=== PATIENT | male | born 1945 | race Caucasian/White ===

== ENCOUNTER 2018-05-08 11:35 | Outpatient (CLI) | payer MEDICARE, BC ==
[2018-05-08 12:04] LABS: #Lymphocytes 0.7 thou/uL (1.20-3.40); #Monocytes 0.6 thou/uL (0.11-0.59); #Neutrophils 2.9 thou/uL (1.40-6.50); %Basophils 0.6 % (0.0-1.0); %Eosinophils 19.4 % (0.0-10.0); %Lymphocytes 13.1 % (21.0-51.0); Hemoglobin 9.2 g/dL (14.0-18.0); Mean Corpuscular HGB CONC 32.4 g/dL (32.0-36.0); Mean Corpuscular Hemoglobin 30.4 pg (27.0-31.0); Mean Corpuscular Volume 93.8 fL (78.0-98.0); Platelet Count 144 thou/uL (130-400); RBC Distribution Width 14.4 % (11.5-14.5); Red Blood Cell (RBC) Count 3.03 mill/uL (4.70-6.10); White Blood Cell (WBC) Count 5.3 thou/uL (4.8-10.8)
[2018-05-08 12:16] LABS: Anion Gap 14 mmol/L (10-20); BUN (Urea Nitrogen) 99 mg/dL (8.4-25.7); Calc. Creatinine Clearance 0 mL/min (70-130); Carbon Dioxide 21 mmol/L (23-31); Chloride 108 mmol/L (98-107); Estimated GFR-MDRD 20; Glucose 83 mg/dL (83-110); Potassium 4.7 mmol/L (3.5-5.1); Sodium 138 mmol/L (136-145)
== END 2018-05-08 11:36 | disposition home or self-care (01) ==
LOC: LABBT 11:35
PROVIDERS: ATTEND Orthopaedic Surgery Hand Surgery
DX: Z01.812 Encounter for preprocedural laboratory examination (principal); G56.22 Lesion of ulnar nerve, left upper limb; G56.02 Carpal tunnel syndrome, left upper limb
CPT/HCPCS: 80048; 85025; 93005; 93010

== ENCOUNTER → 2018-06-04 | Day surgery (SDC) | payer MEDICARE, BC ==
[2018-06-03 09:34] VITALS: BMI 46.5
[~2018-06-04] MED LIST: Lidocaine 1% PF 5 ML VIAL ONE; Sodium Bicarbonate 2.5 MEQ/5 ML VIAL ONE
[2018-06-04 12:32] VITALS: TEMP 97.7
--- NOTE | 2018-06-04 13:36 | ULT ---
SONOGRAPHIC GUIDED RIGHT AXILLARY LYMPH NODE BIOPSY: HISTORY: Adenopathy. FINDINGS: After explaining the procedure and answering all questions, evaluation of the axillae was performed. At the lower right axilla, the largest lymph node visualized sonographically was located, measuring up to 2.3 cm. Sterile technique, buffered local anesthesia, sonographic guidance, and a lateral approach were used to carefully advance an 18 gauge core biopsy needle to the level of the lymph node. A total of four passes were made and submitted to pathology for evaluation. Dr. Mark was present. Post procedure imaging showed no evidence of complication. The patient tolerated the procedure well and was dismis sed in good condition. IMPRESSION: Technically successful sonographic guided right axillary lymph node biopsy. Pathology is pending. POS: HAILEY
== END ==
LOC: ULT 09:58
PROVIDERS: ATTEND Internal Medicine Medical Oncology
PROC: 07B53ZX Excision of Right Axillary Lymphatic, Percutaneous Approach, Diagnostic (ICD-10-PCS; principal; 2018-06-04)
DX: I88.8 Other nonspecific lymphadenitis (principal); E11.22 Type 2 diabetes mellitus with diabetic chronic kidney disease; N18.9 Chronic kidney disease, unspecified; D64.9 Anemia, unspecified; I25.10 Atherosclerotic heart disease of native coronary artery without angina pectoris; I25.2 Old myocardial infarction; Z87.891 Personal history of nicotine dependence; Z95.1 Presence of aortocoronary bypass graft; Z95.5 Presence of coronary angioplasty implant and graft; Z79.899 Other long term (current) drug therapy; Z79.02 Long term (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 of antithrombotics/antiplatelets
CPT/HCPCS: 38505; 88184; 88305; 88312; J2001

== ENCOUNTER 2018-07-22 12:09 | Outpatient (CLI) | payer MEDICARE, BC | END 2018-07-22 12:10 | disposition home or self-care (01) | LOC: CP 12:09 | PROVIDERS: ATTEND Internal Medicine | DX: D86.9 Sarcoidosis, unspecified (principal) | CPT/HCPCS: 94060; 94727; 94729 ==

== ENCOUNTER 2019-08-10 12:22 | Outpatient (CLI) | payer MEDICARE, BC ==
--- NOTE | 2019-08-10 13:49 | RAD ---
EXAM: Chest 2 views: HISTORY: Sarcoidosis COMPARISON: 05/06/2018 FINDINGS: There is an enlarged cardiomediastinal silhouette. The patient is status post CABG. There is no derick dence of consolidation, mass, or pleural effusion. The bones are unremarkable. IMPRESSION: No evidence of acute cardiopulmonary disease
--- NOTE | 2019-08-11 08:49 | PFT ---
PATIENT HISTORY: HEIGHT: 70 WEIGHT: 285 SMOKER: NO HOW LON PACKS PER DAY: 1 PRODUCTIVE COUGH: NO LUNG DISEASE: PHYSICIAN INTERPRETATION FINAL REPORT: Patient had fair effort and good cooperation. FVC 2.47 (57%), FEV1 1.79 (56%), FEV1/FVC 0.73. DIFFUSION 10.22 (35%) There is a symmetric reduction to both the FEV1 and FVC consistent with restrictive air flow limitation. Lung volumes were previous reduced which confirms volume restriction. Diffusion capacity is severely impaired. Compared to July 2018, there has been a near significant decline in the FVC, a significant decline in the FEV1 (230 ml), and a significant reduction in the diffusion capacity. IMPRESSION: Overall, these pulmonary function studies are consistent with a moderately severe restrictive process with severely reduced gas exchange. Clinical correlation for progressive restrictive processes should be considered. Body habitus is likely contributing, in part, to the patient's restrictive process. Senior Control Systems Engineer: STEVE Pattern Changer: STEVE VERMA
== END 2019-08-10 12:23 | disposition home or self-care (01) ==
LOC: CP 12:22 → RAD 12:23
PROVIDERS: ATTEND Internal Medicine
DX: D86.9 Sarcoidosis, unspecified (principal)
CPT/HCPCS: 71046; 94010; 94729

== ENCOUNTER 2020-01-09 09:54 | Inpatient (IN) | payer MEDICARE, BC ==
[~2020-01-09 09:54] MED LIST changes: -Lidocaine 1% PF 5 ML VIAL ONE; +Rocuronium Bromide 10 MG/ML (10ML VIAL) ONE; -Sodium Bicarbonate 2.5 MEQ/5 ML VIAL ONE
[2020-01-09 10:41] LABS: ALT (SGPT) 9 U/L (8-55); AST (SGOT) 12 U/L (5-34); Albumin 3.7 g/dL (3.4-4.8); Alkaline Phosphatase 84 U/L (40-110); Anion Gap 19 mmol/L (10-20); Bilirubin, Total 0.3 mg/dL (0.2-1.2); Calc. Creatinine Clearance 0 mL/min (70-130); Calcium 8.5 mg/dL (7.8-10.44); Carbon Dioxide 18 mmol/L (23-31); Chloride 111 mmol/L (98-107); Estimated GFR-MDRD 13; Globulin 2.5 g/dL (2.4-3.5); Glucose 108 mg/dL (83-110); Potassium 5.4 mmol/L (3.5-5.1); Protein, Total 6.2 g/dL (5.8-8.1); Sodium 143 mmol/L (136-145)
--- NOTE | 2020-01-09 10:47 | RAD ---
PORTABLE CHEST: Date: 01/09/2020 COMPARISON: 08/10/19 study. HISTORY: Shortness of breath on exertion. FINDINGS: Heart size is enlarged. Pulmonary vessels are engorged. Slightly asymmetric parenchymal change in the right lower and upper lung reed. I cannot definitely exclude some developing pneumonia. IMPRESSION: Cardiomegaly with postop sternotomy change with pulmonary vascular engorgement suggesting some elemen t of edema. There are asymmetric right upper and right lower lobe parenchymal change. This may be jus t a manifestation of edema, although early infiltrates are not excluded. POS: TPC
[2020-01-09 10:49] LABS: CKMB 2.8 ng/mL (0-6.6)
[2020-01-09 10:55] LABS: BUN (Urea Nitrogen) 137 mg/dL (8.4-25.7)
[2020-01-09] MEDS ORDERED: Furosemide 40 MG/4 ML VIAL ONE (13:17)
[2020-01-09] MEDS ORDERED: Senokot S 8.6-50 MG TAB PO PRN (14:07)
[2020-01-09] MEDS ORDERED: Famotidine 20 MG TAB PO PRN (14:09)
[2020-01-09 14:15] LABS: Troponin I 0.048 ng/mL (< 0.028)
[2020-01-09] MEDS ORDERED: Dulaglutide [Trulicity] 0.5 ML SC SCH (14:30)
[2020-01-09 14:36] LABS: #Eosinphils 0.6 thou/uL (0.0-0.7); #Lymphocytes 0.7 thou/uL (1.20-3.40); #Monocytes 0.5 thou/uL (0.11-0.59); #Neutrophils 4.2 thou/uL (1.40-6.50); %Basophils 0.1 % (0.0-1.0); %Lymphocytes 11.5 % (21.0-51.0); %Neutrophils 70.4 % (42.0-75.0); Hemoglobin 10.5 g/dL (14.0-18.0); Mean Corpuscular HGB CONC 31.7 g/dL (32.0-36.0); Mean Corpuscular Volume 94.7 fL (78.0-98.0); Mean Platelet Volume 10.2 fL (7.4-10.4); Platelet Count 163 thou/uL (130-400); RBC Distribution Width 15.2 % (11.5-14.5); Red Blood Cell (RBC) Count 3.48 mill/uL (4.70-6.10); White Blood Cell (WBC) Count 5.9 thou/uL (4.8-10.8)
[2020-01-09] MEDS: Furosemide 40 MG/4 ML VIAL SLOW IVP SCH ×2 (16:42→20:29)
[2020-01-09] MEDS ORDERED: Dextrose 5% in Water 1,000 ML IV PRN (17:02)
[2020-01-09] MEDS ORDERED: Dextrose 50% Abboject 50 ML SYRINGE IVP PRN (17:02)
[2020-01-09] MEDS: HumaLOG 300 UNITS/3 ML VIAL SC PRN (17:21)
[2020-01-09 18:02] LABS: Troponin I 0.048 ng/mL (< 0.028)
--- NOTE | 2020-01-09 19:34 | HP ---
CHIEF COMPLAINT: Shortness of breath and chest pressure. HISTORY OF PRESENT ILLNESS: A 74-year-old obese male with a history of CHF, coronary artery disease, chronic kidney disease, and type 2 diabetes mellitus, presenting with volume overload. Last night, he was not able to sleep. He had significant orthopnea. The patient also experienced chest pressure as if someone sitting on the chest. He has not gained weight for the last 2 years, almost stable. He has no fever. No sick contacts at home. No flu-like symptoms. He takes Lasix twice a day and that was not helping him much with volume issues. The patient also follows with Dr. García, commander internal affairs. Recently, one of his home regimen of Kenny has been reduced to half the dose and his kidney function was improved from the previous value. The patient will be admitted for CHF exacerbation/ volume overload as well as to rule out acute coronary syndrome. REVIEW OF SYSTEMS: Pertinent addressed in the history of present illness. The patient did not have any fever, night sweats, or chills. No nausea, vomiting, abdominal pain, constipation, hematuria, dysuria, or hematochezia. He has significant lower extremity swelling. Denies any headache or blurriness. He has shortness of breath at rest secondary to volume overload. ALLERGIES: HE HAS NO KNOWN DRUG ALLERGIES. PAST MEDICAL HISTORY: 1. Coronary artery disease, status post CABG remotely. 2. Type 2 diabetes mellitus. 3. Chronic kidney disease. 4. Hyperlipidemia. 5. Hypertension. 6. Anemia of kidney disease. SOCIAL HISTORY: No smoking or alcohol use. He quit smoking when he had a CABG. He lives with his family. FAMILY HISTORY: Both parents had cardiovascular disease. PHYSICAL EXAMINATION: GENERAL: The patient is afebrile. Currently, he is normotensive. Monitor shows some PVCs. The patient, though he is able to talk with the help of nasal cannula oxygen, it seems that obvious he is short of breath prior to initiating this oxygen. He looks quite morbidly obese, but very pleasant person. HEENT: Pupils are equal, round, and reactive to light. Anicteric. Mucous membranes moist. CARDIOVASCULAR: Regular rate and rhythm without murmurs, rubs, or gallops. LUNGS: Anterior auscultation, did not appreciate any coarse. Adventitious lung sounds. ABDOMEN: Quite protuberant, but soft. Bowel sounds are present. EXTREMITIES: He has chronic venous stasis and some erythema probably due to the stasis rather than significant. It does not appear to be cellulitis. He does have some weeping on his left foot, again this is mainly a volume issue. IMAGING STUDIES: His EKG is sinus with PVCs. His chest x-ray showed cardiomegaly with post sternotomy changes. There is pulmonary vascular engorgement suggesting some element of edema. LABORATORY DATA: Potassium 5.4 and creatinine 4.63. Troponin 0.032. BNP 1199. Hemoglobin 10.5, platelets 168,000, and WBC 5.9. IMPRESSION AND PLAN: This is a 74-year-old male with a history of coronary artery disease and possible congestive heart failure, presenting with acute on chronic congestive heart failure exacerbation, needs to be ascertained whether it is systolic, diastolic, or combination. We will get the 2D echo. I started him on Lasix IV 3 times. Strict input and output. Monitor weight. 2 g sodium diet along with diabetic diet. He is also on Kenny. The patient states that he only takes half the tablet of the usual dose. Will continue the same until verified by the commander internal affairs. 1. Acute on chronic kidney disease, IV diuresis with caution. I talked to Dr. García, who would likely see the patient this evening. 2. Hyperkalemia. I suggested to the patient a small dose of Kayexalate. The patient does not want to take that right now. We will follow Nephrology recommendation. I will also get the 2D echo to assess his ejection fraction status. He does not have an echo in the last 6 months at least not shown in the system. 3. Rest of the management based on clinical course. 4. Full code. 5. Heparin for deep venous thrombosis prophylaxis, renally dosed. Job ID: [id number] [facility]
[2020-01-09] MEDS: Heparin 5,000 UNITS/ML VIAL SC SCH (20:29)
[2020-01-09] MEDS: Sacubitril 49 MG/Valsartan 51 MG TABLET PO SCH (20:30)
[2020-01-09] MEDS: diphenhydrAMINE 50 MG CAP PO SCH (20:30)
[2020-01-09] MEDS: Acetaminophen 325 MG TAB PO PRN (20:30)
[2020-01-09] MEDS: Carvedilol 25 MG TAB PO SCH (20:30)
[2020-01-09] MEDS: Atorvastatin Calcium 40 MG TAB PO SCH (20:30)
[2020-01-09] MEDS: Clopidogrel Bisulfate 75 MG TAB PO SCH (20:30)
[2020-01-09] MEDS ORDERED: Sacubitril 49 MG/Valsartan 51 MG TABLET PO SCH (21:00)
[2020-01-09] MEDS: NPH, Human Insulin Isophane 300 UNIT/3 ML VIAL SC SCH (21:28)
[2020-01-10 04:19] LABS: #Eosinphils 0.6 thou/uL (0.0-0.7); #Lymphocytes 0.7 thou/uL (1.20-3.40); #Monocytes 0.7 thou/uL (0.11-0.59); %Basophils 0.2 % (0.0-1.0); %Eosinophils 10.4 % (0.0-10.0); %Lymphocytes 11.9 % (21.0-51.0); %Monocytes 10.8 % (0.0-10.0); %Neutrophils 66.7 % (42.0-75.0); Mean Corpuscular HGB CONC 32.3 g/dL (32.0-36.0); Mean Corpuscular Hemoglobin 30.3 pg (27.0-31.0); Mean Corpuscular Volume 93.7 fL (78.0-98.0); Platelet Count 158 thou/uL (130-400)
[2020-01-10] MEDS: Acetaminophen 325 MG TAB PO PRN (05:56)
[2020-01-10] MEDS ORDERED: Furosemide 40 MG/4 ML VIAL SLOW IVP SCH (06:00)
[2020-01-10] MEDS: Furosemide 40 MG/4 ML VIAL SLOW IVP SCH ×3 (08:32→21:18)
[2020-01-10] MEDS: Sacubitril 49 MG/Valsartan 51 MG TABLET PO SCH ×2 (08:33→21:17)
[2020-01-10] MEDS: Carvedilol 25 MG TAB PO SCH ×2 (08:33→21:18)
[2020-01-10] MEDS: Heparin 5,000 UNITS/ML VIAL SC SCH ×2 (08:33→21:19)
[2020-01-10] MEDS: Ferrous Sulfate 325 MG TAB PO SCH ×2 (08:33→08:44)
[2020-01-10] MEDS: NPH, Human Insulin Isophane 300 UNIT/3 ML VIAL SC SCH ×2 (08:33→21:18)
[2020-01-10 09:25] LABS: Anion Gap 19 mmol/L (10-20); Calc. Creatinine Clearance 34 mL/min (70-130); Calcium 8.4 mg/dL (7.8-10.44); Carbon Dioxide 17 mmol/L (23-31); Chloride 110 mmol/L (98-107); Estimated GFR-MDRD 15; Glucose 140 mg/dL (83-110); Potassium 5.7 mmol/L (3.5-5.1); Sodium 140 mmol/L (136-145)
[2020-01-10 09:36] LABS: BUN (Urea Nitrogen) 130 mg/dL (8.4-25.7)
[2020-01-10] MEDS ORDERED: Heparin 10,000 UNITS/ 10 ML VIAL ONE (09:39)
[2020-01-10] MEDS ORDERED: tiZANidine HCl 4 MG TAB PO PRN (09:40)
[2020-01-10] MEDS ORDERED: Nitroglycerin 4.9 GM Bottle SL PRN ×2 (09:40→10:11)
[2020-01-10] MEDS ORDERED: Non-Formulary Item 1 EACH (Acetaminophen [Tylenol] 2 TAB) PO PRN (09:40)
--- NOTE | 2020-01-10 09:54 | PDOC.HOSPP ---
- Subjective Encounter Date: 01/10/20 Encounter Time: 09:50 Subjective: sob, on O2 - Objective Vital Signs & Weight: Vital Signs (12 hours) Temp Pulse Resp BP BP Pulse Ox 01/10/20 07:22 97.9 F 83 18 139/76 94 L 01/10/20 04:00 97.9 F 75 23 H 94/51 L 93 L 01/10/20 00:21 92 67 H 92 L Weight Weight 314 lb 11.2 oz I&O: 01/09/20 01/10/20 01/11/20 06:59 06:59 06:59 Intake Total 240 Output Total 400 Balance -160 Result Diagrams: 01/10/20 04:06 01/10/20 09:03 Additional Labs: Accuchecks 01/10/20 01/09/20 01/09/20 06:29 20:39 16:47 POC Glucose 155 H 203 H 196 H Hospitalist ROS - Medication Medications: Active Medications Generic Name Dose Route Start Last Admin Trade Name Freq PRN Reason Stop Dose Admin Acetaminophen 650 mg 01/09/20 14:07 01/10/20 05:56 Tylenol PO 650 mg Q4H PRN Administration Headache/Fever/Mild Pain (1-3) Atorvastatin Calcium 80 mg 01/09/20 21:00 01/09/20 20:30 Lipitor PO 80 mg HS RAYNA Administration Carvedilol 25 mg 01/09/20 21:00 01/10/20 08:33 Coreg PO 25 mg BID RAYNA Administration Clopidogrel Bisulfate 75 mg 01/09/20 21:00 01/09/20 20:30 Plavix PO 75 mg QPM RAYNA Administration Diphenhydramine HCl 50 mg 01/09/20 21:00 01/09/20 20:30 Benadryl PO 50 mg HS RAYNA Administration Ferrous Sulfate 325 mg 01/10/20 08:00 01/10/20 08:44 Feosol PO Not Given QAM-WM RAYNA Furosemide 40 mg 01/09/20 15:00 01/10/20 08:32 Lasix SLOW IVP 40 mg TID RAYNA Administration Heparin Sodium (Porcine) 5,000 units 01/09/20 21:00 01/10/20 08:33 Heparin SC 5,000 units BID RAYNA Administration Insulin Human Lispro 0 units 01/09/20 17:02 03/22/20 17:21 Humalog SC 2 unit .MILD SLIDING SCALE PRN Administration MILD SLIDING SCALE Protocol Insulin Human NPH 15 unit 01/09/20 21:00 01/10/20 08:33 Humulin N SC 15 unit BID RAYNA Administration Sacubitril/Valsartan 0.5 tab 01/09/20 21:00 01/10/20 08:33 Entresto 49 Mg-51 Mg Tablet PO 0.5 tab BID RAYNA Administration - Exam General Appearance: awake alert Neck: no JVD Heart: RRR, no murmur Respiratory - other findings: marked decreased BS Gastrointestinal: soft, non-distended, normal bowel sounds Extremities: 1+ LE edema Hosp A/P (1) Acute on chronic systolic and diastolic heart failure, NYHA class 3 Code(s): I50.43 - ACUTE ON CHRONIC COMBINED SYSTOLIC AND DIASTOLIC HRT FAIL Status: Acute (2) Acute on chronic renal failure Code(s): N17.9 - ACUTE KIDNEY FAILURE, UNSPECIFIED; N18.9 - CHRONIC KIDNEY DISEASE, UNSPECIFIED Status: Acute Qualifiers: Acute renal failure type: unspecified Chronic kidney disease stage: stage 5 , not on chronic dialysis Qualified Code(s): N17.9 - Acute kidney failure, unspecified; N18.5 - Chronic kidney disease, stage 5 (3) Acute respiratory failure with hypoxia Code(s): J96.01 - ACUTE RESPIRATORY FAILURE WITH HYPOXIA Status: Acute (4) DM type 2 causing CKD stage 4 Code(s): E11.22 - TYPE 2 DIABETES MELLITUS W DIABETIC CHRONIC KIDNEY DISEASE; N18.4 - CHRONIC KIDNEY DISEASE, STAGE 4 (SEVERE) Status: Acute - Plan HD catheter for HD HD per nephrology cont home meds
[2020-01-10] MEDS ORDERED: CEFAZOLIN 2 GM in Premix Bag 1 BAG IVPB SCH (10:00)
[2020-01-10] MEDS ORDERED: Acetaminophen 325 MG TAB PO PRN (10:12)
[2020-01-10 10:37] LABS: HIV (1/2) Antibody/Antigen Non-Reactive (NonReactive); HIV 1/2 INDEX 0.16 S/CO (<1.00); Hep C IgG Ab Non-Reactive (NonReactive); Hep C Index 0.05 S/CO (0-0.79)
[2020-01-10] MEDS ORDERED: Sodium Chloride 0.9% 10 ML ONE (11:06)
[2020-01-10] MEDS ORDERED: Bupivacaine PF 0.5% 30 ML VIAL ONE (11:06)
[2020-01-10] MEDS ORDERED: Lidocaine 1% w/Epinephrine 1:100K 20 ML VIAL ONE (11:06)
[2020-01-10] MEDS ORDERED: Heparin 10,000 UNITS/1 ML VIAL ONE (11:06)
--- NOTE | 2020-01-10 11:45 | ULT ---
BILATERAL UPPER EXTREMITY VEIN MAPPING: HISTORY: End stage renal disease. Mapping for dialysis access. FINDINGS: RIGHT: CEPHALIC: Proximal humerus 2.7 cm Mid humerus 2.9 cm Distal 2.6 cm Elbow 3.0 cm Proximal forearm 3.0 cm Mid 2.5 cm Distal 2.7 cm BASILIC: Proximal humerus 4.2 cm Mid humerus 4.6 cm Distal 3.4 cm Elbow 3.3 cm Proximal forearm 1.4 cm Mid 1.7 cm Distal 1.8 cm LEFT: CEPHALIC: Proximal humerus 3.7 cm Mid humerus 2.6 cm Distal 2.1 cm Elbow 2.7 cm Proximal forearm 4.0 cm Mid 2.6 cm Distal 2.2 cm BASILIC: Proximal humerus 3.0 cm Mid humerus 3.8 cm Distal 3.1 cm Elbow 2.8 cm Proximal forearm 2.0 cm Mid 2.5 cm Distal 2.6 cm RIGHT: Brachial artery 4.7 mm. Radial artery 2.1 mm. Ulnar artery 2.2 mm. LEFT: Brachial artery 4.4 mm. Radial artery 2.5 mm. Ulnar artery 2.3 mm. IMPRESSION: Vein mapping as above. POS: TPC
--- NOTE | 2020-01-10 13:28 | CON ---
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 Dr. García has asked me to see him regarding establishment of hemodialysis access, IV access, and a primary fistula. The patient currently is dyspneic and his hemoglobin is 10, white count 6, carbon dioxide 17, sodium 140, and potassium 5.7. Plan is for hemodialysis catheter today and central line and defer primary fistula to later in the week. We will obtain ultrasound vein mapping in the interim. He has a left antecubital IV, which has been removed immediately on my consultation and establishment of a hand IV initiated. We will place the central line due to IV access. ALLERGIES: NONE. HE REPORTS MORPHINE ONCE CAUSED NAUSEA AND VOMITING, BUT HE IS NOT ALLERGIC TO IT. SOCIAL HISTORY: Tobacco, none. Alcohol, none. MEDICATIONS: 1. Insulin. 2. Atorvastatin. 3. Allopurinol. 4. Furosemide. 5. Plavix. 6. Carvedilol. 7. Trulicity. 8. Ferrous sulfate. PAST SURGICAL HISTORY: Multiple stents prior to undergoing coronary artery bypass grafting [place] [address] Ponce. He has had stents placed since then. Last seen by Dr. Henriquez in 2011 for stent and cath. He saw Dr. Henriquez last year and was supposed to see him next week. The patient had a colonoscopy a year ago. He has not had any prior surgeries otherwise. PAST MEDICAL HISTORY: Type 2 diabetes mellitus; coronary artery disease status post CABG and stents, followed by Dr. Henriquez; chronic kidney disease, currently end-stage renal disease, need to initiate dialysis; hyperlipidemia; hypertension; chronic anemia. REVIEW OF SYSTEMS: Ten-point noncontributory. FAMILY HISTORY: Noncontributory. PHYSICAL EXAMINATION: GENERAL: 5 feet 11 inches, 314 pounds, and 43 BMI. The patient appears slightly dyspneic. VITAL SIGNS: Temperature 97.9 degrees, pulse 83, respirations 18, and blood pressure 139/76. HEAD, EARS, EYES, NOSE, AND THROAT: Unremarkable. Sclerae nonicteric. SKIN: Nonjaundiced. LUNGS: Clear to auscultation. No wheezing. CARDIAC: Regular rate and rhythm. ABDOMEN: Obese, large pannus, soft, and nontender. EXTREMITIES: Chronic venous stasis changes, lower extremities. Palpable pedal pulses. Palpable radial pulses. IV left antecubital removed. He does have veins in his hand. LABORATORY DATA: As noted above. ASSESSMENT/PLAN: 1. End-stage renal disease. Marking ultrasound has been done. Interpretation pending. We will plan primary fistula later in the week. He needs hemodialysis access. We will plan that today as well as a central line. He understands risks and benefits, consents. 2. Metabolic syndrome. 3. Morbid obesity. 4. Insulin-dependent diabetes mellitus. 5. Hypertension. 6. Coronary artery disease, followed by Dr. Henriquez. 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 Job ID: [id number]
[2020-01-10] MEDS ORDERED: Acetaminophen 500 MG TAB PO PRN (13:37)
--- NOTE | 2020-01-10 13:47 | RAD ---
Chest one view HISTORY: Central line placement. COMPARISON: 01/09/2020. FINDINGS: Cardiac silhouette is magnified and enlarged. Pulmonary vasculature remains engorged with w idespread reticulonodular interstitial prominence and patchy areas of ill-defined parenchymal opacity. Small amount of fluid within the right chest, extending into the minor fissure. Small amount of left pleural fluid also apparent. Patient is slightly rotated leftward. Postoperative changes mediastinum are evident. Tip of a left internal jugular central venous catheter projects over the superior vena cava. Tip of a large caliber right internal jugular dialysis type catheter overlies the cavoatrial junction . No evidence of pneumothorax. IMPRESSION : Bilateral internal jugular catheters are in good radiographic position. Pulmonary vascular congestion/edema with small bilateral pleural effusions.
[2020-01-10 15:25] LABS: Hep B Surf Ag Non-Reactive S/CO (NonReactive)
[2020-01-10] MEDS ORDERED: Tuberculin PPD 0.1 ML VIAL I-DERMAL SCH (16:45)
[2020-01-10] MEDS: HumuLIN 70/30 (300 UNITS/3 ML VIAL) SC SCH (17:17)
[2020-01-10] MEDS: Atorvastatin Calcium 40 MG TAB PO SCH (21:17)
[2020-01-10] MEDS: Clopidogrel Bisulfate 75 MG TAB PO SCH (21:18)
[2020-01-10] MEDS: diphenhydrAMINE 50 MG CAP PO SCH (21:18)
[2020-01-11 04:24] LABS: #Eosinphils 0.3 thou/uL (0.0-0.7); #Lymphocytes 0.6 thou/uL (1.20-3.40); #Monocytes 0.8 thou/uL (0.11-0.59); #Neutrophils 5.2 thou/uL (1.40-6.50); %Basophils 0.2 % (0.0-1.0); %Eosinophils 4.2 % (0.0-10.0); %Lymphocytes 9.2 % (21.0-51.0); %Monocytes 11.4 % (0.0-10.0); %Neutrophils 75.1 % (42.0-75.0); Hemoglobin 9.7 g/dL (14.0-18.0); Mean Corpuscular HGB CONC 32.4 g/dL (32.0-36.0); Mean Corpuscular Hemoglobin 30.7 pg (27.0-31.0); Mean Corpuscular Volume 94.6 fL (78.0-98.0); Mean Platelet Volume 10.1 fL (7.4-10.4); Platelet Count 158 thou/uL (130-400); RBC Distribution Width 15.1 % (11.5-14.5); Red Blood Cell (RBC) Count 3.15 mill/uL (4.70-6.10); White Blood Cell (WBC) Count 6.9 thou/uL (4.8-10.8)
[2020-01-11] MEDS: Acetaminophen 325 MG TAB PO PRN (05:21)
[2020-01-11] MEDS: Heparin 5,000 UNITS/ML VIAL SC SCH ×2 (08:36→20:38)
[2020-01-11] MEDS: Carvedilol 25 MG TAB PO SCH ×2 (08:42→20:37)
[2020-01-11] MEDS: Sacubitril 49 MG/Valsartan 51 MG TABLET PO SCH ×2 (08:42→20:36)
[2020-01-11] MEDS: Ferrous Sulfate 325 MG TAB PO SCH (08:42)
[2020-01-11] MEDS: Allopurinol 100 MG TAB PO SCH (08:42)
[2020-01-11] MEDS: HumuLIN 70/30 (300 UNITS/3 ML VIAL) SC SCH ×2 (08:43→19:08)
[2020-01-11] MEDS: NPH, Human Insulin Isophane 300 UNIT/3 ML VIAL SC SCH ×2 (08:44→22:11)
[2020-01-11] MEDS: Furosemide 40 MG/4 ML VIAL SLOW IVP SCH ×3 (08:44→20:38)
[2020-01-11 09:45] LABS: Anion Gap 14 mmol/L (10-20); Calc. Creatinine Clearance 35 mL/min (70-130); Calcium 8.4 mg/dL (7.8-10.44); Carbon Dioxide 24 mmol/L (23-31); Chloride 106 mmol/L (98-107); Estimated GFR-MDRD 15; Glucose 90 mg/dL (83-110); Potassium 5.3 mmol/L (3.5-5.1); Sodium 139 mmol/L (136-145)
[2020-01-11] MEDS ORDERED: traMADol HCl 50 MG TAB PO PRN (10:04)
[2020-01-11 10:06] LABS: BUN (Urea Nitrogen) 118 mg/dL (8.4-25.7)
[2020-01-11] MEDS ORDERED: Protamine Sulfate 50 MG/5 ML VIAL ONE (12:22)
[2020-01-11] MEDS ORDERED: Lidocaine 1% w/Epinephrine 1:100K 20 ML VIAL ONE (12:22)
[2020-01-11] MEDS ORDERED: Bupivacaine PF 0.5% 30 ML VIAL ONE (12:22)
[2020-01-11] MEDS ORDERED: Heparin 5,000 UNITS/ML VIAL ONE (12:22)
--- NOTE | 2020-01-11 15:03 | PDOC.HOSPP ---
- Subjective Encounter Date: 01/11/20 Subjective: Feeling some better. Breathing is better. Reports sciatica pain. New for him. Bilateral. Manager Transportation Planning is [place]. - Objective Vital Signs & Weight: Vital Signs (12 hours) Temp Pulse Resp BP BP Pulse Ox 01/11/20 11:55 97.8 F 68 20 149/64 H 96 01/11/20 08:00 97.3 F L 84 16 129/73 96 01/11/20 03:26 97.6 F 73 20 134/62 93 L Weight Weight 324 lb 8.327 oz I&O: 01/10/20 01/11/20 01/12/20 06:59 06:59 06:59 Intake Total 240 720 Output Total 400 900 Balance -160 -180 Result Diagrams: 01/11/20 04:05 01/11/20 08:40 Additional Labs: Accuchecks 01/11/20 01/11/20 01/10/20 11:02 06:14 20:35 POC Glucose 88 99 180 H 01/10/20 01/10/20 16:58 11:29 POC Glucose 95 130 H Hospitalist ROS - Medication Medications: Active Medications Generic Name Dose Route Start Last Admin Trade Name Freq PRN Reason Stop Dose Admin Allopurinol 100 mg 01/11/20 09:00 01/11/20 08:42 Zyloprim PO 100 mg DAILY RAYNA Administration Atorvastatin Calcium 80 mg 01/09/20 21:00 01/10/20 21:17 Lipitor PO 80 mg HS RAYNA Administration Carvedilol 25 mg 01/09/20 21:00 01/11/20 08:42 Coreg PO 25 mg BID RAYNA Administration Clopidogrel Bisulfate 75 mg 01/09/20 21:00 01/10/20 21:18 Plavix PO Not Given QPM RAYNA Diphenhydramine HCl 50 mg 01/09/20 21:00 01/10/20 21:18 Benadryl PO 50 mg HS RAYNA Administration Ferrous Sulfate 325 mg 01/10/20 08:00 01/11/20 08:42 Feosol PO Not Given QAM-WM RAYNA Furosemide 40 mg 01/09/20 15:00 01/11/20 14:30 Lasix SLOW IVP 40 mg TID RAYNA Administration Heparin Sodium (Porcine) 5,000 units 01/09/20 21:00 01/11/20 08:36 Heparin SC Not Given BID [facility] Insulin Human Isoph/Insulin Regular 30 units 01/10/20 16:30 01/11/20 08:43 Humulin 70/30 SC Not Given BID-AC [facility] Insulin Human Lispro 0 units 01/09/20 17:02 01/09/20 17:21 Humalog SC 2 unit .MILD SLIDING SCALE PRN Administration MILD SLIDING SCALE Protocol Insulin Human NPH 15 unit 01/09/20 21:00 01/11/20 08:44 Humulin N SC Not Given BID [facility] Sacubitril/Valsartan 0.5 tab 01/09/20 21:00 01/11/20 08:42 Entresto 49 Mg-51 Mg Tablet PO 0.5 tab BID RAYNA Administration Sodium Chloride 10 ml 01/10/20 21:00 01/11/20 10:21 Flush - Normal Saline IVF Not Given Q12HR RAYNA - Exam General Appearance: NAD, awake alert General - other findings: Mobidly obese. Heart: RRR, no murmur, no gallops, no rubs, normal peripheral pulses Respiratory: CTAB, no wheezes, no rales, no ronchi, normal chest expansion, no tachypnea, normal percussion Gastrointestinal: soft, non-tender, non-distended, normal bowel sounds, no palpable masses, no hepatomegaly, no splenomegaly, no bruit Extremities: 2+ LE edema Extremities - other findings: RLE edema >L. RLE erythema and warmth. Neurological: no new deficit Musculoskeletal: generalized weakness Psychiatric: normal affect, normal behavior, A&O x 3 Hosp A/P (1) Volume overload Code(s): E87.70 - FLUID OVERLOAD, UNSPECIFIED Status: Acute (2) ESRD (end stage renal disease) on dialysis Code(s): N18.6 - END STAGE RENAL DISEASE; Z99.2 - DEPENDENCE ON RENAL DIALYSIS Status: Acute (3) Cellulitis of right leg without foot Code(s): L03.115 - CELLULITIS OF RIGHT LOWER LIMB Status: Acute (4) Sciatica Code(s): M54.30 - SCIATICA, UNSPECIFIED SIDE Status: Acute (5) Diabetes mellitus Code(s): E11.9 - TYPE 2 DIABETES MELLITUS WITHOUT COMPLICATIONS Status: Acute (6) Acute on chronic systolic and diastolic heart failure, NYHA class 3 Code(s): I50.43 - ACUTE ON CHRONIC COMBINED SYSTOLIC AND DIASTOLIC HRT FAIL Status: Acute (7) Acute respiratory failure with hypoxia Code(s): J96.01 - ACUTE RESPIRATORY FAILURE WITH HYPOXIA Status: Acute (8) Chronic anemia Code(s): D64.9 - ANEMIA, UNSPECIFIED Status: Acute - Plan Volume overloaded with ESRD and initiation of HD. Had TLC and tunneled HD catheter placed yesterday. AV fistula being placed today. HD per Nephrology. Feeling better after initial HD. Unclear if this is related to CHF. Will discuss with his Manager Transportation Planning, Dr. Henriquez. We have no record of and Echo or documented EF to indicate failure here. XR of the lumbar spine. PT. RLE cellulitis was treated as OP with oral PCN. He did not finish his course. Will add Vancomycin for now, given the new lines and procedures. Glucose well controlled. Patient indicates he has long-standing anemia. Followed with Dr. Leonard and gets Procrit injections.
--- NOTE | 2020-01-11 16:27 | RAD ---
FOUR VIEWS OF THE LUMBAR SPINE 01/11/20 HISTORY: Sciatica. FINDINGS: There is multilevel lateral osteophyte formation noted within the lumbar spine on the frontal view, m ost prominent at the L5-S1 level on the left. The lateral exam demonstrates no significant anterolist hesis or retrolisthesis. There is multilevel disc space narrowing with degenerative end plate change and anterior osteophyte formation, most prominent within the upper lumbar spine and at the thoracolum bar junction. There is prominent lower lumbar spine facet hypertrophy. There is atherosclerotic calci fication of the abdominal aorta. No acute fracture or dislocation. IMPRESSION: Extensive multilevel degenerative change within the lumbar spine. No acute fracture or dislocation. I f there are radicular symptoms, MRI may be beneficial. POS: ROEL
[2020-01-11] MEDS: Atorvastatin Calcium 40 MG TAB PO SCH (20:37)
[2020-01-11] MEDS: traMADol HCl 50 MG TAB PO PRN (20:37)
[2020-01-11] MEDS: diphenhydrAMINE 50 MG CAP PO SCH (20:37)
[2020-01-11] MEDS: Clopidogrel Bisulfate 75 MG TAB PO SCH (20:38)
[2020-01-11] MEDS ORDERED: Vancomycin HCl 1 GM in Sodium Chloride 0.9% 250 ML 250 ML IVPB SCH (21:00)
[2020-01-12 04:23] LABS: #Eosinphils 0.3 thou/uL (0.0-0.7); #Lymphocytes 0.6 thou/uL (1.20-3.40); #Monocytes 0.5 thou/uL (0.11-0.59); %Basophils 0.5 % (0.0-1.0); %Eosinophils 5.8 % (0.0-10.0); %Lymphocytes 11.1 % (21.0-51.0); %Monocytes 9.4 % (0.0-10.0); %Neutrophils 73.3 % (42.0-75.0); Hemoglobin 9.1 g/dL (14.0-18.0); Mean Corpuscular HGB CONC 31.4 g/dL (32.0-36.0); Mean Corpuscular Volume 95.5 fL (78.0-98.0); Mean Platelet Volume 10.5 fL (7.4-10.4); Platelet Count 158 thou/uL (130-400); Red Blood Cell (RBC) Count 3.04 mill/uL (4.70-6.10); White Blood Cell (WBC) Count 5.5 thou/uL (4.8-10.8)
[2020-01-12] MEDS: Acetaminophen 500 MG TAB PO PRN (05:49)
--- NOTE | 2020-01-12 07:42 | OP ---
DATE OF PROCEDURE: 01/10/2020 PREOPERATIVE DIAGNOSES: Chronic kidney disease with end-stage renal disease status and hyperkalemia, need of acute dialysis access, morbid obesity. POSTOPERATIVE DIAGNOSES: Chronic kidney disease with end-stage renal disease status and hyperkalemia, need of acute dialysis access, morbid obesity. PROCEDURES PERFORMED: Right internal jugular cuffed tunneled hemodialysis catheter, left internal jugular central line triple lumen. ANESTHESIA: Local 0.5% Marcaine 30 mL mixed with 1% Xylocaine with epinephrine 20 mL. Now, the patient's morbid obesity, dyspnea, and need of acute dialysis prevented sedation. Now, the patient tolerated the procedure very well, although, was slightly claustrophobic, but was verbally consoled to allow the procedure. DESCRIPTION OF PROCEDURE: The patient was taken to the operating room with anesthesia standby and oxygen supplementation without sedation. Neck and chest prepared with ChloraPrep and draped in routine fashion. Local anesthetic was infiltrated in the skin and subcutaneous tissue about the operative site. Ultrasound used to cannulate both the right and left internal jugular vein, J-wire threaded, trocar catheter removed. Skin site was enlarged sharply on both sides. A stab incision was made over the right chest. A cuffed tunneled hemodialysis catheter tunneled between the 2 incisions, placed the fabric cuff beneath the exit site on the right chest, securing the catheter with 3-0 nylon suture. Small and medium size dilators placed over the J-wire into the internal jugular vein removed. Dilator and Peel-Away sheath placed over the J-wire into superior vena cava. Dilator and J-wire were removed. Catheter placed with Peel-Away sheath. Peel-Away sheath removed. Platysma was approximated with 4-0 Monocryl, skin with subdermal 4-0 Monocryl and Ottosen glue applied and each port aspirated blood flushed with saline solution and heparinized saline solution, 1000 units of heparin per milliliter indicating volume of the port. Seldinger technique used to place a triple-lumen catheter on the left IJ, securing the catheter with 3-0 nylon suture and sterile dressings applied. J-wire had been removed, and each port aspirated blood flushed with saline solution. Job ID: [id number]
[2020-01-12] MEDS ORDERED: Vancomycin HCl 1 GM in Sodium Chloride 0.9% 250 ML 250 ML IVPB SCH (09:00)
[2020-01-12 09:33] LABS: Anion Gap 18 mmol/L (10-20); Calc. Creatinine Clearance 27 mL/min (70-130); Calcium 8.1 mg/dL (7.8-10.44); Carbon Dioxide 21 mmol/L (23-31); Chloride 105 mmol/L (98-107); Estimated GFR-MDRD 11; Glucose 145 mg/dL (83-110); Potassium 5.9 mmol/L (3.5-5.1); Sodium 138 mmol/L (136-145)
[2020-01-12] MEDS ORDERED: Heparin 10,000 UNITS/ 10 ML VIAL ONE (09:35)
[2020-01-12 09:44] LABS: BUN (Urea Nitrogen) 128 mg/dL (8.4-25.7)
[2020-01-12 11:19] LABS: Vancomycin, Random 17.4 ug/mL (See Comment)
[2020-01-12] MEDS: Ferrous Sulfate 325 MG TAB PO SCH (11:34)
[2020-01-12] MEDS: Sacubitril 49 MG/Valsartan 51 MG TABLET PO SCH ×2 (11:38→21:30)
[2020-01-12] MEDS: Carvedilol 25 MG TAB PO SCH ×2 (11:38→21:30)
[2020-01-12] MEDS: Allopurinol 100 MG TAB PO SCH (11:38)
[2020-01-12] MEDS: Furosemide 40 MG/4 ML VIAL SLOW IVP SCH ×3 (11:39→21:31)
[2020-01-12] MEDS: Heparin 5,000 UNITS/ML VIAL SC SCH ×2 (11:39→21:31)
[2020-01-12] MEDS: NPH, Human Insulin Isophane 300 UNIT/3 ML VIAL SC SCH ×2 (11:42→21:32)
--- NOTE | 2020-01-12 11:53 | PRG ---
DATE OF SERVICE: 01/12/2020 Kt Saldana's surgery was canceled yesterday for his left arm primary fistula because he was too dyspneic and orthopneic. Echo has not been obtained in this hospitalization. The patient states that the reason he is short of breath is because they had his head down too low. I explained to him that he has had only 1 dialysis and that he may need more dialysis to remove more fluid before his fistula can be formed. Today, he is undergoing his second dialysis for [address] García will order next dialysis either tomorrow or Friday. If the patient is not less dyspneic and if he cannot lay flat by Friday, we will postpone his left arm fistula formation until next week, but we will keep him n.p.o. Friday in case he is diuresed/dialyzed enough and not orthopneic such that he can have his left arm fistula. Otherwise, we will postpone this until next week. Job ID: [id number]
[2020-01-12] MEDS ORDERED: Vancomycin Sliding Scale 1 EACH FS ONE (12:00)
[2020-01-12] MEDS ORDERED: Vancomycin HCl 1.5 GM in Sodium Chloride 0.9% 250 ML 300 ML IVPB SCH (12:00)
[2020-01-12] MEDS ORDERED: HOLD VANCOMYCIN FOR LEVEL >20 FS SCH (12:00)
[2020-01-12] MEDS ORDERED: Vancomycin HCl 1.25 GM in Sodium Chloride 0.9% 250 ML 250 ML IVPB SCH (12:00)
[2020-01-12 12:37] LABS: Hep B Surface AG-Rflx Sendout Negative (Negative); Hepatitis B Core Total Negative (Negative); Hepatitis B Surface AB-Sendout Non Reactive (.)
[2020-01-12] MEDS: HumuLIN 70/30 (300 UNITS/3 ML VIAL) SC SCH ×2 (13:11→16:46)
--- NOTE | 2020-01-12 14:33 | PDOC.HOSPP ---
- Subjective Encounter Date: 01/12/20 Subjective: Doing ok. Reports some discomfort of the skin in the left pannus. Tolerating the dialysis very well. - Objective Vital Signs & Weight: Vital Signs (12 hours) Temp Pulse Resp BP Pulse Ox 01/12/20 11:17 73 22 H 131/58 L 97 01/12/20 08:27 97.9 F 72 20 92/55 L 97 01/12/20 03:14 97.3 F L 65 18 140/65 96 Weight Weight 322 lb 15.635 oz I&O: 01/11/20 01/12/20 01/13/20 06:59 06:59 06:59 Intake Total 720 Output Total 900 Balance -180 Result Diagrams: 01/12/20 03:39 01/12/20 08:52 Additional Labs: Accuchecks 01/12/20 01/12/20 01/11/20 10:35 05:55 20:33 POC Glucose 125 H 131 H 177 H 01/11/20 17:04 POC Glucose 90 Hospitalist ROS - Medication Medications: Active Medications Generic Name Dose Route Start Last Admin Trade Name Freq PRN Reason Stop Dose Admin Acetaminophen 1,000 mg 01/11/20 10:04 01/12/20 05:49 Tylenol PO 1,000 mg Q6H PRN Administration Moderate to Severe Pain (6-10) Allopurinol 100 mg 01/11/20 09:00 01/12/20 11:38 Zyloprim PO 100 mg DAILY RAYNA Administration Atorvastatin Calcium 80 mg 01/09/20 21:00 01/11/20 20:37 Lipitor PO 80 mg HS RAYNA Administration Carvedilol 25 mg 01/09/20 21:00 01/12/20 11:38 Coreg PO 25 mg BID RAYNA Administration Clopidogrel Bisulfate 75 mg 01/09/20 21:00 01/11/20 20:38 Plavix PO 75 mg QPM RAYNA Administration Diphenhydramine HCl 50 mg 01/09/20 21:00 01/11/20 20:37 Benadryl PO 50 mg HS RAYNA Administration Ferrous Sulfate 325 mg 01/10/20 08:00 01/12/20 11:34 Feosol PO Not Given QAM-WM RAYNA Furosemide 40 mg 01/09/20 15:00 01/12/20 11:39 Lasix SLOW IVP 40 mg TID RAYNA Administration Heparin Sodium (Porcine) 5,000 units 01/09/20 21:00 01/12/20 11:39 Heparin SC 5,000 units BID RAYNA Administration Insulin Human Isoph/Insulin Regular 30 units 01/10/20 16:30 01/12/20 13:11 Humulin 70/30 SC Not Given BID-AC RAYNA Insulin Human Lispro 0 units 01/09/20 17:02 01/09/20 17:21 Humalog SC 2 unit .MILD SLIDING SCALE PRN Administration MILD SLIDING SCALE Protocol Insulin Human NPH 15 unit 01/09/20 21:00 01/12/20 11:42 Humulin N SC 15 unit BID RAYNA Administration Sacubitril/Valsartan 0.5 tab 01/09/20 21:00 01/12/20 11:38 Entresto 49 Mg-51 Mg Tablet PO 0.5 tab BID RAYNA Administration Sodium Chloride 10 ml 01/10/20 21:00 01/12/20 11:38 Flush - Normal Saline IVF 10 ml Q12HR RAYNA Administration Tramadol HCl 50 mg 01/11/20 11:36 01/11/20 20:37 Ultram PO 50 mg Q12H PRN Administration Pain - Exam General Appearance: NAD, awake alert General - other findings: Morbidly obese. Heart: RRR, no murmur, no gallops, no rubs, normal peripheral pulses Respiratory: CTAB, no wheezes, no rales, no ronchi, normal chest expansion, no tachypnea, normal percussion Gastrointestinal: soft, non-tender, non-distended, normal bowel sounds, no palpable masses, no hepatomegaly, no splenomegaly, no bruit Extremities: no cyanosis Skin: normal turgor Skin - other findings: intertrigo left lower abd pannus. Musculoskeletal: normal tone Psychiatric: normal affect, normal behavior, A&O x 3 Hosp A/P (1) Volume overload Code(s): E87.70 - FLUID OVERLOAD, UNSPECIFIED Status: Acute (2) ESRD (end stage renal disease) on dialysis Code(s): N18.6 - END STAGE RENAL DISEASE; Z99.2 - DEPENDENCE ON RENAL DIALYSIS Status: Acute (3) Cellulitis of right leg without foot Code(s): L03.115 - CELLULITIS OF RIGHT LOWER LIMB Status: Acute (4) Sciatica Code(s): M54.30 - SCIATICA, UNSPECIFIED SIDE Status: Acute (5) Diabetes mellitus Code(s): E11.9 - TYPE 2 DIABETES MELLITUS WITHOUT COMPLICATIONS Status: Acute (6) Acute on chronic systolic and diastolic heart failure, NYHA class 3 Code(s): I50.43 - ACUTE ON CHRONIC COMBINED SYSTOLIC AND DIASTOLIC HRT FAIL Status: Acute (7) Acute respiratory failure with hypoxia Code(s): J96.01 - ACUTE RESPIRATORY FAILURE WITH HYPOXIA Status: Acute (8) Chronic anemia Code(s): D64.9 - ANEMIA, UNSPECIFIED Status: Acute (9) Intertriginous candidiasis Code(s): B37.2 - CANDIDIASIS OF SKIN AND NAIL Status: Acute - Plan Volume overloaded with ESRD and initiation of HD. Had TLC and tunneled HD catheter placed. AV fistula being postponed until he can tolerate it better. HD per Nephrology. Feeling better after initial HD. Unclear if this is related to CHF. Will discuss with his Handle And Vent Machine Operator, Dr. Henriquez. We have no record of and Echo or documented EF to indicate failure here. XR of the lumbar spine. PT. RLE cellulitis was treated as OP with oral PCN. He did not finish his course. Will add Vancomycin. Glucose well controlled. Patient indicates he has long-standing anemia. Followed with Dr. Leonard and gets Procrit injections. Add Nystatin powder for intertrigo
[2020-01-12] MEDS ORDERED: Nystatin Powder 15 GM BOT TOP PRN (14:37)
[2020-01-12] MEDS: READ PPD TEST SITE PO SCH (17:57)
[2020-01-12] MEDS: Atorvastatin Calcium 40 MG TAB PO SCH (21:30)
[2020-01-12] MEDS: diphenhydrAMINE 50 MG CAP PO SCH (21:30)
[2020-01-12] MEDS: Clopidogrel Bisulfate 75 MG TAB PO SCH (21:30)
[2020-01-13] MEDS: traMADol HCl 50 MG TAB PO PRN ×2 (02:18→20:52)
[2020-01-13 04:56] LABS: Anion Gap 18 mmol/L (10-20); BUN (Urea Nitrogen) 106 mg/dL (8.4-25.7); Calc. Creatinine Clearance 30 mL/min (70-130); Calcium 7.8 mg/dL (7.8-10.44); Carbon Dioxide 22 mmol/L (23-31); Chloride 103 mmol/L (98-107); Estimated GFR-MDRD 13; Potassium 4.9 mmol/L (3.5-5.1); Sodium 138 mmol/L (136-145)
[2020-01-13 05:02] LABS: Glucose 34 mg/dL (83-110)
[2020-01-13] MEDS: HumuLIN 70/30 (300 UNITS/3 ML VIAL) SC SCH ×2 (07:14→17:39)
[2020-01-13] MEDS: Ferrous Sulfate 325 MG TAB PO SCH (09:47)
[2020-01-13] MEDS: Allopurinol 100 MG TAB PO SCH (09:47)
[2020-01-13] MEDS: Sacubitril 49 MG/Valsartan 51 MG TABLET PO SCH ×2 (09:48→20:51)
[2020-01-13] MEDS: Carvedilol 25 MG TAB PO SCH ×2 (09:48→20:52)
[2020-01-13] MEDS: Furosemide 40 MG/4 ML VIAL SLOW IVP SCH ×2 (09:48→14:50)
[2020-01-13] MEDS: Heparin 5,000 UNITS/ML VIAL SC SCH ×2 (09:48→20:51)
--- NOTE | 2020-01-13 14:09 | PDOC.HOSPP ---
- Subjective Encounter Date: 01/13/20 Subjective: Does not feel great today. Had some hypoglycemia this morning. No reports sciatica pain in the right thigh. - Objective Vital Signs & Weight: Vital Signs (12 hours) Temp Pulse Resp BP BP BP Pulse Ox 01/13/20 11:51 97.3 F L 78 20 98/54 L 99 01/13/20 07:55 100 01/13/20 07:45 97.6 F 76 22 H 135/73 100 01/13/20 03:25 97.4 F L 56 L 18 109/55 L 96 Weight Weight 323 lb I&O: 01/12/20 01/13/20 01/14/20 06:59 06:59 06:59 Intake Total 720 480 Balance 720 480 Result Diagrams: 01/12/20 03:39 01/13/20 04:04 Additional Labs: Accuchecks 01/13/20 01/13/20 01/13/20 12:18 11:00 05:30 POC Glucose 107 109 67 L 01/12/20 01/12/20 01/12/20 23:58 23:46 20:28 POC Glucose 159 H 36 L* 97 01/12/20 17:02 POC Glucose 114 H Hospitalist ROS - Medication Medications: Active Medications Generic Name Dose Route Start Last Admin Trade Name Freq PRN Reason Stop Dose Admin Acetaminophen 1,000 mg 01/11/20 10:04 01/12/20 05:49 Tylenol PO 1,000 mg Q6H PRN Administration Moderate to Severe Pain (6-10) Allopurinol 100 mg 01/11/20 09:00 01/13/20 09:47 Zyloprim PO 100 mg DAILY RAYNA Administration Atorvastatin Calcium 80 mg 01/09/20 21:00 01/12/20 21:30 Lipitor PO 80 mg HS RAYNA Administration Carvedilol 25 mg 01/09/20 21:00 01/13/20 09:48 Coreg PO 25 mg BID RAYNA Administration Clopidogrel Bisulfate 75 mg 01/09/20 21:00 01/12/20 21:30 Plavix PO 75 mg QPM RAYNA Administration Dextrose/Water 25 gm 01/09/20 17:02 01/12/20 23:46 Dextrose 50% IVP 25 gm PRN PRN Administration HYPOGLYCEMIA PROTOCOL Diphenhydramine HCl 50 mg 01/09/20 21:00 01/12/20 21:30 Benadryl PO 50 mg HS RAYNA Administration Ferrous Sulfate 325 mg 01/10/20 08:00 01/13/20 09:47 Feosol PO Not Given QAM-WM RAYNA Furosemide 40 mg 01/09/20 15:00 01/13/20 09:48 Lasix SLOW IVP 40 mg TID RAYNA Administration Heparin Sodium (Porcine) 5,000 units 01/09/20 21:00 01/13/20 09:48 Heparin SC 5,000 units BID RAYNA Administration Insulin Human Isoph/Insulin Regular 30 units 01/10/20 16:30 01/13/20 07:14 Humulin 70/30 SC Not Given BID-AC RAYNA Insulin Human Lispro 0 units 01/09/20 17:02 01/09/20 17:21 Humalog SC 2 unit .MILD SLIDING SCALE PRN Administration MILD SLIDING SCALE Protocol Read Ppd Test Site 0 each 01/12/20 17:00 01/12/20 17:57 PO 01/13/20 19:00 1 each 1700 RAYNA Administration Sacubitril/Valsartan 0.5 tab 01/09/20 21:00 01/13/20 09:48 Entresto 49 Mg-51 Mg Tablet PO 0.5 tab BID RAYNA Administration Sodium Chloride 10 ml 01/10/20 21:00 01/13/20 09:49 Flush - Normal Saline IVF 10 ml Q12HR RAYNA Administration Tramadol HCl 50 mg 01/11/20 11:36 01/13/20 02:18 Ultram PO 50 mg Q12H PRN Administration Pain - Exam General - other findings: Critically obese. A little sleepy, but awakens easily and conversant. Neck: supple, symmetric, no JVD, no thyromegaly, no lymphadenopathy, no carotid bruit Heart: RRR, no murmur, no gallops, no rubs, normal peripheral pulses Respiratory: CTAB, no wheezes, no rales, no ronchi, normal chest expansion, no tachypnea, normal percussion Gastrointestinal: soft, non-tender, non-distended, normal bowel sounds, no palpable masses, no hepatomegaly, no splenomegaly, no bruit Extremities: no cyanosis, no clubbing, 1+ LE edema Extremities - other findings: Right calf edema much improved. Skin: normal turgor Psychiatric: normal affect, normal behavior, A&O x 3, somnolent Hosp A/P (1) Volume overload Code(s): E87.70 - FLUID OVERLOAD, UNSPECIFIED Status: Acute (2) ESRD (end stage renal disease) on dialysis Code(s): N18.6 - END STAGE RENAL DISEASE; Z99.2 - DEPENDENCE ON RENAL DIALYSIS Status: Acute (3) Cellulitis of right leg without foot Code(s): L03.115 - CELLULITIS OF RIGHT LOWER LIMB Status: Acute (4) Sciatica Code(s): M54.30 - SCIATICA, UNSPECIFIED SIDE Status: Acute (5) Diabetes mellitus Code(s): E11.9 - TYPE 2 DIABETES MELLITUS WITHOUT COMPLICATIONS Status: Acute (6) Acute on chronic systolic and diastolic heart failure, NYHA class 3 Code(s): I50.43 - ACUTE ON CHRONIC COMBINED SYSTOLIC AND DIASTOLIC HRT FAIL Status: Acute (7) Acute respiratory failure with hypoxia Code(s): J96.01 - ACUTE RESPIRATORY FAILURE WITH HYPOXIA Status: Acute (8) Chronic anemia Code(s): D64.9 - ANEMIA, UNSPECIFIED Status: Acute (9) Intertriginous candidiasis Code(s): B37.2 - CANDIDIASIS OF SKIN AND NAIL Status: Acute (10) Hypoglycemia Code(s): E16.2 - HYPOGLYCEMIA, UNSPECIFIED Status: Acute (11) Degenerative joint disease (DJD) of lumbar spine Code(s): M47.816 - SPONDYLOSIS W/O MYELOPATHY OR RADICULOPATHY, LUMBAR REGION Status: Acute - Plan Volume Overload: Unclear if this volume overload is related to CHF. ESRD and initiation of HD: Had TLC and tunneled HD catheter placed. AV fistula being postponed until he can tolerate it better. HD per Nephrology. Feeling better after initial HD. Had relative hypotension today briefly. Acute CHF: Will discuss with his Broom Man, Dr. Henriquez. Sent him a message to call me. We have no record of and Echo or documented EF to indicate failure here. Sciatica, DJD Lumbar Spine: XR of the lumbar spine with severe DJD. PT. Cellulitis RLE: Cellulitis was treated as OP with oral PCN. He did not finish his course. On Vanc. Improving. Diabetes Mellitus / Hypoglycemia: Hypoglycemia this morning. Insulin DC'd except SSI. Anemia: Patient indicates he has long-standing anemia. Followed with Dr. Leonard and gets Procrit injections. Intertrigo: Add Nystatin powder for intertrigo
--- NOTE | 2020-01-13 14:52 | EKG ---
Test Reason : CP Blood Pressure : / mmHG Vent. Rate : 081 BPM Atrial Rate : 081 BPM P-R Int : 000 ms QRS Dur : 106 ms QT Int : 400 ms P-R-T Axes : 000 094 169 degrees QTc Int : 464 ms Accelerated Junctional rhythm with frequent Premature ventricular complexes and Fusion complexes Rightward axis Incomplete left bundle branch block Nonspecific ST and T wave abnormality Prolonged QT Abnormal ECG Confirmed by JULIO CÉSAR VALDEZ, JAMEL ([id number]), restaurant expeditor JULI DOLAN ([id number]) on 01/13/2020 2:51:53 PM Referred By: Confirmed By:JAMEL ANGELA MD
--- NOTE | 2020-01-13 14:54 | PRG ---
DATE OF SERVICE: 01/13/2020 Kt Saldana was to have a left arm fistula tomorrow, but this is deemed not emergent and in the limited resources situation that we are in now, this operation will have to be performed as an outpatient in the next few weeks. He should see me as an outpatient in 3 weeks to 4 weeks to schedule left arm fistula. He should save his left arm, avoid blood draws or IVs in his left arm, saving it for dialysis access. He should avoid IV access, right antecubital arm. Job ID: [id number]
[2020-01-13] MEDS: READ PPD TEST SITE PO SCH (17:40)
--- NOTE | 2020-01-13 20:49 | CON ---
DATE OF CONSULTATION: 01/13/2020 PRIMARY EDGER TECHNICIAN: Edison Henriquez MD REASON FOR CONSULTATION: Heart failure. HISTORY OF PRESENT ILLNESS: Mr. Saldana is a pleasant 74-year-old white gentleman, who comes to the hospital for shortness of breath and chest pressure. He has a history of coronary artery disease with ischemic cardiomyopathy. EF last evaluated by Dr. Henriquez at about 40% to 45%. He has had bypass in the past. His biggest issue is an occluded RCA with an occluded vein graft to the right that is where most likely his angina is coming from. He was admitted for fluid overload. Dr. García, who follows him for his kidneys, decided that he was at the point where he needed dialysis and he has started dialysis. Since starting it, his blood pressure has been a little more difficult to control as far as it goes to higher to low, so Cardiology is being consulted for help with taking his medications. PAST MEDICAL HISTORY: 1. Coronary artery disease, status post CABG. 2. Type 2 diabetes. 3. Chronic kidney disease. 4. Hyperlipidemia. 5. Hypertension. 6. Anemia of chronic disease. PAST SURGICAL HISTORY: 1. CABG in the distant past. 2. Multiple stents prior to undergoing the bypass surgery in 1996. 3. Colonoscopy a year ago. SOCIAL HISTORY: Quit smoking after his bypass. No alcohol, tobacco or drugs. FAMILY HISTORY: Both parents with heart disease. Currently, noncontributory. OUTPATIENT MEDICATIONS: 1. Insulin 70/30, 50 units b.i.d. 2. Entresto 49/51 half a tablet twice a day. 3. Atorvastatin 80 mg at bedtime. 4. Allopurinol 100 mg a day. 5. Tizanidine 4 mg p.r.n. 6. Sublingual nitroglycerin p.r.n. 7. Tylenol p.r.n. 8. Furosemide 40 mg t.i.d. 9. Plavix 75 mg a day. 10. Carvedilol 25 mg b.i.d. 11. Diphenhydramine 50 mg p.r.n. ALLERGIES: NO KNOWN DRUG ALLERGIES. REVIEW OF SYSTEMS: A 12-point review of systems was done and was all negative unless stated in the history of present illness. PHYSICAL EXAMINATION: VITAL SIGNS: Temperature 97.6, pulse 73, respiratory rate 20, saturating 99% on 3 L, blood pressure 164/120, but has been as low as 98/54. GENERAL: Awake, alert, and oriented x3. No distress. HEENT: Normocephalic, atraumatic. NECK: Supple. LUNGS: Clear. CARDIOVASCULAR: S1 and S2. No S3 or S4. ABDOMEN: Soft. EXTREMITIES: 1+ edema. SKIN: Warm and dry. LABORATORY DATA: Laboratory work was reviewed. CBC with a white count of 5, hemoglobin 9.1, hematocrit of 29, platelet count of 158. Chemistry unremarkable except for BUN of 106, creatinine 4.56, GFR of 13, glucose was 34, better now. Calcium is 7.8. Serologies were unremarkable. Echocardiogram was reviewed, very difficult study. LV function appeared to be low normal, difficult to assess regional wall motion abnormalities. 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 ASSESSMENT: 1. End-stage renal disease, new onset hemodialysis. 2. Ischemic cardiomyopathy, EF at 40% to 45% on most recent evaluation, difficult to assess EF on recent study. 3. Coronary artery disease, stable. No acute coronary syndrome. 4. Hypertension. PLAN: 1. Continue carvedilol at current dose. 2. We will stop Lasix for now to make some space for heart failure medications. 3. Continue the Entresto at half dose of 49/51 twice a day. 4. We will up-titrate Entresto during the next few days. 5. Continue other medications for now. Job ID: [id number]
[2020-01-13] MEDS: diphenhydrAMINE 50 MG CAP PO SCH (20:51)
[2020-01-13] MEDS: Clopidogrel Bisulfate 75 MG TAB PO SCH (20:51)
[2020-01-13] MEDS: Atorvastatin Calcium 40 MG TAB PO SCH (20:51)
[2020-01-14] MEDS: Acetaminophen 500 MG TAB PO PRN ×2 (04:26→17:15)
[2020-01-14] MEDS ORDERED: Acetaminophen 325 MG TAB PO PRN (04:50)
[2020-01-14 08:03] LABS: Anion Gap 18 mmol/L (10-20); BUN (Urea Nitrogen) 108 mg/dL (8.4-25.7); Calc. Creatinine Clearance 25 mL/min (70-130); Calcium 7.9 mg/dL (7.8-10.44); Carbon Dioxide 22 mmol/L (23-31); Chloride 102 mmol/L (98-107); Estimated GFR-MDRD 10; Glucose 127 mg/dL (83-110); Potassium 5.3 mmol/L (3.5-5.1); Sodium 137 mmol/L (136-145)
[2020-01-14 08:06] LABS: Vancomycin, Random 12.2 ug/mL (See Comment)
[2020-01-14] MEDS ORDERED: Heparin 10,000 UNITS/ 10 ML VIAL ONE (08:31)
[2020-01-14] MEDS: Vancomycin 1 GM in Premix Bag 1 BAG IVPB SCH (09:20)
[2020-01-14] MEDS: traMADol HCl 50 MG TAB PO PRN (09:20)
[2020-01-14] MEDS: HumuLIN 70/30 (300 UNITS/3 ML VIAL) SC SCH ×2 (11:21→17:42)
[2020-01-14] MEDS: Allopurinol 100 MG TAB PO SCH (11:22)
[2020-01-14] MEDS: Ferrous Sulfate 325 MG TAB PO SCH ×2 (11:22→11:41)
[2020-01-14] MEDS: Sacubitril 49 MG/Valsartan 51 MG TABLET PO SCH ×2 (11:23→11:40)
[2020-01-14] MEDS: Carvedilol 25 MG TAB PO SCH (11:23)
[2020-01-14] MEDS: Heparin 5,000 UNITS/ML VIAL SC SCH ×2 (11:23→11:40)
--- NOTE | 2020-01-14 14:07 | PDOC.HOSPP ---
- Subjective Subjective: Follow-up evaluation on Mr. Saldana is a 74-year-old gentleman admitted for shortness of breath and chest pain. Cardiology is on the case. Remote history of coronary artery bypass grafting. Acute kidney injury on chronic kidney disease now requiring hemodialysis per Dr. García. He has been tolerating dialysis. Review of systems is otherwise benign. - Objective Vital Signs & Weight: Vital Signs (12 hours) Temp Pulse Resp BP BP Pulse Ox 01/14/20 11:05 96.6 F L 77 17 122/68 94 L 01/14/20 04:00 97.4 F L 67 18 115/53 L 118/82 90 L Weight Weight 324 lb I&O: 01/13/20 01/14/20 01/15/20 06:59 06:59 06:59 Intake Total 720 954 Balance 720 954 Result Diagrams: 01/12/20 03:39 01/14/20 07:32 Additional Labs: Accuchecks 01/14/20 01/14/20 01/14/20 11:05 06:10 00:56 POC Glucose 122 H 136 H 163 H 01/13/20 01/13/20 20:54 17:10 POC Glucose 123 H 118 H Radiology Reviewed by me: Yes Hospitalist ROS - Review of Systems All other systems reviewed; all pertinent +/- noted in HPI/Subj - Medication Medications: Active Medications Generic Name Dose Route Start Last Admin Trade Name Freq PRN Reason Stop Dose Admin Acetaminophen 1,000 mg 01/11/20 10:04 01/14/20 04:26 Tylenol PO 1,000 mg Q6H PRN Administration Moderate to Severe Pain (6-10) Allopurinol 100 mg 01/11/20 09:00 01/14/20 11:22 Zyloprim PO 100 mg DAILY RAYNA Administration Atorvastatin Calcium 80 mg 01/09/20 21:00 01/13/20 20:51 Lipitor PO 80 mg HS RAYNA Administration Carvedilol 25 mg 01/09/20 21:00 01/14/20 11:23 Coreg PO 25 mg BID RAYNA Administration Clopidogrel Bisulfate 75 mg 01/09/20 21:00 01/13/20 20:51 Plavix PO 75 mg QPM RAYNA Administration Dextrose/Water 25 gm 01/09/20 17:02 01/12/20 23:46 Dextrose 50% IVP 25 gm PRN PRN Administration HYPOGLYCEMIA PROTOCOL Ferrous Sulfate 325 mg 01/10/20 08:00 01/14/20 11:41 Feosol PO Not Given QAM-WM [facility] Heparin Sodium (Porcine) 5,000 units 01/09/20 21:00 01/14/20 11:40 Heparin SC Not Given BID RAYNA Vancomycin HCl 1 gm/ Device 200 mls @ 200 mls/hr 01/12/20 12:00 01/14/20 09: 20 IVPB 200 mls WILLCALL RAYNA Administration Insulin Human Isoph/Insulin Regular 30 units 01/10/20 16:30 01/14/20 11:21 Humulin 70/30 SC Not Given BID-AC [facility] Insulin Human Lispro 0 units 01/09/20 17:02 01/09/20 17:21 Humalog SC 2 unit .MILD SLIDING SCALE PRN Administration MILD SLIDING SCALE Protocol Sacubitril/Valsartan 0.5 tab 01/09/20 21:00 01/14/20 11:40 Entresto 49 Mg-51 Mg Tablet PO Not Given BID [facility] Sodium Chloride 10 ml 01/10/20 21:00 01/14/20 11:23 Flush - Normal Saline IVF 10 ml Q12HR RAYNA Administration Tramadol HCl 50 mg 01/11/20 11:36 01/14/20 09:20 Ultram PO 50 mg Q12H PRN Administration Pain - Exam General Appearance: NAD, awake alert Eye: anicteric sclera ENT: normocephalic atraumatic, moist mucosa Neck: symmetric, no lymphadenopathy Heart: no murmur, no gallops, no rubs Respiratory: no wheezes, no ronchi, normal chest expansion, rales (few faint) Gastrointestinal: soft, non-tender, non-distended, no guarding, no rigidity Extremities: 1+ LE edema Skin: no rashes Neurological: cranial nerve grossly intact, no focal deficits Musculoskeletal: generalized weakness Psychiatric: A&O x 3 Hosp A/P (1) Acute on chronic renal failure Code(s): N17.9 - ACUTE KIDNEY FAILURE, UNSPECIFIED; N18.9 - CHRONIC KIDNEY DISEASE, UNSPECIFIED Status: Acute Qualifiers: Acute renal failure type: unspecified Chronic kidney disease stage: stage 5 , not on chronic dialysis Qualified Code(s): N17.9 - Acute kidney failure, unspecified; N18.5 - Chronic kidney disease, stage 5 (2) Acute respiratory failure with hypoxia Code(s): J96.01 - ACUTE RESPIRATORY FAILURE WITH HYPOXIA Status: Acute (3) Chronic anemia Code(s): D64.9 - ANEMIA, UNSPECIFIED Status: Acute (4) DM type 2 causing CKD stage 4 Code(s): E11.22 - TYPE 2 DIABETES MELLITUS W DIABETIC CHRONIC KIDNEY DISEASE; N18.4 - CHRONIC KIDNEY DISEASE, STAGE 4 (SEVERE) Status: Acute (5) Degenerative joint disease (DJD) of lumbar spine Code(s): M47.816 - SPONDYLOSIS W/O MYELOPATHY OR RADICULOPATHY, LUMBAR REGION Status: Acute (6) Diabetes mellitus Code(s): E11.9 - TYPE 2 DIABETES MELLITUS WITHOUT COMPLICATIONS Status: Acute (7) ESRD (end stage renal disease) on dialysis Code(s): N18.6 - END STAGE RENAL DISEASE; Z99.2 - DEPENDENCE ON RENAL DIALYSIS Status: Acute (8) Volume overload Code(s): E87.70 - FLUID OVERLOAD, UNSPECIFIED Status: Acute - Plan Plan: medical unit with telemetry cardiology consultation, recommendations appreciated nephrology consultation, recommendations appreciated general surgery consultation, recommendations appreciated echocardiogram with a reduced ejection fraction of 40% chest pain free today cardiolog starting Entresto for improved control of CHF hemodialysis per nephrology replace electrolytes as needed continue home medications as able blood pressure control blood sugar control G.I. prophylaxis DVT prophylaxis
--- NOTE | 2020-01-14 14:30 | PDOC.CPN ---
- Subjective Date: 01/14/20 Time: 14:28 Interval history: He is more confused today. - Review of Systems General: denies: fever/chills, weight/appetite/sleep changes, night sweats, fatigue Respiratory: denies: cough, congestion, shortness of breath, exercise intolerance Cardiovascular: denies: chest pain, palpitation, edema, paroxysmal nocturnal dyspnea, orthopnea Gastrointestinal: denies: nausea, vomiting, diarrhea, constipation, abd pain, GI bleeding Musculoskeletal: denies: pain, tenderness, stiffness, swelling, arthritis/ arthralgias Neurological: denies: numbness, syncope, seizure, weakness - Objective Allergies/Adverse Reactions: Allergies Allergy/AdvReac Type Severity Reaction Status Date / Time No Known Allergies Allergy Verified 01/07/20 09:39 Visit Medications: Current Medications Acetaminophen (Tylenol) 1,000 mg PO Q6H PRN PRN Reason: Moderate to Severe Pain (6-10) Last Admin: 01/14/20 04:26 Dose: 1,000 mg Acetaminophen (Tylenol) 650 mg PO Q4H PRN PRN Reason: Headache/Fever or Mild Pain Allopurinol (Zyloprim) 100 mg PO DAILY [facility] Last Admin: 01/14/20 11:22 Dose: 100 mg Atorvastatin Calcium (Lipitor) 80 mg PO HS [facility] Last Admin: 01/13/20 20:51 Dose: 80 mg Carvedilol (Coreg) 25 mg PO BID [facility] Last Admin: 01/14/20 11:23 Dose: 25 mg Clopidogrel Bisulfate (Plavix) 75 mg PO QPM [facility] Last Admin: 01/13/20 20:51 Dose: 75 mg Dextrose/Water (Dextrose 50%) 25 gm IVP PRN PRN PRN Reason: HYPOGLYCEMIA PROTOCOL Last Admin: 01/12/20 23:46 Dose: 25 gm Famotidine (Pepcid) 20 mg PO DAILYPRN PRN PRN Reason: Indigestion Ferrous Sulfate (Feosol) 325 mg PO QA-[facility] Last Admin: 01/14/20 11:41 Dose: Not Given Glucagon (Glucagon) 1 mg IM PRN PRN PRN Reason: HYPOGLYCEMIA PROTOCOL Heparin Sodium (Porcine) (Heparin) 5,000 units SC BID [facility] Last Admin: 01/14/20 11:40 Dose: Not Given Dextrose/Water (D5w) 1,000 mls @ 0 mls/hr IV INF PRN PRN Reason: HYPOGLYCEMIA PROTOCOL Vancomycin HCl 1.5 gm/ Sodium (Chloride) 300 mls @ 200 mls/hr IVPB WILLCALL [facility] Vancomycin HCl 1.25 gm/ Sodium (Chloride) 250 mls @ 166.667 mls/hr [facility] Vancomycin HCl 1 gm/ Device 200 mls @ 200 mls/hr IVPB WILLCALL [facility] Last Admin: 01/14/20 09:20 Dose: 200 mls Vancomycin HCl 750 mg/ Sodium (Chloride) 250 mls @ 250 mls/hr [facility] Insulin Human Isoph/Insulin Regular (Humulin 70/30) 30 units SC BID-AC [facility] Last Admin: 01/14/20 11:21 Dose: Not Given Insulin Human Lispro (Humalog) 0 units SC .MILD SLIDING SCALE PRN; Protocol PRN Reason: MILD SLIDING SCALE Last Admin: 01/09/20 17:21 Dose: 2 unit Miscellaneous Medication (Pharmacy To Dose) 1 each IVPB .VANCOMYCIN PRN PRN Reason: Pharmacy to dose Nitroglycerin (Nitrolingual 0.4 Mg [place]) 0 gm SL Q5MIN PRN PRN Reason: Chest Pain Hold Vancomycin For (Level >20) 0 each FS .AT DIALYSIS [facility] Nystatin (Mycostatin Powder) 1 gm TOP BID PRN PRN Reason: Topical Irritations Dulaglutide [ (Trulicity] 0.5 Ml) 1 each SC Q7D [facility] Sacubitril/Valsartan (Entresto 49 Mg-51 Mg Tablet) 0.5 tab PO BID [facility] Last Admin: 01/14/20 11:40 Dose: Not Given Senna/Docusate Sodium (Senokot S) 2 tab PO BIDPRN PRN PRN Reason: Constipation Sodium Chloride (Flush - Normal Saline) 10 ml IVF Q12HR [facility] Last Admin: 01/14/20 11:23 Dose: 10 ml Sodium Chloride (Flush - Normal Saline) 10 ml IVF PRN PRN PRN Reason: Saline Flush Tizanidine HCl (Zanaflex) 4 mg PO PRN PRN PRN Reason: Muscle Spasm Tramadol HCl (Ultram) 50 mg PO Q12H PRN PRN Reason: Pain Last Admin: 01/14/20 09:20 Dose: 50 mg Vital Signs & Weight: Vital Signs Temp Pulse Resp BP BP Pulse Ox 03/27/20 11:05 96.6 F L 77 17 122/68 94 L 01/14/20 04:00 97.4 F L 67 18 115/53 L 118/82 90 L Weight 324 lb - Physical Exam General: alert & oriented x3 HEENT: mucus membranes moist Neck: supple neck Cardiac: regular rate and rhythm Lungs: clear to auscultation Neuro: no lateralizing findings Abdomen: active bowel sounds Extremities: 1+ LE edema Skin: clear Musculoskeletal: no pain - Labs Result Diagrams: 01/12/20 03:39 01/14/20 07:32 Troponin/CKMB CK-MB (CK-2) 2.8 ng/mL (0-6.6) 01/09/20 10:11 Troponin I 0.048 ng/mL (< 0.028) H 01/09/20 17:18 - Telemetry Sinus rhythms and dysrhythmias: sinus rhythm - Assessment/Plan Assessment/Plan: 1. ESRD on new onset HD 2. Ischemic CM EF at 40-45% 3. CAD, stable no ACS. 4. HTN PLAN: - BP doing good on current medications. - Continue same for now.
[2020-01-14] MEDS: Haloperidol Lactate 5 MG/ML VIAL IM PRN (17:43)
--- NOTE | 2020-01-14 23:01 | RAD ---
XR Chest 1 View Portable History: Shortness of breath Comparison: Radiograph January 10, 2020 Findings: Mildly worsened aeration the lungs although the evaluation is limited due to patient rotati on. No pneumothorax. Dialysis catheter and left IJ central venous catheters are similar. Large effusions. Impression: Worsening volume overload.
[2020-01-14] MEDS ORDERED: Furosemide 40 MG/4 ML VIAL SLOW IVP SCH (23:30)
[2020-01-15] MEDS: Carvedilol 25 MG TAB PO SCH ×3 (01:56→20:41)
[2020-01-15] MEDS: Atorvastatin Calcium 40 MG TAB PO SCH ×2 (01:56→20:41)
[2020-01-15] MEDS: Heparin 5,000 UNITS/ML VIAL SC SCH ×3 (01:56→20:53)
[2020-01-15] MEDS: Clopidogrel Bisulfate 75 MG TAB PO SCH ×2 (01:56→20:41)
[2020-01-15] MEDS: Sacubitril 49 MG/Valsartan 51 MG TABLET PO SCH ×3 (01:57→20:41)
[2020-01-15 05:29] LABS: Actual Bicarbonate (HCO3a) 25.8 mEq/L (22-28); Base Excess (BEa) -3.2 mEq/L (-2.0 to +3.0); Carboxyhemoglobin (COHb) 1.1 gm% (0.0-3.0); Hemoglobin (Hb) 10.4 g/dL (14.0-18.0); O2 Tension (PaO2) 71.5 mmHg (> 70.0); Potassium - ABG Lab 4.15 mmol/L (3.70-5.30)
[2020-01-15 05:39] LABS: pH, Arterial 7.19 (7.35-7.45)
[2020-01-15 05:39] LABS: #Eosinphils 0.4 thou/uL (0.0-0.7); #Lymphocytes 0.5 thou/uL (1.20-3.40); #Monocytes 0.8 thou/uL (0.11-0.59); %Eosinophils 6.5 % (0.0-10.0); %Lymphocytes 9.2 % (21.0-51.0); %Monocytes 14.2 % (0.0-10.0); Hemoglobin 9.9 g/dL (14.0-18.0); Mean Corpuscular HGB CONC 31.5 g/dL (32.0-36.0); Mean Corpuscular Hemoglobin 29.5 pg (27.0-31.0); Mean Corpuscular Volume 93.4 fL (78.0-98.0); Mean Platelet Volume 9.6 fL (7.4-10.4); Platelet Count 176 thou/uL (130-400); Red Blood Cell (RBC) Count 3.37 mill/uL (4.70-6.10); White Blood Cell (WBC) Count 5.7 thou/uL (4.8-10.8)
[2020-01-15 05:40] LABS: ALV-art Gradient 41.765 (0-20); CO2 Tension 69.1 mmHg (35.0-45.0); Puncture Site LBRACHIAL
[2020-01-15 05:57] LABS: ALT (SGPT) Less than 7 U/L (8-55); AST (SGOT) 32 U/L (5-34); Albumin 3.8 g/dL (3.4-4.8); Alkaline Phosphatase 80 U/L (40-110); Anion Gap 21 mmol/L (10-20); BUN (Urea Nitrogen) 34 mg/dL (8.4-25.7); Bilirubin, Total 0.6 mg/dL (0.2-1.2); Calc. Creatinine Clearance 60 mL/min (70-130); Calcium 8.2 mg/dL (7.8-10.44); Carbon Dioxide 21 mmol/L (23-31); Chloride 98 mmol/L (98-107); Estimated GFR-MDRD 28; Globulin 3.1 g/dL (2.4-3.5); Glucose 103 mg/dL (83-110); Magnesium 1.9 mg/dL (1.6-2.6); Phosphorus 3.6 mg/dL (2.3-4.7); Potassium 4.2 mmol/L (3.5-5.1); Protein, Total 6.9 g/dL (5.8-8.1); Sodium 136 mmol/L (136-145)
[2020-01-15 06:28] LABS: Bilirubin Negative (Negative); Blood, Urine Negative (Negative); Clarity Clear (Clear); Glucose, Urine (Dipstick) Normal (Negative); Leukocyte Negative Leu/uL (Negative); Nitrite Negative (Negative); Protein, Urine (Dipstick) 50 mg/dL (Neg-Trace); RBC/HPF 0-3 HPF (0-3); Squamous Epithelial 0-3 HPF (0-3)
[2020-01-15 06:29] LABS: Bacteria/HPF 1+ HPF (None Seen)
--- NOTE | 2020-01-15 06:58 | PDOC.EVN ---
Event Note - Event Note Event Note: Notified in last evening that he had some SOB. CXR had worsening edema. Lasix ordered and Dr. García ordered additional dialysis. In dialysis this morning he became more obtunded. Very difficult to awaken. Transferred to ICU. ABG results noted. pH 7.1 with PCO2 69. Discussed with Dr. Sky. Try BiPAP and he will see soon to determine if intubation is needed.
[2020-01-15] MEDS: Ferrous Sulfate 325 MG TAB PO SCH (08:34)
[2020-01-15] MEDS ORDERED: Heparin 10,000 UNITS/ 10 ML VIAL ONE (08:36)
[2020-01-15] MEDS ORDERED: methylPREDNISolone Sod Succ 40 MG VIAL IVP SCH (09:15)
[2020-01-15] MEDS: Allopurinol 100 MG TAB PO SCH (09:40)
--- NOTE | 2020-01-15 09:43 | CON ---
DATE OF CONSULTATION: 01/15/2020 SERVICE: Pulmonary Medicine. REASON FOR CONSULTATION: ICU patient. HISTORY OF PRESENT ILLNESS: The patient is a 74-year-old white male with past medical history significant for chronic kidney disease/progressing end-stage renal disease. Ultimately, he got volume overloaded. On the floor, he was dialyzed a couple of times, but his hypoxic respiratory failure progressed. He started becoming increasingly obtunded. An ABG demonstrated acute hypercapnic and hypoxic respiratory failure. He was brought to the ICU and initiated on BiPAP. The dose was escalated at bedside. The patient has started to come around a little bit. This allows to give him a little bit more time on BiPAP, but obviously, by the end of the day, if he is not doing well enough, he will likely need to be intubated. He cannot provide any additional elements of the history and everything I have here is from chart review. PAST MEDICAL HISTORY: 1. Coronary artery disease. 2. Type 2 diabetes mellitus. 3. Hypertension. 4. Dyslipidemia. 5. End-stage renal disease. 6. Chronic heart failure. PAST SURGICAL HISTORY: Coronary artery bypass graft. SOCIAL HISTORY: Negative for alcohol, tobacco, or illicit drug use currently. He has a greater than 40 pack-year history of smoking, but quit around the time of his coronary artery bypass graft. He has no exposure to chemicals, dust, asbestos, or tuberculosis. FAMILY HISTORY: Noncontributory. ALLERGIES: NO KNOWN DRUG ALLERGIES. MEDICATIONS: List of his inpatient medications was reviewed. Multiple updates were made. REVIEW OF SYSTEMS: General, head, ears, eyes, nose, throat, cardiovascular, respiratory, GI, , musculoskeletal, neurologic, and skin is negative except as mentioned in the HPI. PHYSICAL EXAMINATION: VITAL SIGNS: Afebrile. Pulse 22, respirations 18, saturation 94%, currently on 40% FiO2 delivered via BiPAP. GENERAL: The patient is somnolent. HEENT: Normocephalic and atraumatic. Sclerae white. Conjunctivae pink. Oral mucosa is moist without lesions. LUNGS: Decent air entry anteriorly. Crackling is present. Posteriorly, there are minimal crackles present. HEART: Normal rate, regular. ABDOMEN: Soft, nontender, nondistended. Bowel sounds are positive. MUSCULOSKELETAL: No cyanosis or clubbing. There is no pitting in the bilateral lower extremities, though the right leg is hot and red relative to the left. He does have 1 to 2+ pitting at the sacrum. : Peter catheter in place. NEUROLOGIC: Grossly nonfocal. He has been witnessed to spontaneously move all 4 extremities. LABORATORY DATA: WBC 5.7, hemoglobin 9.9, and platelets 176,000. PH 7.19, pCO2 69, PO2 71. At that time, he was on 21% FiO2. Creatinine 2.29 over BUN of 34. Bicarb 21. Liver function studies are completely unremarkable. TSH falls within the normal limits. BNP 1100. Magnesium 2.0. Vancomycin trough 12.2. HIV-1 and HIV-2, hepatitis C, and hepatitis B are all unremarkable. IMAGING: Chest x-ray demonstrates bilateral pleural effusion. The right appears to be greater than the left and it is layering at that location. Thomas B lines, and pulmonary vascular congestion are noted in addition to an enlarged cardiac silhouette on this AP film. There is a left IJ central venous catheter that terminates in decent position. There is also a right-sided dialysis catheter that has been placed. Overlying lines and tubes are otherwise present. Echocardiogram demonstrates diastolic dysfunction with a moderately dilated left atrium, and enlarged right atrium. ASSESSMENT: 1. Acute hypoxic and hypercapnic respiratory failure. 2. Bilateral pleural effusions. 3. Acute on chronic diastolic heart failure. 4. COPD with exacerbation. 5. End-stage renal disease with anasarca. 6. Cellulitis of the right lower extremity. DISCUSSION AND PLAN: Antibiotics directed at skin caleb will be continued. I will add Rocephin to cover the Streptococcus species. We will continue to dialyze the patient until he returns to euvolemia. In the meantime, we will try to minimize fluids. Steroids and nebulized medications will be initiated. We will watch him very closely and if he fails BiPAP, we will proceed with an intubation. Of note , the patient does not have any known contacts with COVID and have other explanations for his underlying disease process. CRITICAL CARE TIME: 30 minutes. Job ID: [id number] MTDD
[2020-01-15] MEDS: cefTRIAXone\\ROCEPHIN 2 GM in Sodium Chloride 0.9% 100 ML IVPB SCH (10:10)
[2020-01-15] MEDS: Haloperidol Lactate 5 MG/ML VIAL IM PRN ×2 (10:39→16:26)
[2020-01-15] MEDS: HumuLIN 70/30 (300 UNITS/3 ML VIAL) SC SCH ×2 (11:27→16:29)
[2020-01-15 11:29] LABS: Base Excess (BEa) -2.2 mEq/L (-2.0 to +3.0); CO2 Tension 55.1 mmHg (35.0-45.0); Calcium, Ionized 1.12 mmol/L (1.12-1.30); Carboxyhemoglobin (COHb) 1.1 gm% (0.0-3.0); Hemoglobin (Hb) 9.9 g/dL (14.0-18.0); Potassium - ABG Lab 4.46 mmol/L (3.70-5.30); pH, Arterial 7.28 (7.35-7.45)
[2020-01-15 11:31] LABS: ALV-art Gradient 53.675 (0-20); Puncture Site RRA
--- NOTE | 2020-01-15 15:29 | PDOC.HOSPP ---
- Subjective Encounter Date: 01/15/20 Encounter Time: 09:00 Subjective: The patient had a CODE green overnight and stopped responding during dialysis. Per nursing staff he is following more commands. He has minmal urine output. He received some haldol for agitation this morning. He reports shortness of breath, no chest pain. Has difficulty answering questions due to intermittent drowsiness Was started on ceftriaxone for concern for cellulitis of right leg - Objective Vital Signs & Weight: Vital Signs (12 hours) Temp Pulse Pulse Pulse Pulse Resp Resp 01/15/20 15:00 94 01/15/20 12:24 83 01/15/20 12:23 84 23 H 01/15/20 12:00 99.5 F 01/15/20 10:37 85 01/15/20 08:00 99.6 F 01/15/20 07:44 90 01/15/20 05:47 94 01/15/20 05:15 87 91 82 20 Resp Resp BP BP BP Pulse Ox Pulse Ox 01/15/20 15:00 01/15/20 12:24 01/15/20 12:23 99 01/15/20 12:00 01/15/20 10:37 01/15/20 08:00 100 01/15/20 07:44 01/15/20 05:47 01/15/20 05:15 24 H 20 116/50 L 143/54 H 138/68 97 Pulse Ox Pulse Ox 01/15/20 15:00 01/15/20 12:24 01/15/20 12:23 01/15/20 12:00 01/15/20 10:37 01/15/20 08:00 01/15/20 07:44 01/15/20 05:47 01/15/20 05:15 96 100 Weight Weight 310 lb 13.628 oz Most Recent Monitor Data Heart Rate from ECG 90 NIBP 142/76 NIBP BP-Mean 98 Respiration from ECG 30 SpO2 84 I&O: 01/14/20 01/15/20 01/16/20 06:59 06:59 06:59 Intake Total 954 120 0 Output Total 325 Balance 954 120 -325 Result Diagrams: 01/15/20 05:22 01/15/20 05:22 Additional Labs: Accuchecks 01/15/20 01/15/20 01/14/20 11:24 05:17 20:50 POC Glucose 110 116 H 123 H 01/14/20 16:52 POC Glucose 123 H Hospitalist ROS - Review of Systems ROS unobtainable: due to mental status - Medication Medications: Active Medications Generic Name Dose Route Start Last Admin Trade Name Freq PRN Reason Stop Dose Admin Acetaminophen 1,000 mg 01/11/20 10:04 01/14/20 17:15 Tylenol PO 1,000 mg Q6H PRN Administration Moderate to Severe Pain (6-10) Albuterol/Ipratropium 3 ml 01/15/20 13:00 01/15/20 12:23 Duoneb NEB 3 ml [id number] RAYNA Administration Allopurinol 100 mg 01/11/20 09:00 01/15/20 09:40 Zyloprim PO Not Given DAILY [facility] Atorvastatin Calcium 80 mg 01/09/20 21:00 01/15/20 01:56 Lipitor PO Not Given HS [facility] Carvedilol 25 mg 01/09/20 21:00 01/15/20 09:40 Coreg PO Not Given BID [facility] Clopidogrel Bisulfate 75 mg 01/09/20 21:00 01/15/20 01:56 Plavix PO Not Given QPM [facility] Dextrose/Water 25 gm 01/09/20 17:02 01/12/20 23:46 Dextrose 50% IVP 25 gm PRN PRN Administration HYPOGLYCEMIA PROTOCOL Ferrous Sulfate 325 mg 01/10/20 08:00 01/15/20 08:34 Feosol PO Not Given QAM-WM [facility] Haloperidol Lactate 5 mg 01/14/20 17:13 01/15/20 10:39 Haldol IM 5 mg Q4H PRN Administration Agitation Heparin Sodium (Porcine) 5,000 units 01/09/20 21:00 01/15/20 09:29 Heparin SC 5,000 units BID [facility] Administration Vancomycin HCl 1 gm/ Device 200 mls @ 200 mls/hr 01/12/20 12:00 01/14/20 09: 20 IVPB 200 mls WILLCALL RAYNA Administration Ceftriaxone Sodium 2 gm/ 100 mls @ 200 mls/hr 01/15/20 10:00 01/15/20 10:10 Sodium Chloride IVPB 100 mls 1000 RAYNA Administration Insulin Human Isoph/Insulin Regular 30 units 01/10/20 16:30 01/15/20 11:27 Humulin 70/30 SC 30 unit BID-AC RAYNA Administration Insulin Human Lispro 0 units 01/09/20 17:02 01/09/20 17:21 Humalog SC 2 unit .MILD SLIDING SCALE PRN Administration MILD SLIDING SCALE Protocol Sacubitril/Valsartan 0.5 tab 01/09/20 21:00 01/15/20 10:19 Entresto 49 Mg-51 Mg Tablet PO Not Given BID RAYNA Sodium Chloride 10 ml 01/10/20 21:00 01/15/20 09:40 Flush - Normal Saline IVF 10 ml Q12HR RAYNA Administration Tramadol HCl 50 mg 01/11/20 11:36 01/14/20 09:20 Ultram PO 50 mg Q12H PRN Administration Pain - Exam General Appearance: NAD General - other findings: intermittently drowsy on BIPAP Eye: PERRL, anicteric sclera ENT: normocephalic atraumatic, no oropharyngeal lesions Neck: no JVD Heart: RRR, no murmur, no gallops, no rubs Respiratory: CTAB, no wheezes, no rales, no ronchi Gastrointestinal: soft, non-tender, non-distended Extremities - other findings: right lower extremity mildly erythematous and tender Skin: normal turgor, no lesions, no rashes Neurological: cranial nerve grossly intact, normal sensation to touch, no focal deficits, no new deficit Hosp A/P - Plan Chest Xray 01/13: worsening volume overload This is a 74 year old male patient with past medicla history of CHF, CAD, type II diabetes who presented with orthopnea, admitted for possible CHF Acute hypoxic/hypercapneic respiratory failure secondary to possible CHF exacerbation vs COPD exacerbation - pH 7.1, pCO2 69. Placed on BIPAP overnight. Repeat ABG shows pH 7.2, PCO2 of 55. WIll continue for now. Will order another one tonight, if clinically worsening, consider intubation - continue Iv vancomycin, ceftriaxone added - started methylprednisolone 40 mg IV daily - RLE cellulitis - continue IV ceftriaxone ESRD - continue dialysis Agitation - haldol prn - sreoquel prn CAD s/p CABG - on plavix, statin. Will add aspirin DVT prophylaxis: heparin SC Code status: full code
[2020-01-15] MEDS ORDERED: Aspirin 81 mg Enteric Coated Tablet PO SCH (15:45)
[2020-01-15] MEDS ORDERED: Lorazepam 2 MG/ML VIAL SLOW IVP SCH (18:30)
[2020-01-15] MEDS: Lorazepam 2 MG/ML VIAL SLOW IVP PRN (21:40)
[2020-01-15 23:33] LABS: Actual Bicarbonate (HCO3a) 26.8 mEq/L (22-28); Base Excess (BEa) -4.7 mEq/L (-2.0 to +3.0); Calcium, Ionized 1.19 mmol/L (1.12-1.30); Carboxyhemoglobin (COHb) 1.3 gm% (0.0-3.0); Hemoglobin (Hb) 10.3 g/dL (14.0-18.0)
[2020-01-15 23:40] LABS: CO2 Tension 95.7 mmHg (35.0-45.0); pH, Arterial 7.07 (7.35-7.45)
[2020-01-15 23:41] LABS: O2 Tension (PaO2) 45.1 mmHg (> 70.0); Puncture Site ART
[2020-01-15 23:42] LABS: ALV-art Gradient 191.775 (0-20)
[2020-01-16] MEDS ORDERED: Rocuronium Bromide 10 MG/ML (10ML VIAL) IVPB SCH (00:30)
--- NOTE | 2020-01-16 00:40 | PDOC.BPN ---
- Brief Progress Note Paged by nursing staff to intubate patient, per request by Dr. Sky. Brief history given by RT and RN. Pt had code green earlier in the day. On BiPap 04/03 with FiO2 at 50%. Pt had increased from FiO2 at 30% and desat to 70s prior to our arrival. Admitted for CHF exacerbation and ESRD; initation of dialysis on this hospital stay. ABG showed pH of 7.06 and pCO2 of 95. Physicians present: Ricky Rothman Lemley (residents), (attending) Patient was given rocuronium 60mg and etomidate 20 mg IV. Using glidescope and 7.5 size ET tube, patient was intubated and visualized going through vocal cords. Breath sounds audible bilaterally. NG tube placed confirmed by auscultation. CXR showed ET and NG tube properly in place.
[2020-01-16 01:02] LABS: Actual Bicarbonate (HCO3a) 22.4 mEq/L (22-28); Base Excess (BEa) -1.4 mEq/L (-2.0 to +3.0); CO2 Tension 34.2 mmHg (35.0-45.0); Calcium, Ionized 1.11 mmol/L (1.12-1.30); Carboxyhemoglobin (COHb) 1.1 gm% (0.0-3.0); Potassium - ABG Lab 4.48 mmol/L (3.70-5.30); pH, Arterial 7.43 (7.35-7.45)
[2020-01-16 01:03] LABS: Puncture Site LRA
[2020-01-16] MEDS: Propofol 1,000 MG/100 ML VIAL IV PRN ×5 (01:06→22:01)
[2020-01-16] MEDS: Lorazepam 2 MG/ML VIAL SLOW IVP PRN (01:10)
[2020-01-16] MEDS ORDERED: Propofol BOLUS 1,000 MG/100 ML VIAL IV PRN (01:12)
[2020-01-16] MEDS ORDERED: Morphine 2 MG/ML SYRINGE SLOW IVP PRN (01:12)
[2020-01-16] MEDS ORDERED: DISCONTINUE PREVIOUS NARCOTIC PAIN MEDICATIONS AND BENZODIAZEPINES FS SCH (01:12)
[2020-01-16] MEDS ORDERED: fentaNYL Citrate/PF 2,000 MCG in Sodium Chloride 0.9% 60 ML IV SCH (01:12)
[2020-01-16] MEDS ORDERED: Lorazepam 2 MG/ML VIAL SLOW IVP PRN (01:12)
[2020-01-16] MEDS ORDERED: Fentanyl BOLUS 250 ML IVPB PRN (01:12)
[2020-01-16 04:05] LABS: #Lymphocytes 0.3 thou/uL (1.20-3.40); #Monocytes 0.4 thou/uL (0.11-0.59); #Neutrophils 5.3 thou/uL (1.40-6.50); %Basophils 0.2 % (0.0-1.0); %Eosinophils 0.2 % (0.0-10.0); %Lymphocytes 5.6 % (21.0-51.0); %Monocytes 7.3 % (0.0-10.0); %Neutrophils 86.7 % (42.0-75.0); Hemoglobin 9.3 g/dL (14.0-18.0); Mean Corpuscular HGB CONC 32.4 g/dL (32.0-36.0); Mean Corpuscular Hemoglobin 29.9 pg (27.0-31.0); Mean Corpuscular Volume 92.1 fL (78.0-98.0); Mean Platelet Volume 9.6 fL (7.4-10.4); Platelet Count 160 thou/uL (130-400); RBC Distribution Width 14.9 % (11.5-14.5); Red Blood Cell (RBC) Count 3.11 mill/uL (4.70-6.10); White Blood Cell (WBC) Count 6.1 thou/uL (4.8-10.8)
[2020-01-16 05:10] LABS: Anion Gap 20 mmol/L (10-20); BUN (Urea Nitrogen) 59 mg/dL (8.4-25.7); Calc. Creatinine Clearance 37 mL/min (70-130); Calcium 8.6 mg/dL (7.8-10.44); Carbon Dioxide 23 mmol/L (23-31); Chloride 99 mmol/L (98-107); Estimated GFR-MDRD 17; Glucose 93 mg/dL (83-110); Phosphorus 5.9 mg/dL (2.3-4.7); Potassium 4.4 mmol/L (3.5-5.1); Sodium 138 mmol/L (136-145)
--- NOTE | 2020-01-16 08:19 | RAD ---
EXAM: CHEST ONE VIEW HISTORY: Post intubation COMPARISON: 01/14/2020 FINDINGS: Endotracheal tube is now noted in place with the tip overlying the T4-5 level just above the level of the wicho. Tunneled right internal jugular vein hemodialysis catheter and left internal jugular vein central venous catheter remain in place. Interval placement nasogastric tube is noted with tip o verlying the lateral aspect left upper quadrant likely overlying the body of the stomach. Postsurgical changes related to CABG are again noted. There has been interval increase in bilateral perihilar interstitial and alveolar opacities which may be related to worsening pulmonary edema. Small to moderate size left pleural effusion and atelectasis is present. Probable tiny right pleural effusion is noted. No other interval change. IMPRESSION: 1. Findings suggestive of worsening pulmonary edema with small left pleural effusion which also appea rs increased. 2. Lines and tubes in place as described above.
[2020-01-16] MEDS ORDERED: Heparin 10,000 UNITS/ 10 ML VIAL ONE (08:36)
--- NOTE | 2020-01-16 08:47 | PRG ---
DATE OF SERVICE: 01/16/2020 SERVICE: Pulmonary medicine. INTERVAL HISTORY: The patient had a difficult evening. He ultimately was doing quite well on BiPAP. Repeat ABG was performed demonstrating severe hypercapnic respiratory failure, even on maximal doses of BiPAP. As such, we elected to intubate him. Afterwards, his respiratory issues resolved. He cannot provide any additional elements of the history requiring a little bit of sedation to maintain comfort. Otherwise, there has been no interval change to his condition. PHYSICAL EXAMINATION: VITAL SIGNS: Afebrile, pulse 78, blood pressure 101/61, respirations 15, saturation 99%, currently on 21% FiO2 and a PEEP of 5. GENERAL: The patient is awake and alert, in no apparent distress. LUNGS: Decent air entry. No prolonged expiratory phase or wheezing is appreciated. Dependent crackles are noted. HEART: Normal rate and regular. ABDOMEN: Soft, nontender, nondistended. Bowel sounds are positive. MUSCULOSKELETAL: No cyanosis or clubbing. There is no pitting in the bilateral lower extremities. NEUROLOGIC: Grossly nonfocal. LABORATORY DATA: WBC 6.1, hemoglobin 9.3, platelets 160,000. PH 7.43, pCO2 34 , pO2 175, corresponding to a saturation of 99%, this is while wearing 60% FiO2. Creatinine 3.59, is significantly up trending, BUN 59. Basic metabolic profile is otherwise unremarkable. Magnesium 2.0, phosphorus 5.9. Urinalysis is unremarkable. Vancomycin 12.2. HIV is nonreactive. Hepatitis serologies including B, C, and E are negative. IMAGING DATA: Chest x-ray demonstrates increasing pulmonary edema, small left pleural effusion. There is a new endotracheal tube in good position, 2 cm above the level of the wicho. The carinal angle is extraordinarily wide suggestive of left atrial dilation. Cardiac silhouette is enlarged. Dialysis catheter is present. There is an enteric catheter coursing midline and below the level of the diaphragm into the region of the stomach. ASSESSMENT: 1. Acute hypoxic and hypercapnic respiratory failure, improved. 2. Bilateral pleural effusions. 3. Acute on chronic diastolic heart failure. 4. End-stage renal disease with anasarca, improving. 5. Cellulitis of the right lower extremity. 6. Severe deconditioning. 7. Morbid obesity. 8. Obesity hypoventilation syndrome? DISCUSSION AND PLAN: I do not have a great reason for his decompensation. He has a little bit of obstructive airflow limitation on ventilator waveforms, but I believe that we are dealing with primarily simple weakness. I will initiate a 5-day course of steroids, and continue nebulized medications. We will continue empiric antibiotics. We will minimize fluids moving forward. Once he is close to euvolemia, extubation can be considered. That being said, he is demonstrating pretty significant weakness and with his size, it may prove challenging to get him extubated. If it does, we will discuss this with family moving forward. I am grateful to the residents who were able to secure his airway yesterday evening. He is currently on FiO2 of 21%. I do believe that most of this is respiratory failure is from a combination of deconditioning, obesity, fluid overload, and sepsis. CRITICAL CARE TIME: 30 minutes. Job ID: [id number] MTDD
[2020-01-16] MEDS: HumuLIN 70/30 (300 UNITS/3 ML VIAL) SC SCH ×2 (09:26→17:22)
[2020-01-16] MEDS: methylPREDNISolone Sod Succ 40 MG VIAL IVP SCH (09:27)
[2020-01-16] MEDS: cefTRIAXone\\ROCEPHIN 2 GM in Sodium Chloride 0.9% 100 ML IVPB SCH (09:27)
[2020-01-16] MEDS: Allopurinol 100 MG TAB PO SCH (09:27)
[2020-01-16] MEDS: Carvedilol 25 MG TAB PO SCH ×2 (09:28→20:54)
[2020-01-16] MEDS: Heparin 5,000 UNITS/ML VIAL SC SCH ×2 (09:28→20:55)
[2020-01-16] MEDS: Ferrous Sulfate 325 MG TAB PO SCH (09:28)
[2020-01-16] MEDS: Aspirin 300 MG Suppository PR SCH (09:29)
--- NOTE | 2020-01-16 15:20 | PDOC.HOSPP ---
- Subjective Encounter Date: 01/16/20 Encounter Time: 13:30 Subjective: Patient was intubated overnight. Ph has improved Nephro plans to do 4 hours of dialysis today - Objective Vital Signs & Weight: Vital Signs (12 hours) Temp Pulse Resp BP Pulse Ox 01/16/20 14:23 72 105/54 L 01/16/20 14:20 72 15 96 01/16/20 14:00 17 01/16/20 12:00 17 01/16/20 10:30 77 96/49 L 01/16/20 08:00 98.5 F 16 01/16/20 07:43 95 01/16/20 07:00 80 102/64 01/16/20 06:57 77 16 99 01/16/20 06:00 16 01/16/20 04:25 76 119/60 01/16/20 04:00 98.1 F 16 Weight Weight 310 lb 13.628 oz Most Recent Monitor Data Heart Rate from ECG 70 NIBP 110/55 NIBP BP-Mean 73 Respiration from ECG 18 SpO2 93 I&O: 01/15/20 01/16/20 01/17/20 06:59 06:59 06:59 Intake Total 120 180.2 Output Total 1195 315 Balance 120 -1014.8 -315 Result Diagrams: 01/16/20 03:40 01/16/20 03:40 Additional Labs: Accuchecks 01/16/20 01/15/20 01/15/20 11:17 20:56 16:27 POC Glucose 78 98 110 Hospitalist ROS - Review of Systems Constitutional: denies: fever, chills - Medication Medications: Active Medications Generic Name Dose Route Start Last Admin Trade Name Freq PRN Reason Stop Dose Admin Acetaminophen 1,000 mg 01/11/20 10:04 01/14/20 17:15 Tylenol PO 1,000 mg Q6H PRN Administration Moderate to Severe Pain (6-10) Albuterol/Ipratropium 3 ml 01/15/20 13:00 01/16/20 14:20 Duoneb NEB 3 ml [id number] RAYNA Administration Allopurinol 100 mg 01/11/20 09:00 01/16/20 09:27 Zyloprim PO 100 mg DAILY RAYNA Administration Aspirin 81 mg 01/16/20 09:00 01/16/20 09:29 Aspirin [place] Not Given DAILY RAYNA Atorvastatin Calcium 80 mg 01/09/20 21:00 01/15/20 20:41 Lipitor PO Not Given HS [facility] Carvedilol 25 mg 01/09/20 21:00 01/16/20 09:28 Coreg PO 25 mg BID RAYNA Administration Clopidogrel Bisulfate 75 mg 01/09/20 21:00 01/15/20 20:41 Plavix PO Not Given QPM RAYNA Dextrose/Water 25 gm 01/09/20 17:02 01/12/20 23:46 Dextrose 50% IVP 25 gm PRN PRN Administration HYPOGLYCEMIA PROTOCOL Ferrous Sulfate 325 mg 01/10/20 08:00 01/16/20 09:28 Feosol PO 325 mg QAM-WM RAYNA Administration Haloperidol Lactate 5 mg 01/14/20 17:13 01/15/20 16:26 Haldol IM 5 mg Q4H PRN Administration Agitation Heparin Sodium (Porcine) 5,000 units 01/09/20 21:00 01/16/20 09:28 Heparin [place] Not Given BID [facility] Vancomycin HCl 1 gm/ Device 200 mls @ 200 mls/hr 01/12/20 12:00 01/14/20 09: 20 IVPB 200 mls WILLCALL RAYNA Administration Ceftriaxone Sodium 2 gm/ 100 mls @ 200 mls/hr 01/15/20 10:00 01/16/20 09:27 Sodium Chloride IVPB 100 mls 1000 RAYNA Administration Insulin Human Isoph/Insulin Regular 30 units 01/10/20 16:30 01/16/20 09:26 Humulin 70/30 SC 30 unit BID-AC RAYNA Administration Insulin Human Lispro 0 units 01/09/20 17:02 01/09/20 17:21 Humalog SC 2 unit .MILD SLIDING SCALE PRN Administration MILD SLIDING SCALE Protocol Methylprednisolone Sodium Succinate 40 mg 01/16/20 09:00 01/16/20 09:27 Solu-Medrol IVP 40 mg DAILY RAYNA Administration Propofol 1,000 mg 01/16/20 01:12 01/16/20 12:27 Diprivan IV 02/15/20 01:12 1,000 mg INF PRN Administration TO ACHIEVE GOAL RASS Protocol Sodium Chloride 10 ml 01/10/20 21:00 01/16/20 09:28 Flush - Normal Saline IVF 10 ml Q12HR RAYNA Administration - Exam General - other findings: intubated Eye: PERRL, anicteric sclera ENT: normocephalic atraumatic, no oropharyngeal lesions Neck: supple, symmetric, no JVD Heart: RRR, no murmur, no gallops, no rubs Respiratory: CTAB, no ronchi Respiratory - other findings: rales bilaterally Gastrointestinal: soft, non-tender, non-distended, normal bowel sounds Extremities: no cyanosis, no clubbing, no edema Hosp A/P - Plan Chest Xray 01/13: worsening volume overload This is a 74 year old male patient with past medicla history of CHF, CAD, type II diabetes who presented with orthopnea, admitted for possible CHF Acute hypoxic/hypercapneic respiratory failure secondary to possible CHF exacerbation vs COPD exacerbation -s/p intubation due to worsening acidosis. Repeat ABG shows pH 7.43, pCO2 34, pO2 175 - continue Iv vancomycin, ceftriaxone added 01/14 for cellulitis - continue IV methylprednisolone 40 mg IV daily - RLE cellulitis - continue IV ceftriaxone. Clinically improving ESRD - continue dialysis Agitation - haldol prn - sreoquel prn CAD s/p CABG - on plavix, statin and aspirin DVT prophylaxis: heparin SC Code status: full code
[2020-01-16] MEDS ORDERED: Norepinephrine 8 MG/0.9% NS 250 ML ONE (15:32)
[2020-01-16] MEDS: Sacubitril 49 MG/Valsartan 51 MG TABLET PO SCH (18:05)
[2020-01-16] MEDS: Clopidogrel Bisulfate 75 MG TAB PO SCH (20:54)
[2020-01-16] MEDS: Atorvastatin Calcium 40 MG TAB PO SCH (20:54)
[2020-01-17 04:35] LABS: Anion Gap 17 mmol/L (10-20); BUN (Urea Nitrogen) 32 mg/dL (8.4-25.7); Calc. Creatinine Clearance 59 mL/min (70-130); Calcium 8.3 mg/dL (7.8-10.44); Carbon Dioxide 27 mmol/L (23-31); Chloride 99 mmol/L (98-107); Estimated GFR-MDRD 29; Glucose 128 mg/dL (83-110); Potassium 3.9 mmol/L (3.5-5.1); Sodium 139 mmol/L (136-145)
[2020-01-17] MEDS: HumuLIN 70/30 (300 UNITS/3 ML VIAL) SC SCH ×2 (08:25→15:31)
[2020-01-17] MEDS: Ferrous Sulfate 325 MG TAB PO SCH (08:40)
[2020-01-17] MEDS: Aspirin 300 MG Suppository PR SCH (08:40)
[2020-01-17] MEDS: Carvedilol 25 MG TAB PO SCH ×2 (08:40→21:26)
[2020-01-17] MEDS: Allopurinol 100 MG TAB PO SCH (08:40)
[2020-01-17] MEDS: methylPREDNISolone Sod Succ 40 MG VIAL IVP SCH (08:41)
[2020-01-17] MEDS: Heparin 5,000 UNITS/ML VIAL SC SCH ×2 (08:41→21:27)
[2020-01-17] MEDS: cefTRIAXone\\ROCEPHIN 2 GM in Sodium Chloride 0.9% 100 ML IVPB SCH (08:41)
[2020-01-17 08:53] LABS: Vancomycin, Random 8.2 ug/mL (See Comment)
[2020-01-17] MEDS: Propofol 1,000 MG/100 ML VIAL IV PRN ×4 (11:30→23:26)
--- NOTE | 2020-01-17 12:51 | PDOC.CPN ---
- Subjective Date: 01/17/20 Time: 12:50 Interval history: Remains intubated sedated. - Review of Systems ROS unobtainable: due to endotracheal tube - Objective Allergies/Adverse Reactions: Allergies Allergy/AdvReac Type Severity Reaction Status Date / Time No Known Allergies Allergy Verified 01/07/20 09:39 Visit Medications: Current Medications Acetaminophen (Tylenol) 1,000 mg PO Q6H PRN PRN Reason: Moderate to Severe Pain (6-10) Last Admin: 01/14/20 17:15 Dose: 1,000 mg Acetaminophen (Tylenol) 650 mg PO Q4H PRN PRN Reason: Headache/Fever or Mild Pain Albuterol/Ipratropium (Duoneb) 3 ml NEB [id number] [facility] Last Admin: 01/17/20 07:11 Dose: 3 ml Allopurinol (Zyloprim) 100 mg PO DAILY [facility] Last Admin: 01/17/20 08:40 Dose: 100 mg Aspirin (Aspirin) 81 mg [place] DAILY [facility] Last Admin: 01/17/20 08:40 Dose: 81 mg Atorvastatin Calcium (Lipitor) 80 mg PO HS [facility] Last Admin: 01/16/20 20:54 Dose: 80 mg Carvedilol (Coreg) 25 mg PO BID [facility] Last Admin: 01/17/20 08:40 Dose: 25 mg Clopidogrel Bisulfate (Plavix) 75 mg PO QPM [facility] Last Admin: 01/16/20 20:54 Dose: 75 mg Dextrose/Water (Dextrose 50%) 25 gm IVP PRN PRN PRN Reason: HYPOGLYCEMIA PROTOCOL Last Admin: 01/12/20 23:46 Dose: 25 gm Famotidine (Pepcid) 20 mg PO DAILYPRN PRN PRN Reason: Indigestion Ferrous Sulfate (Feosol) 325 mg PO QAM-[facility] Last Admin: 01/17/20 08:40 Dose: 325 mg Glucagon (Glucagon) 1 mg IM PRN PRN PRN Reason: HYPOGLYCEMIA PROTOCOL Haloperidol Lactate (Haldol) 5 mg IM Q4H PRN PRN Reason: Agitation Last Admin: 01/15/20 16:26 Dose: 5 mg Heparin Sodium (Porcine) (Heparin) 5,000 units SC BID [facility] Last Admin: 01/17/20 08:41 Dose: Not Given Dextrose/Water (D5w) 1,000 mls @ 0 mls/hr IV INF PRN PRN Reason: HYPOGLYCEMIA PROTOCOL Vancomycin HCl 1.5 gm/ Sodium (Chloride) 300 mls @ 200 mls/hr IVPB WILLCALL [facility] Vancomycin HCl 1.25 gm/ Sodium (Chloride) 250 mls @ 166.667 mls/hr IVPB WILLCALL [facility] Vancomycin HCl 1 gm/ Device 200 mls @ 200 mls/hr IVPB WILLCALL [facility] Last Admin: 01/14/20 09:20 Dose: 200 mls Vancomycin HCl 750 mg/ Sodium (Chloride) 250 mls @ 250 mls/hr IVPB WILLCALL [facility] Ceftriaxone Sodium 2 gm/ (Sodium Chloride) 100 mls @ 200 mls/hr IVPB 1000 RAYNA Last Admin: 01/17/20 08:41 Dose: 100 mls Fentanyl Citrate 2,000 mcg/ (Sodium Chloride) 100 mls @ 0 mls/hr IV INF [facility]; Protocol Stop: 02/15/20 01:12 Fentanyl Citrate (Fentanyl Bolus) 250 mls @ 0 mls/hr IVPB PRN PRN PRN Reason: Breakthrough pain/agitation Stop: 02/15/20 01:12 Norepinephrine Bitartrate (Levophed) 250 mls @ 0 mls/hr IVPB INF [facility]; Protocol Insulin Human Isoph/Insulin Regular (Humulin 70/30) 30 units SC BID-[facility] Last Admin: 01/17/20 08:25 Dose: 30 unit Insulin Human Lispro (Humalog) 0 units SC .MILD SLIDING SCALE PRN; Protocol PRN Reason: MILD SLIDING SCALE Last Admin: 01/09/20 17:21 Dose: 2 unit Lorazepam (Ativan) 2 mg SLOW IVP Q1H PRN PRN Reason: Breakthrough agitation Stop: 02/15/20 01:12 Methylprednisolone Sodium Succinate (Solu-Medrol) 40 mg IVP DAILY [facility] Last Admin: 01/17/20 08:41 Dose: 40 mg Miscellaneous Medication (Pharmacy To Dose) 1 each IVPB .VANCOMYCIN PRN PRN Reason: Pharmacy to dose Morphine Sulfate (Morphine) 2 mg SLOW IVP Q1H PRN PRN Reason: BREAKTHROUGH PAIN/Agitation Stop: 02/15/20 01:12 Nitroglycerin (Nitrolingual 0.4 Mg Welling) 0 gm SL Q5MIN PRN PRN Reason: Chest Pain Hold Vancomycin For (Level >20) 0 each FS .AT DIALYSIS [facility] Discontinue Previous Narcotic Pain Medications And Benzodiazepines 1 each FS .ONE [facility] Stop: 02/15/20 01:12 Nystatin (Mycostatin Powder) 1 gm TOP BID PRN PRN Reason: Topical Irritations Propofol (Diprivan) 1,000 mg IV INF PRN; Protocol PRN Reason: TO ACHIEVE GOAL RASS Stop: 02/15/20 01:12 Last Admin: 01/16/20 22:01 Dose: 1,000 mg Propofol (Diprivan Bolus) 20 mg IV Q5MIN PRN PRN Reason: BREAKTHROUGH AGITATION Stop: 02/15/20 01:12 Sacubitril/Valsartan (Entresto 24 Mg-26 Mg Tablet) 1 tab PO BID [facility] Last Admin: 01/17/20 08:40 Dose: 1 tab Senna/Docusate Sodium (Senokot S) 2 tab PO BIDPRN PRN PRN Reason: Constipation Sodium Chloride (Flush - Normal Saline) 10 ml IVF Q12HR [facility] Last Admin: 01/17/20 08:42 Dose: 10 ml Sodium Chloride (Flush - Normal Saline) 10 ml IVF PRN PRN PRN Reason: Saline Flush Vital Signs & Weight: Vital Signs Temp Pulse Resp BP Pulse Ox 01/17/20 10:56 71 116/61 01/17/20 10:00 16 01/17/20 08:00 98.7 F 16 01/17/20 07:54 17 92 L 01/17/20 07:12 81 115/60 01/17/20 07:11 78 18 94 L 01/17/20 07:00 98.7 F 01/17/20 06:00 16 01/17/20 04:04 70 100/47 L 01/17/20 04:00 98.3 F 19 01/17/20 02:00 19 01/17/20 01:18 78 17 96 Weight 301 lb 3.2 oz - Physical Exam General: other (S/I) HEENT: normocephaly Neck: supple neck Cardiac: regular rate and rhythm Lungs: bibasilar rales Neuro: other (Sedated) Abdomen: active bowel sounds Extremities: 1+ LE edema Skin: clear Musculoskeletal: normal range of motion - Labs Result Diagrams: 01/16/20 03:40 01/17/20 04:00 Troponin/CKMB CK-MB (CK-2) 2.8 ng/mL (0-6.6) 01/09/20 10:11 Troponin I 0.048 ng/mL (< 0.028) H 01/09/20 17:18 - Telemetry Sinus rhythms and dysrhythmias: sinus rhythm - Assessment/Plan Assessment/Plan: 1. ESRD on new onset HD 2. Ischemic CM EF at 40-45% 3. CAD, stable no ACS. 4. HTN 5. Acute hypoxic hypercapnic respiratory insufficiency requiring mechanical ventilation. 6. Acute on chronic systolic and diastolic heart failure. PLAN: - Supportive care. - HD for Fluid management. - Critical Care Time Critical care time (mins): 30
[2020-01-17] MEDS: Norepinephrine 8 MG/0.9% NS 250 ML IVPB SCH (14:10)
--- NOTE | 2020-01-17 14:43 | PDOC.HOSPP ---
- Subjective Encounter Date: 01/17/20 Encounter Time: 11:30 Subjective: Patient remains intubated. He was started on levofed. Patient was receiving dialysis this morning. - Objective Vital Signs & Weight: Vital Signs (12 hours) Temp Pulse Resp BP Pulse Ox 01/17/20 12:00 98.8 F 16 01/17/20 10:56 71 116/61 01/17/20 10:00 16 01/17/20 08:00 98.7 F 16 01/17/20 07:54 17 92 L 01/17/20 07:12 81 115/60 01/17/20 07:11 78 18 94 L 01/17/20 07:00 98.7 F 01/17/20 06:00 16 01/17/20 04:04 70 100/47 L 01/17/20 04:00 98.3 F 19 Weight Weight 301 lb 3.2 oz Most Recent Monitor Data Heart Rate from ECG 74 NIBP 105/60 NIBP BP-Mean 75 Respiration from ECG 17 SpO2 96 I&O: 01/16/20 01/17/20 01/18/20 06:59 06:59 06:59 Intake Total 180.2 972 150 Output Total 1195 340 30 Balance -1014.8 632 120 Result Diagrams: 01/16/20 03:40 01/17/20 04:00 Additional Labs: Accuchecks 01/17/20 01/16/20 01/16/20 11:20 21:13 15:18 POC Glucose 124 H 99 94 Hospitalist ROS - Review of Systems ROS unobtainable: due to endotracheal tube - Medication Medications: Active Medications Generic Name Dose Route Start Last Admin Trade Name Freq PRN Reason Stop Dose Admin Acetaminophen 1,000 mg 01/11/20 10:04 01/14/20 17:15 Tylenol PO 1,000 mg Q6H PRN Administration Moderate to Severe Pain (6-10) Albuterol/Ipratropium 3 ml 01/15/20 13:00 01/17/20 07:11 Duoneb NEB 3 ml [id number] RAYNA Administration Allopurinol 100 mg 01/11/20 09:00 01/17/20 08:40 Zyloprim PO 100 mg DAILY RAYNA Administration Aspirin 81 mg 01/16/20 09:00 01/17/20 08:40 Aspirin [place] 81 mg DAILY RAYNA Administration Atorvastatin Calcium 80 mg 01/09/20 21:00 01/16/20 20:54 Lipitor PO 80 mg HS RAYNA Administration Carvedilol 25 mg 01/09/20 21:00 01/17/20 08:40 Coreg PO 25 mg BID RAYNA Administration Clopidogrel Bisulfate 75 mg 01/09/20 21:00 01/16/20 20:54 Plavix PO 75 mg QPM RAYNA Administration Dextrose/Water 25 gm 01/09/20 17:02 01/12/20 23:46 Dextrose 50% IVP 25 gm PRN PRN Administration HYPOGLYCEMIA PROTOCOL Ferrous Sulfate 325 mg 01/10/20 08:00 01/17/20 08:40 Feosol PO 325 mg QAM-WM RAYNA Administration Haloperidol Lactate 5 mg 01/14/20 17:13 01/15/20 16:26 Haldol IM 5 mg Q4H PRN Administration Agitation Heparin Sodium (Porcine) 5,000 units 01/09/20 21:00 01/17/20 08:41 Heparin SC Not Given BID RAYNA Vancomycin HCl 1.25 gm/ Sodium 250 mls @ 166.667 mls/hr 01/12/20 12:00 13:04 Chloride IVPB 250 mls WILLCALL RAYNA Administration Vancomycin HCl 1 gm/ Device 200 mls @ 200 mls/hr 01/12/20 12:00 01/14/20 09: 20 IVPB 200 mls WILLCALL RAYNA Administration Ceftriaxone Sodium 2 gm/ 100 mls @ 200 mls/hr 01/15/20 10:00 01/17/20 08:41 Sodium Chloride IVPB 100 mls 1000 RAYNA Administration Norepinephrine Bitartrate 250 mls @ 0 mls/hr 01/17/20 00:15 01/17/20 14:10 Levophed IVPB 250 mls INF RAYNA Administration Protocol Titrate Insulin Human Isoph/Insulin Regular 30 units 01/10/20 16:30 01/17/20 08:25 Humulin 70/30 SC 30 unit BID-AC RAYNA Administration Insulin Human Lispro 0 units 01/09/20 17:02 01/09/20 17:21 Humalog SC 2 unit .MILD SLIDING SCALE PRN Administration MILD SLIDING SCALE Protocol Methylprednisolone Sodium Succinate 40 mg 01/16/20 09:00 01/17/20 08:41 Solu-Medrol IVP 40 mg DAILY RAYNA Administration Propofol 1,000 mg 01/16/20 01:12 01/17/20 11:30 Diprivan IV 02/15/20 01:12 1,000 mg INF PRN Administration TO ACHIEVE GOAL RASS Protocol Sacubitril/Valsartan 1 tab 01/16/20 21:00 01/17/20 08:40 Entresto 24 Mg-26 Mg Tablet PO 1 tab BID RAYNA Administration Sodium Chloride 10 ml 01/10/20 21:00 01/17/20 08:42 Flush - Normal Saline IVF 10 ml Q12HR RAYNA Administration - Exam General Appearance: NAD, awake alert Eye: PERRL, anicteric sclera ENT: normocephalic atraumatic, no oropharyngeal lesions Neck: supple, no JVD Heart: RRR, no murmur, no gallops, no rubs Respiratory: CTAB, no rales Respiratory - other findings: mild rhonchi and wheezing Gastrointestinal: soft, non-tender, non-distended, normal bowel sounds Extremities: no cyanosis, no clubbing, no edema Hosp A/P - Plan Chest Xray 01/13: worsening volume overload Chest X ray 01/15: worsening pulmonary edema This is a 74 year old male patient with past medical history of CHF, CAD, type II diabetes who presented with orthopnea, admitted for possible CHF Acute hypoxic/hypercapneic respiratory failure secondary to possible CHF exacerbation vs COPD exacerbation -s/p intubation due to worsening acidosis. Chest Xray 01/15 showed worsening pulmonary edema. Patient received dialysis today. - will repeat blood gas today and chest X ray - continue Iv vancomycin, ceftriaxone added 01/14 for cellulitis - continue IV methylprednisolone 40 mg IV daily - levofed added for pressor support RLE cellulitis - continue IV ceftriaxone. Clinically improving ESRD - continue dialysis Agitation - haldol prn - sreoquel prn CAD s/p CABG - on plavix, statin and aspirin DVT prophylaxis: heparin SC Code status: full code
--- NOTE | 2020-01-17 15:22 | RAD ---
AP CHEST: Date: 01/17/2020 HISTORY: Shortness of breath. Question pulmonary edema or pneumonia. COMPARISON: 01/16/2020. FINDINGS/IMPRESSION: ET tube, NG tube, and central lines again noted. Cardiomegaly. Mild vascular congestion. Hazy infiltr ates in both lower lungs with evidence of small effusions. Perihilar opacities appear improved today which suggest improvement in pulmonary edema. POS: [facility]
--- NOTE | 2020-01-17 15:39 | PRG ---
DATE OF SERVICE: 01/17/2020 SERVICE: Pulmonary Medicine. INTERVAL HISTORY: The patient is doing outstanding from a respiratory standpoint. He is on very little support on the ventilator. He is requiring some sedation in order to maintain comfort. Otherwise, there has been no interval change to his condition. Nursing reports no overnight events except for little bit of blood coming from the ET tube. Yesterday it stopped, but once again overnight it started back up to touch. PHYSICAL EXAMINATION: VITAL SIGNS: Afebrile. Pulse 72, blood pressure 121/61, respirations 17, saturation 96%, currently on 21% FiO2 and a PEEP of 5. GENERAL: The patient is intubated and sedated. HEENT: Normocephalic and atraumatic. Sclerae white. Conjunctivae pink. Oral mucosa is moist without lesions. LUNGS: Decent air entry. No prolonged expiratory phase or wheezing is appreciated. HEART: Normal rate. Regular. ABDOMEN: Soft, nontender, and nondistended. Bowel sounds are positive. MUSCULOSKELETAL: No cyanosis or clubbing. No pitting in the bilateral lower extremities. NEUROLOGIC: Grossly nonfocal. LABORATORY DATA: Creatinine 2.23 and beautifully downtrending, BUN 32. Basic metabolic profile is otherwise unremarkable. Blood sugar ranges from 78 to 124. Urine culture is unremarkable. IMAGING: Chest x-ray demonstrates cardiomegaly with likely bilateral pleural effusions present. Endotracheal tube is in good position. Enteric catheter courses midline below the level of the diaphragm. Dialysis catheter is once again noted. ASSESSMENT: 1. Acute hypoxic and hypercapnic respiratory failure, resolved. 2. Bilateral pleural effusions. 3. Acute on chronic diastolic heart failure. 4. End-stage renal disease with anasarca, improving. 5. Cellulitis of the right lower extremity. 6. Severe deconditioning. DISCUSSION AND PLAN: The acute kidney injury seems to be improving significantly. He remains a little bit volume overloaded. We will allow him to continue diuresing through time. We will continue to hold IV fluids. Currently, he is on room air. We will give him a sedation holiday tomorrow morning, and if he meets criteria, extubation will be considered. Now that he is a touch volume down, and he has cleared sepsis profile, I am hoping he has enough strength to breathe on his own. Time will tell. Job ID: [id number]
[2020-01-17] MEDS: Atorvastatin Calcium 40 MG TAB PO SCH (21:26)
[2020-01-17] MEDS: Clopidogrel Bisulfate 75 MG TAB PO SCH (21:26)
[2020-01-18] MEDS: Propofol 1,000 MG/100 ML VIAL IV PRN ×5 (03:12→20:41)
[2020-01-18] MEDS: Norepinephrine 8 MG/0.9% NS 250 ML IVPB SCH ×2 (03:13→14:40)
[2020-01-18] MEDS: Ferrous Sulfate 325 MG TAB PO SCH (07:38)
[2020-01-18] MEDS: HumuLIN 70/30 (300 UNITS/3 ML VIAL) SC SCH ×2 (07:52→17:53)
--- NOTE | 2020-01-18 07:59 | PRG ---
DATE OF SERVICE: 01/18/2020 SERVICE: Pulmonary Medicine. INTERVAL HISTORY: The patient is doing really well from a Respiratory standpoint. Breathing comfortably. He is on mechanical ventilation. He cannot provide any additional elements of the history. He did not have any CBC or electrolytes today. He is tolerating dialysis fairly well, but required going back on pressors for brief time. Whenever they are stopped, his blood pressures fall to an intermediate range, and so currently he is on a little bit of Levophed. PHYSICAL EXAMINATION: VITAL SIGNS: Afebrile, pulse 69, blood pressure 105/50, respirations 14, saturation 96%, currently on 21% FiO2 and a PEEP of 5. GENERAL: The patient is intubated and sedated. HEENT: Normocephalic and atraumatic. Sclerae white. Conjunctivae pink. Oral mucosa is moist without lesions. LUNGS: Decent air entry. No prolonged expiratory phase or wheezing is appreciated. HEART: Normal rate. Regular. He is having a significant ectopy. ABDOMEN: Soft, nontender, nondistended. Bowel sounds are positive. MUSCULOSKELETAL: No cyanosis or clubbing. Pitting edema has improved. NEUROLOGIC: Grossly nonfocal. LABORATORY DATA: WBC 6.1, hemoglobin 9.3, platelets 160,000. Creatinine 2.23, improving with dialysis. ASSESSMENT: 1. Acute hypoxic and hypercapnic respiratory failure. 2. Bilateral pleural effusions. 3. Acute on chronic diastolic heart failure. 4. End-stage renal disease with anasarca, improving. 5. Cellulitis of the right lower extremity. 6. Severe deconditioning. DISCUSSION AND PLAN: The patient's volume status has improved dramatically. I will repeat a chest x-ray tomorrow morning. After dialysis today, we will put him on a spontaneous breathing trial, and if he meets criteria, extubation will be considered. Cardiology consultation will be placed because of his significant abnormal telemetry rhythms. It is not clear if this represents tachyarrhythmia with aberrancy versus ventricular ectopy. I favor the former. Hopefully, he will be extubated soon. CRITICAL CARE TIME: 30 minutes. Job ID: [id number]
[2020-01-18] MEDS: Carvedilol 25 MG TAB PO SCH ×2 (08:19→20:41)
[2020-01-18] MEDS: methylPREDNISolone Sod Succ 40 MG VIAL IVP SCH (08:19)
[2020-01-18] MEDS: Allopurinol 100 MG TAB PO SCH (08:19)
[2020-01-18] MEDS: Aspirin 300 MG Suppository PR SCH (08:35)
--- NOTE | 2020-01-18 08:38 | RAD ---
EXAM: Portable chest PROVIDED CLINICAL HISTORY: Respiratory insufficiency COMPARISON: 01/17/2020 FINDINGS: Significant interval change with respect to the prior examination is not apparent. IMPRESSION: As above.
[2020-01-18] MEDS ORDERED: Heparin 10,000 UNITS/ 10 ML VIAL ONE (09:44)
[2020-01-18 10:09] LABS: Hemoglobin 9.9 g/dL (14.0-18.0); Mean Corpuscular HGB CONC 31.9 g/dL (32.0-36.0); Mean Corpuscular Hemoglobin 29.4 pg (27.0-31.0); Mean Corpuscular Volume 92.2 fL (78.0-98.0); Mean Platelet Volume 9.7 fL (7.4-10.4); Platelet Count 203 thou/uL (130-400); RBC Distribution Width 14.9 % (11.5-14.5); Red Blood Cell (RBC) Count 3.36 mill/uL (4.70-6.10); White Blood Cell (WBC) Count 10.8 thou/uL (4.8-10.8)
[2020-01-18 10:14] LABS: Anion Gap 14 mmol/L (10-20); BUN (Urea Nitrogen) 29 mg/dL (8.4-25.7); Calc. Creatinine Clearance 61 mL/min (70-130); Calcium 8.1 mg/dL (7.8-10.44); Carbon Dioxide 27 mmol/L (23-31); Chloride 100 mmol/L (98-107); Estimated GFR-MDRD 32; Glucose 150 mg/dL (83-110); Potassium 3.1 mmol/L (3.5-5.1); Sodium 138 mmol/L (136-145)
[2020-01-18] MEDS ORDERED: Potassium Chloride 20 MEQ TAB PO SCH (10:30)
[2020-01-18] MEDS: cefTRIAXone\\ROCEPHIN 2 GM in Sodium Chloride 0.9% 100 ML IVPB SCH (10:36)
[2020-01-18 12:16] LABS: Vancomycin, Trough 10.9 ug/mL
[2020-01-18] MEDS: Vancomycin 1 GM in Premix Bag 1 BAG IVPB SCH (12:40)
[2020-01-18] MEDS ORDERED: Vancomycin 1 GM in Premix Bag 1 BAG IVPB SCH (12:45)
--- NOTE | 2020-01-18 12:48 | PDOC.HOSPP ---
- Subjective Encounter Date: 01/18/20 Encounter Time: 09:00 Subjective: Per nurse when patient was weaned he was extremely agitated so put back on sedation. He is getting dialysis currently. No increase in secretions per nursing staff. Per nurse he was hypotensive when weaned off of levofed - Objective Vital Signs & Weight: Vital Signs (12 hours) Temp Pulse Resp BP Pulse Ox 01/18/20 11:18 65 116/57 L 01/18/20 09:00 97.6 F 01/18/20 08:00 97 01/18/20 07:11 69 105/50 L 01/18/20 07:00 97.7 F 01/18/20 06:00 15 01/18/20 04:00 98.7 F 13 01/18/20 02:00 14 01/18/20 01:45 70 01/18/20 01:44 70 17 98 Weight Admit Weight 4.829 oz Weight 298 lb 11.2 oz Most Recent Monitor Data Heart Rate from ECG 61 NIBP 101/55 NIBP BP-Mean 70 Respiration from ECG 16 SpO2 98 I&O: 01/17/20 01/18/20 01/19/20 06:59 06:59 06:59 Intake Total 972 1573 280 Output Total 340 70 85 Balance 632 1503 195 Result Diagrams: 01/18/20 09:50 01/18/20 09:50 Additional Labs: Accuchecks 01/18/20 01/18/20 01/18/20 10:27 08:16 04:53 POC Glucose 128 H 130 H 138 H 01/17/20 01/17/20 22:31 17:17 POC Glucose 104 110 Hospitalist ROS - Review of Systems ROS unobtainable: due to endotracheal tube Constitutional: reports: fever - Medication Medications: Active Medications Generic Name Dose Route Start Last Admin Trade Name Freq PRN Reason Stop Dose Admin Acetaminophen 1,000 mg 01/11/20 10:04 01/14/20 17:15 Tylenol PO 1,000 mg Q6H PRN Administration Moderate to Severe Pain (6-10) Albuterol/Ipratropium 3 ml 01/15/20 13:00 01/18/20 07:10 Duoneb NEB 3 ml [id number] RAYNA Administration Allopurinol 100 mg 01/11/20 09:00 01/18/20 08:19 Zyloprim PO 100 mg DAILY RAYNA Administration Aspirin 81 mg 01/16/20 09:00 01/18/20 08:35 Aspirin ND 81 mg DAILY RAYNA Administration Atorvastatin Calcium 80 mg 01/09/20 21:00 01/17/20 21:26 Lipitor PO 80 mg HS RAYNA Administration Carvedilol 25 mg 01/09/20 21:00 01/18/20 08:19 Coreg PO 25 mg BID RAYNA Administration Clopidogrel Bisulfate 75 mg 01/09/20 21:00 01/17/20 21:26 Plavix PO 75 mg QPM RAYNA Administration Dextrose/Water 25 gm 01/09/20 17:02 01/12/20 23:46 Dextrose 50% IVP 25 gm PRN PRN Administration HYPOGLYCEMIA PROTOCOL Ferrous Sulfate 325 mg 01/10/20 08:00 01/18/20 07:38 Feosol PO 325 mg QAM-WM RAYNA Administration Haloperidol Lactate 5 mg 01/14/20 17:13 01/15/20 16:26 Haldol IM 5 mg Q4H PRN Administration Agitation Vancomycin HCl 1.25 gm/ Sodium 250 mls @ 166.667 mls/hr 01/12/20 12:00 13:04 Chloride IVPB 250 mls WILLCALL RAYNA Administration Vancomycin HCl 1 gm/ Device 200 mls @ 200 mls/hr 01/12/20 12:00 01/18/20 12: 40 IVPB 200 mls WILLCALL RAYNA Administration Ceftriaxone Sodium 2 gm/ 100 mls @ 200 mls/hr 01/15/20 10:00 01/18/20 10:36 Sodium Chloride IVPB 100 mls 1000 RAYNA Administration Norepinephrine Bitartrate 250 mls @ 0 mls/hr 01/17/20 00:15 01/18/20 03:13 Levophed IVPB 250 mls INF RAYNA Administration Protocol Titrate Insulin Human Isoph/Insulin Regular 30 units 01/10/20 16:30 01/18/20 07:52 Humulin 70/30 SC 30 unit BID-AC RAYNA Administration Insulin Human Lispro 0 units 01/09/20 17:02 01/09/20 17:21 Humalog SC 2 unit .MILD SLIDING SCALE PRN Administration MILD SLIDING SCALE Protocol Methylprednisolone Sodium Succinate 40 mg 01/16/20 09:00 01/18/20 08:19 Solu-Medrol IVP 40 mg DAILY RAYNA Administration Potassium Chloride 20 meq 01/18/20 10:30 01/18/20 11:57 K-Dur PO 01/18/20 13:00 20 meq NOW RAYNA Administration Propofol 1,000 mg 01/16/20 01:12 01/18/20 07:37 Diprivan IV 02/15/20 01:12 1,000 mg INF PRN Administration TO ACHIEVE GOAL RASS Protocol Sacubitril/Valsartan 1 tab 01/16/20 21:00 01/18/20 08:19 Entresto 24 Mg-26 Mg Tablet PO 1 tab BID RAYNA Administration Sodium Chloride 10 ml 01/10/20 21:00 01/18/20 10:37 Flush - Normal Saline IVF 10 ml Q12HR RAYNA Administration - Exam General - other findings: sedated Eye: anicteric sclera ENT: normocephalic atraumatic Neck: supple, no JVD Heart: RRR, no murmur, no gallops, no rubs Heart - other findings: mild rales bilaterally Gastrointestinal: soft, non-tender, non-distended, normal bowel sounds Extremities: no cyanosis, no clubbing, 1+ LE edema Hosp A/P - Plan Chest Xray 01/13: worsening volume overload Chest X ray 01/15: worsening pulmonary edema Chest Xray 01/17: pulmonary edema This is a 74 year old male patient with past medical history of CHF, CAD, type II diabetes who presented with orthopnea, admitted for possible CHF Acute hypoxic/hypercapneic respiratory failure secondary to possible CHF exacerbation vs COPD exacerbation -s/p intubation due to worsening acidosis. Chest Xray 01/15 showed worsening pulmonary edema. Patient received dialysis today. - patient was on IV ceftriaxone 01/14 for cellulitis, IV methylprednisolone started 01/15 - will add IV vancomycin and switch from ceftriaxone to zosyn since patient has been intubated for two days and hypotensive to cover for possible pneumonia given persistent bilateral infiltrates on X ray - continue levofed RLE cellulitis - was on IV ceftriaxone, switch to zosyn ESRD - continue dialysis Agitation - haldol prn - sreoquel prn CAD s/p CABG - on plavix, statin and aspirin DVT prophylaxis: heparin SC Code status: full code
[2020-01-18] MEDS: Piperacillin/Tazobactam 3.375 GM in Sodium Chloride 0.9% 100 ML IVPB SCH ×2 (13:37→17:57)
[2020-01-18] MEDS: Heparin 5,000 UNITS/ML VIAL SC SCH (14:40)
[2020-01-18] MEDS: HumaLOG 300 UNITS/3 ML VIAL SC PRN (16:09)
--- NOTE | 2020-01-18 16:30 | PDOC.CPN ---
- Subjective Date: 01/18/20 Time: 16:28 Interval history: Remains sedated and intubated. - Review of Systems ROS unobtainable: due to endotracheal tube - Objective Allergies/Adverse Reactions: Allergies Allergy/AdvReac Type Severity Reaction Status Date / Time No Known Allergies Allergy Verified 01/07/20 09:39 Visit Medications: Current Medications Acetaminophen (Tylenol) 1,000 mg PO Q6H PRN PRN Reason: Moderate to Severe Pain (6-10) Last Admin: 01/14/20 17:15 Dose: 1,000 mg Acetaminophen (Tylenol) 650 mg PO Q4H PRN PRN Reason: Headache/Fever or Mild Pain Albuterol/Ipratropium (Duoneb) 3 ml NEB [id number] [facility] Last Admin: 01/18/20 13:24 Dose: 3 ml Allopurinol (Zyloprim) 100 mg PO DAILY [facility] Last Admin: 01/18/20 08:19 Dose: 100 mg Aspirin (Aspirin) 81 mg IN DAILY [facility] Last Admin: 01/18/20 08:35 Dose: 81 mg Atorvastatin Calcium (Lipitor) 80 mg PO HS [facility] Last Admin: 01/17/20 21:26 Dose: 80 mg Carvedilol (Coreg) 25 mg PO BID [facility] Last Admin: 01/18/20 08:19 Dose: 25 mg Clopidogrel Bisulfate (Plavix) 75 mg PO QPM [facility] Last Admin: 01/17/20 21:26 Dose: 75 mg Dextrose/Water (Dextrose 50%) 25 gm IVP PRN PRN PRN Reason: HYPOGLYCEMIA PROTOCOL Last Admin: 01/12/20 23:46 Dose: 25 gm Famotidine (Pepcid) 20 mg PO DAILYPRN PRN PRN Reason: Indigestion Ferrous Sulfate (Feosol) 325 mg PO QA-[facility] Last Admin: 01/18/20 07:38 Dose: 325 mg Glucagon (Glucagon) 1 mg IM PRN PRN PRN Reason: HYPOGLYCEMIA PROTOCOL Haloperidol Lactate (Haldol) 5 mg IM Q4H PRN PRN Reason: Agitation Last Admin: 01/15/20 16:26 Dose: 5 mg Dextrose/Water (D5w) 1,000 mls @ 0 mls/hr IV INF PRN PRN Reason: HYPOGLYCEMIA PROTOCOL Vancomycin HCl 1.5 gm/ Sodium (Chloride) 300 mls @ 200 mls/hr IVPB WILLCALL [facility] Vancomycin HCl 1.25 gm/ Sodium (Chloride) 250 mls @ 166.667 mls/hr IVPB WILLCALL [facility] Last Admin: 01/17/20 13:04 Dose: 250 mls Vancomycin HCl 1 gm/ Device 200 mls @ 200 mls/hr IVPB WILLCALL [facility] Last Admin: 01/18/20 12:40 Dose: 200 mls Vancomycin HCl 750 mg/ Sodium (Chloride) 250 mls @ 250 mls/hr IVPB WILLCALL [facility] Fentanyl Citrate 2,000 mcg/ (Sodium Chloride) 100 mls @ 0 mls/hr IV INF [facility]; Protocol Stop: 02/15/20 01:12 Fentanyl Citrate (Fentanyl Bolus) 250 mls @ 0 mls/hr IVPB PRN PRN PRN Reason: Breakthrough pain/agitation Stop: 02/15/20 01:12 Norepinephrine Bitartrate (Levophed) 250 mls @ 0 mls/hr IVPB INF [facility]; Protocol Last Admin: 01/18/20 14:40 Dose: 250 mls Piperacillin Sod/Tazobactam (Sod 3.375 gm/ Sodium Chloride) 100 mls @ 200 mls/ hr IVPB Q6HR [facility] Last Admin: 01/18/20 13:37 Dose: 100 mls Insulin Human Isoph/Insulin Regular (Humulin 70/30) 30 units SC BID-[facility] Last Admin: 01/18/20 07:52 Dose: 30 unit Insulin Human Lispro (Humalog) 0 units SC .MILD SLIDING SCALE PRN; Protocol PRN Reason: MILD SLIDING SCALE Last Admin: 01/18/20 16:09 Dose: 2 unit Lorazepam (Ativan) 2 mg SLOW IVP Q1H PRN PRN Reason: Breakthrough agitation Stop: 02/15/20 01:12 Methylprednisolone Sodium Succinate (Solu-Medrol) 40 mg IVP DAILY [facility] Last Admin: 01/18/20 08:19 Dose: 40 mg Miscellaneous Medication (Pharmacy To Dose) 1 each IVPB .VANCOMYCIN PRN PRN Reason: Pharmacy to dose Morphine Sulfate (Morphine) 2 mg SLOW IVP Q1H PRN PRN Reason: BREAKTHROUGH PAIN/Agitation Stop: 02/15/20 01:12 Nitroglycerin (Nitrolingual 0.4 Mg [place]) 0 gm SL Q5MIN PRN PRN Reason: Chest Pain Hold Vancomycin For (Level >20) 0 each FS .AT DIALYSIS [facility] Discontinue Previous Narcotic Pain Medications And Benzodiazepines 1 each FS .ONE [facility] Stop: 02/15/20 01:12 Nystatin (Mycostatin Powder) 1 gm TOP BID PRN PRN Reason: Topical Irritations Propofol (Diprivan) 1,000 mg IV INF PRN; Protocol PRN Reason: TO ACHIEVE GOAL RASS Stop: 02/15/20 01:12 Last Admin: 01/18/20 15:46 Dose: 1,000 mg Propofol (Diprivan Bolus) 20 mg IV Q5MIN PRN PRN Reason: BREAKTHROUGH AGITATION Stop: 02/15/20 01:12 Sacubitril/Valsartan (Entresto 24 Mg-26 Mg Tablet) 1 tab PO BID [facility] Last Admin: 01/18/20 08:19 Dose: 1 tab Senna/Docusate Sodium (Senokot S) 2 tab PO BIDPRN PRN PRN Reason: Constipation Sodium Chloride (Flush - Normal Saline) 10 ml IVF Q12HR [facility] Last Admin: 01/18/20 10:37 Dose: 10 ml Sodium Chloride (Flush - Normal Saline) 10 ml IVF PRN PRN PRN Reason: Saline Flush Vital Signs & Weight: Vital Signs Temp Pulse Pulse Pulse Resp BP BP 01/18/20 15:00 97.7 F 01/18/20 14:53 65 95/49 L 01/18/20 14:12 65 63 108/53 L 01/18/20 13:25 60 111/55 L 01/18/20 11:18 65 116/57 L 01/18/20 09:00 97.6 F 01/18/20 08:00 01/18/20 07:11 69 105/50 L 01/18/20 07:00 97.7 F 01/18/20 06:00 15 BP Pulse Ox 01/18/20 15:00 01/18/20 14:53 01/18/20 14:12 110/53 L 01/18/20 13:25 01/18/20 11:18 01/18/20 09:00 01/18/20 08:00 97 01/18/20 07:11 01/18/20 07:00 01/18/20 06:00 Admit Weight 4.829 oz Weight 298 lb 11.2 oz - Physical Exam General: other (S/I) HEENT: normocephaly Neck: supple neck Cardiac: no murmur Lungs: clear to auscultation Neuro: other (Sedated.) Abdomen: active bowel sounds Extremities: 1+ LE edema Skin: clear Musculoskeletal: no pain - Labs Result Diagrams: 01/18/20 09:50 01/18/20 09:50 Troponin/CKMB CK-MB (CK-2) 2.8 ng/mL (0-6.6) 01/09/20 10:11 Troponin I 0.048 ng/mL (< 0.028) H 01/09/20 17:18 - Telemetry Sinus rhythms and dysrhythmias: sinus rhythm - Assessment/Plan Assessment/Plan: 1. ESRD on new onset HD 2. Ischemic CM EF at 40-45% 3. CAD, stable no ACS. 4. HTN 5. Acute hypoxic hypercapnic respiratory insufficiency requiring mechanical ventilation. 6. Acute on chronic systolic and diastolic heart failure. PLAN: - Supportive care. - HD for Fluid management. - Will follow.
[2020-01-18] MEDS: Clopidogrel Bisulfate 75 MG TAB PO SCH (20:41)
[2020-01-18] MEDS: Atorvastatin Calcium 40 MG TAB PO SCH (20:41)
[2020-01-19] MEDS: Piperacillin/Tazobactam 3.375 GM in Sodium Chloride 0.9% 100 ML IVPB SCH ×2 (00:13→05:46)
[2020-01-19] MEDS: Propofol 1,000 MG/100 ML VIAL IV PRN ×3 (01:24→11:44)
[2020-01-19 05:02] LABS: #Eosinphils 0.5 thou/uL (0.0-0.7); #Lymphocytes 0.7 thou/uL (1.20-3.40); #Monocytes 0.9 thou/uL (0.11-0.59); #Neutrophils 8.4 thou/uL (1.40-6.50); %Basophils 0.1 % (0.0-1.0); %Eosinophils 4.3 % (0.0-10.0); %Lymphocytes 6.2 % (21.0-51.0); %Monocytes 8.9 % (0.0-10.0); %Neutrophils 80.4 % (42.0-75.0); Hemoglobin 10.4 g/dL (14.0-18.0); Mean Corpuscular HGB CONC 32.2 g/dL (32.0-36.0); Mean Corpuscular Hemoglobin 29.7 pg (27.0-31.0); Mean Corpuscular Volume 92.3 fL (78.0-98.0); Mean Platelet Volume 9.9 fL (7.4-10.4); Platelet Count 223 thou/uL (130-400); Red Blood Cell (RBC) Count 3.49 mill/uL (4.70-6.10); White Blood Cell (WBC) Count 10.5 thou/uL (4.8-10.8)
[2020-01-19 05:28] LABS: Anion Gap 12 mmol/L (10-20); BUN (Urea Nitrogen) 25 mg/dL (8.4-25.7); Calc. Creatinine Clearance 70 mL/min (70-130); Calcium 8.1 mg/dL (7.8-10.44); Carbon Dioxide 29 mmol/L (23-31); Chloride 100 mmol/L (98-107); Estimated GFR-MDRD 37; Glucose 132 mg/dL (83-110); Magnesium 1.8 mg/dL (1.6-2.6); Potassium 3.6 mmol/L (3.5-5.1); Sodium 137 mmol/L (136-145)
[2020-01-19 05:30] LABS: Phosphorus 3.1 mg/dL (2.3-4.7)
[2020-01-19] MEDS: HumuLIN 70/30 (300 UNITS/3 ML VIAL) SC SCH ×2 (07:23→16:25)
[2020-01-19] MEDS: Ferrous Sulfate 325 MG TAB PO SCH (07:23)
[2020-01-19 09:19] LABS: Vancomycin, Random 15.4 ug/mL (See Comment)
[2020-01-19] MEDS: Allopurinol 100 MG TAB PO SCH (09:28)
[2020-01-19] MEDS: Carvedilol 25 MG TAB PO SCH ×2 (09:28→21:09)
[2020-01-19] MEDS: Aspirin 300 MG Suppository PR SCH (09:28)
[2020-01-19] MEDS: methylPREDNISolone Sod Succ 40 MG VIAL IVP SCH (09:29)
--- NOTE | 2020-01-19 09:37 | PRG ---
DATE OF SERVICE: 01/19/2020 SUBJECTIVE: Kt Saldana remains in the ICU, intubated in the vent, sedated. He is being dialyzed. OBJECTIVE: VITAL SIGNS: Blood pressure 91/42, he is on Levophed, pulse 64, respiratory rate 18, saturations are 98%. CHEST: Decreased breath sounds without any wheezing. CARDIAC: Normal S1 and S2. No gallop. ABDOMEN: Massive. LABORATORY DATA: X-ray shows bilateral pleural effusion. White count 10,000. Platelet count is normal. Creatinine is 1.79. IMPRESSION: 1. Respiratory failure, morbid obesity, and renal failure. 2. Severe deconditioning. 3. Cardiomyopathy. PLAN: Decrease sedation. Continue nutrition. PT. Decide about extubation once dialysis is over and sedation is decreased. His overall long-term prognosis is poor. TIME SPENT: One-half hour of Critical Care time. Job ID: [id number]
[2020-01-19] MEDS ORDERED: Heparin 10,000 UNITS/ 10 ML VIAL ONE (10:37)
[2020-01-19] MEDS: Vancomycin HCl 750 MG in Sodium Chloride 0.9% 250 ML 250 ML IVPB SCH (11:43)
[2020-01-19] MEDS: Norepinephrine 8 MG in Dextrose 5% in Water 242 ML IVPB SCH (11:44)
--- NOTE | 2020-01-19 12:57 | PDOC.HOSPP ---
- Subjective Encounter Date: 01/19/20 Encounter Time: 10:30 Subjective: Patient still intubated. He is getting dialysis with plans to do sedation holiday after. He did not tolerate sedation holiday yesterday per nursing staff - Objective Vital Signs & Weight: Vital Signs (12 hours) Temp Pulse Resp BP Pulse Ox 01/19/20 12:00 97.9 F 16 01/19/20 10:36 63 91/44 L 01/19/20 10:00 97.5 F L 01/19/20 08:00 16 95 01/19/20 07:35 62 86/43 L 01/19/20 07:34 63 16 97 01/19/20 07:00 98.0 F 01/19/20 06:00 15 01/19/20 04:00 17 01/19/20 02:05 65 01/19/20 02:00 16 01/19/20 01:55 65 16 95 Weight Admit Weight 4.829 oz Weight 297 lb 1.6 oz Most Recent Monitor Data Heart Rate from ECG 62 NIBP 105/57 NIBP BP-Mean 73 Respiration from ECG 18 SpO2 100 I&O: 01/18/20 01/19/20 01/20/20 06:59 06:59 06:59 Intake Total 1573 2114 175 Output Total 70 135 40 Balance 1503 1979 135 Result Diagrams: 01/19/20 04:10 01/19/20 04:10 Additional Labs: Accuchecks 01/19/20 01/18/20 01/18/20 10:20 20:49 16:06 POC Glucose 118 H 142 H 161 H Hospitalist ROS - Review of Systems ROS unobtainable: due to endotracheal tube - Medication Medications: Active Medications Generic Name Dose Route Start Last Admin Trade Name Freq PRN Reason Stop Dose Admin Acetaminophen 1,000 mg 01/11/20 10:04 01/14/20 17:15 Tylenol PO 1,000 mg Q6H PRN Administration Moderate to Severe Pain (6-10) Albuterol/Ipratropium 3 ml 01/15/20 13:00 01/19/20 07:34 Duoneb NEB 3 ml [id number] RAYNA Administration Allopurinol 100 mg 01/11/20 09:00 01/19/20 09:28 Zyloprim PO 100 mg DAILY RAYNA Administration Aspirin 81 mg 01/16/20 09:00 01/19/20 09:28 Aspirin [place] 81 mg DAILY RAYNA Administration Atorvastatin Calcium 80 mg 01/09/20 21:00 01/18/20 20:41 Lipitor PO 80 mg HS RAYNA Administration Carvedilol 25 mg 01/09/20 21:00 01/19/20 09:28 Coreg PO 25 mg BID RAYNA Administration Clopidogrel Bisulfate 75 mg 01/09/20 21:00 01/18/20 20:41 Plavix PO 75 mg QPM RAYNA Administration Dextrose/Water 25 gm 01/09/20 17:02 01/12/20 23:46 Dextrose 50% IVP 25 gm PRN PRN Administration HYPOGLYCEMIA PROTOCOL Ferrous Sulfate 325 mg 01/10/20 08:00 01/19/20 07:23 Feosol PO 325 mg QAM-WM RAYNA Administration Haloperidol Lactate 5 mg 01/14/20 17:13 01/15/20 16:26 Haldol IM 5 mg Q4H PRN Administration Agitation Vancomycin HCl 1.25 gm/ Sodium 250 mls @ 166.667 mls/hr 01/12/20 12:00 13:04 Chloride IVPB 250 mls WILLCALL RAYNA Administration Vancomycin HCl 1 gm/ Device 200 mls @ 200 mls/hr 01/12/20 12:00 01/18/20 12: 40 IVPB 200 mls WILLCALL RAYNA Administration Vancomycin HCl 750 mg/ Sodium 250 mls @ 250 mls/hr 01/12/20 12:00 01/19/20 11 :43 Chloride IVPB 250 mls WILLCALL RAYNA Administration Norepinephrine Bitartrate 8 mg 250 mls @ 0 mls/hr 01/19/20 11:15 01/19/20 11: 44 / Dextrose/Water IVPB 250 mls INF RAYNA Administration Protocol Titrate Insulin Human Isoph/Insulin Regular 30 units 01/10/20 16:30 01/19/20 07:23 Humulin 70/30 SC 30 unit BID-AC RAYNA Administration Insulin Human Lispro 0 units 01/09/20 17:02 01/18/20 16:09 Humalog SC 2 unit .MILD SLIDING SCALE PRN Administration MILD SLIDING SCALE Protocol Methylprednisolone Sodium Succinate 40 mg 01/16/20 09:00 01/19/20 09:29 Solu-Medrol IVP 40 mg DAILY RAYNA Administration Propofol 1,000 mg 01/16/20 01:12 01/19/20 11:44 Diprivan IV 02/15/20 01:12 1,000 mg INF PRN Administration TO ACHIEVE GOAL RASS Protocol Sacubitril/Valsartan 1 tab 01/16/20 21:00 01/19/20 09:29 Entresto 24 Mg-26 Mg Tablet PO 1 tab BID RAYNA Administration Sodium Chloride 10 ml 01/10/20 21:00 01/19/20 09:29 Flush - Normal Saline IVF 10 ml Q12HR RAYNA Administration - Exam General Appearance: NAD General - other findings: intubated Eye: PERRL, anicteric sclera ENT: normocephalic atraumatic, no oropharyngeal lesions Neck: no JVD Heart: RRR, no murmur, no gallops, no rubs, normal peripheral pulses Respiratory: CTAB, no wheezes, no ronchi, rales Gastrointestinal: soft, non-tender, non-distended, normal bowel sounds Extremities: no cyanosis, no clubbing, 2+ LE edema Skin: normal turgor, no lesions Neurological - other findings: intubated, sedated Musculoskeletal: normal tone, normal strength, no muscle wasting Psychiatric: normal affect, normal behavior, A&O x 3, oriented to person Hosp A/P - Plan Chest Xray 01/13: worsening volume overload Chest X ray 01/15: worsening pulmonary edema Chest Xray 01/17: pulmonary edema This is a 74 year old male patient with past medical history of CHF, CAD, type II diabetes who presented with orthopnea, admitted for possible CHF Acute hypoxic/hypercapneic respiratory failure secondary to possible CHF exacerbation vs COPD exacerbation -s/p intubation due to worsening acidosis. Chest Xray 01/15 showed worsening pulmonary edema. Patient on dialysis daily - patient was on IV ceftriaxone 01/14 for cellulitis, IV methylprednisolone started 01/15 - continue IV vancomycin and zosyn - continue levofed RLE cellulitis - continue zosyn ESRD - continue dialysis Agitation - haldol prn - sreoquel prn CAD s/p CABG - on plavix, statin and aspirin Dispo: pending extubation DVT prophylaxis: heparin SC Code status: full code
[2020-01-19] MEDS: Piperacillin/Tazobactam 2.25 GM in Sodium Chloride 0.9% 100 ML IVPB SCH ×2 (14:02→21:10)
--- NOTE | 2020-01-19 17:13 | PDOC.CPN ---
- Subjective Date: 01/19/20 Time: 17:12 Interval history: No new issues. Remains sedated and intubated. - Review of Systems ROS unobtainable: due to endotracheal tube - Objective Allergies/Adverse Reactions: Allergies Allergy/AdvReac Type Severity Reaction Status Date / Time No Known Allergies Allergy Verified 01/07/20 09:39 Visit Medications: Current Medications Acetaminophen (Tylenol) 1,000 mg PO Q6H PRN PRN Reason: Moderate to Severe Pain (6-10) Last Admin: 01/14/20 17:15 Dose: 1,000 mg Acetaminophen (Tylenol) 650 mg PO Q4H PRN PRN Reason: Headache/Fever or Mild Pain Albuterol/Ipratropium (Duoneb) 3 ml NEB [id number] [facility] Last Admin: 01/19/20 13:01 Dose: 3 ml Allopurinol (Zyloprim) 100 mg PO DAILY [facility] Last Admin: 01/19/20 09:28 Dose: 100 mg Aspirin (Aspirin) 81 mg [place] DAILY [facility] Last Admin: 01/19/20 09:28 Dose: 81 mg Atorvastatin Calcium (Lipitor) 80 mg PO HS [facility] Last Admin: 01/18/20 20:41 Dose: 80 mg Carvedilol (Coreg) 25 mg PO BID [facility] Last Admin: 01/19/20 09:28 Dose: 25 mg Clopidogrel Bisulfate (Plavix) 75 mg PO QPM [facility] Last Admin: 01/18/20 20:41 Dose: 75 mg Dextrose/Water (Dextrose 50%) 25 gm IVP PRN PRN PRN Reason: HYPOGLYCEMIA PROTOCOL Last Admin: 01/12/20 23:46 Dose: 25 gm Famotidine (Pepcid) 20 mg PO DAILYPRN PRN PRN Reason: Indigestion Ferrous Sulfate (Feosol) 325 mg PO QAM-WM [facility] Last Admin: 01/19/20 07:23 Dose: 325 mg Glucagon (Glucagon) 1 mg IM PRN PRN PRN Reason: HYPOGLYCEMIA PROTOCOL Haloperidol Lactate (Haldol) 5 mg IM Q4H PRN PRN Reason: Agitation Last Admin: 01/15/20 16:26 Dose: 5 mg Dextrose/Water (D5w) 1,000 mls @ 0 mls/hr IV INF PRN PRN Reason: HYPOGLYCEMIA PROTOCOL Vancomycin HCl 1.5 gm/ Sodium (Chloride) 300 mls @ 200 mls/hr IVPB WILLCALL [facility] Vancomycin HCl 1.25 gm/ Sodium (Chloride) 250 mls @ 166.667 mls/hr IVPB WILLCALL [facility] Last Admin: 01/17/20 13:04 Dose: 250 mls Vancomycin HCl 1 gm/ Device 200 mls @ 200 mls/hr IVPB WILLCALL [facility] Last Admin: 01/18/20 12:40 Dose: 200 mls Vancomycin HCl 750 mg/ Sodium (Chloride) 250 mls @ 250 mls/hr IVPB WILLCALL [facility] Last Admin: 01/19/20 11:43 Dose: 250 mls Fentanyl Citrate 2,000 mcg/ (Sodium Chloride) 100 mls @ 0 mls/hr IV INF [facility]; Protocol Stop: 02/15/20 01:12 Fentanyl Citrate (Fentanyl Bolus) 250 mls @ 0 mls/hr IVPB PRN PRN PRN Reason: Breakthrough pain/agitation Stop: 02/15/20 01:12 Piperacillin Sod/Tazobactam (Sod 2.25 gm/ Sodium Chloride) 100 mls @ 200 mls/ hr IVPB Q8HR [facility] Last Admin: 01/19/20 14:02 Dose: 100 mls Norepinephrine Bitartrate 8 mg (/ Dextrose/Water) 250 mls @ 0 mls/hr IVPB INF [facility]; Protocol Last Admin: 01/19/20 11:44 Dose: 250 mls Insulin Human Isoph/Insulin Regular (Humulin 70/30) 30 units SC BID-[facility] Last Admin: 01/19/20 16:25 Dose: 30 unit Insulin Human Lispro (Humalog) 0 units SC .MILD SLIDING SCALE PRN; Protocol PRN Reason: MILD SLIDING SCALE Last Admin: 01/18/20 16:09 Dose: 2 unit Lorazepam (Ativan) 2 mg SLOW IVP Q1H PRN PRN Reason: Breakthrough agitation Stop: 02/15/20 01:12 Methylprednisolone Sodium Succinate (Solu-Medrol) 40 mg IVP DAILY [facility] Last Admin: 01/19/20 09:29 Dose: 40 mg Miscellaneous Medication (Pharmacy To Dose) 1 each IVPB .VANCOMYCIN PRN PRN Reason: Pharmacy to dose Morphine Sulfate (Morphine) 2 mg SLOW IVP Q1H PRN PRN Reason: BREAKTHROUGH PAIN/Agitation Stop: 02/15/20 01:12 Nitroglycerin (Nitrolingual 0.4 Mg [place]) 0 gm SL Q5MIN PRN PRN Reason: Chest Pain Hold Vancomycin For (Level >20) 0 each FS .AT DIALYSIS [facility] Discontinue Previous Narcotic Pain Medications And Benzodiazepines 1 each FS .ONE [facility] Stop: 02/15/20 01:12 Nystatin (Mycostatin Powder) 1 gm TOP BID PRN PRN Reason: Topical Irritations Propofol (Diprivan) 1,000 mg IV INF PRN; Protocol PRN Reason: TO ACHIEVE GOAL RASS Stop: 02/15/20 01:12 Last Admin: 01/19/20 11:44 Dose: 1,000 mg Propofol (Diprivan Bolus) 20 mg IV Q5MIN PRN PRN Reason: BREAKTHROUGH AGITATION Stop: 02/15/20 01:12 Sacubitril/Valsartan (Entresto 24 Mg-26 Mg Tablet) 1 tab PO BID [facility] Last Admin: 01/19/20 09:29 Dose: 1 tab Senna/Docusate Sodium (Senokot S) 2 tab PO BIDPRN PRN PRN Reason: Constipation Sodium Chloride (Flush - Normal Saline) 10 ml IVF Q12HR [facility] Last Admin: 01/19/20 09:29 Dose: 10 ml Sodium Chloride (Flush - Normal Saline) 10 ml IVF PRN PRN PRN Reason: Saline Flush Vital Signs & Weight: Vital Signs Temp Pulse Resp BP Pulse Ox 01/19/20 16:00 22 H 01/19/20 15:00 98.2 F 01/19/20 14:27 70 117/59 L 01/19/20 14:00 19 01/19/20 13:03 63 118/55 L 01/19/20 13:01 65 15 98 01/19/20 12:00 97.9 F 16 01/19/20 10:36 63 91/44 L 01/19/20 10:00 97.5 F L 01/19/20 08:00 16 95 01/19/20 07:35 62 86/43 L 01/19/20 07:34 63 16 97 01/19/20 07:00 98.0 F 01/19/20 06:00 15 Admit Weight 4.829 oz Weight 297 lb 1.6 oz - Physical Exam General: other (S/I) HEENT: normocephaly Neck: supple neck Cardiac: regular rate and rhythm Lungs: normal breath sounds Neuro: other (Sedated) Abdomen: active bowel sounds Extremities: 1+ LE edema Skin: clear Musculoskeletal: no pain - Labs Result Diagrams: 01/19/20 04:10 01/19/20 04:10 Troponin/CKMB CK-MB (CK-2) 2.8 ng/mL (0-6.6) 01/09/20 10:11 Troponin I 0.048 ng/mL (< 0.028) H 01/09/20 17:18 - Telemetry Sinus rhythms and dysrhythmias: sinus rhythm - Assessment/Plan Assessment/Plan: 1. ESRD on new onset HD 2. Ischemic CM EF at 40-45% 3. CAD, stable no ACS. 4. HTN 5. Acute hypoxic hypercapnic respiratory insufficiency requiring mechanical ventilation. 6. Acute on chronic systolic and diastolic heart failure. PLAN: - Supportive care. - HD for Fluid management. - Will follow. - Edema has improved.
[2020-01-19] MEDS: Scopolamine 1.5 mg/72 hour Patch TOP SCH (21:08)
[2020-01-19] MEDS: Atorvastatin Calcium 40 MG TAB PO SCH (21:09)
[2020-01-19] MEDS: Clopidogrel Bisulfate 75 MG TAB PO SCH (21:09)
[2020-01-20 04:45] LABS: #Eosinphils 0.4 thou/uL (0.0-0.7); #Lymphocytes 0.7 thou/uL (1.20-3.40); #Monocytes 1.2 thou/uL (0.11-0.59); #Neutrophils 9.5 thou/uL (1.40-6.50); %Eosinophils 3.3 % (0.0-10.0); %Lymphocytes 5.8 % (21.0-51.0); %Monocytes 10.1 % (0.0-10.0); %Neutrophils 80.9 % (42.0-75.0); Hemoglobin 10.7 g/dL (14.0-18.0); Mean Corpuscular HGB CONC 31.9 g/dL (32.0-36.0); Mean Corpuscular Hemoglobin 29.6 pg (27.0-31.0); Mean Corpuscular Volume 92.9 fL (78.0-98.0); Mean Platelet Volume 10.1 fL (7.4-10.4); Platelet Count 204 thou/uL (130-400); RBC Distribution Width 15.2 % (11.5-14.5); Red Blood Cell (RBC) Count 3.62 mill/uL (4.70-6.10); White Blood Cell (WBC) Count 11.7 thou/uL (4.8-10.8)
[2020-01-20 05:10] LABS: Anion Gap 12 mmol/L (10-20); BUN (Urea Nitrogen) 27 mg/dL (8.4-25.7); Calc. Creatinine Clearance 63 mL/min (70-130); Calcium 8.1 mg/dL (7.8-10.44); Carbon Dioxide 30 mmol/L (23-31); Chloride 100 mmol/L (98-107); Estimated GFR-MDRD 33; Glucose 140 mg/dL (83-110); Magnesium 1.8 mg/dL (1.6-2.6); Phosphorus 2.9 mg/dL (2.3-4.7); Sodium 138 mmol/L (136-145)
[2020-01-20] MEDS: Piperacillin/Tazobactam 2.25 GM in Sodium Chloride 0.9% 100 ML IVPB SCH ×3 (05:20→21:26)
[2020-01-20 07:18] LABS: Actual Bicarbonate (HCO3a) 27.2 mEq/L (22-28); Base Excess (BEa) 3.1 mEq/L (-2.0 to +3.0); CO2 Tension 39.6 mmHg (35.0-45.0); Calcium, Ionized 1.12 mmol/L (1.12-1.30); Carboxyhemoglobin (COHb) 1.2 gm% (0.0-3.0); Hemoglobin (Hb) 10.9 g/dL (14.0-18.0); Potassium - ABG Lab 3.87 mmol/L (3.70-5.30); pH, Arterial 7.45 (7.35-7.45)
[2020-01-20 07:21] LABS: O2 Tension (PaO2) 56.3 mmHg (> 70.0); Puncture Site RBA
[2020-01-20] MEDS: Ferrous Sulfate 325 MG TAB PO SCH (08:00)
[2020-01-20] MEDS: HumuLIN 70/30 (300 UNITS/3 ML VIAL) SC SCH ×2 (08:30→16:41)
[2020-01-20] MEDS: Carvedilol 25 MG TAB PO SCH ×2 (09:24→21:25)
[2020-01-20] MEDS: Allopurinol 100 MG TAB PO SCH (09:24)
[2020-01-20] MEDS: methylPREDNISolone Sod Succ 40 MG VIAL IVP SCH (09:25)
[2020-01-20] MEDS: Aspirin Chewable 81 MG TAB PER TUBE SCH (09:27)
--- NOTE | 2020-01-20 10:13 | PRG ---
DATE OF SERVICE: 01/20/2020 SUBJECTIVE: This is a morbidly obese gentleman, has contacted his family yesterday. He has been made a DNR recently. He himself wants to be extubated, then wants to be reintubated again. OBJECTIVE: VITAL SIGNS: This morning, he has been off sedation for almost 24 hours, pulse 63, blood pressure 117/70, saturations . CHEST: Decreased breath sounds. No wheezing. CARDIAC: Normal S1 and S2. LABORATORY DATA: PO2 of 56, pCO2 of 39, FiO2. Creatinine is 1.98, BUN is 27. ASSESSMENT: Congestive heart failure, pleural effusion, morbid obesity, renal failure, severe deconditioning, hypoventilation syndrome. PLAN: 1. He will be extubated. I am going to try a high-flow. 2. He is not to be reintubated again. We are now going to try BiPAP on him. 3. His antibiotics were adjusted for his renal failure. Continue supportive care. TIME SPENT: One-half hour of critical time. Job ID: [id number]
[2020-01-20 10:28] LABS: Vancomycin, Random 14.9 ug/mL (See Comment)
[2020-01-20] MEDS ORDERED: Heparin 10,000 UNITS/ 10 ML VIAL ONE (13:29)
--- NOTE | 2020-01-20 15:00 | PDOC.CPN ---
- Subjective Date: 01/20/20 Time: 14:59 Interval history: he has been extubated. Sore throat. No chest pain. - Review of Systems General: denies: fever/chills, weight/appetite/sleep changes, night sweats, fatigue Respiratory: reports: cough, shortness of breath, exercise intolerance. denies : congestion Cardiovascular: denies: chest pain, palpitation, edema, paroxysmal nocturnal dyspnea, orthopnea Gastrointestinal: denies: nausea, vomiting, diarrhea, constipation, abd pain, GI bleeding Musculoskeletal: denies: pain, tenderness, stiffness, swelling, arthritis/ arthralgias Neurological: denies: numbness, syncope, seizure, weakness - Objective Allergies/Adverse Reactions: Allergies Allergy/AdvReac Type Severity Reaction Status Date / Time No Known Allergies Allergy Verified 01/07/20 09:39 Visit Medications: Current Medications Acetaminophen (Tylenol) 1,000 mg PO Q6H PRN PRN Reason: Moderate to Severe Pain (6-10) Last Admin: 01/14/20 17:15 Dose: 1,000 mg Acetaminophen (Tylenol) 650 mg PO Q4H PRN PRN Reason: Headache/Fever or Mild Pain Albuterol/Ipratropium (Duoneb) 3 ml NEB [id number] [facility] Last Admin: 01/20/20 13:25 Dose: 3 ml Allopurinol (Zyloprim) 100 mg PO DAILY [facility] Last Admin: 01/20/20 09:24 Dose: 100 mg Aspirin (Aspirin Chewable) 81 mg PER TUBE DAILY [facility] Last Admin: 01/20/20 09:27 Dose: 81 mg Atorvastatin Calcium (Lipitor) 80 mg PO HS [facility] Last Admin: 01/19/20 21:09 Dose: 80 mg Carvedilol (Coreg) 25 mg PO BID [facility] Last Admin: 01/20/20 09:24 Dose: 25 mg Clopidogrel Bisulfate (Plavix) 75 mg PO QPM [facility] Last Admin: 01/19/20 21:09 Dose: 75 mg Dextrose/Water (Dextrose 50%) 25 gm IVP PRN PRN PRN Reason: HYPOGLYCEMIA PROTOCOL Last Admin: 01/12/20 23:46 Dose: 25 gm Famotidine (Pepcid) 20 mg PO DAILYPRN PRN PRN Reason: Indigestion Ferrous Sulfate (Feosol) 325 mg PO QA-[facility] Last Admin: 01/20/20 08:00 Dose: 325 mg Glucagon (Glucagon) 1 mg IM PRN PRN PRN Reason: HYPOGLYCEMIA PROTOCOL Haloperidol Lactate (Haldol) 5 mg IM Q4H PRN PRN Reason: Agitation Last Admin: 01/15/20 16:26 Dose: 5 mg Dextrose/Water (D5w) 1,000 mls @ 0 mls/hr IV INF PRN PRN Reason: HYPOGLYCEMIA PROTOCOL Vancomycin HCl 1.5 gm/ Sodium (Chloride) 300 mls @ 200 mls/hr IVPB WILLCALL RAYNA Vancomycin HCl 1.25 gm/ Sodium (Chloride) 250 mls @ 166.667 mls/hr IVPB WILLCALL [facility] Last Admin: 01/17/20 13:04 Dose: 250 mls Vancomycin HCl 1 gm/ Device 200 mls @ 200 mls/hr IVPB WILLCALL [facility] Last Admin: 01/18/20 12:40 Dose: 200 mls Vancomycin HCl 750 mg/ Sodium (Chloride) 250 mls @ 250 mls/hr IVPB WILLCALL [facility] Last Admin: 01/19/20 11:43 Dose: 250 mls Fentanyl Citrate 2,000 mcg/ (Sodium Chloride) 100 mls @ 0 mls/hr IV INF [facility]; Protocol Stop: 02/15/20 01:12 Fentanyl Citrate (Fentanyl Bolus) 250 mls @ 0 mls/hr IVPB PRN PRN PRN Reason: Breakthrough pain/agitation Stop: 02/15/20 01:12 Piperacillin Sod/Tazobactam (Sod 2.25 gm/ Sodium Chloride) 100 mls @ 200 mls/ hr IVPB Q8HR [facility] Last Admin: 01/20/20 13:37 Dose: 100 mls Norepinephrine Bitartrate 8 mg (/ Dextrose/Water) 250 mls @ 0 mls/hr IVPB INF [facility]; Protocol Last Admin: 01/19/20 11:44 Dose: 250 mls Insulin Human Isoph/Insulin Regular (Humulin 70/30) 30 units SC BID-[facility] Last Admin: 01/20/20 08:30 Dose: 30 unit Insulin Human Lispro (Humalog) 0 units SC .MILD SLIDING SCALE PRN; Protocol PRN Reason: MILD SLIDING SCALE Last Admin: 01/18/20 16:09 Dose: 2 unit Methylprednisolone Sodium Succinate (Solu-Medrol) 40 mg IVP DAILY [facility] Last Admin: 01/20/20 09:25 Dose: 40 mg Miscellaneous Medication (Pharmacy To Dose) 1 each IVPB .VANCOMYCIN PRN PRN Reason: Pharmacy to dose Morphine Sulfate (Morphine) 2 mg SLOW IVP Q1H PRN PRN Reason: BREAKTHROUGH PAIN/Agitation Stop: 02/15/20 01:12 Last Admin: 01/20/20 00:33 Dose: 2 mg Nitroglycerin (Nitrolingual 0.4 Mg [place]) 0 gm SL Q5MIN PRN PRN Reason: Chest Pain Hold Vancomycin For (Level >20) 0 each FS .AT DIALYSIS [facility] Discontinue Previous Narcotic Pain Medications And Benzodiazepines 1 each FS .ONE [facility] Stop: 02/15/20 01:12 Nystatin (Mycostatin Powder) 1 gm TOP BID PRN PRN Reason: Topical Irritations Propofol (Diprivan) 1,000 mg IV INF PRN; Protocol PRN Reason: TO ACHIEVE GOAL RASS Stop: 02/15/20 01:12 Last Admin: 01/19/20 11:44 Dose: 1,000 mg Propofol (Diprivan Bolus) 20 mg IV Q5MIN PRN PRN Reason: BREAKTHROUGH AGITATION Stop: 02/15/20 01:12 Sacubitril/Valsartan (Entresto 24 Mg-26 Mg Tablet) 1 tab PO BID [facility] Last Admin: 01/20/20 09:25 Dose: 1 tab Scopolamine (Transderm Scop) 1.5 mg TOP Q3D [facility] Last Admin: 01/19/20 21:08 Dose: 1.5 mg Senna/Docusate Sodium (Senokot S) 2 tab PO BIDPRN PRN PRN Reason: Constipation Sodium Chloride (Flush - Normal Saline) 10 ml IVF Q12HR [facility] Last Admin: 01/20/20 09:25 Dose: 10 ml Sodium Chloride (Flush - Normal Saline) 10 ml IVF PRN PRN PRN Reason: Saline Flush Vital Signs & Weight: Vital Signs Temp Pulse Pulse Pulse Pulse Resp BP 01/20/20 13:25 71 18 01/20/20 12:00 99.0 F 01/20/20 11:43 75 76 72 102/64 01/20/20 11:38 01/20/20 08:55 85 17 01/20/20 08:00 98.9 F 16 01/20/20 07:15 82 01/20/20 06:00 11 L 01/20/20 04:00 98.7 F 18 BP BP Pulse Ox Pulse Ox Pulse Ox Pulse Ox 01/20/20 13:25 100 01/20/20 12:00 01/20/20 11:43 106/45 L 92/44 L 100 100 100 01/20/20 11:38 100 01/20/20 08:55 100 01/20/20 08:00 99 01/20/20 07:15 01/20/20 06:00 01/20/20 04:00 Admit Weight 316 lb Weight 288 lb 2.307 oz - Physical Exam General: alert & oriented x3 HEENT: mucus membranes moist Neck: supple neck Cardiac: regular rate and rhythm Lungs: clear to auscultation Neuro: grossly intact Abdomen: active bowel sounds Extremities: 1+ LE edema Skin: clear Musculoskeletal: no pain - Labs Result Diagrams: 01/20/20 04:15 01/20/20 04:15 Troponin/CKMB CK-MB (CK-2) 2.8 ng/mL (0-6.6) 01/09/20 10:11 Troponin I 0.048 ng/mL (< 0.028) H 01/09/20 17:18 - Telemetry Sinus rhythms and dysrhythmias: sinus rhythm - Assessment/Plan Assessment/Plan: 1. ESRD on new onset HD 2. Ischemic CM EF at 40-45% 3. CAD, stable no ACS. 4. HTN 5. Acute hypoxic hypercapnic respiratory insufficiency requiring mechanical ventilation. 6. Acute on chronic systolic and diastolic heart failure. PLAN: - Currently still on levophed for BP. Continue to hold all anti hypertensives for now. - HD for Fluid management.
[2020-01-20] MEDS: Ondansetron PF 4 MG/2 ML Vial SLOW IVP PRN ×2 (15:09→21:26)
--- NOTE | 2020-01-20 15:35 | PDOC.HOSPP ---
- Subjective Encounter Date: 01/20/20 Encounter Time: 13:00 Subjective: The patient is now extubated on high flow nasal cannula. Reports some shortness of breath. States that he is supposed to wear CPAP at home and needs a new reconstructive surgeon. - Objective Vital Signs & Weight: Vital Signs (12 hours) Temp Pulse Pulse Pulse Pulse Resp BP 01/20/20 14:00 98.9 F 01/20/20 13:25 71 18 01/20/20 12:00 99.0 F 01/20/20 11:43 75 76 72 102/64 01/20/20 11:38 01/20/20 08:55 85 17 01/20/20 08:00 98.9 F 16 01/20/20 07:15 82 01/20/20 06:00 11 L 01/20/20 04:00 98.7 F 18 BP BP Pulse Ox Pulse Ox Pulse Ox Pulse Ox 01/20/20 14:00 01/20/20 13:25 100 01/20/20 12:00 01/20/20 11:43 106/45 L 92/44 L 100 100 100 01/20/20 11:38 100 01/20/20 08:55 100 01/20/20 08:00 99 01/20/20 07:15 01/20/20 06:00 01/20/20 04:00 Weight Admit Weight 316 lb Weight 288 lb 2.307 oz Most Recent Monitor Data Heart Rate from ECG 78 NIBP 125/48 NIBP BP-Mean 73 Respiration from ECG 24 SpO2 100 I&O: 01/19/20 01/20/20 01/21/20 06:59 06:59 06:59 Intake Total 2114 1841 488 Output Total 135 120 20 Balance 1979 1721 468 Result Diagrams: 01/20/20 04:15 01/20/20 04:15 Additional Labs: Accuchecks 01/20/20 01/19/20 01/19/20 15:13 21:25 16:32 POC Glucose 96 109 151 H Hospitalist ROS - Review of Systems Constitutional: denies: fever, chills Respiratory: reports: cough - Medication Medications: Active Medications Generic Name Dose Route Start Last Admin Trade Name Freq PRN Reason Stop Dose Admin Acetaminophen 1,000 mg 01/11/20 10:04 01/14/20 17:15 Tylenol PO 1,000 mg Q6H PRN Administration Moderate to Severe Pain (6-10) Albuterol/Ipratropium 3 ml 01/15/20 13:00 01/20/20 13:25 Duoneb NEB 3 ml [id number] RAYNA Administration Allopurinol 100 mg 01/11/20 09:00 01/20/20 09:24 Zyloprim PO 100 mg DAILY RAYNA Administration Aspirin 81 mg 01/20/20 09:00 01/20/20 09:27 Aspirin Chewable PER TUBE 81 mg DAILY RAYNA Administration Atorvastatin Calcium 80 mg 01/09/20 21:00 01/19/20 21:09 Lipitor PO 80 mg HS RAYNA Administration Carvedilol 25 mg 01/09/20 21:00 01/20/20 09:24 Coreg PO 25 mg BID RAYNA Administration Clopidogrel Bisulfate 75 mg 01/09/20 21:00 01/19/20 21:09 Plavix PO 75 mg QPM RAYNA Administration Dextrose/Water 25 gm 01/09/20 17:02 01/12/20 23:46 Dextrose 50% IVP 25 gm PRN PRN Administration HYPOGLYCEMIA PROTOCOL Ferrous Sulfate 325 mg 01/10/20 08:00 01/20/20 08:00 Feosol PO 325 mg QAM-WM RAYNA Administration Haloperidol Lactate 5 mg 01/14/20 17:13 01/15/20 16:26 Haldol IM 5 mg Q4H PRN Administration Agitation Vancomycin HCl 1.25 gm/ Sodium 250 mls @ 166.667 mls/hr 01/12/20 12:00 13:04 Chloride IVPB 250 mls WILLCALL RAYNA Administration Vancomycin HCl 1 gm/ Device 200 mls @ 200 mls/hr 01/12/20 12:00 01/18/20 12: 40 IVPB 200 mls WILLCALL RAYNA Administration Vancomycin HCl 750 mg/ Sodium 250 mls @ 250 mls/hr 01/12/20 12:00 01/19/20 11 :43 Chloride IVPB 250 mls WILLCALL RAYNA Administration Piperacillin Sod/Tazobactam 100 mls @ 200 mls/hr 01/19/20 14:00 01/20/20 13: 37 Sod 2.25 gm/ Sodium Chloride IVPB 100 mls Q8HR RAYNA Administration Norepinephrine Bitartrate 8 mg 250 mls @ 0 mls/hr 01/19/20 11:15 01/19/20 11: 44 / Dextrose/Water IVPB 250 mls INF RAYNA Administration Protocol Titrate Insulin Human Isoph/Insulin Regular 30 units 01/10/20 16:30 01/20/20 08:30 Humulin 70/30 SC 30 unit BID-AC RAYNA Administration Insulin Human Lispro 0 units 01/09/20 17:02 01/18/20 16:09 Humalog SC 2 unit .MILD SLIDING SCALE PRN Administration MILD SLIDING SCALE Protocol Methylprednisolone Sodium Succinate 40 mg 01/16/20 09:00 01/20/20 09:25 Solu-Medrol IVP 40 mg DAILY RAYNA Administration Morphine Sulfate 2 mg 01/16/20 01:12 01/20/20 00:33 Morphine SLOW IVP 02/15/20 01:12 2 mg Q1H PRN Administration BREAKTHROUGH PAIN/Agitation Ondansetron HCl 4 mg 01/20/20 15:03 01/20/20 15:09 Zofran SLOW IVP 4 mg Q4H PRN Administration Nausea/Vomiting Propofol 1,000 mg 01/16/20 01:12 01/19/20 11:44 Diprivan IV 02/15/20 01:12 1,000 mg INF PRN Administration TO ACHIEVE GOAL RASS Protocol Sacubitril/Valsartan 1 tab 01/16/20 21:00 01/20/20 09:25 Entresto 24 Mg-26 Mg Tablet PO 1 tab BID RAYNA Administration Scopolamine 1.5 mg 01/19/20 19:00 01/19/20 21:08 Transderm Scop TOP 1.5 mg Q3D RAYNA Administration Sodium Chloride 10 ml 01/10/20 21:00 01/20/20 09:25 Flush - Normal Saline IVF 10 ml Q12HR RAYNA Administration - Exam General Appearance: NAD, awake alert General - other findings: on high flow nasal cannula Eye: PERRL, anicteric sclera ENT: normocephalic atraumatic, no oropharyngeal lesions Neck: no JVD Heart: RRR, no murmur, no gallops, no rubs Respiratory - other findings: bilateral rales Gastrointestinal: soft, non-tender, non-distended, no palpable masses Extremities: no cyanosis, no clubbing, 2+ LE edema Skin: normal turgor, no lesions, no rashes Neurological: cranial nerve grossly intact, normal sensation to touch, no focal deficits, no new deficit Hosp A/P - Plan Chest Xray 01/13: worsening volume overload Chest X ray 01/15: worsening pulmonary edema Chest Xray 01/17: pulmonary edema Chest X ray 01/19: appears to show pulmonary edema This is a 74 year old male patient with past medical history of CHF, CAD, type II diabetes who presented with orthopnea, admitted for possible CHF Acute hypoxic/hypercapneic respiratory failure secondary to possible CHF exacerbation vs COPD exacerbation -s/p extubation 01/19. Chest Xray 01/15 showed worsening pulmonary edema. Continue dialysis and levofed for BP Support - patient was on IV ceftriaxone 01/14 for cellulitis, IV methylprednisolone started 01/15, on 40 mg daily - continue IV vancomycin and zosyn - patient will be placed on BIPAP per pulmonary RLE cellulitis - continue zosyn ESRD - continue dialysis Agitation - haldol prn - sreoquel prn CAD s/p CABG - on plavix, statin and aspirin Dispo: pending extubation DVT prophylaxis: heparin SC Code status: full code
[2020-01-20] MEDS: Famotidine/PF 20 mg/2ml Vial SLOW IVP PRN (16:00)
[2020-01-20] MEDS: Vancomycin 1 GM in Premix Bag 1 BAG IVPB SCH (17:04)
[2020-01-20] MEDS: Norepinephrine 8 MG in Dextrose 5% in Water 242 ML IVPB SCH (17:43)
[2020-01-20] MEDS: Atorvastatin Calcium 40 MG TAB PO SCH (21:25)
[2020-01-20] MEDS: Clopidogrel Bisulfate 75 MG TAB PO SCH (21:26)
[2020-01-21] MEDS: Ondansetron PF 4 MG/2 ML Vial SLOW IVP PRN ×3 (01:34→10:43)
[2020-01-21] MEDS: Piperacillin/Tazobactam 2.25 GM in Sodium Chloride 0.9% 100 ML IVPB SCH ×3 (05:44→21:39)
[2020-01-21 06:37] LABS: #Eosinphils 0.2 thou/uL (0.0-0.7); #Lymphocytes 0.8 thou/uL (1.20-3.40); #Monocytes 1.1 thou/uL (0.11-0.59); #Neutrophils 11.5 thou/uL (1.40-6.50); %Eosinophils 1.2 % (0.0-10.0); %Lymphocytes 5.6 % (21.0-51.0); %Monocytes 8.2 % (0.0-10.0); Hemoglobin 10.3 g/dL (14.0-18.0); Mean Corpuscular HGB CONC 31.4 g/dL (32.0-36.0); Mean Corpuscular Hemoglobin 29.6 pg (27.0-31.0); Mean Corpuscular Volume 94.3 fL (78.0-98.0); Mean Platelet Volume 9.9 fL (7.4-10.4); Platelet Count 208 thou/uL (130-400); RBC Distribution Width 15.4 % (11.5-14.5); Red Blood Cell (RBC) Count 3.49 mill/uL (4.70-6.10); White Blood Cell (WBC) Count 13.5 thou/uL (4.8-10.8)
[2020-01-21 06:59] LABS: Anion Gap 12 mmol/L (10-20); BUN (Urea Nitrogen) 21 mg/dL (8.4-25.7); Calc. Creatinine Clearance 54 mL/min (70-130); Calcium 8.3 mg/dL (7.8-10.44); Carbon Dioxide 33 mmol/L (23-31); Chloride 100 mmol/L (98-107); Estimated GFR-MDRD 29; Glucose 92 mg/dL (83-110); Magnesium 1.9 mg/dL (1.6-2.6); Potassium 4.1 mmol/L (3.5-5.1); Sodium 141 mmol/L (136-145)
[2020-01-21 07:17] LABS: Phosphorus 4.2 mg/dL (2.3-4.7)
[2020-01-21] MEDS: Ferrous Sulfate 325 MG TAB PO SCH (08:00)
--- NOTE | 2020-01-21 08:56 | RAD ---
CHEST 1 VIEW: INDICATION: History of hypoxia. COMPARISON: Prior exam dated 01/18/2020. FINDINGS: Cardiomegaly persists. The patient has been extubated with gastric catheter removal. Right IJ dialy sis catheter is unchanged. There is improvement in the pulmonary vascular congestion and bilateral p leural effusions. Small pleural effusions remain. Left basilar airspace opacity is improved. Right basilar airspace opacity is improved. These findings may reflect improving edema. Left IJ central venous catheter is unchanged. No pneumothorax is evident. IMPRESSION: 1. Improving cardiomegaly with pulmonary vascular congestion and bilateral pleural effusions. 2. Improving bibasilar opacities. 3. Interval extubation and gastric catheter removal. 4. Stable central venous catheters as described above. POS: JOAQUINDI
[2020-01-21] MEDS: HumuLIN 70/30 (300 UNITS/3 ML VIAL) SC SCH ×2 (09:00→16:50)
--- NOTE | 2020-01-21 09:09 | PRG ---
DATE OF SERVICE: 01/21/2020 SUBJECTIVE: He was extubated yesterday, morbidly obese gentleman, who is doing well. OBJECTIVE: VITAL SIGNS: Sats are 100% on high-flow, pulse 76, respiratory rate 24, still on Levophed though, blood pressure 100/60. CHEST: Decreased breath sounds. No wheezing. CARDIAC: Normal S1, S2. No gallops. ABDOMEN: Massive. LABORATORY DATA: His creatinine is 2.2. IMPRESSION: Respiratory failure, morbid obesity, renal failure, hypertension, severe deconditioning. Pulmonary stahl, continue PT and supportive care. Once he is off the Levophed, hopefully he can be transferred out of the ICU. Job ID: [id number]
[2020-01-21] MEDS: methylPREDNISolone Sod Succ 40 MG VIAL IVP SCH (09:29)
[2020-01-21] MEDS ORDERED: Heparin 10,000 UNITS/ 10 ML VIAL ONE (09:37)
[2020-01-21] MEDS: Acetaminophen 500 MG TAB PO PRN (10:30)
[2020-01-21] MEDS: Carvedilol 25 MG TAB PO SCH (10:36)
[2020-01-21] MEDS: Famotidine/PF 20 mg/2ml Vial SLOW IVP PRN (10:43)
[2020-01-21] MEDS: Vancomycin HCl 750 MG in Sodium Chloride 0.9% 250 ML 250 ML IVPB SCH (10:54)
--- NOTE | 2020-01-21 11:14 | PDOC.HOSPP ---
- Subjective Encounter Date: 01/21/20 Encounter Time: 10:15 Subjective: The patient is still on high flow nasal cannula. Currently getting dialysis. He states he started eating jello yesterday and vomited up everything because he felt nauseous. No abdominal pain currently Edema is improving - Objective Vital Signs & Weight: Vital Signs (12 hours) Temp Pulse Resp Pulse Ox 01/21/20 08:00 98.0 F 01/21/20 07:29 100 01/21/20 07:28 76 24 H 100 01/21/20 04:06 100 01/21/20 04:00 98.1 F 01/21/20 00:00 99.3 F 01/20/20 23:43 80 18 100 Weight Admit Weight 316 lb Weight 288 lb 2.307 oz Most Recent Monitor Data Heart Rate from ECG 72 NIBP 108/50 NIBP BP-Mean 69 Respiration from ECG 19 SpO2 100 I&O: 01/20/20 01/21/20 01/22/20 06:59 06:59 06:59 Intake Total 1841 1039 Output Total 120 1355 8 Balance 1721 -316 -8 Result Diagrams: 01/21/20 04:00 01/21/20 04:00 Additional Labs: Accuchecks 01/21/20 01/20/20 01/20/20 04:02 21:41 16:43 POC Glucose 99 98 97 01/20/20 01/20/20 01/20/20 15:13 10:56 09:28 POC Glucose 96 137 H 148 H 01/20/20 04:18 POC Glucose 133 H Hospitalist ROS - Review of Systems Constitutional: denies: fever, chills - Medication Medications: Active Medications Generic Name Dose Route Start Last Admin Trade Name Freq PRN Reason Stop Dose Admin Albuterol/Ipratropium 3 ml 01/15/20 13:00 01/21/20 07:28 Duoneb NEB 3 ml [id number] RAYNA Administration Allopurinol 100 mg 01/11/20 09:00 01/20/20 09:24 Zyloprim PO 100 mg DAILY RAYNA Administration Aspirin 81 mg 01/20/20 09:00 01/20/20 09:27 Aspirin Chewable PER TUBE 81 mg DAILY RAYNA Administration Atorvastatin Calcium 80 mg 01/09/20 21:00 01/20/20 21:25 Lipitor PO Not Given HS [facility] Clopidogrel Bisulfate 75 mg 01/09/20 21:00 01/20/20 21:26 Plavix PO Not Given QPM RAYNA Dextrose/Water 25 gm 01/09/20 17:02 01/12/20 23:46 Dextrose 50% IVP 25 gm PRN PRN Administration HYPOGLYCEMIA PROTOCOL Famotidine 20 mg 01/20/20 15:54 01/21/20 10:43 Pepcid SLOW IVP 20 mg DAILYPRN PRN Administration HEART BURN Ferrous Sulfate 325 mg 01/10/20 08:00 01/21/20 08:00 Feosol PO Not Given QAM-WM [facility] Haloperidol Lactate 5 mg 01/14/20 17:13 01/15/20 16:26 Haldol IM 5 mg Q4H PRN Administration Agitation Vancomycin HCl 1.25 gm/ Sodium 250 mls @ 166.667 mls/hr 01/12/20 12:00 13:04 Chloride IVPB 250 mls WILLCALL RAYNA Administration Vancomycin HCl 1 gm/ Device 200 mls @ 200 mls/hr 01/12/20 12:00 01/20/20 17: 04 IVPB 200 mls WILLCALL RAYNA Administration Vancomycin HCl 750 mg/ Sodium 250 mls @ 250 mls/hr 01/12/20 12:00 01/21/20 10 :54 Chloride IVPB 250 mls WILLCALL RAYNA Administration Piperacillin Sod/Tazobactam 100 mls @ 200 mls/hr 01/19/20 14:00 01/21/20 05: 44 Sod 2.25 gm/ Sodium Chloride IVPB 100 mls Q8HR RAYNA Administration Norepinephrine Bitartrate 8 mg 250 mls @ 0 mls/hr 01/19/20 11:15 01/20/20 17: 43 / Dextrose/Water IVPB 250 mls INF RAYNA Administration Protocol Titrate Insulin Human Isoph/Insulin Regular 30 units 01/10/20 16:30 01/20/20 16:41 Humulin 70/30 SC Not Given BID-AC [facility] Insulin Human Lispro 0 units 01/09/20 17:02 01/18/20 16:09 Humalog SC 2 unit .MILD SLIDING SCALE PRN Administration MILD SLIDING SCALE Protocol Ondansetron HCl 4 mg 01/20/20 15:03 01/21/20 10:43 Zofran SLOW IVP 4 mg Q4H PRN Administration Nausea/Vomiting Scopolamine 1.5 mg 01/19/20 19:00 01/19/20 21:08 Transderm Scop TOP 1.5 mg Q3D RAYNA Administration Sodium Chloride 10 ml 01/10/20 21:00 01/21/20 09:19 Flush - Normal Saline IVF 10 ml Q12HR RAYNA Administration - Exam General Appearance: NAD, awake alert General - other findings: on high flow nasal cannula Eye: PERRL, anicteric sclera ENT: normocephalic atraumatic, no oropharyngeal lesions Neck: supple, no JVD Heart: RRR, no murmur, no gallops, no rubs Respiratory - other findings: bilateral rales at the bases Gastrointestinal: soft, non-tender, non-distended Extremities: 1+ LE edema Skin: normal turgor, no lesions, no rashes Neurological: cranial nerve grossly intact, normal sensation to touch, no focal deficits, no new deficit Hosp A/P - Plan Chest Xray 01/13: worsening volume overload Chest X ray 01/15: worsening pulmonary edema Chest Xray 01/17: pulmonary edema Chest X ray 01/19: appears to show pulmonary edema Chest Xray 01/20: improving pulmonary vascular congestion This is a 74 year old male patient with past medical history of CHF, CAD, type II diabetes who presented with orthopnea, admitted for possible CHF Acute hypoxic/hypercapneic respiratory failure secondary to possible CHF exacerbation vs COPD exacerbation Sepsis from cellulitis vs pneumonia -was intubated and extubated 01/19. WBC up to 13, Chest Xray today shows improving pulmonary edema - continue daily dialysis for pulmonary edema - continue IV vancomycin and zosyn for empiric treatment of possible HCAP. Currently he is still on levofed. Could may d/c vanc if WBC improving - will switch steroids for COPD exacerbation to 40 mg daily starting tomorrow RLE cellulitis- resolved - on zosyn ESRD - continue dialysis Agitation - haldol prn - sreoquel prn CAD s/p CABG - on plavix, statin and aspirin Dispo: pending weaning of pressors and resolution of pulmonary edema DVT prophylaxis: heparin SC Code status: full code
--- NOTE | 2020-01-21 11:19 | PDOC.CPN ---
- Subjective Date: 01/21/20 Time: 11:14 Interval history: Currently on HD. Borderline hypotensive. - Review of Systems General: denies: fever/chills, weight/appetite/sleep changes, night sweats, fatigue Respiratory: reports: cough, exercise intolerance. denies: congestion, shortness of breath Cardiovascular: reports: edema. denies: chest pain, palpitation, paroxysmal nocturnal dyspnea, orthopnea Gastrointestinal: denies: nausea, vomiting, diarrhea, constipation, abd pain, GI bleeding Musculoskeletal: denies: pain, tenderness, stiffness, swelling, arthritis/ arthralgias Neurological: denies: numbness, syncope, seizure, weakness - Objective Allergies/Adverse Reactions: Allergies Allergy/AdvReac Type Severity Reaction Status Date / Time No Known Allergies Allergy Verified 01/07/20 09:39 Visit Medications: Current Medications Acetaminophen (Tylenol) 650 mg PO Q4H PRN PRN Reason: Headache/Fever or Mild Pain Albuterol/Ipratropium (Duoneb) 3 ml NEB [id number] [facility] Last Admin: 01/21/20 07:28 Dose: 3 ml Allopurinol (Zyloprim) 100 mg PO DAILY [facility] Last Admin: 01/20/20 09:24 Dose: 100 mg Aspirin (Aspirin Chewable) 81 mg PER TUBE DAILY [facility] Last Admin: 01/20/20 09:27 Dose: 81 mg Atorvastatin Calcium (Lipitor) 80 mg PO HS [facility] Last Admin: 01/20/20 21:25 Dose: Not Given Carvedilol (Coreg) 12.5 mg PO BID [facility] Clopidogrel Bisulfate (Plavix) 75 mg PO QPM [facility] Last Admin: 01/20/20 21:26 Dose: Not Given Dextrose/Water (Dextrose 50%) 25 gm IVP PRN PRN PRN Reason: HYPOGLYCEMIA PROTOCOL Last Admin: 01/12/20 23:46 Dose: 25 gm Famotidine (Pepcid) 20 mg SLOW IVP DAILYPRN PRN PRN Reason: HEART BURN Last Admin: 01/21/20 10:43 Dose: 20 mg Famotidine (Pepcid) 20 mg PO 2100 [facility] Ferrous Sulfate (Feosol) 325 mg PO QAM-WM [facility] Last Admin: 01/21/20 08:00 Dose: Not Given Glucagon (Glucagon) 1 mg IM PRN PRN PRN Reason: HYPOGLYCEMIA PROTOCOL Haloperidol Lactate (Haldol) 5 mg IM Q4H PRN PRN Reason: Agitation Last Admin: 01/15/20 16:26 Dose: 5 mg Dextrose/Water (D5w) 1,000 mls @ 0 mls/hr IV INF PRN PRN Reason: HYPOGLYCEMIA PROTOCOL Vancomycin HCl 1.5 gm/ Sodium (Chloride) 300 mls @ 200 mls/hr IVPB WILLCALL [facility] Vancomycin HCl 1.25 gm/ Sodium (Chloride) 250 mls @ 166.667 mls/hr IVPB WILLCALL [facility] Last Admin: 01/17/20 13:04 Dose: 250 mls Vancomycin HCl 1 gm/ Device 200 mls @ 200 mls/hr IVPB WILLCALL [facility] Last Admin: 01/20/20 17:04 Dose: 200 mls Vancomycin HCl 750 mg/ Sodium (Chloride) 250 mls @ 250 mls/hr IVPB WILLCALL [facility] Last Admin: 01/21/20 10:54 Dose: 250 mls Piperacillin Sod/Tazobactam (Sod 2.25 gm/ Sodium Chloride) 100 mls @ 200 mls/ hr IVPB Q8HR [facility] Last Admin: 01/21/20 05:44 Dose: 100 mls Norepinephrine Bitartrate 8 mg (/ Dextrose/Water) 250 mls @ 0 mls/hr IVPB INF [facility]; Protocol Last Admin: 01/20/20 17:43 Dose: 250 mls Insulin Human Isoph/Insulin Regular (Humulin 70/30) 30 units SC BID-[facility] Last Admin: 01/20/20 16:41 Dose: Not Given Insulin Human Lispro (Humalog) 0 units SC .MILD SLIDING SCALE PRN; Protocol PRN Reason: MILD SLIDING SCALE Last Admin: 01/18/20 16:09 Dose: 2 unit Miscellaneous Medication (Pharmacy To Dose) 1 each IVPB .VANCOMYCIN PRN PRN Reason: Pharmacy to dose Nitroglycerin (Nitrolingual 0.4 Mg [place]) 0 gm SL Q5MIN PRN PRN Reason: Chest Pain Hold Vancomycin For (Level >20) 0 each FS .AT DIALYSIS [facility] Nystatin (Mycostatin Powder) 1 gm TOP BID PRN PRN Reason: Topical Irritations Ondansetron HCl (Zofran) 4 mg SLOW IVP Q4H PRN PRN Reason: Nausea/Vomiting Last Admin: 01/21/20 10:43 Dose: 4 mg Prednisone (Prednisone) 40 mg PO QAM-WM [facility] Scopolamine (Transderm Scop) 1.5 mg TOP Q3D [facility] Last Admin: 01/19/20 21:08 Dose: 1.5 mg Senna/Docusate Sodium (Senokot S) 2 tab PO BIDPRN PRN PRN Reason: Constipation Sodium Chloride (Flush - Normal Saline) 10 ml IVF Q12HR [facility] Last Admin: 01/21/20 09:19 Dose: 10 ml Sodium Chloride (Flush - Normal Saline) 10 ml IVF PRN PRN PRN Reason: Saline Flush Vital Signs & Weight: Vital Signs Temp Pulse Resp Pulse Ox 01/21/20 08:00 98.0 F 01/21/20 07:29 100 01/21/20 07:28 76 24 H 100 01/21/20 04:06 100 01/21/20 04:00 98.1 F 01/21/20 00:00 99.3 F 01/20/20 23:43 80 18 100 Admit Weight 316 lb Weight 288 lb 2.307 oz - Physical Exam General: no apparent distress HEENT: normocephaly Neck: supple neck Cardiac: regular rate and rhythm Lungs: normal breath sounds Neuro: grossly intact Abdomen: active bowel sounds Extremities: no edema Skin: clear Musculoskeletal: no pain - Labs Result Diagrams: 01/21/20 04:00 01/21/20 04:00 Troponin/CKMB CK-MB (CK-2) 2.8 ng/mL (0-6.6) 01/09/20 10:11 Troponin I 0.048 ng/mL (< 0.028) H 01/09/20 17:18 - Telemetry Sinus rhythms and dysrhythmias: sinus rhythm - Assessment/Plan Assessment/Plan: 1. ESRD on new onset HD 2. Ischemic CM EF at 40-45% 3. CAD, stable no ACS. 4. HTN 5. Acute hypoxic hypercapnic respiratory insufficiency requiring mechanical ventilation, improved. 6. Acute on chronic systolic and diastolic heart failure. PLAN: - Currently still on levophed for BP. Continue to hold all anti hypertensives for now. - HD for Fluid management. 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
[2020-01-21] MEDS: Norepinephrine 8 MG in Dextrose 5% in Water 242 ML IVPB SCH ×2 (13:30→21:40)
[2020-01-21] MEDS: Aspirin Chewable 81 MG TAB PER TUBE SCH (13:36)
[2020-01-21] MEDS: Allopurinol 100 MG TAB PO SCH (13:36)
[2020-01-21] MEDS: HumaLOG 300 UNITS/3 ML VIAL SC PRN (16:53)
[2020-01-21] MEDS ORDERED: Carvedilol 6.25 MG TAB PO SCH (21:00)
[2020-01-21] MEDS: Atorvastatin Calcium 40 MG TAB PO SCH (21:41)
[2020-01-21] MEDS: Clopidogrel Bisulfate 75 MG TAB PO SCH (21:41)
[2020-01-21] MEDS: Famotidine 20 MG TAB PO SCH (21:41)
[2020-01-22] MEDS: Piperacillin/Tazobactam 2.25 GM in Sodium Chloride 0.9% 100 ML IVPB SCH ×3 (05:12→21:20)
[2020-01-22] MEDS: Ondansetron PF 4 MG/2 ML Vial SLOW IVP PRN (05:18)
[2020-01-22 05:32] LABS: Hemoglobin 9.3 g/dL (14.0-18.0); Mean Corpuscular HGB CONC 30.2 g/dL (32.0-36.0); Mean Corpuscular Hemoglobin 28.7 pg (27.0-31.0); Mean Corpuscular Volume 95.2 fL (78.0-98.0); Mean Platelet Volume 9.1 fL (7.4-10.4); Platelet Count 222 thou/uL (130-400); RBC Distribution Width 15.2 % (11.5-14.5); Red Blood Cell (RBC) Count 3.24 mill/uL (4.70-6.10); White Blood Cell (WBC) Count 15.1 thou/uL (4.8-10.8)
[2020-01-22 05:54] LABS: Anion Gap 12 mmol/L (10-20); BUN (Urea Nitrogen) 30 mg/dL (8.4-25.7); Calc. Creatinine Clearance 42 mL/min (70-130); Calcium 8.3 mg/dL (7.8-10.44); Carbon Dioxide 27 mmol/L (23-31); Chloride 100 mmol/L (98-107); Estimated GFR-MDRD 22; Glucose 159 mg/dL (83-110); Potassium 4.6 mmol/L (3.5-5.1); Sodium 134 mmol/L (136-145)
--- NOTE | 2020-01-22 08:15 | PRG ---
DATE OF SERVICE: 01/22/2020 SUBJECTIVE: Mr. Saldana is doing well, but he is still on high-dose Levophed 20 mcg. OBJECTIVE: VITAL SIGNS: The patient's blood pressure is 100 systolic, pulse is 90 and it is irregular. LUNGS: Clear. CARDIAC: Irregularly irregular. ABDOMEN: Obese, nontender. EXTREMITIES: Mild edema. The patient is about to undergo hemodialysis. ASSESSMENT: 1. Congestive heart failure systolic-diastolic combined. 2. Hypotension. 3. Renal failure. PLAN: 1. Proceed with dialysis. 2. Hold Coreg this morning, then reduced dose this evening. Job ID: [id number]
[2020-01-22] MEDS: HumuLIN 70/30 (300 UNITS/3 ML VIAL) SC SCH ×2 (08:23→17:04)
[2020-01-22] MEDS: predniSONE 20 MG TAB PO SCH (08:24)
[2020-01-22] MEDS: Aspirin Chewable 81 MG TAB PER TUBE SCH (08:24)
[2020-01-22] MEDS: Ferrous Sulfate 325 MG TAB PO SCH ×2 (08:24→08:27)
[2020-01-22] MEDS: Allopurinol 100 MG TAB PO SCH (08:24)
[2020-01-22 09:13] LABS: Vancomycin, Random 14.4 ug/mL (See Comment)
[2020-01-22] MEDS ORDERED: Heparin 10,000 UNITS/ 10 ML VIAL ONE (09:40)
[2020-01-22] MEDS: Vancomycin 1 GM in Premix Bag 1 BAG IVPB SCH (11:33)
[2020-01-22] MEDS: Norepinephrine 8 MG in Dextrose 5% in Water 242 ML IVPB SCH (12:58)
--- NOTE | 2020-01-22 15:08 | PRG ---
DATE OF SERVICE: 01/22/2020 SUBJECTIVE: Mr. Saldana has just completed dialysis, which he tolerated well, although he continues to require pressors for blood pressure maintenance. He has had weight loss since dialysis was began of greater than 10 kilos. He subjectively feels better and his family has also reported that he seems to be doing better in many regard since staring dialysis. He has not had any chest pain. He is taking a regular diet. In the past 24 hours, he has not had good recording of his dialysate removal and as such, he appears to be in positive fluid balance. OBJECTIVE: VITAL SIGNS: Blood pressure is 114/59, heart rate is 64, saturation 100% on 2 L of oxygen. GENERAL: He is a 74-year-old gentleman, who is awake and alert. NECK: He has quite enlarged neck and has extensive bruising related to line placement especially on the left. LUNGS: Show bronchial breath sounds with no wheezing or rales. He is unlabored. He speaks in fairly fully sentences. HEART: Regular rate and rhythm. He does remain on low-dose pressors. ABDOMEN: Soft. There is no organomegaly. He is obese. EXTREMITIES: He has trace edema. NEUROLOGICAL: He is intact. LABORATORY DATA: White count today 15,100, hemoglobin 9.3, platelet count 222,000. Electrolytes include sodium 134, potassium 4.6, chloride 100, bicarb 27, BUN 30, creatinine 2.9, improved from a maximum of 5.5. IMPRESSION: 1. Ayapz-uj-[id number] renal failure, now status post initiation of maintenance hemodialysis with subjective improvement and better control of his volume. 2. Hypotension, requiring ongoing pressors. This may be somewhat related to his fluid removal. 3. Morbid obesity. 4. Status post extubation following a bout of respiratory failure. PLAN: He has received dialysis today. We will continue attempts to reduce his pressors, and if successful, he can be transferred to the floor. He is going to need extensive rehab following discharge. Job ID: [id number]
--- NOTE | 2020-01-22 15:24 | PDOC.HOSPP ---
- Subjective Encounter Date: 01/22/20 Encounter Time: 11:40 Subjective: still on levophed, denies any CP or abd pain, had HD. d/w RN, r. leg examined , almost no erythema, warm. - Objective Vital Signs & Weight: Vital Signs (12 hours) Temp Pulse Resp Pulse Ox 01/22/20 13:59 75 21 H 100 01/22/20 12:00 98.1 F 01/22/20 08:00 98.2 F 100 01/22/20 07:02 98 01/22/20 07:00 79 20 98 01/22/20 04:00 98.3 F Weight Admit Weight 316 lb Weight 282 lb 13.649 oz Most Recent Monitor Data Heart Rate from ECG 79 NIBP 92/46 NIBP BP-Mean 61 Respiration from ECG 18 SpO2 86 I&O: 01/21/20 01/22/20 01/23/20 06:59 06:59 06:59 Intake Total 1039 1286 400 Output Total 1355 19 5 Balance -316 1267 395 Result Diagrams: 01/22/20 05:15 01/22/20 05:15 Additional Labs: Accuchecks 01/22/20 01/22/20 01/21/20 11:33 05:24 23:01 POC Glucose 134 H 164 H 159 H 01/21/20 16:52 POC Glucose 200 H Hospitalist ROS - Medication Medications: Active Medications Generic Name Dose Route Start Last Admin Trade Name Freq PRN Reason Stop Dose Admin Albuterol/Ipratropium 3 ml 01/15/20 13:00 01/22/20 13:59 Duoneb NEB 3 ml Q4EE-SG RAYNA Administration Allopurinol 100 mg 01/11/20 09:00 01/22/20 08:24 Zyloprim PO 100 mg DAILY RAYNA Administration Aspirin 81 mg 01/20/20 09:00 01/22/20 08:24 Aspirin Chewable PER TUBE 81 mg DAILY RAYNA Administration Atorvastatin Calcium 80 mg 01/09/20 21:00 01/21/20 21:41 Lipitor PO 80 mg HS RAYNA Administration Clopidogrel Bisulfate 75 mg 01/09/20 21:00 01/21/20 21:41 Plavix PO 75 mg QPM RAYNA Administration Dextrose/Water 25 gm 01/09/20 17:02 01/12/20 23:46 Dextrose 50% IVP 25 gm PRN PRN Administration HYPOGLYCEMIA PROTOCOL Famotidine 20 mg 01/20/20 15:54 01/21/20 10:43 Pepcid SLOW IVP 20 mg DAILYPRN PRN Administration HEART BURN Famotidine 20 mg 01/21/20 21:00 01/21/20 21:41 Pepcid PO 20 mg 2100 RAYNA Administration Ferrous Sulfate 325 mg 01/10/20 08:00 01/22/20 08:27 Feosol PO Not Given [facility] Haloperidol Lactate 5 mg 01/14/20 17:13 01/15/20 16:26 Haldol IM 5 mg Q4H PRN Administration Agitation Vancomycin HCl 1.25 gm/ Sodium 250 mls @ 166.667 mls/hr 01/12/20 12:00 13:04 Chloride IVPB 250 mls WILLCALL RAYNA Administration Vancomycin HCl 1 gm/ Device 200 mls @ 200 mls/hr 01/12/20 12:00 01/22/20 11: 33 IVPB 200 mls WILLCALL RAYNA Administration Vancomycin HCl 750 mg/ Sodium 250 mls @ 250 mls/hr 01/12/20 12:00 01/21/20 10 :54 Chloride IVPB 250 mls WILLCALL RAYNA Administration Piperacillin Sod/Tazobactam 100 mls @ 200 mls/hr 01/19/20 14:00 01/22/20 14: 19 Sod 2.25 gm/ Sodium Chloride IVPB 100 mls Q8HR RAYNA Administration Norepinephrine Bitartrate 8 mg 250 mls @ 0 mls/hr 01/19/20 11:15 01/22/20 12: 58 / Dextrose/Water IVPB 250 mls INF RAYNA Administration Protocol Titrate Insulin Human Isoph/Insulin Regular 30 units 01/10/20 16:30 01/22/20 08:23 Humulin 70/30 SC 30 unit BID-AC RAYNA Administration Insulin Human Lispro 0 units 01/09/20 17:02 01/21/20 16:53 Humalog SC 2 unit .MILD SLIDING SCALE PRN Administration MILD SLIDING SCALE Protocol Ondansetron HCl 4 mg 01/20/20 15:03 01/22/20 05:18 Zofran SLOW IVP 4 mg Q4H PRN Administration Nausea/Vomiting Prednisone 40 mg 01/22/20 08:00 01/22/20 08:24 Prednisone PO 40 mg QAM-WM RAYNA Administration Scopolamine 1.5 mg 01/19/20 19:00 01/19/20 21:08 Transderm Scop TOP 1.5 mg Q3D RAYNA Administration Sodium Chloride 10 ml 01/10/20 21:00 01/22/20 08:24 Flush - Normal Saline IVF 10 ml Q12HR RAYNA Administration - Exam General Appearance: NAD, awake alert Eye: PERRL ENT: normocephalic atraumatic Neck: supple Heart: RRR Respiratory: CTAB, normal chest expansion Gastrointestinal: soft, non-tender, normal bowel sounds Extremities - other findings: RLE extremitty cellulitis resolved. skin color back to nl. Hosp A/P - Plan Acute hypoxic/hypercapneic respiratory failure secondary to possible CHF exacerbation vs COPD exacerbation Sepsis from cellulitis vs pneumonia -was intubated and extubated 01/19. WBC up to 13, Chest Xray today shows improving pulmonary edema - continue daily dialysis for pulmonary edema - continue IV vancomycin and zosyn for empiric treatment of possible HCAP. Currently he is still on levofed. Could may d/c vanc if WBC improving - will switch steroids for COPD exacerbation to 40 mg daily starting tomorrow RLE cellulitis- resolved - on zosyn - will dc as pt on the IV zosyn for > 10 days - much improved and leg is almost at baseline nl skin color as left leg. ESRD - continue dialysis Agitation - haldol prn - sreoquel prn CAD s/p CABG - on plavix, statin and aspirin Dispo: pending weaning of pressors and resolution of pulmonary edema DVT prophylaxis: heparin SC Code status: full code
[2020-01-22] MEDS: Carvedilol 6.25 MG TAB PO SCH (17:04)
[2020-01-22] MEDS: Scopolamine 1.5 mg/72 hour Patch TOP SCH (21:19)
[2020-01-22] MEDS: Atorvastatin Calcium 40 MG TAB PO SCH (21:20)
[2020-01-22] MEDS: Clopidogrel Bisulfate 75 MG TAB PO SCH (21:20)
[2020-01-22] MEDS: Famotidine 20 MG TAB PO SCH (21:20)
[2020-01-23] MEDS: Norepinephrine 8 MG in Dextrose 5% in Water 242 ML IVPB SCH ×2 (03:58→21:53)
[2020-01-23 05:18] LABS: #Eosinphils 0.2 thou/uL (0.0-0.7); #Lymphocytes 0.8 thou/uL (1.20-3.40); #Monocytes 1.5 thou/uL (0.11-0.59); %Eosinophils 1.6 % (0.0-10.0); %Lymphocytes 7.3 % (21.0-51.0); %Monocytes 12.7 % (0.0-10.0); %Neutrophils 78.5 % (42.0-75.0); Hemoglobin 8.9 g/dL (14.0-18.0); Mean Corpuscular HGB CONC 30.6 g/dL (32.0-36.0); Mean Corpuscular Hemoglobin 29.4 pg (27.0-31.0); Mean Corpuscular Volume 96.1 fL (78.0-98.0); Mean Platelet Volume 9.1 fL (7.4-10.4); Platelet Count 207 thou/uL (130-400); RBC Distribution Width 15.1 % (11.5-14.5); Red Blood Cell (RBC) Count 3.03 mill/uL (4.70-6.10); White Blood Cell (WBC) Count 11.5 thou/uL (4.8-10.8)
[2020-01-23 05:38] LABS: Anion Gap 11 mmol/L (10-20); BUN (Urea Nitrogen) 26 mg/dL (8.4-25.7); Calc. Creatinine Clearance 39 mL/min (70-130); Carbon Dioxide 31 mmol/L (23-31); Chloride 99 mmol/L (98-107); Estimated GFR-MDRD 20; Glucose 133 mg/dL (83-110); Potassium 4.6 mmol/L (3.5-5.1); Sodium 136 mmol/L (136-145)
[2020-01-23] MEDS: Piperacillin/Tazobactam 2.25 GM in Sodium Chloride 0.9% 100 ML IVPB SCH ×3 (07:46→21:50)
[2020-01-23] MEDS: Carvedilol 6.25 MG TAB PO SCH (08:11)
[2020-01-23] MEDS: HumuLIN 70/30 (300 UNITS/3 ML VIAL) SC SCH ×2 (09:53→18:44)
[2020-01-23] MEDS ORDERED: hydrALAZINE 20 MG/ML VIAL SLOW IVP PRN (09:57)
[2020-01-23] MEDS: Allopurinol 100 MG TAB PO SCH (09:58)
[2020-01-23] MEDS: predniSONE 20 MG TAB PO SCH (09:59)
[2020-01-23] MEDS: Aspirin Chewable 81 MG TAB PER TUBE SCH (09:59)
[2020-01-23] MEDS: Ferrous Sulfate 325 MG TAB PO SCH (10:01)
[2020-01-23] MEDS: HumaLOG 300 UNITS/3 ML VIAL SC PRN ×2 (13:51→21:52)
--- NOTE | 2020-01-23 14:26 | PRG ---
DATE OF SERVICE: 01/23/2020 SUBJECTIVE: He is able to get in the chair today, but he is quite weak. He thinks that he can go directly home, but I have encouraged him to consider skilled care as a bridge to home. He is not scheduled for dialysis today. He denies chest pain. OBJECTIVE: VITAL SIGNS: Blood pressure today ranges from 95 to 110/50, respiratory rate in the mid teens, saturation 97% to 100%. He had 2800 mL urine yesterday with intake of 1450. There has not recorded a change in weight over the past several days. GENERAL: He is an obese gentleman. He is awake and mildly tachypneic. He has no complaint of pain. HEENT: Shows bruising of the neck and the inferior portion of the mandible from his IV site. He has additional extensive bruising of his extremities, especially his arms. LUNGS: Show rhonchi, but no wheezing. Effort seems shallow. HEART: Tachycardic without an audible murmur. ABDOMEN: Distended, obese. There is no organomegaly. EXTREMITIES: He has 1 to 2+ lower extremity edema. LABORATORY DATA: White count today 11,500, hemoglobin is 8.9, platelet count 207,000. Electrolytes include sodium 136, potassium 4.6, chloride 99, CO2 of 31, BUN 26, creatinine 3.1. IMPRESSION: 1. Hypotension requiring ongoing pressors. 2. Heart failure with very difficult to control volume status despite attempted diuresis, limited by his renal insufficiency. 3. [id number] renal insufficiency. PLAN: He is not tentatively on the schedule for dialysis today. Hopefully, we can get little more urine out, but at the same time try to keep his blood pressure from requiring more pressors. This appears to be a very challenging conundrum. I have expressed to the patient that he is likely to need skilled care at discharge, although he thinks that he would be able to get outpatient therapy. No other changes made at this time. Job ID: [id number]
[2020-01-23] MEDS ORDERED: Sodium Chloride 0.9% 500 ML IV SCH (17:00)
[2020-01-23] MEDS ORDERED: Carvedilol 3.125 MG TAB PO SCH (17:00)
--- NOTE | 2020-01-23 17:18 | PRG ---
DATE OF SERVICE: 01/23/2020 SUBJECTIVE: Mr. Saldana is doing okay, but he is having intermittent low blood pressures. His nurse tells me when he is awake and alert, pressure is 80 to 90 , but when he goes to sleep, it goes in the 70s. His pulse is in the 60s. The carvedilol has been reduced, but it now is actually being held. Due to the COVID situation, we are trying to minimize the patient's exams. Hw looks comfortable. I did not listen to his heart and lungs, which I am trying to minimize examinations. ASSESSMENT: 1. End-stage renal disease. 2. Hypotension. 3. Globally grossly normal left ventricular function on echo. 4. Still on pretty significant doses of norepinephrine. PLAN: 1. Give him a very slow fluid challenge 500 mL of saline over 4 hours. 2. Stop carvedilol. 3. Schedule tentatively for dialysis tomorrow. Creatinine is 3.09. Job ID: [id number] MTDD
[2020-01-23] MEDS: Famotidine 20 MG TAB PO SCH (21:51)
[2020-01-23] MEDS: Atorvastatin Calcium 40 MG TAB PO SCH (21:51)
[2020-01-24] MEDS: Ondansetron PF 4 MG/2 ML Vial SLOW IVP PRN (06:08)
[2020-01-24] MEDS: Piperacillin/Tazobactam 2.25 GM in Sodium Chloride 0.9% 100 ML IVPB SCH ×2 (06:09→13:33)
[2020-01-24 06:22] LABS: #Eosinphils 0.2 thou/uL (0.0-0.7); #Lymphocytes 0.7 thou/uL (1.20-3.40); #Neutrophils 7.3 thou/uL (1.40-6.50); %Basophils 0.3 % (0.0-1.0); %Eosinophils 1.8 % (0.0-10.0); %Lymphocytes 7.7 % (21.0-51.0); %Monocytes 11.2 % (0.0-10.0); Hemoglobin 8.6 g/dL (14.0-18.0); Mean Corpuscular HGB CONC 31.2 g/dL (32.0-36.0); Mean Corpuscular Hemoglobin 29.7 pg (27.0-31.0); Mean Corpuscular Volume 95.2 fL (78.0-98.0); Platelet Count 188 thou/uL (130-400); RBC Distribution Width 14.7 % (11.5-14.5); Red Blood Cell (RBC) Count 2.89 mill/uL (4.70-6.10); White Blood Cell (WBC) Count 9.2 thou/uL (4.8-10.8)
[2020-01-24 06:52] LABS: Anion Gap 12 mmol/L (10-20); BUN (Urea Nitrogen) 44 mg/dL (8.4-25.7); Calc. Creatinine Clearance 26 mL/min (70-130); Calcium 7.9 mg/dL (7.8-10.44); Carbon Dioxide 26 mmol/L (23-31); Chloride 100 mmol/L (98-107); Estimated GFR-MDRD 12; Glucose 103 mg/dL (83-110); Potassium 4.3 mmol/L (3.5-5.1); Sodium 134 mmol/L (136-145)
[2020-01-24] MEDS: predniSONE 20 MG TAB PO SCH (08:41)
[2020-01-24] MEDS: Allopurinol 100 MG TAB PO SCH (08:41)
[2020-01-24] MEDS: Aspirin Chewable 81 MG TAB PER TUBE SCH (08:41)
[2020-01-24] MEDS: Ferrous Sulfate 325 MG TAB PO SCH (08:42)
[2020-01-24] MEDS: HumuLIN 70/30 (300 UNITS/3 ML VIAL) SC SCH ×2 (08:43→17:20)
[2020-01-24] MEDS ORDERED: EPOETIN ALFA-EPBX (ESRD) 10,000 UNIT/ML VIAL SC SCH (09:00)
--- NOTE | 2020-01-24 09:39 | PRG ---
DATE OF SERVICE: 01/24/2020 SUBJECTIVE: This morning, he is doing well, awake, alert, and responsive. He is still unfortunately on Levophed. OBJECTIVE: VITAL SIGNS: Pulse 67, blood pressure 94/46, sats 100% 2 L, and respiratory rate 16. CHEST: No wheezing or crackles. CARDIAC: Normal S1 and S2. ASSESSMENT: End-stage renal disease, congestive heart failure, pleural effusion, morbid obesity, and severe deconditioning. PLAN: I am going to add low-dose hydrocortisone after getting a cortisol level to see we can get him off his Levophed. We will follow while in the ICU. Job ID: [id number]
--- NOTE | 2020-01-24 10:58 | PDOC.CPN ---
- Subjective Date: 01/24/20 Time: 10:58 Interval history: He is feeling much better. He feels oxygen supplementation has helped. On HD. Had to restart levophed during HD due to hypotension. - Review of Systems General: denies: fever/chills, weight/appetite/sleep changes, night sweats, fatigue Respiratory: denies: cough, congestion, shortness of breath, exercise intolerance Cardiovascular: denies: chest pain, palpitation, edema, paroxysmal nocturnal dyspnea, orthopnea Gastrointestinal: denies: nausea, vomiting, diarrhea, constipation, abd pain, GI bleeding Musculoskeletal: denies: pain, tenderness, stiffness, swelling, arthritis/ arthralgias Neurological: denies: numbness, syncope, seizure, weakness - Objective Allergies/Adverse Reactions: Allergies Allergy/AdvReac Type Severity Reaction Status Date / Time No Known Allergies Allergy Verified 01/07/20 09:39 Visit Medications: Current Medications Acetaminophen (Tylenol) 650 mg PO Q4H PRN PRN Reason: Headache/Fever or Mild Pain Albuterol/Ipratropium (Duoneb) 3 ml NEB [id number] [facility] Last Admin: 01/24/20 07:09 Dose: 3 ml Allopurinol (Zyloprim) 100 mg PO DAILY [facility] Last Admin: 01/24/20 08:41 Dose: 100 mg Aspirin (Aspirin Chewable) 81 mg PER TUBE DAILY [facility] Last Admin: 01/24/20 08:41 Dose: 81 mg Atorvastatin Calcium (Lipitor) 80 mg PO HS [facility] Last Admin: 01/23/20 21:51 Dose: 80 mg Dextrose/Water (Dextrose 50%) 25 gm IVP PRN PRN PRN Reason: HYPOGLYCEMIA PROTOCOL Last Admin: 01/12/20 23:46 Dose: 25 gm Epoetin Johnson-epbx (Retacrit) 10,000 unit SC Q7DAYS [facility] Last Admin: 01/24/20 08:44 Dose: 10,000 unit Famotidine (Pepcid) 20 mg SLOW IVP DAILYPRN PRN PRN Reason: HEART BURN Last Admin: 01/21/20 10:43 Dose: 20 mg Famotidine (Pepcid) 20 mg PO 2100 [facility] Last Admin: 01/23/20 21:51 Dose: 20 mg Ferrous Sulfate (Feosol) 325 mg PO QAM-[facility] Last Admin: 01/24/20 08:42 Dose: Not Given Glucagon (Glucagon) 1 mg IM PRN PRN PRN Reason: HYPOGLYCEMIA PROTOCOL Haloperidol Lactate (Haldol) 5 mg IM Q4H PRN PRN Reason: Agitation Last Admin: 01/15/20 16:26 Dose: 5 mg Hydralazine HCl (Apresoline) 10 mg SLOW IVP Q4H PRN PRN Reason: Blood Pressure Hydrocortisone Sodium Succinate (Solu-Cortef) 50 mg IVP Q6HR [facility] Stop: 01/31/20 12:01 Dextrose/Water (D5w) 1,000 mls @ 0 mls/hr IV INF PRN PRN Reason: HYPOGLYCEMIA PROTOCOL Piperacillin Sod/Tazobactam (Sod 2.25 gm/ Sodium Chloride) 100 mls @ 200 mls/ hr IVPB Q8HR [facility] Last Admin: 01/24/20 06:09 Dose: 100 mls Norepinephrine Bitartrate 8 mg (/ Dextrose/Water) 250 mls @ 0 mls/hr IVPB INF [facility]; Protocol Last Admin: 01/23/20 21:53 Dose: 250 mls Insulin Human Isoph/Insulin Regular (Humulin 70/30) 30 units SC BID-[facility] Last Admin: 01/24/20 08:43 Dose: 30 unit Insulin Human Lispro (Humalog) 0 units SC .MILD SLIDING SCALE PRN; Protocol PRN Reason: MILD SLIDING SCALE Last Admin: 01/23/20 21:52 Dose: 2 unit Nitroglycerin (Nitrolingual 0.4 Mg [place]) 0 gm SL Q5MIN PRN PRN Reason: Chest Pain Hold Vancomycin For (Level >20) 0 each FS .AT DIALYSIS [facility] Nystatin (Mycostatin Powder) 1 gm TOP BID PRN PRN Reason: Topical Irritations Ondansetron HCl (Zofran) 4 mg SLOW IVP Q4H PRN PRN Reason: Nausea/Vomiting Last Admin: 01/24/20 06:08 Dose: 4 mg Prednisone (Prednisone) 40 mg PO QAM-[facility] Last Admin: 01/24/20 08:41 Dose: 40 mg Scopolamine (Transderm Scop) 1.5 mg TOP Q3D [facility] Last Admin: 01/22/20 21:19 Dose: 1.5 mg Senna/Docusate Sodium (Senokot S) 2 tab PO BIDPRN PRN PRN Reason: Constipation Sodium Chloride (Flush - Normal Saline) 10 ml IVF Q12HR [facility]AYNA Last Admin: 01/23/20 21:51 Dose: 10 ml Sodium Chloride (Flush - Normal Saline) 10 ml IVF PRN PRN PRN Reason: Saline Flush Vital Signs & Weight: Vital Signs Temp Pulse Resp Pulse Ox 01/24/20 08:00 100 01/24/20 07:12 100 01/24/20 07:09 68 20 99 01/24/20 07:00 97.7 F 01/24/20 04:00 97.8 F 01/24/20 00:05 79 23 H 100 01/24/20 00:00 97.6 F Admit Weight 316 lb Weight 287 lb 0.67 oz - Physical Exam General: alert & oriented x3, no apparent distress HEENT: normocephaly Neck: supple neck Cardiac: regular rate and rhythm Lungs: absent breath sounds Neuro: grossly intact Abdomen: active bowel sounds Extremities: no edema Skin: clear Musculoskeletal: no pain - Labs Result Diagrams: 01/24/20 06:00 01/24/20 06:00 Troponin/CKMB CK-MB (CK-2) 2.8 ng/mL (0-6.6) 01/09/20 10:11 Troponin I 0.048 ng/mL (< 0.028) H 01/09/20 17:18 - Telemetry Sinus rhythms and dysrhythmias: sinus rhythm - Assessment/Plan Assessment/Plan: 1. ESRD on new onset HD 2. Ischemic CM EF at 40-45% 3. CAD, stable no ACS. 4. HTN 5. Acute hypoxic hypercapnic respiratory insufficiency requiring mechanical ventilation, improved. 6. Acute on chronic systolic and diastolic heart failure. PLAN: - Currently still on levophed for BP during HD but was able to be off for some time before HD was started. - HD for Fluid management. - May need Midodrine on HD days if BP keeps dropping during HD.
[2020-01-24] MEDS: Hydrocortisone Sod Succ/PF 100 mg/2 ml Vial IVP SCH ×2 (12:29→17:24)
--- NOTE | 2020-01-24 14:33 | PDOC.HOSPP ---
- Subjective Encounter Date: 01/24/20 Encounter Time: 10:15 Subjective: pt getting dialysis today, quite eager to go home, says that he wants Home O2. congestion and has dry cough. [he is still long way to go before home disposition; on pressor] - Objective Vital Signs & Weight: Vital Signs (12 hours) Temp Pulse Resp Pulse Ox 01/24/20 13:00 74 20 95 01/24/20 12:00 97.7 F 01/24/20 08:00 100 01/24/20 07:12 100 01/24/20 07:09 68 20 99 01/24/20 07:00 97.7 F 01/24/20 04:00 97.8 F Weight Admit Weight 316 lb Weight 287 lb 0.67 oz Most Recent Monitor Data Heart Rate from ECG 78 NIBP 109/45 NIBP BP-Mean 66 Respiration from ECG 14 SpO2 93 I&O: 01/23/20 01/24/20 01/25/20 06:59 06:59 06:59 Intake Total 1461 2033 240 Output Total 5 45 0 Balance 1456 1987 240 Result Diagrams: 01/24/20 06:00 01/24/20 06:00 Additional Labs: Accuchecks 01/24/20 01/24/20 01/23/20 12:17 06:17 21:46 POC Glucose 99 117 H 261 H 01/23/20 18:21 POC Glucose 215 H Hospitalist ROS - Medication Medications: Active Medications Generic Name Dose Route Start Last Admin Trade Name Freq PRN Reason Stop Dose Admin Albuterol/Ipratropium 3 ml 01/15/20 13:00 01/24/20 13:00 Duoneb NEB 3 ml [id number] RAYNA Administration Allopurinol 100 mg 01/11/20 09:00 01/24/20 08:41 Zyloprim PO 100 mg DAILY RAYNA Administration Aspirin 81 mg 01/20/20 09:00 01/24/20 08:41 Aspirin Chewable PER TUBE 81 mg DAILY RAYNA Administration Atorvastatin Calcium 80 mg 01/09/20 21:00 01/23/20 21:51 Lipitor PO 80 mg HS RAYNA Administration Dextrose/Water 25 gm 01/09/20 17:02 01/12/20 23:46 Dextrose 50% IVP 25 gm PRN PRN Administration HYPOGLYCEMIA PROTOCOL Epoetin Johnson-epbx 10,000 unit 01/24/20 09:00 01/24/20 08:44 Retacrit SC 10,000 unit Q7DAYS RAYNA Administration Famotidine 20 mg 01/20/20 15:54 01/21/20 10:43 Pepcid SLOW IVP 20 mg DAILYPRN PRN Administration HEART BURN Famotidine 20 mg 01/21/20 21:00 01/23/20 21:51 Pepcid PO 20 mg 2100 RAYNA Administration Ferrous Sulfate 325 mg 01/10/20 08:00 01/24/20 08:42 Feosol PO Not Given QAM-WM RAYNA Haloperidol Lactate 5 mg 01/14/20 17:13 01/15/20 16:26 Haldol IM 5 mg Q4H PRN Administration Agitation Hydrocortisone Sodium Succinate 50 mg 01/24/20 12:00 01/24/20 12:29 Solu-Cortef IVP 01/31/20 12:01 50 mg Q6HR RAYNA Administration Piperacillin Sod/Tazobactam 100 mls @ 200 mls/hr 01/19/20 14:00 01/24/20 13: 33 Sod 2.25 gm/ Sodium Chloride IVPB 100 mls Q8HR RAYNA Administration Norepinephrine Bitartrate 8 mg 250 mls @ 0 mls/hr 01/19/20 11:15 01/23/20 21: 53 / Dextrose/Water IVPB 250 mls INF RAYNA Administration Protocol Titrate Insulin Human Isoph/Insulin Regular 30 units 01/10/20 16:30 01/24/20 08:43 Humulin 70/30 SC 30 unit BID-AC RAYNA Administration Insulin Human Lispro 0 units 01/09/20 17:02 01/23/20 21:52 Humalog SC 2 unit .MILD SLIDING SCALE PRN Administration MILD SLIDING SCALE Protocol Ondansetron HCl 4 mg 01/20/20 15:03 01/24/20 06:08 Zofran SLOW IVP 4 mg Q4H PRN Administration Nausea/Vomiting Prednisone 40 mg 01/22/20 08:00 01/24/20 08:41 Prednisone PO 40 mg QAM-WM RAYNA Administration Scopolamine 1.5 mg 01/19/20 19:00 01/22/20 21:19 Transderm Scop TOP 1.5 mg Q3D RAYNA Administration Sodium Chloride 10 ml 01/10/20 21:00 01/24/20 12:29 Flush - Normal Saline IVF 10 ml Q12HR RAYNA Administration - Exam General Appearance: NAD, awake alert Eye: PERRL ENT: normocephalic atraumatic Neck: supple Heart: RRR Respiratory: normal chest expansion, rales, rhonchi Gastrointestinal: soft, normal bowel sounds Hosp A/P - Plan Acute hypoxic/hypercapneic respiratory failure secondary to possible CHF exacerbation vs COPD exacerbation Sepsis from cellulitis vs pneumonia -was intubated and extubated 01/19. WBC up to 13, Chest Xray today shows improving pulmonary edema - continue daily dialysis for pulmonary edema - continue IV vancomycin and zosyn for empiric treatment of possible HCAP. Currently he is still on levophed. will dc abx as >10 days coverage, nl wbcs. - prednisone for COPD exacerbation - 40 mg daily - tsh, cortisol level - in the nl range. - hydrocortisone added. RLE cellulitis- resolved - on zosyn - will dc as pt on the IV zosyn for > 10 days - much improved and leg is almost at baseline nl skin color as left leg. ESRD - continue dialysis--mwf Agitation - haldol prn - sreoquel prn CAD s/p CABG - on plavix, statin and aspirin Dispo: pending weaning of pressors and resolution of pulmonary edema DVT prophylaxis: heparin SC Code status: full code
[2020-01-24] MEDS: Atorvastatin Calcium 40 MG TAB PO SCH (21:33)
[2020-01-24] MEDS: Famotidine 20 MG TAB PO SCH (21:33)
[2020-01-25] MEDS: Hydrocortisone Sod Succ/PF 100 mg/2 ml Vial IVP SCH ×2 (00:11→06:01)
[2020-01-25 05:55] LABS: #Lymphocytes 0.4 thou/uL (1.20-3.40); #Monocytes 0.6 thou/uL (0.11-0.59); #Neutrophils 6.1 thou/uL (1.40-6.50); %Eosinophils 0.2 % (0.0-10.0); %Lymphocytes 6.1 % (21.0-51.0); %Neutrophils 85.7 % (42.0-75.0); Hemoglobin 8.8 g/dL (14.0-18.0); Mean Corpuscular HGB CONC 31.5 g/dL (32.0-36.0); Mean Corpuscular Hemoglobin 29.8 pg (27.0-31.0); Mean Corpuscular Volume 94.7 fL (78.0-98.0); Mean Platelet Volume 9.3 fL (7.4-10.4); Platelet Count 173 thou/uL (130-400); RBC Distribution Width 14.9 % (11.5-14.5); Red Blood Cell (RBC) Count 2.94 mill/uL (4.70-6.10); White Blood Cell (WBC) Count 7.2 thou/uL (4.8-10.8)
[2020-01-25 06:15] LABS: Anion Gap 13 mmol/L (10-20); BUN (Urea Nitrogen) 28 mg/dL (8.4-25.7); Calc. Creatinine Clearance 32 mL/min (70-130); Carbon Dioxide 29 mmol/L (23-31); Chloride 101 mmol/L (98-107); Estimated GFR-MDRD 16; Glucose 109 mg/dL (83-110); Potassium 4.9 mmol/L (3.5-5.1); Sodium 138 mmol/L (136-145)
[2020-01-25] MEDS: Ferrous Sulfate 325 MG TAB PO SCH (08:35)
[2020-01-25] MEDS: Allopurinol 100 MG TAB PO SCH (08:47)
[2020-01-25] MEDS: HumuLIN 70/30 (300 UNITS/3 ML VIAL) SC SCH ×2 (08:47→17:54)
[2020-01-25] MEDS: Aspirin Chewable 81 MG TAB PER TUBE SCH (08:47)
[2020-01-25] MEDS: predniSONE 20 MG TAB PO SCH (08:54)
--- NOTE | 2020-01-25 09:22 | PRG ---
DATE OF SERVICE: 01/25/2020 SUBJECTIVE: Kt Saldana is a morbidly obese gentleman. This morning, he is awake, alert, and responsive. He is off all pressors. He was dialyzed yesterday. OBJECTIVE: VITAL SIGNS: Blood pressure is 90/60, pulse 80, respiratory rate 16, and saturations are 100%. CHEST: No wheezing or crackles. CARDIAC: Normal S1 and S2. No gallops. ABDOMEN: Massive. LABORATORY DATA: Creatinine 3.7. ASSESSMENT: 1. Respiratory failure. 2. Morbid obesity. 3. Pleural effusion. 4. Renal failure. PLAN: Blood pressure is improved. He is already on p.o. prednisone. Therefore, I would discontinue his hydrocortisone, decrease prednisone to 20. PT, supportive care. We will follow. Job ID: [id number]
--- NOTE | 2020-01-25 12:55 | PDOC.HOSPP ---
- Subjective Encounter Date: 01/25/20 Encounter Time: 08:50 Subjective: sitting in the chair, sats good, [would not qualify for home O2], can dc angelo, if ok w.. renal. ok for tele bed. off levophed since y'day - Objective Vital Signs & Weight: Vital Signs (12 hours) Temp Pulse Pulse Pulse Resp BP BP 01/25/20 12:00 98.2 F 01/25/20 10:33 83 76 108/59 L 99/42 L 01/25/20 07:27 01/25/20 07:26 01/25/20 07:06 01/25/20 07:04 68 20 01/25/20 07:00 97.0 F L 01/25/20 04:00 97.8 F 01/25/20 01:18 01/25/20 01:16 71 20 Pulse Ox 01/25/20 12:00 01/25/20 10:33 01/25/20 07:27 94 L 01/25/20 07:26 94 L 01/25/20 07:06 100 01/25/20 07:04 100 01/25/20 07:00 01/25/20 04:00 01/25/20 01:18 100 01/25/20 01:16 99 Weight Admit Weight 316 lb Weight 287 lb 0.67 oz Most Recent Monitor Data Heart Rate from ECG 87 NIBP 88/56 NIBP BP-Mean 66 Respiration from ECG 16 SpO2 92 I&O: 01/24/20 01/25/20 01/26/20 06:59 06:59 06:59 Intake Total 2032 1178 276.2 Output Total 45 40 15 Balance 1987 1138 261.2 Result Diagrams: 01/25/20 05:45 01/25/20 03:30 Additional Labs: Accuchecks 01/25/20 01/25/20 01/24/20 11:12 05:53 21:40 POC Glucose 121 H 121 H 152 H 01/24/20 17:13 POC Glucose 237 H Hospitalist ROS - Medication Medications: Active Medications Generic Name Dose Route Start Last Admin Trade Name Freq PRN Reason Stop Dose Admin Albuterol/Ipratropium 3 ml 01/15/20 13:00 01/25/20 07:04 Duoneb NEB 3 ml [id number] RAYNA Administration Allopurinol 100 mg 01/11/20 09:00 01/25/20 08:47 Zyloprim PO 100 mg DAILY RAYNA Administration Aspirin 81 mg 01/20/20 09:00 01/25/20 08:47 Aspirin Chewable PER TUBE 81 mg DAILY RAYNA Administration Atorvastatin Calcium 80 mg 01/09/20 21:00 01/24/20 21:33 Lipitor PO 80 mg HS RAYNA Administration Dextrose/Water 25 gm 01/09/20 17:02 01/12/20 23:46 Dextrose 50% IVP 25 gm PRN PRN Administration HYPOGLYCEMIA PROTOCOL Epoetin Johnson-epbx 10,000 unit 01/24/20 09:00 01/24/20 08:44 Retacrit SC 10,000 unit Q7DAYS RAYNA Administration Famotidine 20 mg 01/20/20 15:54 01/21/20 10:43 Pepcid SLOW IVP 20 mg DAILYPRN PRN Administration HEART BURN Famotidine 20 mg 01/21/20 21:00 01/24/20 21:33 Pepcid PO 20 mg 2100 RAYNA Administration Ferrous Sulfate 325 mg 01/10/20 08:00 01/25/20 08:35 Feosol PO Not Given QAM-WM [facility] Haloperidol Lactate 5 mg 01/14/20 17:13 01/15/20 16:26 Haldol IM 5 mg Q4H PRN Administration Agitation Norepinephrine Bitartrate 8 mg 250 mls @ 0 mls/hr 01/19/20 11:15 01/23/20 21: 53 / Dextrose/Water IVPB 250 mls INF RAYNA Administration Protocol Titrate Insulin Human Isoph/Insulin Regular 30 units 01/10/20 16:30 01/25/20 08:47 Humulin 70/30 SC 30 unit BID-AC RAYNA Administration Insulin Human Lispro 0 units 01/09/20 17:02 01/23/20 21:52 Humalog SC 2 unit .MILD SLIDING SCALE PRN Administration MILD SLIDING SCALE Protocol Ondansetron HCl 4 mg 01/20/20 15:03 01/24/20 06:08 Zofran SLOW IVP 4 mg Q4H PRN Administration Nausea/Vomiting Scopolamine 1.5 mg 01/19/20 19:00 01/22/20 21:19 Transderm Scop TOP 1.5 mg Q3D RAYNA Administration Sodium Chloride 10 ml 01/10/20 21:00 01/25/20 10:20 Flush - Normal Saline IVF 10 ml Q12HR RAYNA Administration - Exam General Appearance: NAD, awake alert Eye: PERRL ENT: normocephalic atraumatic Neck: supple Heart: RRR Respiratory: CTAB, normal chest expansion Gastrointestinal: soft, normal bowel sounds Neurological: no focal deficits Hosp A/P - Plan Acute hypoxic/hypercapneic respiratory failure secondary to possible CHF exacerbation vs COPD exacerbation Sepsis from cellulitis vs pneumonia Acute on chron sys/funes CHF exacerbation Ischemic CMY w.. EF of 40% -was intubated and extubated 01/19. WBC up to 13, Chest Xray today shows improving pulmonary edema - continue daily dialysis for pulmonary edema - continue IV vancomycin and zosyn for empiric treatment of possible HCAP. Currently he is still on levophed. will dc abx as >10 days coverage, nl wbcs. - prednisone for COPD exacerbation - 40 mg daily - tsh, cortisol level - in the nl range. - hydrocortisone added. RLE cellulitis- resolved - on zosyn - will dc as pt on the IV zosyn for > 10 days - much improved and leg is almost at baseline nl skin color as left leg. ESRD on new HD - continue dialysis--mwf Agitation - haldol prn - seroquel prn CAD s/p CABG - on plavix, statin and aspirin dc angelo transf.. to tele bed continue w.. PT Dispo: prob dc to home in 1 to 2 days. DVT prophylaxis: heparin SC Code status: full code
--- NOTE | 2020-01-25 17:27 | PDOC.CPN ---
- Subjective Date: 01/25/20 Time: 17:25 Interval history: He is doing better every day. he has been off levophed since yesterday afternoon and has been transferred to telemetry. - Review of Systems General: denies: fever/chills, weight/appetite/sleep changes, night sweats, fatigue Respiratory: denies: cough, congestion, shortness of breath, exercise intolerance Cardiovascular: denies: chest pain, palpitation, edema, paroxysmal nocturnal dyspnea, orthopnea Gastrointestinal: denies: nausea, vomiting, diarrhea, constipation, abd pain, GI bleeding Musculoskeletal: denies: pain, tenderness, stiffness, swelling, arthritis/ arthralgias Neurological: denies: numbness, syncope, seizure, weakness - Objective Allergies/Adverse Reactions: Allergies Allergy/AdvReac Type Severity Reaction Status Date / Time No Known Allergies Allergy Verified 01/07/20 09:39 Visit Medications: Current Medications Acetaminophen (Tylenol) 650 mg PO Q4H PRN PRN Reason: Headache/Fever or Mild Pain Albuterol/Ipratropium (Duoneb) 3 ml NEB [id number] [facility] Last Admin: 01/25/20 13:26 Dose: 3 ml Allopurinol (Zyloprim) 100 mg PO DAILY [facility] Last Admin: 01/25/20 08:47 Dose: 100 mg Aspirin (Aspirin Chewable) 81 mg PER TUBE DAILY [facility] Last Admin: 01/25/20 08:47 Dose: 81 mg Atorvastatin Calcium (Lipitor) 80 mg PO HS [facility] Last Admin: 01/24/20 21:33 Dose: 80 mg Dextrose/Water (Dextrose 50%) 25 gm IVP PRN PRN PRN Reason: HYPOGLYCEMIA PROTOCOL Last Admin: 01/12/20 23:46 Dose: 25 gm Epoetin Johnson-epbx (Retacrit) 10,000 unit SC Q7DAYS [facility] Last Admin: 01/24/20 08:44 Dose: 10,000 unit Famotidine (Pepcid) 20 mg SLOW IVP DAILYPRN PRN PRN Reason: HEART BURN Last Admin: 01/21/20 10:43 Dose: 20 mg Famotidine (Pepcid) 20 mg PO 2100 [facility] Last Admin: 01/24/20 21:33 Dose: 20 mg Ferrous Sulfate (Feosol) 325 mg PO QAM-WM [facility] Last Admin: 04/07/20 08:35 Dose: Not Given Glucagon (Glucagon) 1 mg IM PRN PRN PRN Reason: HYPOGLYCEMIA PROTOCOL Haloperidol Lactate (Haldol) 5 mg IM Q4H PRN PRN Reason: Agitation Last Admin: 01/15/20 16:26 Dose: 5 mg Hydralazine HCl (Apresoline) 10 mg SLOW IVP Q4H PRN PRN Reason: Blood Pressure Dextrose/Water (D5w) 1,000 mls @ 0 mls/hr IV INF PRN PRN Reason: HYPOGLYCEMIA PROTOCOL Norepinephrine Bitartrate 8 mg (/ Dextrose/Water) 250 mls @ 0 mls/hr IVPB INF RAYNA; Protocol Last Admin: 01/23/20 21:53 Dose: 250 mls Insulin Human Isoph/Insulin Regular (Humulin 70/30) 30 units SC BID-AC [facility] Last Admin: 01/25/20 08:47 Dose: 30 unit Insulin Human Lispro (Humalog) 0 units SC .MILD SLIDING SCALE PRN; Protocol PRN Reason: MILD SLIDING SCALE Last Admin: 01/23/20 21:52 Dose: 2 unit Nitroglycerin (Nitrolingual 0.4 Mg [place]) 0 gm SL Q5MIN PRN PRN Reason: Chest Pain Hold Vancomycin For (Level >20) 0 each FS .AT DIALYSIS [facility] Nystatin (Mycostatin Powder) 1 gm TOP BID PRN PRN Reason: Topical Irritations Ondansetron HCl (Zofran) 4 mg SLOW IVP Q4H PRN PRN Reason: Nausea/Vomiting Last Admin: 01/24/20 06:08 Dose: 4 mg Prednisone (Prednisone) 20 mg PO QAM-[facility] Scopolamine (Transderm Scop) 1.5 mg TOP Q3D [facility] Last Admin: 01/22/20 21:19 Dose: 1.5 mg Senna/Docusate Sodium (Senokot S) 2 tab PO BIDPRN PRN PRN Reason: Constipation Sodium Chloride (Flush - Normal Saline) 10 ml IVF Q12HR [facility] Last Admin: 01/25/20 10:20 Dose: 10 ml Sodium Chloride (Flush - Normal Saline) 10 ml IVF PRN PRN PRN Reason: Saline Flush Vital Signs & Weight: Vital Signs Temp Pulse Pulse Pulse Resp BP BP 01/25/20 16:06 97.8 F 83 18 01/25/20 13:26 88 22 H 01/25/20 12:00 98.2 F 01/25/20 10:33 83 76 108/59 L 99/42 L 01/25/20 07:27 01/25/20 07:26 01/25/20 07:06 01/25/20 07:04 68 20 01/25/20 07:00 97.0 F L BP Pulse Ox 01/25/20 16:06 108/60 93 L 01/25/20 13:26 99 01/25/20 12:00 01/25/20 10:33 01/25/20 07:27 94 L 01/25/20 07:26 94 L 01/25/20 07:06 100 01/25/20 07:04 100 01/25/20 07:00 Admit Weight 316 lb Weight 287 lb 0.67 oz - Physical Exam General: alert & oriented x3 HEENT: mucus membranes moist Neck: supple neck Cardiac: regular rate and rhythm Lungs: clear to auscultation Neuro: grossly intact Abdomen: active bowel sounds Extremities: no edema Skin: clear Musculoskeletal: no pain - Labs Result Diagrams: 01/25/20 05:45 01/25/20 03:30 Troponin/CKMB CK-MB (CK-2) 2.8 ng/mL (0-6.6) 01/09/20 10:11 Troponin I 0.048 ng/mL (< 0.028) H 01/09/20 17:18 - Telemetry Sinus rhythms and dysrhythmias: sinus rhythm - Assessment/Plan Assessment/Plan: 1. ESRD on new onset HD 2. Ischemic CM EF at 40-45% 3. CAD, stable no ACS. 4. HTN 5. Acute hypoxic hypercapnic respiratory insufficiency requiring mechanical ventilation, improved. 6. Acute on chronic systolic and diastolic heart failure. PLAN: - BP holding now off levophed. Will see what happens when he gets his next HD treatment. - HD for Fluid management. - May need Midodrine on HD days if BP keeps dropping during HD. - No CHF meds for now given borderline low BP.
[2020-01-25] MEDS: Scopolamine 1.5 mg/72 hour Patch TOP SCH (18:17)
[2020-01-25] MEDS ORDERED: Nitroglycerin 0.4 MG TAB (25 Tab Bottle) SL PRN (19:07)
[2020-01-25 20:01] LABS: Troponin I 0.427 ng/mL (< 0.028)
[2020-01-25] MEDS: Famotidine 20 MG TAB PO SCH (21:13)
[2020-01-25] MEDS: Atorvastatin Calcium 40 MG TAB PO SCH (21:13)
[2020-01-25] MEDS ORDERED: Heparin 10,000 UNITS/ 10 ML VIAL SLOW IVP SCH (22:00)
[2020-01-25] MEDS ORDERED: Heparin 25,000 units/D5W 500 ML IV SCH (22:00)
[2020-01-26 01:37] LABS: Troponin I 0.439 ng/mL (< 0.028)
[2020-01-26 04:11] LABS: Troponin I 0.499 ng/mL (< 0.028)
[2020-01-26 06:24] LABS: PTT 196.5 SEC (22.9-36.1)
[2020-01-26] MEDS ORDERED: predniSONE 20 MG TAB PO SCH (08:00)
[2020-01-26] MEDS: HumuLIN 70/30 (300 UNITS/3 ML VIAL) SC SCH ×2 (08:34→17:14)
[2020-01-26] MEDS: Ondansetron PF 4 MG/2 ML Vial SLOW IVP PRN (08:52)
[2020-01-26] MEDS ORDERED: predniSONE 5 MG TAB PO SCH (10:00)
--- NOTE | 2020-01-26 10:05 | PRG ---
DATE OF SERVICE: 01/26/2020 SUBJECTIVE: He is being dialyzed today. OBJECTIVE: VITAL SIGNS: Temperature 97, pulse 70, respirations 20, saturations 100% on low-flow O2. GENERAL: He said he is feeling better. No shortness of breath. CHEST: Decreased breath sounds. No wheezing. CARDIAC: Normal S1 and S2. ABDOMEN: No mass. IMPRESSION: Morbid obesity, congestive heart failure, renal failure, and diabetes. PLAN: At this stage, continue dialysis. Continue PT. Hopefully, eventually placement. Job ID: [id number]
[2020-01-26] MEDS ORDERED: Heparin 10,000 UNITS/ 10 ML VIAL ONE (10:38)
[2020-01-26] MEDS: Allopurinol 100 MG TAB PO SCH (13:57)
[2020-01-26] MEDS: Aspirin Chewable 81 MG TAB PER TUBE SCH (13:58)
[2020-01-26] MEDS: Ferrous Sulfate 325 MG TAB PO SCH (13:58)
--- NOTE | 2020-01-26 14:43 | PDOC.HOSPP ---
- Subjective Encounter Date: 01/26/20 Encounter Time: 11:40 Subjective: pt seen in HD area. denies any cp last night and this am. had CP last evening, workup with EKG showed 2nd degree AVB? and this am strip shows PVC and afib. talk to DR. Pineda who is following with us. - Objective Vital Signs & Weight: Vital Signs (12 hours) Temp Pulse Resp BP BP Pulse Ox 01/26/20 13:23 72 18 01/26/20 07:21 97.4 F L 70 20 104/55 L 100 01/26/20 07:16 84 20 01/26/20 04:11 97.6 F 84 20 116/58 L 94 L Weight Admit Weight 316 lb Weight 285 lb 6.4 oz Most Recent Monitor Data Heart Rate from ECG 79 NIBP 124/87 NIBP BP-Mean 99 Respiration from ECG 15 SpO2 97 I&O: 01/25/20 01/26/20 01/27/20 06:59 06:59 06:59 Intake Total 1178 516.2 Output Total 40 15 Balance 1138 501.2 Result Diagrams: 01/25/20 05:45 01/25/20 03:30 Additional Labs: Accuchecks 01/26/20 01/26/20 01/25/20 10:45 05:51 19:57 POC Glucose 106 103 153 H 01/25/20 17:01 POC Glucose 74 Hospitalist ROS - Medication Medications: Active Medications Generic Name Dose Route Start Last Admin Trade Name Freq PRN Reason Stop Dose Admin Albuterol/Ipratropium 3 ml 01/15/20 13:00 01/26/20 13:23 Duoneb NEB 3 ml [id number] RAYNA Administration Allopurinol 100 mg 01/11/20 09:00 01/26/20 13:57 Zyloprim PO 100 mg DAILY RAYNA Administration Aspirin 81 mg 01/20/20 09:00 01/26/20 13:58 Aspirin Chewable PER TUBE 81 mg DAILY RAYNA Administration Atorvastatin Calcium 80 mg 01/09/20 21:00 01/25/20 21:13 Lipitor PO 80 mg HS RAYNA Administration Dextrose/Water 25 gm 01/09/20 17:02 01/12/20 23:46 Dextrose 50% IVP 25 gm PRN PRN Administration HYPOGLYCEMIA PROTOCOL Epoetin Johnson-epbx 10,000 unit 01/24/20 09:00 01/24/20 08:44 Retacrit SC 10,000 unit Q7DAYS RAYNA Administration Famotidine 20 mg 01/21/20 21:00 01/25/20 21:13 Pepcid PO 20 mg 2100 RAYNA Administration Ferrous Sulfate 325 mg 01/10/20 08:00 01/26/20 13:58 Feosol PO Not Given QAM-WM RAYNA Heparin Sodium (Porcine) 0 units 01/25/20 22:00 01/25/20 23:48 Heparin 1,000 Units/Ml (10 Ml) SLOW IVP 10 ml WILLCALL RAYNA Administration Heparin Sodium/Dextrose 500 mls @ 0 mls/hr 01/25/20 22:00 01/25/20 23:50 Heparin 25,000 Units/D5w IV 500 mls INF RAYNA Administration Protocol As Directed Insulin Human Isoph/Insulin Regular 30 units 01/10/20 16:30 01/26/20 08:34 Humulin 70/30 SC Not Given BID-AC [facility] Insulin Human Lispro 0 units 01/09/20 17:02 01/23/20 21:52 Humalog SC 2 unit .MILD SLIDING SCALE PRN Administration MILD SLIDING SCALE Protocol Nitroglycerin 0.4 mg 01/25/20 19:07 01/25/20 19:21 Nitrostat SL 0.4 mg Q5MIN PRN Administration Chest Pain Ondansetron HCl 4 mg 01/20/20 15:03 01/26/20 08:52 Zofran SLOW IVP 4 mg Q4H PRN Administration Nausea/Vomiting Sodium Chloride 10 ml 01/10/20 21:00 01/26/20 13:58 Flush - Normal Saline IVF 10 ml Q12HR RAYNA Administration - Exam General Appearance: NAD, awake alert Eye: PERRL ENT: normocephalic atraumatic Heart: irregular Respiratory: CTAB, normal chest expansion Gastrointestinal: soft, normal bowel sounds Hosp A/P - Plan Acute hypoxic/hypercapneic respiratory failure secondary to possible CHF exacerbation vs COPD exacerbation Sepsis from cellulitis vs pneumonia Acute on chron sys/funes CHF exacerbation Ischemic CMY w.. EF of 40% -was intubated and extubated 01/19. WBC up to 13, Chest Xray today shows improving pulmonary edema - continue daily dialysis for pulmonary edema - continue IV vancomycin and zosyn for empiric treatment of possible HCAP. Currently he is still on levophed. will dc abx as >10 days coverage, nl wbcs. - prednisone for COPD exacerbation - 40 mg daily - tsh, cortisol level - in the nl range. - hydrocortisone added. RLE cellulitis- resolved - on zosyn - will dc as pt on the IV zosyn for > 10 days - much improved and leg is almost at baseline nl skin color as left leg. ESRD on new HD - continue dialysis--mwf Agitation - haldol prn - seroquel prn CAD s/p CABG NSTEMI ?able 2nd degree AVB - Dr. Pineda has been notified. - on plavix, statin and aspirin - will keep K > 4 and mag >2. continue w.. PT Dispo: when medically stable and cleared by the specialist. DVT prophylaxis: heparin SC Code status: full code
[2020-01-26 15:25] LABS: #Basophils 0.1 thou/uL (0.0-0.2); #Eosinphils 0.3 thou/uL (0.0-0.7); #Lymphocytes 0.7 thou/uL (1.20-3.40); #Monocytes 1.3 thou/uL (0.11-0.59); %Basophils 0.5 % (0.0-1.0); %Eosinophils 2.9 % (0.0-10.0); %Lymphocytes 7.9 % (21.0-51.0); %Monocytes 14.1 % (0.0-10.0); %Neutrophils 74.6 % (42.0-75.0); Hemoglobin 8.7 g/dL (14.0-18.0); Mean Corpuscular HGB CONC 32.2 g/dL (32.0-36.0); Mean Corpuscular Volume 93.1 fL (78.0-98.0); Mean Platelet Volume 9.2 fL (7.4-10.4); Platelet Count 187 thou/uL (130-400); RBC Distribution Width 15.1 % (11.5-14.5); White Blood Cell (WBC) Count 9.3 thou/uL (4.8-10.8)
[2020-01-26 15:43] LABS: Anion Gap 12 mmol/L (10-20); BUN (Urea Nitrogen) 16 mg/dL (8.4-25.7); Calc. Creatinine Clearance 58 mL/min (70-130); Calcium 7.9 mg/dL (7.8-10.44); Carbon Dioxide 28 mmol/L (23-31); Chloride 98 mmol/L (98-107); Estimated GFR-MDRD 31; Glucose 107 mg/dL (83-110); Sodium 134 mmol/L (136-145)
--- NOTE | 2020-01-26 17:27 | PDOC.CPN ---
- Subjective Date: 01/26/20 Time: 17:24 Interval history: He had his typical angina last night. Better with SL nitro. No more chest pain. - Review of Systems General: denies: fever/chills, weight/appetite/sleep changes, night sweats, fatigue Respiratory: denies: cough, congestion, shortness of breath, exercise intolerance Cardiovascular: reports: chest pain. denies: palpitation, edema, paroxysmal nocturnal dyspnea, orthopnea Gastrointestinal: denies: nausea, vomiting, diarrhea, constipation, abd pain, GI bleeding Musculoskeletal: denies: pain, tenderness, stiffness, swelling, arthritis/ arthralgias Neurological: denies: numbness, syncope, seizure, weakness - Objective Allergies/Adverse Reactions: Allergies Allergy/AdvReac Type Severity Reaction Status Date / Time No Known Allergies Allergy Verified 01/07/20 09:39 Visit Medications: Current Medications Acetaminophen (Tylenol) 650 mg PO Q4H PRN PRN Reason: Headache/Fever or Mild Pain Albuterol/Ipratropium (Duoneb) 3 ml NEB [id number] Last Admin: 01/26/20 13:23 Dose: 3 ml Allopurinol (Zyloprim) 100 mg PO DAILY [facility] Last Admin: 01/26/20 13:57 Dose: 100 mg Aspirin (Aspirin Chewable) 81 mg PER TUBE DAILY [facility] Last Admin: 01/26/20 13:58 Dose: 81 mg Atorvastatin Calcium (Lipitor) 80 mg PO HS [facility] Last Admin: 01/25/20 21:13 Dose: 80 mg Dextrose/Water (Dextrose 50%) 25 gm IVP PRN PRN PRN Reason: HYPOGLYCEMIA PROTOCOL Last Admin: 01/12/20 23:46 Dose: 25 gm Epoetin Johnson-epbx (Retacrit) 10,000 unit SC Q7DAYS [facility] Last Admin: 01/24/20 08:44 Dose: 10,000 unit Famotidine (Pepcid) 20 mg PO 2100 [facility] Last Admin: 01/25/20 21:13 Dose: 20 mg Ferrous Sulfate (Feosol) 325 mg PO QAM-WM [facility] Last Admin: 01/26/20 13:58 Dose: Not Given Glucagon (Glucagon) 1 mg IM PRN PRN PRN Reason: HYPOGLYCEMIA PROTOCOL Hydralazine HCl (Apresoline) 10 mg SLOW IVP Q4H PRN PRN Reason: Blood Pressure Dextrose/Water (D5w) 1,000 mls @ 0 mls/hr IV INF PRN PRN Reason: HYPOGLYCEMIA PROTOCOL Insulin Human Isoph/Insulin Regular (Humulin 70/30) 30 units SC BID-[facility] Last Admin: 01/26/20 17:14 Dose: 30 unit Insulin Human Lispro (Humalog) 0 units SC .MILD SLIDING SCALE PRN; Protocol PRN Reason: MILD SLIDING SCALE Last Admin: 01/23/20 21:52 Dose: 2 unit Nitroglycerin (Nitrostat) 0.4 mg SL Q5MIN PRN PRN Reason: Chest Pain Last Admin: 01/25/20 19:21 Dose: 0.4 mg Nystatin (Mycostatin Powder) 1 gm TOP BID PRN PRN Reason: Topical Irritations Ondansetron HCl (Zofran) 4 mg SLOW IVP Q4H PRN PRN Reason: Nausea/Vomiting Last Admin: 01/26/20 08:52 Dose: 4 mg Prednisone (Prednisone) 10 mg PO QAM-[facility] Stop: 01/29/20 08:01 Senna/Docusate Sodium (Senokot S) 2 tab PO BIDPRN PRN PRN Reason: Constipation Sodium Chloride (Flush - Normal Saline) 10 ml IVF Q12HR [facility] Last Admin: 01/26/20 13:58 Dose: 10 ml Sodium Chloride (Flush - Normal Saline) 10 ml IVF PRN PRN PRN Reason: Saline Flush Vital Signs & Weight: Vital Signs Temp Pulse Resp BP Pulse Ox 01/26/20 15:56 97.9 F 66 16 122/59 L 95 01/26/20 15:31 97.8 F 77 20 103/46 L 94 L 01/26/20 13:23 72 18 01/26/20 08:00 100 01/26/20 07:21 97.4 F L 70 20 104/55 L 100 01/26/20 07:16 84 20 Admit Weight 316 lb Weight 285 lb 6.4 oz - Physical Exam General: alert & oriented x3 HEENT: mucus membranes moist Neck: supple neck Cardiac: regular rate and rhythm Lungs: clear to auscultation Neuro: grossly intact Abdomen: active bowel sounds Extremities: no edema Skin: clear Musculoskeletal: no pain - Labs Result Diagrams: 01/26/20 15:15 04/08/20 15:15 Troponin/CKMB CK-MB (CK-2) 2.8 ng/mL (0-6.6) 01/09/20 10:11 Troponin I 0.499 ng/mL (< 0.028) H* 01/26/20 03:20 - Telemetry Sinus rhythms and dysrhythmias: sinus rhythm - Assessment/Plan Assessment/Plan: 1. ESRD on new onset HD 2. Ischemic CM EF at 40-45% 3. CAD, stable no ACS. 4. HTN 5. Acute hypoxic hypercapnic respiratory insufficiency requiring mechanical ventilation, improved. 6. Acute on chronic systolic and diastolic heart failure. 7. Angina. 8. 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 PLAN: - BP tolerating HD today. - HD for Fluid management. - May need Midodrine on HD days if BP keeps dropping during HD. - No CHF meds for now given borderline low BP. - Will start Ranexa for Angina. - Troponin drawn yesterday consistent with his chronic angina and HD. No plan on [facility]. - Will follow.
[2020-01-26] MEDS: Famotidine 20 MG TAB PO SCH (21:53)
[2020-01-26] MEDS: Atorvastatin Calcium 40 MG TAB PO SCH (21:53)
[2020-01-27] MEDS: HumuLIN 70/30 (300 UNITS/3 ML VIAL) SC SCH ×2 (08:40→17:21)
[2020-01-27] MEDS: Ferrous Sulfate 325 MG TAB PO SCH (09:14)
[2020-01-27] MEDS: Aspirin Chewable 81 MG TAB PER TUBE SCH (09:15)
[2020-01-27] MEDS: predniSONE 5 MG TAB PO SCH (09:15)
[2020-01-27] MEDS: Allopurinol 100 MG TAB PO SCH (09:15)
--- NOTE | 2020-01-27 09:50 | PRG ---
DATE OF SERVICE: 01/27/2020 SUBJECTIVE: Kt Saldana is awake, alert, and responsive. No shortness of breath. OBJECTIVE: VITAL SIGNS: Temperature 97, pulse 70, respiratory rate 12, sats are 90% on room air, blood pressure 132\76. CHEST: Decreased breath sounds. No wheezing. CARDIAC: Normal S1 and S2. no murmers IMPRESSION: Congestive heart failure, renal failure, respiratory failure, pleural effusion; azotemia, much improved. DISPOSITION: Home any time. Pulmonary will follow at a distance. Please call as needed. Job ID: [id number] MTDD
[2020-01-27 15:12] VITALS: BMI 38.2
--- NOTE | 2020-01-27 16:09 | PDOC.CPN ---
- Subjective Date: 01/27/20 Time: 16:08 Interval history: No new issues. No more chest pain. - Review of Systems General: denies: fever/chills, weight/appetite/sleep changes, night sweats, fatigue Respiratory: denies: cough, congestion, shortness of breath, exercise intolerance Cardiovascular: denies: chest pain, palpitation, edema, paroxysmal nocturnal dyspnea, orthopnea Gastrointestinal: denies: nausea, vomiting, diarrhea, constipation, abd pain, GI bleeding Musculoskeletal: denies: pain, tenderness, stiffness, swelling, arthritis/ arthralgias Neurological: denies: numbness, syncope, seizure, weakness - Objective Allergies/Adverse Reactions: Allergies Allergy/AdvReac Type Severity Reaction Status Date / Time No Known Allergies Allergy Verified 01/07/20 09:39 Visit Medications: Current Medications Acetaminophen (Tylenol) 650 mg PO Q4H PRN PRN Reason: Headache/Fever or Mild Pain Albuterol/Ipratropium (Duoneb) 3 ml NEB [id number] [facility] Last Admin: 01/27/20 14:09 Dose: 3 ml Allopurinol (Zyloprim) 100 mg PO DAILY [facility] Last Admin: 01/27/20 09:15 Dose: 100 mg Aspirin (Aspirin Chewable) 81 mg PER TUBE DAILY [facility] Last Admin: 01/27/20 09:15 Dose: 81 mg Atorvastatin Calcium (Lipitor) 80 mg PO HS [facility] Last Admin: 01/26/20 21:53 Dose: 80 mg Dextrose/Water (Dextrose 50%) 25 gm IVP PRN PRN PRN Reason: HYPOGLYCEMIA PROTOCOL Last Admin: 01/12/20 23:46 Dose: 25 gm Epoetin Johnson-epbx (Retacrit) 10,000 unit SC Q7DAYS [facility] Last Admin: 01/24/20 08:44 Dose: 10,000 unit Famotidine (Pepcid) 20 mg PO 2100 [facility] Last Admin: 01/26/20 21:53 Dose: 20 mg Ferrous Sulfate (Feosol) 325 mg PO QAM-WM [facility] Last Admin: 01/27/20 09:14 Dose: Not Given Glucagon (Glucagon) 1 mg IM PRN PRN PRN Reason: HYPOGLYCEMIA PROTOCOL Hydralazine HCl (Apresoline) 10 mg SLOW IVP Q4H PRN PRN Reason: Blood Pressure Dextrose/Water (D5w) 1,000 mls @ 0 mls/hr IV INF PRN PRN Reason: HYPOGLYCEMIA PROTOCOL Insulin Human Isoph/Insulin Regular (Humulin 70/30) 30 units SC BID-[facility] Last Admin: 01/27/20 08:40 Dose: Not Given Insulin Human Lispro (Humalog) 0 units SC .MILD SLIDING SCALE PRN; Protocol PRN Reason: MILD SLIDING SCALE Last Admin: 01/23/20 21:52 Dose: 2 unit Nitroglycerin (Nitrostat) 0.4 mg SL Q5MIN PRN PRN Reason: Chest Pain Last Admin: 01/25/20 19:21 Dose: 0.4 mg Nystatin (Mycostatin Powder) 1 gm TOP BID PRN PRN Reason: Topical Irritations Ondansetron HCl (Zofran) 4 mg SLOW IVP Q4H PRN PRN Reason: Nausea/Vomiting Last Admin: 01/26/20 08:52 Dose: 4 mg Prednisone (Prednisone) 10 mg PO QAM-[facility] Stop: 01/29/20 08:01 Last Admin: 01/27/20 09:15 Dose: 10 mg Ranolazine (Ranexa) 500 mg PO BID [facility] Last Admin: 01/27/20 09:15 Dose: 500 mg Senna/Docusate Sodium (Senokot S) 2 tab PO BIDPRN PRN PRN Reason: Constipation Sodium Chloride (Flush - Normal Saline) 10 ml IVF Q12HR [facility] Last Admin: 01/27/20 09:16 Dose: 10 ml Sodium Chloride (Flush - Normal Saline) 10 ml IVF PRN PRN PRN Reason: Saline Flush Vital Signs & Weight: Vital Signs Temp Pulse Pulse Resp BP BP Pulse Ox 01/27/20 15:05 98.1 F 95 16 122/55 L 95 01/27/20 14:09 70 16 01/27/20 11:37 96 137/59 L 01/27/20 11:00 98.2 F 85 16 94/45 L 94 L 01/27/20 08:00 95 01/27/20 07:07 97.9 F 70 12 120/52 L 95 01/27/20 06:49 80 14 Admit Weight 316 lb Weight 274 lb 4.081 oz - Physical Exam General: alert & oriented x3 HEENT: mucus membranes moist Neck: supple neck Cardiac: regular rate and rhythm Lungs: clear to auscultation Neuro: grossly intact Abdomen: active bowel sounds Extremities: no edema Skin: clear Musculoskeletal: no pain - Labs Result Diagrams: 01/26/20 15:15 01/26/20 15:15 Troponin/CKMB CK-MB (CK-2) 2.8 ng/mL (0-6.6) 01/09/20 10:11 Troponin I 0.499 ng/mL (< 0.028) H* 01/26/20 03:20 - Telemetry Sinus rhythms and dysrhythmias: sinus rhythm - Assessment/Plan Assessment/Plan: 1. ESRD on new onset HD 2. Ischemic CM EF at 40-45% 3. CAD, stable no ACS. 4. HTN 5. Acute hypoxic hypercapnic respiratory insufficiency requiring mechanical ventilation, improved. 6. Acute on chronic systolic and diastolic heart failure. 7. Angina. 8. 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 PLAN: - HD for Fluid management. - BP tolerated HD yesterday. - No CHF meds for now given borderline low BP. - Continue Ranexa for Angina. - Stable from discharge from cardiac perspective.
--- NOTE | 2020-01-27 16:28 | PDOC.FMACP ---
Advance Care Planning - Note Participants: patient, palliative care Summary: Advanced Care Planning was discussed. The diagnosis, prognosis and goals of care were discussed. Appropriate forms and documentation to accomplish the goals of care were discussed. All questions were answered. The Palliative Care Team will be engaged to assist with completion of any outstanding forms that are needed. Conversation with patient in relation to his resuscitation status, he wishes to transition back to full resuscitative measures. Abhishek Hayward RN also visited with patient. Both relayed for Mr Saldana to visit with his family and further discuss his spicific wishes with his family if he is unable to speak for himself , or if he ever has a situation where he has poor chance for meaningful recovery. States he will, but for today wishes to continue with full resuscitative measures. Time Spent (mins): 30 (Please also refer to Abhishek Hayward RNstorage battery inspector Notes Notes. )
--- NOTE | 2020-01-27 21:26 | PDOC.HOSPP ---
- Subjective Encounter Date: 01/27/20 Encounter Time: 20:00 Subjective: f/u for resp failure, CHF, ESRD on HD and HCAP. Remains stable per nursing and overall feels better. HD tolerated with low but stable BP's. - Objective Vital Signs & Weight: Vital Signs (12 hours) Temp Pulse Pulse Resp BP BP BP 01/27/20 20:00 98.1 F 83 16 116/58 L 01/27/20 19:44 01/27/20 19:41 76 16 01/27/20 15:05 98.1 F 95 16 122/55 L 01/27/20 14:09 70 16 01/27/20 11:37 96 137/59 L 01/27/20 11:00 98.2 F 85 16 94/45 L Pulse Ox 01/27/20 20:00 96 01/27/20 19:44 96 01/27/20 19:41 95 01/27/20 15:05 95 01/27/20 14:09 01/27/20 11:37 01/27/20 11:00 94 L Weight Admit Weight 316 lb Weight 274 lb 4.081 oz Most Recent Monitor Data Heart Rate from ECG 79 NIBP 124/87 NIBP BP-Mean 99 Respiration from ECG 15 SpO2 97 I&O: 01/26/20 01/27/20 01/28/20 06:59 06:59 06:59 Intake Total 516.2 250 730 Output Total 15 Balance 501.2 250 730 Result Diagrams: 01/26/20 15:15 01/26/20 15:15 Additional Labs: Accuchecks 01/27/20 01/27/20 01/27/20 19:39 16:53 10:26 POC Glucose 156 H 162 H 123 H 01/27/20 05:50 POC Glucose 78 Laboratory Tests 01/21/20 01/22/20 01/22/20 04:00 05:15 05:15 Hgb 9.3 L Creatinine 2.25 H 2.87 H 01/23/20 01/23/20 01/24/20 05:05 05:05 06:00 Hgb 8.9 L Creatinine 3.09 H 4.71 H 01/24/20 01/25/20 01/25/20 06:00 03:30 05:45 Hgb 8.6 L 8.8 L Creatinine 3.74 H EKG Reviewed by me: Yes (Tele - SR) Hospitalist ROS - Medication Medications: Active Medications Generic Name Dose Route Start Last Admin Trade Name Freq PRN Reason Stop Dose Admin Albuterol/Ipratropium 3 ml 01/15/20 13:00 01/27/20 19:41 Duoneb NEB 3 ml [id number] RAYNA Administration Allopurinol 100 mg 01/11/20 09:00 01/27/20 09:15 Zyloprim PO 100 mg DAILY RAYNA Administration Aspirin 81 mg 01/20/20 09:00 01/27/20 09:15 Aspirin Chewable PER TUBE 81 mg DAILY RAYNA Administration Atorvastatin Calcium 80 mg 01/09/20 21:00 01/26/20 21:53 Lipitor PO 80 mg HS RAYNA Administration Dextrose/Water 25 gm 01/09/20 17:02 01/12/20 23:46 Dextrose 50% IVP 25 gm PRN PRN Administration HYPOGLYCEMIA PROTOCOL Epoetin Johnson-epbx 10,000 unit 01/24/20 09:00 01/24/20 08:44 Retacrit SC 10,000 unit Q7DAYS RAYNA Administration Famotidine 20 mg 01/21/20 21:00 01/26/20 21:53 Pepcid PO 20 mg 2100 RAYNA Administration Ferrous Sulfate 325 mg 01/10/20 08:00 01/27/20 09:14 Feosol PO Not Given QAM-WM [facility] Insulin Human Isoph/Insulin Regular 30 units 01/10/20 16:30 01/27/20 17:21 Humulin 70/30 SC 30 unit BID-AC RAYNA Administration Insulin Human Lispro 0 units 01/09/20 17:02 01/23/20 21:52 Humalog SC 2 unit .MILD SLIDING SCALE PRN Administration MILD SLIDING SCALE Protocol Nitroglycerin 0.4 mg 01/25/20 19:07 01/25/20 19:21 Nitrostat SL 0.4 mg Q5MIN PRN Administration Chest Pain Ondansetron HCl 4 mg 01/20/20 15:03 01/26/20 08:52 Zofran SLOW IVP 4 mg Q4H PRN Administration Nausea/Vomiting Prednisone 10 mg 01/27/20 08:00 01/27/20 09:15 Prednisone PO 01/29/20 08:01 10 mg QAM-WM RAYNA Administration Ranolazine 500 mg 01/26/20 21:00 01/27/20 09:15 Ranexa PO 500 mg BID RAYNA Administration Sodium Chloride 10 ml 01/10/20 21:00 01/27/20 09:16 Flush - Normal Saline IVF 10 ml Q12HR RAYNA Administration - Exam General Appearance: NAD, awake alert Eye: PERRL, anicteric sclera ENT: normocephalic atraumatic, no oropharyngeal lesions Neck: supple, symmetric, no JVD, no thyromegaly Heart: RRR, no murmur, no gallops, no rubs Respiratory: no wheezes, normal chest expansion, no tachypnea Respiratory - other findings: few basilar coarse sounds Gastrointestinal: soft, non-tender, non-distended, normal bowel sounds, no palpable masses Extremities: no cyanosis, no clubbing, no edema Skin: normal turgor, no lesions Neurological: cranial nerve grossly intact, no new deficit Musculoskeletal: normal tone, generalized weakness Psychiatric: normal affect, A&O x 3 Hosp A/P (1) Acute respiratory failure with hypoxia Code(s): J96.01 - ACUTE RESPIRATORY FAILURE WITH HYPOXIA Status: Acute Plan: Multifactorial, improved and resolving, maintaining O2 sats in 90% range on RA (2) Acute on chronic systolic and diastolic heart failure, NYHA class 3 Code(s): I50.43 - ACUTE ON CHRONIC COMBINED SYSTOLIC AND DIASTOLIC HRT FAIL Status: Acute Plan: Volume removal successful with HD, continue med mgmt, ASA/Lipitor/Ranexa (3) Cellulitis of right leg without foot Code(s): L03.115 - CELLULITIS OF RIGHT LOWER LIMB Status: Acute Plan: Resolved (4) Chronic anemia Code(s): D64.9 - ANEMIA, UNSPECIFIED Status: Chronic Plan: Chronic anemia due to CKD, stable, FeSO4, Epo (5) ESRD (end stage renal disease) on dialysis Code(s): N18.6 - END STAGE RENAL DISEASE; Z99.2 - DEPENDENCE ON RENAL DIALYSIS Status: Chronic Plan: HD per Renal service - Plan PT/OT, manager social services, out of bed/ambulate, DVT proph w/SCDs Consults: Palliative Care Stable overall Continue HD per Renal service Continue ASA/Lipitor/Ranexa OOB with PT CM for HH/PT D/C central line Likely home in am 01/28/20
[2020-01-27] MEDS ORDERED: Melatonin 3 MG TAB PO SCH (22:45)
[2020-01-27] MEDS: Atorvastatin Calcium 40 MG TAB PO SCH (22:54)
[2020-01-27] MEDS: Famotidine 20 MG TAB PO SCH (22:55)
[2020-01-28] MEDS ORDERED: Ondansetron ODT 4 MG TAB PO PRN (07:44)
[2020-01-28] MEDS: predniSONE 5 MG TAB PO SCH (08:31)
[2020-01-28] MEDS: Aspirin Chewable 81 MG TAB PER TUBE SCH (08:32)
[2020-01-28] MEDS: Allopurinol 100 MG TAB PO SCH (08:32)
[2020-01-28] MEDS: Ferrous Sulfate 325 MG TAB PO SCH (08:32)
[2020-01-28] MEDS: HumuLIN 70/30 (300 UNITS/3 ML VIAL) SC SCH (08:39)
--- NOTE | 2020-01-28 13:07 | PDOC.CPN ---
- Subjective Date: 01/28/20 Time: 13:06 Interval history: He is doing well. Tolerating HD today. No more angina. - Review of Systems General: denies: fever/chills, weight/appetite/sleep changes, night sweats, fatigue Respiratory: denies: cough, congestion, shortness of breath, exercise intolerance Cardiovascular: denies: chest pain, palpitation, edema, paroxysmal nocturnal dyspnea, orthopnea Gastrointestinal: reports: nausea. denies: vomiting, diarrhea, constipation, abd pain, GI bleeding Musculoskeletal: denies: pain, tenderness, stiffness, swelling, arthritis/ arthralgias Neurological: denies: numbness, syncope, seizure, weakness - Objective Allergies/Adverse Reactions: Allergies Allergy/AdvReac Type Severity Reaction Status Date / Time No Known Allergies Allergy Verified 01/07/20 09:39 Visit Medications: Current Medications Acetaminophen (Tylenol) 650 mg PO Q4H PRN PRN Reason: Headache/Fever or Mild Pain Albuterol/Ipratropium (Duoneb) 3 ml NEB [id number] COUNTS INCLUDE 234 BEDS AT [facility] Last Admin: 01/28/20 07:27 Dose: 3 ml Allopurinol (Zyloprim) 100 mg PO DAILY [facility]S [facility]CLUDE 234 BEDS AT [facility] Last Admin: 01/28/20 08:32 Dose: 100 mg Aspirin (Aspirin Chewable) 81 mg PER TUBE DAILY [facility]S INCLUDE 234 BEDS AT THE [facility] Last Admin: 01/28/20 08:32 Dose: 81 mg Atorvastatin Calcium (Lipitor) 80 mg PO HS [facility]S INCLUDE 234 BEDS AT THE [facility] Last Admin: 01/27/20 22:54 Dose: 80 mg Dextrose/Water (Dextrose 50%) 25 gm IVP PRN PRN PRN Reason: HYPOGLYCEMIA PROTOCOL Last Admin: 01/12/20 23:46 Dose: 25 gm Epoetin Johnson-epbx (Retacrit) 10,000 unit SC Q7DAYS [facility]S INCLUDE 234 BEDS AT THE [facility] Last Admin: 01/24/20 08:44 Dose: 10,000 unit Famotidine (Pepcid) 20 mg PO 2100 [facility]S INCLUDE 234 BEDS AT [facility] Last Admin: 01/27/20 22:55 Dose: 20 mg Ferrous Sulfate (Feosol) 325 mg PO QAM-WM COUNTS INCLUDE 234 BEDS AT THE [facility] Last Admin: 01/28/20 08:32 Dose: 325 mg Glucagon (Glucagon) 1 mg IM PRN PRN PRN Reason: HYPOGLYCEMIA PROTOCOL Hydralazine HCl (Apresoline) 10 mg SLOW IVP Q4H PRN PRN Reason: Blood Pressure Dextrose/Water (D5w) 1,000 mls @ 0 mls/hr IV INF PRN PRN Reason: HYPOGLYCEMIA PROTOCOL Insulin Human Isoph/Insulin Regular (Humulin 70/30) 30 units SC BID-[facility] Last Admin: 01/28/20 08:39 Dose: Not Given Insulin Human Lispro (Humalog) 0 units SC .MILD SLIDING SCALE PRN; Protocol PRN Reason: MILD SLIDING SCALE Last Admin: 01/23/20 21:52 Dose: 2 unit Nitroglycerin (Nitrostat) 0.4 mg SL Q5MIN PRN PRN Reason: Chest Pain Last Admin: 01/25/20 19:21 Dose: 0.4 mg Nystatin (Mycostatin Powder) 1 gm TOP BID PRN PRN Reason: Topical Irritations Ondansetron HCl (Zofran) 4 mg SLOW IVP Q4H PRN PRN Reason: Nausea/Vomiting Last Admin: 01/26/20 08:52 Dose: 4 mg Ondansetron HCl (Zofran Odt) 4 mg PO Q4H PRN PRN Reason: Nausea/Vomiting Last Admin: 01/28/20 08:20 Dose: 4 mg Prednisone (Prednisone) 10 mg PO QA-[facility] Stop: 01/29/20 08:01 Last Admin: 01/28/20 08:31 Dose: 10 mg Ranolazine (Ranexa) 500 mg PO BID [facility]S [facility]CLUDE 234 BEDS AT [facility] Last Admin: 01/28/20 08:31 Dose: 500 mg Senna/Docusate Sodium (Senokot S) 2 tab PO BIDPRN PRN PRN Reason: Constipation Sodium Chloride (Flush - Normal Saline) 10 ml IVF Q12HR COUNTS INCLUDE 234 BEDS AT [facility] Last Admin: 01/28/20 08:39 Dose: Not Given Sodium Chloride (Flush - Normal Saline) 10 ml IVF PRN PRN PRN Reason: Saline Flush Vital Signs & Weight: Vital Signs Temp Pulse Pulse Pulse Resp BP BP 01/28/20 08:55 86 87 114/57 L 111/46 L 01/28/20 07:39 97.9 F 75 16 01/28/20 07:27 67 12 01/28/20 04:00 97.5 F L 72 20 BP BP Pulse Ox 01/28/20 08:55 01/28/20 07:39 120/55 L 95 01/28/20 07:27 92 L 01/28/20 04:00 113/58 L 92 L Admit Weight 316 lb Weight 283 lb - Physical Exam General: alert & oriented x3 HEENT: mucus membranes moist Neck: supple neck Cardiac: regular rate and rhythm Lungs: clear to auscultation Neuro: grossly intact Abdomen: active bowel sounds Extremities: no edema Skin: clear Musculoskeletal: no pain - Labs Result Diagrams: 01/26/20 15:15 01/26/20 15:15 Troponin/CKMB CK-MB (CK-2) 2.8 ng/mL (0-6.6) 01/09/20 10:11 Troponin I 0.499 ng/mL (< 0.028) H* 01/26/20 03:20 - Telemetry Sinus rhythms and dysrhythmias: sinus rhythm - Assessment/Plan Assessment/Plan: 1. ESRD on new onset HD 2. Ischemic CM EF at 40-45% 3. CAD, stable no ACS. 4. HTN 5. Acute hypoxic hypercapnic respiratory insufficiency requiring mechanical ventilation, improved. 6. Acute on chronic systolic and diastolic heart failure. 7. Angina. 8. 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 PLAN: - HD for Fluid management. - No CHF meds on discharge given borderline low BP. - Continue Ranexa for Angina. - Stable from discharge from cardiac perspective. - Will sign off. Please call with any questions.
[2020-01-28] MEDS ORDERED: Heparin 10,000 UNITS/ 10 ML VIAL ONE (13:20)
[2020-01-28 15:11] VITALS: BP 108/52; TEMP 97.7
--- NOTE | 2020-01-28 21:19 | DIS ---
DATE OF ADMISSION: 01/09/2020 DATE OF DISCHARGE: 01/28/2020 DISCHARGE DIAGNOSES: 1. Acute hypoxic respiratory failure, multifactorial, including volume overload due to end-stage renal disease and congestive heart failure. 2. Acute on chronic systolic and diastolic congestive heart failure with ejection fraction of 40% to 45%, improved. 3. End-stage renal disease with current hemodialysis. 4. Cellulitis of the right foot, resolved. 5. Chronic anemia secondary to chronic kidney disease. 6. Hypotension after initiation of hemodialysis. 7. Deconditioning. 8. Diabetes mellitus, type 2. 9. Morbid obesity. CONSULTATIONS: 1. Dr. Sky and Dr. Bonilla with Pulmonology Critical Care Service. 2. Dr. Pnieda with Cardiology Service. 3. Dr. Shaw with General Surgery Service. 4. Dr. García with Nephrology Service. PERTINENT LABORATORY AND X-RAY FINDINGS: Creatinine ranged between 1.79 to 5.52. Estimated GFR ranged between 11 to 37. BNP ranged between 1162 to 1200. TSH 1.25. Serum cortisol level 7.80. CBC showed a white blood cell count ranged between 7.2 to 15.1, hemoglobin ranged between 8.6 to 10.3. Hepatitis A, B, and C panel negative on 01/10/2020. Hepatitis C nonreactive. HIV 1 and 2 antigen, antibody nonreactive. Urine culture dated 01/15/2020 showed no growth at 48 hours. Portable chest x-ray dated 01/09/2020 showed cardiomegaly with postoperative changes of the sternum consistent with prior CABG. Pulmonary edema bilaterally. 2D transthoracic echocardiogram dated 01/10/2020 showed technically difficult exam. LV function appears normal on subxiphoid view. Diastolic function indeterminate. Moderate biatrial enlargement. [id number] tricuspid regurgitation. HOSPITAL COURSE: The patient was initially admitted after presenting with increased shortness of breath with associated bilateral pulmonary edema in the context of end-stage renal disease and congestive heart failure exacerbation. The patient was initially managed with IV Lasix, however, due to suboptimal response and progressive shortness of breath and oxygen requirements, the patient was deemed an appropriate candidate to proceed with initiation of hemodialysis. The patient had a tunneled hemodialysis catheter placed and underwent urgent hemodialysis due to hyperkalemia and volume overload. The patient also received oxygen supplementation due to hypoxic respiratory failure, which progressed despite initiation of hemodialysis. The patient required mechanical ventilation and transferred to the Critical Care Unit and was followed for approximately 5 days in the ICU. The patient subsequently was extubated and continued hemodialysis sessions tolerating generally; however, the patient was noted with hypotension with the dialysis sessions necessitating discontinuation of all blood pressure and heart failure medications. The patient was followed by the Cardiology Service throughout the hospital course with recommendations for general medical management. The patient did receive maintenance hemodialysis for the entire hospital course, which was prolonged due to complications of respiratory failure as well as initiation of hemodialysis. The patient did slowly clinically improve with volume removal and stabilized maintaining O2 saturations in the mid 90% range on room air. The patient received physical therapy as well as evaluation from Speech Therapy, receiving a modified diet and tolerating without difficulty. The patient was evaluated by the Palliative Care Service during the hospital course as the patient decided to pursue all reasonable medical interventions and procedures and remained on full code status. The patient did not want to pursue inpatient rehabilitation or skilled care, but was amenable to continuing home health services. I have examined the patient at the time of discharge and discussed followup instructions. The patient verbalizes understanding and agreement and ready for discharge on 01/28/2020. DISCHARGE MEDICATIONS: 1. Allopurinol 100 mg p.o. daily. 2. Lipitor 80 mg p.o. at bedtime. 3. Benadryl 50 mg p.o. p.r.n. 4. Nitrolingual spray one spray sublingually q.5 minutes p.r.n. 5. Tizanidine 4 mg p.o. p.r.n. 6. Enteric-coated aspirin 81 mg daily. 7. Humulin 70/30 30 units subcutaneously b.i.d. 8. Prednisone 10 mg p.o. daily x10 days. 9. Ranexa 500 mg p.o. b.i.d. Medications that were discontinued due to hypotension included Coreg, Entresto, and RISHI inhibitors. Hypotension precluded continuing these medications at this time. FOLLOWUP: The patient may follow up with his primary care provider, Dr. Dexter Oreilly, within 7 days of discharge. The patient will follow up with Dr. Partha García with Nephrology Service. The patient may follow up with Dr. Shaw in 2 to 3 weeks after discharge. SPECIAL INSTRUCTIONS: Follow up with outpatient hemodialysis 3 times per week. CONDITION ON DISCHARGE: Fair. ACTIVITY: Ad-fabio. Rolling walker with ambulation. DIET: Heart healthy. CODE STATUS: Full. DISPOSITION: Home with Home Health Services including Physical Therapy on 01/28/2020. TIME SPENT: Total time preparing and coordinating discharge is 35 minutes. Job ID: [id number]
--- NOTE | 2020-01-31 08:36 | PQF ---
RON SHAH CHARLES DO [id number] [facility] [place] 206 [id number] CLINICAL DOCUMENTATION CLARIFICATION FORM: POST DISCHARGE Addendum to original discharge summary date: ____ Late entry note date: __ DATE: 01/31/2020 ATTN: Paul Medina Please exercise your independent, professional judgment in responding to the clarification form. Clinical indicators are provided on the bottom of this form for your review Diagnosis: Acute hypoxic Respiratory failure Present on Admission (POA): [ x ] Yes [ ] No [ ] Unable to determine Coding guidelines require hospitals to identify whether a diagnosis was present on admission (POA) or not. To accurately assign the appropriate POA indicator, this information must be clearly documented within the medical record. CLINICAL INDICATORS - SIGNS / SYMPTOMS / LABS Vital signs 01/08 BP 145/95, Pulse 83, Resp 24, Temp 98.6, O2 sat 93% ABG 01/14 pH 7.19, PCO2 69.1, pO2 71.5, O2 sat 92.1, Base excess-3.2 Chest Xray p1 01/13 Impression:Worsening volume overload H&P p1 01/08 Dr Barahona presented with volume overload H&P p1 01/08 Dr Barahona Had significant orthopnea. Pt also experienced chest pressure as if someone sitting on the chest Discharge summary p1 01/27 Acute hypoxic respiratory failure, multifactorial including volume overload due to end-stage, renal disease and congestive heart failure' RISK FACTORS: H&P p1 01/08 74-year-old Male H&P p1 01/08 Morbid obesity H&P p1 01/08 CAD H&P p1 01/08 DM H&P p1 01/08 HTN H&P p2 01/08 Acute on Chronic CHF H&P p2 01/08 Acute on Chronic Kidney Disease, end stage on dialysis Consult p1 01/09 Former smoker TREATMENT: Respiratory Panel 01/08 Oxygen 2L Respiratory Panel 01/14 Intubated on Mechanical Ventilator Hemodialysis 01/09 ABG ordered 12/25DEC 20 IV LaSix 40mg DEC 20 Duoneb 3mb neb Collected 01/13 Chest Xray (This form is maintained as a part of the permanent medical record) 2014 [employer]. All Rights Reserved [email or web address]
== END 2020-01-28 16:17 | disposition home health service (06) | DRG 207 ==
LOC: ERS 09:54 → 2NO 13:27 → CCU 01-15 05:34 → 2SE 01-25 16:40
PROVIDERS: ADMIT Internal Medicine; ATTEND Internal Medicine
PROC: 5A1D70Z Performance of Urinary Filtration, Intermittent, Less than 6 Hours Per Day (ICD-10-PCS; principal; 2020-01-10)
PROC: 0JH63XZ Insertion of Tunneled Vascular Access Device into Chest Subcutaneous Tissue and Fascia, Percutaneous Approach (ICD-10-PCS; 2020-01-10)
PROC: 02HV33Z Insertion of Infusion Device into Superior Vena Cava, Percutaneous Approach (ICD-10-PCS; 2020-01-10)
PROC: B548ZZA Ultrasonography of Superior Vena Cava, Guidance (ICD-10-PCS; 2020-01-10)
PROC: 02HV33Z Insertion of Infusion Device into Superior Vena Cava, Percutaneous Approach (ICD-10-PCS; 2020-01-10)
PROC: 5A09357 Assistance with Respiratory Ventilation, Less than 24 Consecutive Hours, Continuous Positive Airway Pressure (ICD-10-PCS; 2020-01-14)
PROC: 5A1955Z Respiratory Ventilation, Greater than 96 Consecutive Hours (ICD-10-PCS; 2020-01-15)
PROC: 0BH17EZ Insertion of Endotracheal Airway into Trachea, Via Natural or Artificial Opening (ICD-10-PCS; 2020-01-15)
PROC: 3E043XZ Introduction of Vasopressor into Central Vein, Percutaneous Approach (ICD-10-PCS; 2020-01-17)
DX: J96.01 Acute respiratory failure with hypoxia (principal); A41.9 Sepsis, unspecified organism; J18.9 Pneumonia, unspecified organism; I50.43 Acute on chronic combined systolic (congestive) and diastolic (congestive) heart failure; N18.6 End stage renal disease; N17.9 Acute kidney failure, unspecified; I13.2 Hypertensive heart and chronic kidney disease with heart failure and with stage 5 chronic kidney disease, or end stage renal disease; L03.115 Cellulitis of right lower limb; Z68.41 Body mass index [BMI] 40.0-44.9, adult; J44.1 Chronic obstructive pulmonary disease with (acute) exacerbation; J44.0 Chronic obstructive pulmonary disease with (acute) lower respiratory infection; E66.2 Morbid (severe) obesity with alveolar hypoventilation; E87.2 Acidosis; Z87.891 Personal history of nicotine dependence; J96.02 Acute respiratory failure with hypercapnia; D63.1 Anemia in chronic kidney disease; E11.22 Type 2 diabetes mellitus with diabetic chronic kidney disease; E87.5 Hyperkalemia; I25.10 Atherosclerotic heart disease of native coronary artery without angina pectoris; E78.5 Hyperlipidemia, unspecified; E88.81 Metabolic syndrome and other insulin resistance; M47.816 Spondylosis without myelopathy or radiculopathy, lumbar region; I25.5 Ischemic cardiomyopathy; E87.70 Fluid overload, unspecified; I48.91 Unspecified atrial fibrillation; I49.3 Ventricular premature depolarization; B37.2 Candidiasis of skin and nail; I95.3 Hypotension of hemodialysis; E11.649 Type 2 diabetes mellitus with hypoglycemia without coma; R45.1 Restlessness and agitation; I25.119 Atherosclerotic heart disease of native coronary artery with unspecified angina pectoris; Y95 Nosocomial condition; Z95.1 Presence of aortocoronary bypass graft; Z79.4 Long term (current) use of insulin; Z79.899 Other long term (current) drug therapy; Z79.02 Long term (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 of antithrombotics/antiplatelets; Z88.5 Allergy status to narcotic agent; Z95.5 Presence of coronary angioplasty implant and graft
CPT/HCPCS: 36415; 36416; 71045; 72100; 80048; 80053; 80202; 81003; 81015; 82533; 82553; 82728; 82805; 83735; 83880; 84100; 84443; 84484; 85025; 85027; 85730; 86580; 86704; 86705; 86706; 86707; 86803; 87086; 87340; 87350; 87389; 90935; 93005; 93010; 93306; 93798; 93970; 94002; 94003; 94640; 94660; 96374; C1752; C1769; G0257; G0365; J0690; J0696; J1630; J1644; J1720; J1815; J1940; J2060; J2270; J2405; J2543; J2704; J2720; J2920; J3370; J3490; J7050; J7070; J7512; J7620; Q0162; Q0163; Q5105; S0020; S0028

== ENCOUNTER 2020-03-22 06:14 | Outpatient (CLI) | payer MEDICARE, BC, OTHER ==
[2020-03-23 11:00] LABS: SARS-CoV-2 MS2 Positive; SARS-CoV-2 N Gene Negative; SARS-CoV-2 S Gene Negative; SARS-CoV-2 orf1ab Negative
== END 2020-03-22 06:15 | disposition home or self-care (01) ==
LOC: LABBT 06:14
PROVIDERS: ATTEND Specialist
DX: Z01.812 Encounter for preprocedural laboratory examination (principal); Z11.59 Encounter for screening for other viral diseases; N18.6 End stage renal disease
CPT/HCPCS: 87635; U0003

== ENCOUNTER 2020-03-23 09:45 | Day surgery (SDC) | payer MEDICARE, BC ==
[2020-03-22 08:57] VITALS: BMI 38.7
--- NOTE | 2020-03-23 09:55 | HP ---
HISTORY OF PRESENT ILLNESS: Kt Saldana is a 74-year-old male, presents for discussion of dialysis fistula placement. Previously seen by me, underwent HD catheter on 01/10/2020. Ultrasound vein mapping, 01/10/2020, revealed left arm veins to be adequate for establishing dialysis access. The patient is followed by Dr. Partha García. He dialyzes at [facility] on Friday, Friday, and Friday and he is right-handed. Plan is for a left arm fistula, outpatient, regional anesthesia, IV access, blood draws through his dialysis access. We will plan this as an outpatient. He understands risks and benefits, and consents. MEDICATIONS: 1. Furosemide. 2. Lipitor. 3. Carvedilol. 4. Plavix. 5. Insulin. 6. Trulicity. 7. Entresto. 8. Allopurinol. 9. Gabapentin. 10. Tylenol. 11. Advair. PAST MEDICAL HISTORY: Mini-stroke, coronary artery bypass, coronary artery stents. PAST SURGICAL HISTORY: Triple bypass, hemodialysis catheter placement. ALLERGIES: NONE. FAMILY HISTORY: Father with diabetes, hypertension, and heart disease. Mother with diabetes, hypertension. Siblings alive, diabetes, hypertension, and heart disease. TOBACCO: None. ALCOHOL: None. PHYSICAL EXAMINATION: VITAL SIGNS: Weight 276 pounds, height 71 inches, 38 BMI, blood pressure 130/57, 47 heart rate, temperature 98 degrees. HEAD, EARS, EYES, NOSE, AND THROAT: Unremarkable. LUNGS: Clear to auscultation. CARDIAC: Regular rate and rhythm without murmur or gallop. ABDOMEN: Soft, nontender, obese. EXTREMITIES: Unremarkable. Palpable radial pulses. ASSESSMENT: End-stage renal disease, on maintenance dialysis, followed by Dr. Partha García, dialyzes at [facility]. PLAN: Placement of left arm fistula, outpatient, regional anesthesia. He can continue his Plavix. We will not need to discontinue that. Job ID: [id number]
[2020-03-23] MEDS ORDERED: Fentanyl 100 MCG/2 ML VIAL ONE ×2 (10:56→13:31)
[2020-03-23 11:03] LABS: #Eosinphils 0.8 thou/uL (0.0-0.7); #Monocytes 0.9 thou/uL (0.11-0.59); #Neutrophils 6.3 thou/uL (1.40-6.50); %Basophils 0.1 % (0.0-1.0); %Eosinophils 8.8 % (0.0-10.0); %Lymphocytes 10.8 % (21.0-51.0); %Neutrophils 70.3 % (42.0-75.0); Hemoglobin 10.8 g/dL (14.0-18.0); Mean Corpuscular HGB CONC 32.7 g/dL (32.0-36.0); Mean Corpuscular Hemoglobin 31.2 pg (27.0-31.0); Mean Corpuscular Volume 95.4 fL (78.0-98.0); Mean Platelet Volume 8.7 fL (7.4-10.4); Platelet Count 266 thou/uL (130-400); RBC Distribution Width 17.2 % (11.5-14.5); Red Blood Cell (RBC) Count 3.46 mill/uL (4.70-6.10); White Blood Cell (WBC) Count 8.9 thou/uL (4.8-10.8)
[2020-03-23 11:15] LABS: Anion Gap 14 mmol/L (10-20); BUN (Urea Nitrogen) 28 mg/dL (8.4-25.7); Calc. Creatinine Clearance 28 mL/min (70-130); Calcium 8.9 mg/dL (7.8-10.44); Carbon Dioxide 29 mmol/L (23-31); Chloride 99 mmol/L (98-107); Estimated GFR-MDRD 14; Glucose 154 mg/dL (83-110); Potassium 3.9 mmol/L (3.5-5.1); Sodium 138 mmol/L (136-145)
[2020-03-23] MEDS ORDERED: Heparin 5,000 UNITS/ML VIAL ONE (12:28)
[2020-03-23] MEDS ORDERED: Protamine Sulfate 50 MG/5 ML VIAL ONE (12:28)
[2020-03-23] MEDS ORDERED: Bupivacaine 0.25% HCL 30 ML VIAL ONE (12:28)
[2020-03-23] MEDS ORDERED: Lidocaine 1% w/Epinephrine 1:100K 20 ML VIAL ONE (12:28)
[2020-03-23] MEDS ORDERED: Ondansetron PF 4 MG/2 ML Vial ONE (13:07)
[2020-03-23] MEDS ORDERED: PROPOFOL 200 MG/20 ML VIAL ONE (13:07)
[2020-03-23] MEDS ORDERED: Bupivacaine HCl 0.5%/Epinephrine 1:200,000/PF 30 ml Vial ONE (13:07)
[2020-03-23] MEDS ORDERED: Propofol 500 MG/50 ML VIAL ONE (14:33)
[2020-03-23] MEDS ORDERED: traMADol HCl 50 MG TAB ONE (15:49)
[2020-03-23] MEDS ORDERED: Heparin 10,000 UNITS/ 10 ML VIAL ONE (15:56)
--- NOTE | 2020-03-23 22:18 | OP ---
DATE OF PROCEDURE: 03/23/2020 PREOPERATIVE DIAGNOSIS: End-stage renal disease. POSTOPERATIVE DIAGNOSES: End-stage renal disease. PROCEDURE PERFORMED: Left Bob fistula calibrated to a 3.5 mm coronary dilator. Outflow cephalic vein and radial artery are good quality. ANESTHESIA: Regional, TIVA. DESCRIPTION OF PROCEDURE: Patient was taken to the operating room, where under regional anesthesia, intravenous sedation, left upper extremity was prepped with ChloraPrep, draped in routine fashion. Incision was made between the radial artery and cephalic vein at the wrist. Longitudinal incision was carried down to skin and subcutaneous tissue. Cephalic vein and radial artery were dissected free. The cephalic vein stump ligated on hand side with a 2-0 silk tie, divided and spatulated and interrogated with coronary dilators, passing coronary dilators from 2 mm to 4 mm coronary dilator without obstruction. Radial artery clamped proximally and distally. Cephalic vein flushed with heparinized saline solution. An atraumatic bulldog clamp applied. Longitudinal arteriotomy made in the radial artery, elongated with Diamond scissors and cephalic vein to side, radial artery anastomosis created with continuous suture of 6-0 Prolene. After completing the anastomosis, there was a good Doppler signal and outflow. Good hemostasis noted. Subcutaneous tissue was approximated with 3-0 Monocryl, skin with subdermal 4-0 Monocryl and [place] glue applied. Job ID: [id number]
== END 2020-03-23 16:15 | disposition home or self-care (01) ==
LOC: SDC 09:45
PROVIDERS: ATTEND Specialist
PROC: 031C0ZF Bypass Left Radial Artery to Lower Arm Vein, Open Approach (ICD-10-PCS; principal; 2020-03-23)
DX: N18.6 End stage renal disease (principal); Z86.73 Personal history of transient ischemic attack (TIA), and cerebral infarction without residual deficits; Z79.4 Long term (current) use of insulin; Z79.82 Long term (current) use of aspirin; Z79.899 Other long term (current) drug therapy; Z95.1 Presence of aortocoronary bypass graft; Z95.5 Presence of coronary angioplasty implant and graft; Z99.2 Dependence on renal dialysis
CPT/HCPCS: 80048; 85025; J0670; J0690; J1644; J2405; J2704; J2720; J3010; S0020

== ENCOUNTER 2020-05-07 07:59 | Inpatient (IN) | payer MEDICARE, BC, OTHER ==
[2020-05-07 08:23] LABS: #Basophils 0.1 thou/uL (0.0-0.2); #Eosinphils 0.7 thou/uL (0.0-0.7); #Lymphocytes 1.2 thou/uL (1.20-3.40); #Monocytes 0.9 thou/uL (0.11-0.59); #Neutrophils 5.7 thou/uL (1.40-6.50); %Basophils 0.6 % (0.0-1.0); %Eosinophils 8.2 % (0.0-10.0); %Lymphocytes 13.8 % (21.0-51.0); %Monocytes 10.6 % (0.0-10.0); %Neutrophils 66.8 % (42.0-75.0); Hemoglobin 12.5 g/dL (14.0-18.0); Mean Corpuscular HGB CONC 31.9 g/dL (32.0-36.0); Mean Corpuscular Hemoglobin 29.8 pg (27.0-31.0); Mean Corpuscular Volume 93.4 fL (78.0-98.0); Mean Platelet Volume 9.4 fL (7.4-10.4); Platelet Count 181 thou/uL (130-400); RBC Distribution Width 15.9 % (11.5-14.5); White Blood Cell (WBC) Count 8.5 thou/uL (4.8-10.8)
[2020-05-07] MEDS ORDERED: Fentanyl 100 MCG/2 ML VIAL ONE (08:42)
[2020-05-07] MEDS ORDERED: Midazolam HCl 2 mg/2 ml Vial ONE (08:42)
[2020-05-07 08:46] LABS: ALT (SGPT) 10 U/L (8-55); AST (SGOT) 15 U/L (5-34); Albumin 3.7 g/dL (3.4-4.8); Alkaline Phosphatase 98 U/L (40-110); Anion Gap 13 mmol/L (10-20); BUN (Urea Nitrogen) 55 mg/dL (8.4-25.7); Bilirubin, Total 0.3 mg/dL (0.2-1.2); Calc. Creatinine Clearance 0 mL/min (70-130); Calcium 9.2 mg/dL (7.8-10.44); Carbon Dioxide 29 mmol/L (23-31); Chloride 98 mmol/L (98-107); Estimated GFR-MDRD 11; Glucose 98 mg/dL (83-110); Lipase 24 U/L (8-78); Potassium 4.3 mmol/L (3.5-5.1); Protein, Total 6.7 g/dL (5.8-8.1); Sodium 136 mmol/L (136-145)
[2020-05-07 09:08] LABS: CKMB 1.7 ng/mL (0-6.6)
--- NOTE | 2020-05-07 09:28 | RAD ---
SINGLE VIEW CHEST: HISTORY: Chest tightness and dizziness. COMPARISON: 01/31/20 FINDINGS: A single view of the chest shows an enlarged but stable cardiomediastinal silhouette. The patient is status post CABG. The dialysis catheter is unchanged in position. There is no evidence of consolidati on, mass or pleural effusion. IMPRESSION: Stable cardiomegaly. POS: EAA
[2020-05-07] MEDS ORDERED: Heparin 10,000 UNITS/ 10 ML VIAL SLOW IVP SCH (11:00)
[2020-05-07 11:36] LABS: Troponin I 0.071 ng/mL (< 0.028)
[2020-05-07] MEDS ORDERED: Amiodarone 450 MG, Admixture Fee 1 EACH in Dextrose 5% in Water 250 ML IVPB SCH (12:00)
[2020-05-07] MEDS ORDERED: Amiodarone 150 MG/3 ML VIAL ONE (12:05)
[2020-05-07] MEDS ORDERED: diphenhydrAMINE 50 MG CAP PO PRN (12:25)
[2020-05-07] MEDS ORDERED: tiZANidine HCl 4 MG TAB PO PRN (12:25)
[2020-05-07] MEDS ORDERED: Dextrose 5% in Water 1,000 ML IV PRN (12:26)
[2020-05-07] MEDS ORDERED: Dextrose 50% Abboject 50 ML SYRINGE SLOW IVP PRN (12:26)
[2020-05-07] MEDS ORDERED: HumaLOG 300 UNITS/3 ML VIAL SC PRN (12:26)
--- NOTE | 2020-05-07 12:30 | PDOC.HHP ---
Hospitalist HPI - History of Present Illness chest tightness History of Present Illness: This is a 74 year old male with past medical history of ischemic cardiomyopathy , CAD s/p CABG, diabetes who presented to the ER with chest tightness. The patient states this morning he experienced some chest tightness that occurred after he got up to use the restroom. The severity was 7/10. His tightness did not radiate to his arms. There were no exacerbating factors. He denied diaphoresis or palpitations. He went back to the couch and checked his blood sugar and it was 70. He reports increasing his NPH dose last night to 50 units. He proceeded to take three puffs of nitro mist which brought his discomfort down to a 5/10. He then reported a sensation of his head feeling funny, and his gait was unsteady. He tried taking his blood pressure in both arms, but it was not registering. He noticed however that his heart rate was erratic. His son attempted to take a manual blood pressure but was not able to register his BP on that either. He then called 911. He states he was given aspirin 325 mg in the ambulance. His chest tightness resolved prior to the EMS arriving. He did not pass out. ED Course: When the patient arrived in the ER, he was noted to have Vtach on initial EKG> He was given amiodarone and converted to sinus rhythm. He was started on an amiodaorne drip. Labs were notable for Hb 12, creatinine of 5. Troponin was slightly elevated at 0.041. His last dialysis was on Friday. Hospitalist ROS - Review of Systems Constitutional: denies: fever, chills ENT: denies: ear pain, ear discharge Respiratory: reports: cough (cough from postnasal drip). denies: shortness of breath Cardiovascular: denies: chest pain, palpitations, orthopnea Gastrointestinal: denies: nausea, vomiting, abdominal pain, diarrhea Genitourinary: reports: dysuria. denies: frequency Musculoskeletal: reports: neck pain (chronic neck pain). denies: shoulder pain Skin: denies: rash, lesions Neurological: denies: weakness, numbness Hospitalist History - Past Medical History Heme/Onc: reports: Anemia NOS Renal/: reports: Other (ESRD) - Past Surgical History Past Surgical History: reports: CABG - Family History Other Family History: Dad had heart disease Mom had heart disease and COPD - Social History Smoking Status: Former smoker (Quit smoking few years before CABG, smoked > 20 years one pack per day) Alcohol: reports: None Drugs: reports: none - Exam General Appearance: NAD, awake alert Eye: PERRL, anicteric sclera ENT: normocephalic atraumatic, no oropharyngeal lesions ENT - other findings: no sinus tenderness. No fluid in ears Neck: no JVD Heart: RRR, no murmur, no gallops, no rubs Respiratory: CTAB, no wheezes, no rales, no ronchi Gastrointestinal: soft, non-tender, non-distended, normal bowel sounds Extremities: no cyanosis, no clubbing, no edema Hospitalist Results - Labs Result Diagrams: 05/07/20 08:14 05/07/20 08:14 Lab results: WBC 8.5 thou/uL (4.8-10.8) 05/07/20 08:14 Hgb 12.5 g/dL (14.0-18.0) L 05/07/20 08:14 Hct 39.2 % (42.0-52.0) L 05/07/20 08:14 MCV 93.4 fL (78.0-98.0) 05/07/20 08:14 Plt Count 181 thou/uL (130-400) 05/07/20 08:14 Neutrophils % 66.8 % (42.0-75.0) 05/07/20 08:14 Sodium 136 mmol/L (136-145) 05/07/20 08:14 Potassium 4.3 mmol/L (3.5-5.1) 05/07/20 08:14 Chloride 98 mmol/L (98-107) 05/07/20 08:14 Carbon Dioxide 29 mmol/L (23-31) 05/07/20 08:14 BUN 55 mg/dL (8.4-25.7) H 05/07/20 08:14 Creatinine 5.08 mg/dL (0.7-1.3) H 05/07/20 08:14 Glucose 98 mg/dL (83-110) 05/07/20 08:14 Calcium 9.2 mg/dL (7.8-10.44) 05/07/20 08:14 Total Bilirubin 0.3 mg/dL (0.2-1.2) 05/07/20 08:14 AST 15 U/L (5-34) 05/07/20 08:14 ALT 10 U/L (8-55) 05/07/20 08:14 Alkaline Phosphatase 98 U/L (40-110) 05/07/20 08:14 CK-MB (CK-2) 1.7 ng/mL (0-6.6) 05/07/20 08:14 Troponin I 0.071 ng/mL (< 0.028) H 05/07/20 11:01 Serum Total Protein 6.7 g/dL (5.8-8.1) 05/07/20 08:14 Albumin 3.7 g/dL (3.4-4.8) 05/07/20 08:14 Lipase 24 U/L (8-78) 05/07/20 08:14 - EKG Interpretation EKG: EKG: Vtach initially, then first degree AV block with PVC Hospitalist H&P A/P - Plan Plan: Chest x ray: mild cardiomegaly This is 74 year old male who presented with chest pain, was found to be in v- tach, admitted on amiodarone drip #Symptomatic Vtach #Chest tightness - started on amiodarone drip. Will admit to CCU - cardiology has been consulted and has been started on a heparin drip. Plan for cath possibly tomorrow - continue to trend troponins #Dysuria - reports burning with urination - check UA - give a dose of ceftriaxone empirically ESRD - consult nephrology, last dialysis Friday Type II Diabetes - resume home NPH - insulin sliding scale Anemia - Hb 12, stable DVT prophylaxis: heparin drip Code status: full code
[2020-05-07 12:57] VITALS: BMI 39.1
--- NOTE | 2020-05-07 14:36 | CON ---
DATE OF CONSULTATION: HISTORY OF PRESENT ILLNESS: Kt Saldana is a 74-year-old white male, who has been a patient of Dr. Henriquez in the past, but transferred his care to Dr. Pineda in December 2019. He has history of CABG x3 in 1996. He also states that he has had multiple stents placed since that time. None of those records are available. From Dr. Pineda's note, the biggest issue appeared to be an occluded right coronary artery with an occluded graft to the right coronary artery. His last stent procedure was several years ago, although he cannot remember exactly when. Echocardiogram in the past by Dr. Henriquez revealed ejection fraction of 40% to 45 %. He underwent echocardiography here in December, which was a difficult study, but it appeared that the LV function was normal on subxiphoid view. Mr. Saldana has been doing well at home. This morning, he got up and urinated and then started feeling lightheaded. Soon thereafter, he developed chest pressure. He took 3 sublingual nitroglycerin sprays and the pain resolved after approximately 30 minutes. On arrival here via EMS, EKG revealed sinus rhythm with occasional PVCs and evidence of septal infarction. He was at rest and his chest pain resolved when he went into ventricular tachycardia with a rate of 139 per minute. He was given amiodarone 150 mg IV and after 4 or 5 minutes converted to sinus rhythm. During that time, systolics went into the 80s while in the ventricular tachycardia. He was placed on amiodarone drip. Repeat EKG after he converted to sinus rhythm revealed normal sinus rhythm with frequent PVCs. Also was evidence for inferolateral ischemia with downsloping ST segments in these leads. However, his chest pain resolved and there was no evidence of STEMI. PAST MEDICAL HISTORY: Coronary artery disease; diabetes; chronic kidney disease , now on dialysis; hyperlipidemia; hypertension; and anemia. PAST SURGICAL HISTORY: CABG, multiple stents placed. SOCIAL HISTORY: Quit smoking after his CABG. He does not drink alcohol. FAMILY HISTORY: Both parents had heart disease. REVIEW OF SYSTEMS: A 10-point review of systems unremarkable. MEDICATIONS: 1. Humulin 50/50. 2. Tizanidine 4 mg p.r.n. 3. Allopurinol 100 mg daily. 4. Nitroglycerin spray p.r.n. 5. Atorvastatin 40 daily. 6. Aspirin 81 daily. 7. Ranexa 500 mg b.i.d. 8. Prednisone 10 mg daily. 9. Carvedilol 25 mg b.i.d. 10. Plavix 75 daily. 11. Furosemide 40 q.a.m. 12. Entresto 49/51 one half tablet b.i.d. ALLERGIES: NONE. PHYSICAL EXAMINATION: VITAL SIGNS: Blood pressure 140/68 and pulse 84. HEENT: PERRL. NECK: Supple. CHEST: Clear. CARDIAC: S1 and S2 normal without any S3, S4, or murmurs. Carotid upstrokes normal without bruits. ABDOMEN: Normal bowel sounds without tenderness or organomegaly. The abdomen is obese. EXTREMITIES: Revealed no clubbing, cyanosis, or edema. NEUROLOGIC: Grossly intact. SKIN: Warm and dry. LABORATORY DATA: EKGs as described above. Hemoglobin 12.5, hematocrit 39.2, white count 8500, and platelets 181,000. Sodium 136, potassium 4.3, chloride 98, carbon dioxide 29, BUN 55, and creatinine 5.08. Troponin I 0.041. IMPRESSION: 1. Probable ischemically mediated ventricular tachycardia. He had onset of chest pain and the pain essentially resolved. He then had an episode of ventricular tachycardia. This converted with IV amiodarone. 2. Ventricular tachycardia. 3. History of coronary artery bypass grafting x3 with right coronary artery and right coronary artery graft occluded. Multiple stent placements in the past. 4. Ischemic cardiomyopathy with last ejection fraction of 40% to 45%. 5. Hypertension. 6. Diabetes. 7. Hyperlipidemia. 8. Former smoker. 9. Positive family history. 10. End stage renal disease on dialysis. PLAN: The situation was discussed with Mr. Saldana. He will be continued on IV amiodarone at this time. Also placed on intravenous heparin. Electrophysiology will be consulted. Also, his coronary anatomy will need to be re-defined. We discussed possible cardiac catheterization. Risks of that including , myocardial infarction, dye reaction, vascular injury, CVA, transfusion, limb loss, renal loss, etc. Also risk of intervention with PTCA and stent placement were discussed including , myocardial infarction, emergent CABG, restenosis, stent thrombosis, and vessel perforation, etc. He is on Plavix chronically. Job ID: [id number] [facility]
[2020-05-07 14:38] LABS: Troponin I 0.114 ng/mL (< 0.028)
[2020-05-07] MEDS: cefTRIAXone\\ROCEPHIN 1 GM in Sodium Chloride 0.9% 100 ML IVPB SCH (15:06)
[2020-05-07] MEDS: HumuLIN 70/30 (300 UNITS/3 ML VIAL) SC SCH (17:28)
[2020-05-07] MEDS ORDERED: Heparin 25,000 units/D5W 500 ML IV SCH (18:00)
--- NOTE | 2020-05-07 18:54 | CON ---
DATE OF CONSULTATION: 05/07/2020 HISTORY OF PRESENT ILLNESS: Kt Saldana is a 74-year-old obese gentleman, well known to our service, presenting with chest pain, for which he took 3 sublingual nitroglycerins. He is also given some aspirin. He has known coronary artery disease, congestive heart failure. In fact, he was just recently discharged from the hospital. Pulmonary stahl, he has some difficulty breathing. He had used a nebulizer in the past with good results. Most days he can barely walk even half a block without getting markedly short of breath. He had been on BiPAP in the past. PAST MEDICAL HISTORY: 1. Acute respiratory failure. 2. Bilateral pleural effusion. 3. CHF. 4. COPD. 5. End-stage renal disease. 6. Anasarca. 7. Cellulitis. PAST SURGICAL HISTORY: Previous surgeries included; 1. Access. 2. Bypass surgery. SOCIAL HISTORY: Previous tobacco abuse, 40-pack, quit many years ago. Alcohol, none. HOME MEDICINES: 1. Tizanidine 4. 2. Benadryl. 3. Ranexa. 4. Nitroglycerin. 5. Insulin. 6. Lasix. 7. Coreg. 8. Allopurinol. 9. He is presently on amiodarone. PHYSICAL EXAMINATION: GENERAL: In the ICU, he is awake, alert, and responsive. VITAL SIGNS: Temperature on room air, blood pressure CHEST: Minimal rhonchi. CARDIAC: Normal S1, S2. No gallops. ABDOMEN: No masses. LABORATORY DATA: Creatinine 5. White count 8000. X-ray, cardiomegaly, chronic changes, no acute infiltration. IMPRESSION AND PLAN: 1. Cardiac arrhythmias. 2. Cardiomyopathy. 3. Chest pain. 4. Coronary artery disease. 5. Renal failure. 6. Obesity. 7. Chronic obstructive pulmonary disease. 8. Former smoker. 9. Diabetes. Neb treatments will be initiated as needed, otherwise input from Cardiology. We will follow while in the ICU. This is a consultation note, 70 minutes, 50% direct patient care. Job ID: [id number]
[2020-05-07 20:18] LABS: CKMB 2.9 ng/mL (0-6.6)
[2020-05-07] MEDS: Atorvastatin Calcium 40 MG TAB PO SCH (20:51)
[2020-05-07] MEDS: Acetaminophen 325 MG TAB PO PRN (20:52)
[2020-05-07 21:37] LABS: Bacteria/HPF Rare-Few HPF (None Seen); Bilirubin Negative (Negative); Blood, Urine 1+ (Negative); Clarity Extra Turbid (Clear); Glucose, Urine (Dipstick) Normal (Negative); Ketone, Urine Negative (Negative); Leukocyte 500 Leu/uL (Negative); Nitrite Negative (Negative); Protein, Urine (Dipstick) 30 mg/dL (Neg-Trace); Specific Gravity, Urine 1.015 (1.002-1.036); Urobilinogen Normal mg/dL (Less than 2); WBC/HPF Greater than 50 HPF (0-3); pH, Urine 5.5 (5.0-9.0)
[2020-05-07 21:38] LABS: Renal Epithelial None Seen HPF (None Seen); Squamous Epithelial 0-3 HPF (0-3)
[2020-05-08] MEDS ORDERED: Amiodarone 450 MG, Admixture Fee 1 EACH in Dextrose 5% in Water 250 ML IVPB SCH (04:30)
[2020-05-08] MEDS ORDERED: Heparin 0 ML ONE (07:41)
--- NOTE | 2020-05-08 08:47 | PRG ---
DATE OF SERVICE: 05/08/2020 SUBJECTIVE: This morning, he is awake, alert, responsive, in no distress. OBJECTIVE: VITAL SIGNS: Pulse 57, blood pressure 110/73, saturations are 90% on room air, respirations 20. CHEST: No wheezing. No crackles. CARDIAC: Normal S1, S2. No gallops. ABDOMEN: No masses. IMPRESSION: 1. Chronic obstructive pulmonary disease. 2. Probably sleep apnea. 3. Chest pain. PLAN: The patient is here for a cardiac cath today. Pulmonary stahl, continue neb treatments and supportive care. We will follow. Job ID: [id number]
[2020-05-08 09:34] LABS: Hemoglobin 12.9 g/dL (14.0-18.0); Mean Corpuscular HGB CONC 30.2 g/dL (32.0-36.0); Mean Corpuscular Hemoglobin 28.2 pg (27.0-31.0); Mean Corpuscular Volume 93.5 fL (78.0-98.0); Mean Platelet Volume 9.7 fL (7.4-10.4); Platelet Count 187 thou/uL (130-400); RBC Distribution Width 16.1 % (11.5-14.5); Red Blood Cell (RBC) Count 4.56 mill/uL (4.70-6.10); White Blood Cell (WBC) Count 8.4 thou/uL (4.8-10.8)
[2020-05-08 09:53] LABS: Anion Gap 17 mmol/L (10-20); BUN (Urea Nitrogen) 64 mg/dL (8.4-25.7); Calc. Creatinine Clearance 22 mL/min (70-130); Calcium 9.2 mg/dL (7.8-10.44); Carbon Dioxide 20 mmol/L (23-31); Chloride 100 mmol/L (98-107); Estimated GFR-MDRD 11; Glucose 125 mg/dL (83-110); Potassium 4.1 mmol/L (3.5-5.1); Sodium 133 mmol/L (136-145)
[2020-05-08] MEDS: Allopurinol 100 MG TAB PO SCH (09:57)
[2020-05-08] MEDS: Aspirin Chewable 81 MG TAB PO SCH (09:57)
[2020-05-08] MEDS: HumuLIN 70/30 (300 UNITS/3 ML VIAL) SC SCH ×2 (09:58→17:21)
[2020-05-08] MEDS ORDERED: Midazolam HCl 2 mg/2 ml Vial ONE (12:04)
[2020-05-08] MEDS ORDERED: Fentanyl 100 MCG/2 ML VIAL ONE (12:05)
[2020-05-08] MEDS ORDERED: Heparin 10,000 UNITS/ 10 ML VIAL ONE (13:05)
[2020-05-08] MEDS ORDERED: Iopamidol 370 76% 100 ML VIAL ONE (13:12)
--- NOTE | 2020-05-08 13:40 | CON ---
DATE OF CONSULTATION: 05/08/2020 REASON FOR CONSULTATION: Sustained ventricular tachycardia. CONSULTED MD: Wil Gregorio MD ECONOMICS LECTURER: Angel Luis Pineda MD HISTORY OF PRESENT ILLNESS: Mr. Saldana is a 74-year-old gentleman with an extensive history of coronary artery disease. He underwent a three-vessel bypass in 1996, but reports having multiple stents since that time. There was concern for an occluded RCA in addition to the RCA graft. Historically, he had been a patient of Dr. Mcgill, but had recently transferred his care to Dr. Pineda. Most recent outpatient echocardiogram revealed an LVEF 40% to 45%. Mr. Saldana had developed some chest pain and took some sublingual nitroglycerin sprays, which resolved his pain. He called 911 and arrived via EMS. EKG showed sinus rhythm with occasional PVCs and suspicion for septal infarct. He then went into ventricular tachycardia at a rate of approximately 140 beats per minute. He was given IV bolus of amiodarone 150 mg and converted to sinus rhythm 45 minutes later. He did have a drop in systolic pressure into the 80s while in VT. He remains on amiodarone drip for his ventricular tachycardia and a heparin drip for suspected ACS. Left heart catheterization is planned for later today and EP consultation is requested for his ventricular tachycardia. Mr. Saldana is feeling well, sitting in the chair, bedside. He denies any ongoing heart racing, palpitations, chest pain, pressure, syncope, near-syncope, stroke, stroke-like symptoms. REVIEW OF SYSTEMS: Twelve-point review of systems is unremarkable except that listed above in the HPI. PAST MEDICAL HISTORY: 1. Coronary artery disease, 3V CABG 1996 2. Diabetes. 3. Chronic kidney disease, on dialysis, left wrist fistula maturing, tunneled right chest access. 4. Hyperlipidemia. 5. Hypertension. 6. Anemia. PAST SURGICAL HISTORY: Coronary artery bypass, three-vessel in 1996 with multiple PCIs. SOCIAL HISTORY: Remote history of smoking. Denies alcohol or illicit drug use. FAMILY HISTORY: Positive for significant coronary artery disease with mother and father, early onset. Negative for sudden cardiac . ALLERGIES: NO KNOWN DRUG ALLERGIES. HOME MEDICATIONS: Include; 1. Aspirin 81 mg daily. 2. Allopurinol 200 mg q.a.m. 3. Tylenol p.r.n. 4. Benadryl 50 mg p.r.n. 5. Ranexa 500 mg p.o. b.i.d. 6. Nitroglycerin sublingual as needed. 7. Humulin 70/30 of 30 units subcu b.i.d. 8. Furosemide 40 mg p.r.n. 9. Carvedilol 25 mg p.o. b.i.d. 10. Atorvastatin 80 mg q.p.m. 11. Tizanidine 4 mg p.o. p.r.n. PHYSICAL EXAMINATION: VITAL SIGNS: Temperature 97.8, pulse 70, blood pressure 124/77, respirations 20 , and oxygen is 93% on room air. GENERAL: The patient is alert, oriented. Speech is clear. Affect is appropriate. He is in no apparent distress. He is morbidly obese. HEENT: He is normocephalic and atraumatic. Sclerae are anicteric. EOMs are intact. Oral mucosa is moist and pink with adequate dentition. NECK: Large and supple. There is no evident jugular venous distention. Sitting upright in the chair. LUNGS: Diminished in the bases, but overall clear throughout with respirations even and unlabored. CARDIAC: His heart rate is irregularly irregular with crisp S1 and S2. ABDOMEN: Obese, soft, and nontender without palpable masses. Hepatojugular reflux is negative. EXTREMITIES: Warm and dry to touch, well perfused without clubbing or cyanosis. No bilateral lower extremity edema is present. NEUROLOGIC: Grossly intact and nonfocal and gait was stable as he transferred from chair to bed with no assistive device. IMAGING DATA: Telemetry and EKGs showed largely sinus rhythm with an episode of sustained ventricular tachycardia with rate of 139 beats per minute. Frequent PVCs, couplets and triplets are seen as well. LABORATORY DATA: Hematology was unremarkable. Chemistry; potassium 4.1, creatinine 5.19. Liver enzymes within normal ranges. Mild elevation in troponins. IMPRESSION: 1. Sustained ventricular tachycardia, possibly primary versus driven by ischemia. 2. Coronary artery disease with prior three-vessel bypass and multiple stents, EKG changes suggesting possible septal myocardial infarction. 3. End-stage renal disease on dialysis. 4. History of mildly reduced left ventricular ejection fraction approximately 45 % by prior outpatient echocardiogram, now NYHA class 3 PLAN AND RECOMMENDATIONS: Mr. Saldana had sustained ventricular tachycardia. It is unclear if this is primary VT or ischemic driven. Recommend ischemic evaluation. If no occlusive coronary artery disease is found or PCI indicated, we could discuss the ICD as secondary prevention for primary ventricular tachycardia. For now, I would continue amiodarone. Okay to do oral dosing if IV access is difficult. We will need to discuss the risks versus benefit for him being end-stage renal disease on dialysis, potential chance for infection of the ICD. There will be limited access options as he has a fistula in his left wrist and also a tunneled cath in his right chest wall. I will continue to follow. Thank you for allowing me to participate in the care of this patient. Job ID: [id number] MTDD
[2020-05-08] MEDS: cefTRIAXone\\ROCEPHIN 1 GM in Sodium Chloride 0.9% 100 ML IVPB SCH (13:54)
--- NOTE | 2020-05-08 18:41 | PDOC.HOSPP ---
- Subjective Encounter Date: 05/08/20 Encounter Time: 08:00 Subjective: The patient has no complaints today. Chest tightness has resolved. Patient states his burning pain when urinating has gone. Patient complains his left IV hurts and is blown. He had cardiac cath today, results pending - Objective Vital Signs & Weight: Vital Signs (12 hours) Temp Pulse Ox 05/08/20 18:00 98.0 F 05/08/20 17:00 98.4 F 05/08/20 14:00 98.2 F 05/08/20 08:00 97.8 F 98 Weight Weight 272 lb 11.389 oz Most Recent Monitor Data Heart Rate from ECG 84 NIBP 112/56 NIBP BP-Mean 74 Respiration from ECG 18 SpO2 93 I&O: 05/07/20 05/08/20 05/09/20 06:59 06:59 06:59 Intake Total 1393 760 Output Total 550 425 Balance 843 335 Result Diagrams: 05/08/20 09:23 05/08/20 09:23 Additional Labs: Accuchecks 05/08/20 05/07/20 05/07/20 06:39 20:59 17:16 POC Glucose 122 H 156 H 156 H Hospitalist ROS - Review of Systems Constitutional: denies: fever, chills - Medication Medications: Active Medications Generic Name Dose Route Start Last Admin Trade Name Freq PRN Reason Stop Dose Admin Acetaminophen 650 mg 05/07/20 13:21 05/07/20 20:52 Tylenol PO 650 mg HSPRN PRN Administration Pain Allopurinol 100 mg 05/08/20 09:00 05/08/20 09:57 Zyloprim PO 100 mg QAM RAYNA Administration Aspirin 81 mg 05/08/20 09:00 05/08/20 09:57 Aspirin Chewable PO 81 mg DAILY RAYNA Administration Atorvastatin Calcium 80 mg 05/07/20 21:00 05/07/20 20:51 Lipitor PO 80 mg HS RAYNA Administration Ceftriaxone Sodium 1 gm/ 100 mls @ 0 mls/hr 05/07/20 14:00 05/08/20 13:54 Sodium Chloride IVPB 100 mls 1400 RAYNA Administration Insulin Human Isoph/Insulin Regular 30 units 05/07/20 16:30 05/08/20 17:21 Humulin 70/30 SC Not Given BID-AC RAYNA Ranolazine 500 mg 05/07/20 21:00 05/08/20 09:57 Ranexa PO 500 mg BID RAYNA Administration Tizanidine HCl 4 mg 05/07/20 12:25 05/07/20 20:52 Zanaflex PO 4 mg DAILYPRN PRN Administration Muscle Spasm - Exam General Appearance: NAD, awake alert Eye: PERRL, anicteric sclera ENT: normocephalic atraumatic, no oropharyngeal lesions Neck: supple, no JVD Heart: RRR, no murmur, no gallops, no rubs Respiratory: CTAB, no wheezes, no rales, no ronchi Gastrointestinal: soft, non-tender, non-distended Extremities: no cyanosis, no clubbing, no edema Extremities - other findings: left IV appears infiltrated Skin: normal turgor, no lesions, no rashes Neurological: cranial nerve grossly intact, normal sensation to touch, no focal deficits, no new deficit Musculoskeletal: normal tone, normal strength, no muscle wasting Psychiatric: normal affect, normal behavior, A&O x 3 Hosp A/P - Plan This is 74 year old male who presented with chest pain, was found to be in v- tach, admitted on amiodarone drip #Symptomatic Vtach #Chest tightness - was on amiodarone. In sinus rhythm now. Cardiac cath performed today. Results are pending. Plan for EP study tomorrow - keep NPO after midnight #UTI - reports burning with urination improved with antibiotics. Per nurse urine appeared cloudy - continue ceftriaxone ESRD - consult nephrology, last dialysis Friday - he is getting dialysis today Type II Diabetes - resume home NPH - insulin sliding scale - patient requesting hemoglobin A1C in the morning Anemia - Hb 12, stable
[2020-05-08] MEDS ORDERED: CEFAZOLIN 2 GM in Premix Bag 1 BAG IVPB SCH (20:15)
[2020-05-08] MEDS: Amiodarone 200 MG TAB PO SCH (20:24)
[2020-05-08] MEDS: Heparin 5,000 UNITS/ML VIAL SC SCH (20:24)
[2020-05-08] MEDS: Atorvastatin Calcium 40 MG TAB PO SCH (20:24)
[2020-05-08] MEDS: Zolpidem Tartrate 5 MG TAB PO PRN (21:32)
--- NOTE | 2020-05-08 23:56 | CON ---
DATE OF CONSULTATION: HISTORY OF PRESENT ILLNESS: Mr. Saldana is a 74-year-old male patient with end-stage renal disease, who I placed a left Bob wrist fistula and they are to begin trying to access it in the next few weeks. He has a right IJ cuffed tunneled dialysis catheter. He has been evaluated by Dr. Gregorio. Cath today noted an occluded RCA, known occluded SVG to , known occluded proximal LAD, septated ostium, 45% inferior akinesis. The patient is in need of defibrillator placement. To avoid placement of defibrillator in his left subclavian vein outflow, plan is since he is dialyzed today to remove his right IJ dialysis catheter and place a new catheter tomorrow. That way Cardiology can place a defibrillator in his right subclavian vein. He understands risks and benefits and consents. He suffered ventricular tachycardia requiring amiodarone in ICU observation. Plan is to remove his right IJ cuffed dialysis catheter and place a left IJ cuffed tunneled dialysis catheter tomorrow. He understands risks and benefits and consents. The patient has a good thrill and bruit in the left Bob fistula. Job ID: [id number]
[2020-05-09 03:38] LABS: Hemoglobin 12.2 g/dL (14.0-18.0); Mean Corpuscular HGB CONC 32.2 g/dL (32.0-36.0); Mean Corpuscular Hemoglobin 29.7 pg (27.0-31.0); Mean Corpuscular Volume 92.3 fL (78.0-98.0); Platelet Count 166 thou/uL (130-400); RBC Distribution Width 15.9 % (11.5-14.5); Red Blood Cell (RBC) Count 4.12 mill/uL (4.70-6.10); White Blood Cell (WBC) Count 8.9 thou/uL (4.8-10.8)
[2020-05-09 03:51] LABS: Hemoglobin A1c 6.1 % (4.0-6.0)
[2020-05-09 04:04] LABS: Anion Gap 13 mmol/L (10-20); BUN (Urea Nitrogen) 38 mg/dL (8.4-25.7); Calc. Creatinine Clearance 28 mL/min (70-130); Calcium 8.8 mg/dL (7.8-10.44); Carbon Dioxide 25 mmol/L (23-31); Chloride 97 mmol/L (98-107); Estimated GFR-MDRD 14; Glucose 129 mg/dL (83-110); Potassium 4.3 mmol/L (3.5-5.1); Sodium 131 mmol/L (136-145)
[2020-05-09 04:54] LABS: CKMB 1.4 ng/mL (0-6.6)
[2020-05-09] MEDS: HumuLIN 70/30 (300 UNITS/3 ML VIAL) SC SCH ×2 (08:33→16:44)
--- NOTE | 2020-05-09 09:16 | PRG ---
DATE OF SERVICE: 05/09/2020 SUBJECTIVE: This morning, he is awake, alert, responsive. this morning he is going for additional testing. OBJECTIVE: VITAL SIGNS: His sats are 90% on room air, blood pressure 120/67, . CHEST: No wheezing or crackles. CARDIAC: Normal S1 and S2. No gallops. ABDOMEN: No masses. LABORATORY DATA: Creatinine is 4. White count 8000. ASSESSMENT AND PLAN: Chronic obstructive pulmonary disease, possibly sleep apnea, renal failure, obesity, cardiac arrhythmias. He is scheduled for EP evaluation tomorrow. Pulmonary stahl, he is stable on his present neb treatments. We will follow while in the ICU. Job ID: [id number]
--- NOTE | 2020-05-09 09:21 | OP ---
DATE OF PROCEDURE: 05/08/2020 PREOPERATIVE DIAGNOSES: 1. End-stage renal disease. 2. Right IJ cuffed tunneled dialysis catheter status. 3. Left wrist Bob fistula. 4. Need of defibrillator due to ventricular tachycardia episode. 5. Need to remove his right IJ catheter and place a new left IJ catheter to allow placement of a right subclavian vein defibrillator. POSTOPERATIVE DIAGNOSES: 1. End-stage renal disease. 2. Right IJ cuffed tunneled dialysis catheter status. 3. Left wrist Bob fistula. 4. Need of defibrillator due to ventricular tachycardia episode. 5. Need to remove his right IJ catheter and place a new left IJ catheter to allow placement of a right subclavian vein defibrillator. PROCEDURE PERFORMED: Removal of right IJ cuffed tunneled dialysis catheter. ANESTHESIA: 0.5% Marcaine 60 mL, mixed with 1% Xylocaine with epinephrine 4 mL. DESCRIPTION OF PROCEDURE: With the patient at bedside, alcohol prep was used. Local anesthetic was infiltrated in the skin and subcutaneous tissue. Catheter cuff removed. Pressure held for hemostatic. Dressing applied. Job ID: [id number]
[2020-05-09] MEDS: Amiodarone 200 MG TAB PO SCH ×3 (10:17→19:45)
[2020-05-09] MEDS: Heparin 5,000 UNITS/ML VIAL SC SCH ×3 (10:17→19:46)
[2020-05-09] MEDS: Allopurinol 100 MG TAB PO SCH (10:17)
[2020-05-09] MEDS: Aspirin Chewable 81 MG TAB PO SCH (10:17)
[2020-05-09] MEDS ORDERED: Nitroglycerin 0.4 MG TAB (25 Tab Bottle) SL PRN (11:21)
--- NOTE | 2020-05-09 12:05 | PDOC.CPN ---
- Subjective Date: 05/09/20 Time: 12:02 Interval history: No new issues. No more VT since amio started. - Review of Systems General: denies: fever/chills, weight/appetite/sleep changes, night sweats, fatigue Respiratory: denies: cough, congestion, shortness of breath, exercise intolerance Cardiovascular: denies: chest pain, palpitation, edema, paroxysmal nocturnal dyspnea, orthopnea Gastrointestinal: denies: nausea, vomiting, diarrhea, constipation, abd pain, GI bleeding Musculoskeletal: denies: pain, tenderness, stiffness, swelling, arthritis/ arthralgias Neurological: denies: numbness, syncope, seizure, weakness - Objective Allergies/Adverse Reactions: Allergies Allergy/AdvReac Type Severity Reaction Status Date / Time No Known Allergies Allergy Verified 03/22/20 08:58 Visit Medications: Current Medications Acetaminophen (Tylenol) 650 mg PO HSPRN PRN PRN Reason: Pain Last Admin: 05/07/20 20:52 Dose: 650 mg Albuterol/Ipratropium (Duoneb) 3 ml NEB [id number] PRN PRN Reason: SOB &/or Wheezing Allopurinol (Zyloprim) 100 mg PO QAM [facility] Last Admin: 05/09/20 10:17 Dose: 100 mg Amiodarone HCl (Cordarone) 200 mg PO TID [facility] Last Admin: 05/09/20 10:17 Dose: 200 mg Aspirin (Aspirin Chewable) 81 mg PO DAILY [facility] Last Admin: 05/09/20 10:17 Dose: 81 mg Atorvastatin Calcium (Lipitor) 80 mg PO HS [facility] Last Admin: 05/08/20 20:24 Dose: 80 mg Dextrose/Water (Dextrose 50%) 25 gm SLOW IVP PRN PRN PRN Reason: Hypoglycemia Diphenhydramine HCl (Benadryl) 50 mg PO DAILYPRN PRN PRN Reason: Allergies Glucagon (Glucagon) 1 mg IM PRN PRN PRN Reason: Hypoglycemia Heparin Sodium (Porcine) (Heparin) 5,000 units SC TID [facility] Last Admin: 05/09/20 10:17 Dose: Not Given Dextrose/Water (D5w) 1,000 mls @ 0 mls/hr IV .Q0M PRN PRN Reason: Hypoglycemia Ceftriaxone Sodium 1 gm/ (Sodium Chloride) 100 mls @ 0 mls/hr IVPB 1400 [facility] Last Admin: 05/08/20 13:54 Dose: 100 mls Cefazolin Sodium/Dextrose 2 gm (/ Device) 50 mls @ 100 mls/hr IVPB ONCALL-OR [facility] Insulin Human Isoph/Insulin Regular (Humulin 70/30) 30 units SC BID-AC [facility] Last Admin: 05/09/20 08:33 Dose: Not Given Insulin Human Lispro (Humalog) 0 units SC .MILD SLIDING SCALE PRN PRN Reason: Mild Correctional Scale Nitroglycerin (Nitrostat) 0.4 mg SL Q5MIN PRN PRN Reason: Chest Pain Ranolazine (Ranexa) 500 mg PO BID [facility] Last Admin: 05/09/20 10:17 Dose: 500 mg Tizanidine HCl (Zanaflex) 4 mg PO DAILYPRN PRN PRN Reason: Muscle Spasm Last Admin: 05/07/20 20:52 Dose: 4 mg Zolpidem Tartrate (Ambien) 5 mg PO HSPRN PRN PRN Reason: Insomnia Last Admin: 05/08/20 21:32 Dose: 5 mg Vital Signs & Weight: Vital Signs Temp Pulse Ox 05/09/20 08:00 98 05/09/20 07:00 98.9 F 05/09/20 04:00 98.4 F 05/09/20 01:00 98.4 F Weight 272 lb 11.389 oz - Physical Exam General: alert & oriented x3 HEENT: mucus membranes moist Neck: supple neck Cardiac: regular rate and rhythm Lungs: normal breath sounds Neuro: grossly intact Abdomen: active bowel sounds Extremities: 1+ LE edema Skin: clear Musculoskeletal: no pain - Labs Result Diagrams: 05/09/20 03:25 05/09/20 03:25 Troponin/CKMB CK-MB (CK-2) 1.4 ng/mL (0-6.6) 05/09/20 03:25 Troponin I 0.087 ng/mL (< 0.028) H 05/09/20 03:25 - Telemetry Sinus rhythms and dysrhythmias: sinus rhythm - Assessment/Plan Assessment/Plan: 1. Sustained VT 2. CAD. 3. Inferior scar 4. ESRD 5. Ischemic CM EF at 40-45% 6. Obesity PLAN: - No revascularizable lesion seen on LHC and graft study. - Recommend proceeding with AICD placement. - EP planning on procedure tomorrow.
[2020-05-09] MEDS: cefTRIAXone\\ROCEPHIN 1 GM in Sodium Chloride 0.9% 100 ML IVPB SCH (14:53)
--- NOTE | 2020-05-09 15:29 | PDOC.HOSPP ---
- Subjective Encounter Date: 05/09/20 Encounter Time: 09:00 Subjective: The patient is doing well. He has no chest tightness. He states he is supposed to get EP study tomorrow and a new port placed for dialysis today - Objective Vital Signs & Weight: Vital Signs (12 hours) Temp Pulse Ox 05/09/20 12:00 98.7 F 05/09/20 08:00 98 05/09/20 07:00 98.9 F 05/09/20 04:00 98.4 F Weight Weight 272 lb 11.389 oz Most Recent Monitor Data Heart Rate from ECG 71 NIBP 109/54 NIBP BP-Mean 72 Respiration from ECG 18 SpO2 92 I&O: 05/08/20 05/09/20 05/10/20 06:59 06:59 06:59 Intake Total 1393 1033.2 480 Output Total 550 550 Balance 843 483.2 480 Result Diagrams: 05/09/20 03:25 05/09/20 03:25 Additional Labs: Accuchecks 05/07/20 05/07/20 20:59 17:16 POC Glucose 156 H 156 H Hospitalist ROS - Review of Systems Constitutional: denies: fever, chills - Medication Medications: Active Medications Generic Name Dose Route Start Last Admin Trade Name Freq PRN Reason Stop Dose Admin Acetaminophen 650 mg 05/07/20 13:21 05/07/20 20:52 Tylenol PO 650 mg HSPRN PRN Administration Pain Allopurinol 100 mg 05/08/20 09:00 05/09/20 10:17 Zyloprim PO 100 mg QAM [facility] Administration Amiodarone HCl 200 mg 05/08/20 21:00 05/09/20 14:52 Cordarone PO 200 mg TID [facility] Administration Aspirin 81 mg 05/08/20 09:00 05/09/20 10:17 Aspirin Chewable PO 81 mg DAILY [facility] Administration Atorvastatin Calcium 80 mg 05/07/20 21:00 05/08/20 20:24 Lipitor PO 80 mg HS [facility]NA Administration Heparin Sodium (Porcine) 5,000 units 05/08/20 21:00 05/09/20 14:53 Heparin SC 5,000 units TID [facility] Administration Ceftriaxone Sodium 1 gm/ 100 mls @ 0 mls/hr 05/07/20 14:00 05/09/20 14:53 Sodium Chloride IVPB 100 mls 1400 [facility] Administration Insulin Human Isoph/Insulin Regular 30 units 05/07/20 16:30 05/09/20 08:33 Humulin 70/30 SC Not Given BID-AC [facility] Ranolazine 500 mg 05/07/20 21:00 05/09/20 10:17 Ranexa PO 500 mg BID [facility] Administration Tizanidine HCl 4 mg 05/07/20 12:25 05/07/20 20:52 Zanaflex PO 4 mg DAILYPRN PRN Administration Muscle Spasm Zolpidem Tartrate 5 mg 05/08/20 19:07 05/08/20 21:32 Ambien PO 5 mg HSPRN PRN Administration Insomnia - Exam General Appearance: NAD, awake alert Eye: PERRL, anicteric sclera ENT: normocephalic atraumatic, no oropharyngeal lesions Neck: no JVD Heart: RRR, no murmur, no gallops, no rubs Respiratory: CTAB, no wheezes, no rales, no ronchi Gastrointestinal: soft, non-tender, non-distended Extremities: no cyanosis, no clubbing, no edema Skin: normal turgor, no lesions, no rashes Skin - other findings: port in the right chest Neurological: cranial nerve grossly intact, normal sensation to touch, no focal deficits, no new deficit Musculoskeletal: normal tone, normal strength, no muscle wasting Psychiatric: normal affect, normal behavior, A&O x 3 Hosp A/P - Plan Cardiac cath: occluded RCA, occluded SVG to RCA, occluded proximal LAD, separate ostium, patent FRANCOIS to LAD, fills RCA from LAD collaterals. Patent SVG to diagonal. Patent Left circumflex, separate ostium. LEVEF 45%. Inferior akinesis. This is 74 year old male who presented with chest pain, was found to be in v- tach, admitted on amiodarone drip #Symptomatic Vtach #Chest tightness -off amiodarone drip. On oral amiodarone 200 mg tid - Cardiac cath showed occluded RCA, SVG to RCA, proximal LAD. No lesions amenable to intervention - plan for EP study tomorrow #UTI - UA showed turbid urine - on IV ceftriaxone empirically for dysuria - send urine culture ESRD - received dialysis yesterday 05/09. Dr. García is his doctor Type II Diabetes - controlled - hemoglobin A1C 6.1 -continue home NPH Anemia - Hb 12, stable
--- NOTE | 2020-05-09 15:31 | PDOC.EP ---
- Subjective Date: 05/09/20 Time: 08:00 Interval History: Electrophysiology follow-up note for sustained ventricular tachycardia. Mr. Saldana feels well he voices no cardiac concerns or complaints. He is not having any chest pain, palpitations, heart racing, syncope, stroke or stroke- like symptoms since last evaluated - Review of Systems Respiratory: denies: cough, pleuritic pain, shortness of breath Cardiology: denies: chest pain, edema, heart racing, light headedness, palpitations, passing out Gastrointestinal: denies: abdominal pain, constipation, nausea, vomitting Musculoskeletal: reports: unstable gait ( chronic). denies: neck pain, leg pain , foot pain - Objective Allergies/Adverse Reactions: Allergies Allergy/AdvReac Type Severity Reaction Status Date / Time No Known Allergies Allergy Verified 03/22/20 08:58 Current Medications Acetaminophen (Tylenol) 650 mg PO HSPRN PRN PRN Reason: Pain Last Admin: 05/07/20 20:52 Dose: 650 mg Albuterol/Ipratropium (Duoneb) 3 ml NEB [id number] PRN PRN Reason: SOB &/or Wheezing Allopurinol (Zyloprim) 100 mg PO QAM [facility] Last Admin: 05/09/20 10:17 Dose: 100 mg Amiodarone HCl (Cordarone) 200 mg PO TID [facility] Last Admin: 05/09/20 14:52 Dose: 200 mg Aspirin (Aspirin Chewable) 81 mg PO DAILY [facility] Last Admin: 05/09/20 10:17 Dose: 81 mg Atorvastatin Calcium (Lipitor) 80 mg PO HS [facility] Last Admin: 05/08/20 20:24 Dose: 80 mg Dextrose/Water (Dextrose 50%) 25 gm SLOW IVP PRN PRN PRN Reason: Hypoglycemia Diphenhydramine HCl (Benadryl) 50 mg PO DAILYPRN PRN PRN Reason: Allergies Glucagon (Glucagon) 1 mg IM PRN PRN PRN Reason: Hypoglycemia Heparin Sodium (Porcine) (Heparin) 5,000 units SC TID [facility] Last Admin: 05/09/20 14:53 Dose: 5,000 units Dextrose/Water (D5w) 1,000 mls @ 0 mls/hr IV .Q0M PRN PRN Reason: Hypoglycemia Ceftriaxone Sodium 1 gm/ (Sodium Chloride) 100 mls @ 0 mls/hr IVPB 1400 [facility] Last Admin: 05/09/20 14:53 Dose: 100 mls Cefazolin Sodium/Dextrose 2 gm (/ Device) 50 mls @ 100 mls/hr IVPB ONCALL-OR [facility] Insulin Human Isoph/Insulin Regular (Humulin 70/30) 30 units SC BID-AC [facility] Last Admin: 05/09/20 08:33 Dose: Not Given Insulin Human Lispro (Humalog) 0 units SC .MILD SLIDING SCALE PRN PRN Reason: Mild Correctional Scale Nitroglycerin (Nitrostat) 0.4 mg SL Q5MIN PRN PRN Reason: Chest Pain Ranolazine (Ranexa) 500 mg PO BID [facility] Last Admin: 05/09/20 10:17 Dose: 500 mg Tizanidine HCl (Zanaflex) 4 mg PO DAILYPRN PRN PRN Reason: Muscle Spasm Last Admin: 05/07/20 20:52 Dose: 4 mg Zolpidem Tartrate (Ambien) 5 mg PO HSPRN PRN PRN Reason: Insomnia Last Admin: 05/08/20 21:32 Dose: 5 mg Vital Signs & Weight: Vital Signs Temp Pulse Ox 05/09/20 12:00 98.7 F 05/09/20 08:00 98 05/09/20 07:00 98.9 F 05/09/20 04:00 98.4 F Weight 272 lb 11.389 oz I/O: I/O 05/08/20 05/09/20 05/10/20 06:59 06:59 06:59 Intake Total 1393 1033.2 480 Output Total 550 550 Balance 843 483.2 480 - Physical Exam General: alert & oriented x3, appears well, no apparent distress, speech clear, affect appropriate HEENT: mucus membranes moist, normocephaly Neck: supple neck, midline trachea, no JVD/HJR, no masses, no bruit, no lymphadenopathy, no thromegaly Cardiology: regular rate and rhythm, PMI nondisplaced Lungs: clear to auscultation, no wheeze, rales, rhonchi, decreased breath sounds Neurology: cranial nerve 2-12 intact, grossly intact, no lateralizing findings Abdomen: unremarkable, active bowel sounds, no pulsations/bruits, other ( obese) Extremities: dry, strong pulses, warm - Labs Result Diagrams: 05/09/20 03:25 05/09/20 03:25 - EKG Interpretation EKG Method: Telemetry EKG shows: Sinus rhythm - Assessment/Plan Assessment/Plan: 1. sustained ventricular tachycardia - primary VT event has no reversible causes have been identified 2. CAD - prior 3 vessel bypass. RCA and graft to RCA confirmed 100% occlusion by left heart catheterization 05/08/2020 3. obesity 4. end-stage renal disease 5. history of mildly reduced LVEF, 45% from outpatient echocardiogram in the past - LVEF unchanged according to left heart catheterization report -NYHA functional class 3 symptoms Left heart catheterization did not reveal any new occlusive coronary artery disease. VT is not likely to be ischemic in origin. recommend proceeding with an EP study followed by ICD implant as secondary prevention for sustained ventricular tachycardia. arrangements have been made and will proceed tomorrow morning. NPO after midnight. patient understands the risks benefits and alternatives and wishes to proceed.
[2020-05-09] MEDS: Atorvastatin Calcium 40 MG TAB PO SCH (19:46)
[2020-05-09] MEDS: Zolpidem Tartrate 5 MG TAB PO PRN (21:28)
[2020-05-10] MEDS ORDERED: Bupivacaine PF 0.5% 30 ML VIAL ONE (05:37)
[2020-05-10] MEDS ORDERED: Lidocaine 1% w/Epinephrine 1:100K 20 ML VIAL ONE (05:37)
[2020-05-10] MEDS ORDERED: Heparin 0 ML ONE (06:32)
[2020-05-10] MEDS ORDERED: Heparin 10,000 UNITS/1 ML VIAL ONE ×2 (06:32→07:30)
[2020-05-10] MEDS ORDERED: CEFAZOLIN 1 GM VIAL ONE (07:07)
[2020-05-10] MEDS ORDERED: Gentamicin 80 MG/2 ML VIAL ONE (07:07)
[2020-05-10] MEDS ORDERED: Midazolam HCl 2 mg/2 ml Vial ONE (07:12)
[2020-05-10] MEDS ORDERED: Propofol 500 MG/50 ML VIAL ONE ×3 (07:12→10:13)
[2020-05-10] MEDS: HumuLIN 70/30 (300 UNITS/3 ML VIAL) SC SCH ×2 (07:30→16:30)
[2020-05-10] MEDS ORDERED: Iopamidol 370 76% 50 ML VIAL FS ONE (08:45)
[2020-05-10] MEDS ORDERED: Lidocaine 1% (PF) 30 ML VIAL ONE ×5 (08:48→10:44)
[2020-05-10] MEDS: Amiodarone 200 MG TAB PO SCH ×3 (09:00→21:05)
[2020-05-10] MEDS: Allopurinol 100 MG TAB PO SCH (09:00)
[2020-05-10] MEDS: Aspirin Chewable 81 MG TAB PO SCH (09:00)
[2020-05-10] MEDS: Heparin 5,000 UNITS/ML VIAL SC SCH ×3 (09:00→21:06)
--- NOTE | 2020-05-10 09:39 | OP ---
DATE OF PROCEDURE: 05/10/2020 PREOPERATIVE DIAGNOSES: 1. End-stage renal disease. 2. Ventricular tachycardia, in need of defibrillator. 3. Fistula of left Bob, wrist. 4. Previous dialysis catheter in right internal jugular, removed. ANESTHESIA: Intravenous sedation and local with 0.5% Marcaine with epinephrine 30 mL, mixed with 1% Xylocaine with epinephrine 20 mL. PROCEDURE PERFORMED: Placement of left internal jugular cuffed tunneled hemodialysis catheter, fluoroscopy and ultrasound used. DESCRIPTION OF PROCEDURE: The patient was taken to the operating room from the cardiac labeling strategist. His neck and chest were prepared with ChloraPrep and draped in routine fashion. Local anesthetic was infiltrated in the skin and subcutaneous tissue about the operative sites. Using ultrasound, the left internal jugular vein was cannulated with a trocar catheter, J-wire threaded, trocar catheter removed. Skin site enlarged sharply. Stab incision was made over the left chest. Tunneling device was used to tunnel the precurved [employer] cuffed tunneled hemodialysis catheter between the 2 incisions, placed the fabric cuff beneath the skin exit site, securing the catheter with 3-0 nylon suture. Sterile dressing applied. Small and medium size dilators placed over the J-wire into the internal jugular vein and removed. Dilator and Peel-Away sheath placed over the J-wire into the internal jugular vein under fluoroscopic visualization, passed into the superior vena cava, removing the J-wire and dilator. Catheter placed with Peel-Away sheath. Peel-Away sheath removed. Fluoroscopic images revealed good line placement. Platysma was approximated with 4-0 Monocryl, skin with subdermal 4-0 Monocryl, and [place] glue and sterile dressings applied. Each port aspirated blood, flushed with saline solution and heparinized saline solution with 1000 units of heparin per mL, indicating volume of the port. The patient tolerated the procedure well and Dr. Gregorio proceeding with the defibrillator in the right subclavian. Job ID: [id number]
[2020-05-10] MEDS ORDERED: PROPOFOL 200 MG/20 ML VIAL ONE (10:44)
[2020-05-10] MEDS ORDERED: Ondansetron PF 4 MG/2 ML Vial IVP PRN (12:05)
[2020-05-10] MEDS ORDERED: Promethazine HCl 25 MG/ML VIAL IM/IV PRN (12:06)
--- NOTE | 2020-05-10 12:07 | PDOC.EP ---
- Subjective Date: 05/10/20 Time: 12:05 Interval History: follow up for VT. Patient feels well voicing no cardiac concerns or complaints. - Review of Systems Constitutional: denies: chills, fever, malaise, sweats, weakness, other Respiratory: denies: cough, dry, hemoptysis, pleuritic pain, shortness of breath , SOB with excertion, sputum, wheezing, other Cardiology: denies: chest pain, edema, heart racing, light headedness, paroxysmal noc. dyspnea, orthopnea, palpitations, passing out, pleuritic pain, pressure, swelling, other Gastrointestinal: denies: abdominal pain, constipation, diarrhea, hematochezia, melena, nausea, vomitting, other Musculoskeletal: reports: unstable gait, shoulder pain. denies: falls, neck pain, arm pain - Objective Allergies/Adverse Reactions: Allergies Allergy/AdvReac Type Severity Reaction Status Date / Time No Known Allergies Allergy Verified 03/22/20 08:58 Current Medications Acetaminophen (Tylenol) 650 mg PO HSPRN PRN PRN Reason: Pain Last Admin: 05/07/20 20:52 Dose: 650 mg Albuterol/Ipratropium (Duoneb) 3 ml NEB [id number] PRN PRN Reason: SOB &/or Wheezing Allopurinol (Zyloprim) 100 mg PO QAM [facility] Last Admin: 05/09/20 10:17 Dose: 100 mg Amiodarone HCl (Cordarone) 200 mg PO TID [facility] Last Admin: 05/09/20 19:45 Dose: 200 mg Aspirin (Aspirin Chewable) 81 mg PO DAILY [facility] Last Admin: 05/09/20 10:17 Dose: 81 mg Atorvastatin Calcium (Lipitor) 80 mg PO HS [facility] Last Admin: 05/09/20 19:46 Dose: 80 mg Dextrose/Water (Dextrose 50%) 25 gm SLOW IVP PRN PRN PRN Reason: Hypoglycemia Diphenhydramine HCl (Benadryl) 50 mg PO DAILYPRN PRN PRN Reason: Allergies Glucagon (Glucagon) 1 mg IM PRN PRN PRN Reason: Hypoglycemia Heparin Sodium (Porcine) (Heparin) 5,000 units SC TID [facility] Last Admin: 05/09/20 19:46 Dose: 5,000 units Dextrose/Water (D5w) 1,000 mls @ 0 mls/hr IV .Q0M PRN PRN Reason: Hypoglycemia Ceftriaxone Sodium 1 gm/ (Sodium Chloride) 100 mls @ 0 mls/hr IVPB 1400 [facility] Last Admin: 05/09/20 14:53 Dose: 100 mls Cefazolin Sodium/Dextrose 2 gm (/ Device) 50 mls @ 100 mls/hr IVPB ONCALL-OR [facility] Insulin Human Isoph/Insulin Regular (Humulin 70/30) 30 units SC BID-AC [facility] Last Admin: 05/09/20 16:44 Dose: 30 unit Insulin Human Lispro (Humalog) 0 units SC .MILD SLIDING SCALE PRN PRN Reason: Mild Correctional Scale Nitroglycerin (Nitrostat) 0.4 mg SL Q5MIN PRN PRN Reason: Chest Pain Ranolazine (Ranexa) 500 mg PO BID [facility] Last Admin: 05/09/20 19:52 Dose: 500 mg Tizanidine HCl (Zanaflex) 4 mg PO DAILYPRN PRN PRN Reason: Muscle Spasm Last Admin: 05/07/20 20:52 Dose: 4 mg Zolpidem Tartrate (Ambien) 5 mg PO HSPRN PRN PRN Reason: Insomnia Last Admin: 05/09/20 21:28 Dose: 5 mg Vital Signs & Weight: Vital Signs Temp 05/10/20 04:00 98.7 F Weight 272 lb 11.389 oz I/O: I/O 05/09/20 05/10/20 05/11/20 06:59 06:59 06:59 Intake Total 1033.2 1000 Output Total 550 200 Balance 483.2 800 - Physical Exam General: alert & oriented x3, appears well, no apparent distress, speech clear, affect appropriate HEENT: mucus membranes moist, normocephaly Neck: supple neck, midline trachea, no JVD/HJR, no masses, no bruit, no lymphadenopathy, no thromegaly Cardiology: regular rate and rhythm, no murmur, regular rate, regular rhythm, PMI nondisplaced Lungs: clear to auscultation, normal breath sounds, normal exam, no wheeze, rales, rhonchi, no wheezes, no rales, no rhonchi Neurology: cranial nerve 2-12 intact, grossly intact, coordination normal Abdomen: unremarkable, active bowel sounds, HJR negative - Labs Result Diagrams: 05/12/20 04:05 05/12/20 04:05 - EKG Interpretation EKG Method: Telemetry EKG shows: Sinus rhythm - Assessment/Plan Assessment/Plan: 1. sustained ventricular tachycardia - primary VT event has no reversible causes have been identified 2. CAD - prior 3 vessel bypass. RCA and graft to RCA confirmed 100% occlusion by left heart catheterization 05/08/2020 3. obesity 4. end-stage renal disease 5. history of mildly reduced LVEF, 45% from outpatient echocardiogram in the past - LVEF unchanged according to left heart catheterization report -NYHA functional class 3 symptoms Left heart catheterization did not reveal any new occlusive coronary artery disease. Easily inducible for ventricular tachycardia during the electrophysiology study. ICD implant was attempted however I was unable to access the right subclavian vein so no ICD could be placed. Recommend LifeVest , if anatomically feasible, and plan to insert left subclavian venous ICD vs subcutaneous ICD after AV fistula matures.Continue oral amiodarone taper.
--- NOTE | 2020-05-10 12:09 | OP ---
DATE OF PROCEDURE: 05/10/2020 PROCEDURE PERFORMED: Electrophysiology study. ADDITIONAL REFERRING PHYSICIAN: Dr. Pineda. REASON FOR PROCEDURE: Mr. Saldana is a 74-year-old male who presents with primary ventricular tachycardia requiring amiodarone suppression. He also has a known coronary artery disease with prior bypass surgery and ischemic cardiomyopathy. The LVEF is 40% to 45%, here for EP study to assess inducibility of arrhythmia while on amiodarone. DESCRIPTION OF PROCEDURE: The patient received deep sedation by Anesthesia specialist. After adequate level of sedation achieved the right femoral venous area was prepped, draped, and anesthetized using subcutaneous lidocaine. Under ultrasound guidance, the right femoral vein was cannulated and a 6-Lao short sheath was introduced through which a decapolar pace mapping catheter was advanced to the right atrium, then to the right subclavian vein, then the His bundle area and RV. Pace mapping and recording were performed at each location with the following findings. BASELINE MEASUREMENTS: Baseline rhythm is sinus rhythm with RR 802 milliseconds , PA 281 milliseconds, QRS 160 milliseconds, QT 412 milliseconds, AH is 206 milliseconds, HV 67 milliseconds. The sinus node recovery time was 400 milliseconds. Corrected sinus node recovery time is 400 milliseconds. No VA conduction was seen. AV cat Wenckebach cycle was measured at 670 milliseconds. No VA conduction was seen retrogradely from ventricular pacing at 700 milliseconds. The AV cat ERP measured at 700/420 milliseconds without dual AV cat physiology demonstrated. Ventral ERP is measured at 600/280 milliseconds. No VA conduction was seen. Burst atrial pacing induced a non sustained atrial tachycardia with cycle length about 380 milliseconds seen. With [address] train, ventricular extrastimuli testing was performed up to 3 ventricular extrastimuli, which were determined to be refractory period. With 3 closely coupled VES we were able to induce a ventricular tachycardia with cycle length of 337 milliseconds, Left bundle, left axis in morphology Requiring cardioversion. CONCLUSION: 1. Inducible ventricular tachycardia requiring defibrillation. 2. Inducible atrial tachycardia, responding to atrial overdrive pacing. 3. Borderline sinus cat function. 4. Abnormal AV cat function, high Wenckebach during sedation. 5. Borderline His-Purkinje function, HV interval 67 milliseconds. 6. No VA conduction at baseline. 7. Cardiac silhouette did not change with the study. PLAN: 1. Proceed with dual-chamber ICD implant. 2. Continue amiodarone suppression. Job ID: [id number] [facility]
[2020-05-10] MEDS ORDERED: Acetaminophen/Codeine 30-300mg Tablet PO PRN ×2 (12:30)
--- NOTE | 2020-05-10 12:31 | PRG ---
DATE OF SERVICE: 05/10/2020 SUBJECTIVE: Status post new AICD in place, somewhat nauseated but denies any difficulty breathing. OBJECTIVE: VITAL SIGNS: Saturations are 95%. His pulse is 80. Blood pressure 130/70. CHEST: Decreased breath sounds. Anterior rhonchi. CARDIAC: Normal S1, S2. No gallops. ABDOMEN: Massive. EXTREMITIES: Trace edema. ASSESSMENT: 1. Respiratory failure, congestive heart failure, Chronic obstructive pulmonary disease. 2. Morbid obesity and severe deconditioning. PLAN: Continue present neb treatment, supportive care. We will follow in the ICU. Job ID: [id number]
[2020-05-10 12:46] LABS: Anion Gap 15 mmol/L (10-20); BUN (Urea Nitrogen) 56 mg/dL (8.4-25.7); Calc. Creatinine Clearance 19 mL/min (70-130); Calcium 8.9 mg/dL (7.8-10.44); Carbon Dioxide 24 mmol/L (23-31); Chloride 97 mmol/L (98-107); Estimated GFR-MDRD 9; Glucose 94 mg/dL (83-110); Potassium 4.4 mmol/L (3.5-5.1); Sodium 132 mmol/L (136-145)
[2020-05-10] MEDS: cefTRIAXone\\ROCEPHIN 1 GM in Sodium Chloride 0.9% 100 ML IVPB SCH (13:30)
--- NOTE | 2020-05-10 13:34 | RAD ---
PORTABLE CHEST: INDICATION: Assess catheter placement. COMPARISON: 05/07/2020. FINDINGS: Cardiomegaly with postop sternotomy change. Mild vascular congestion appears stable. Hazy atelectas is or infiltrate in the left lung base. A new dual-lumen central line has been placed via the left j ugular. The tip overlies the SVC. IMPRESSION: Cardiomegaly with mild vascular congestion which appears stable. Hazy atelectasis or infiltrate in t he left lung base is noted. POS: AH
[2020-05-10 14:14] LABS: SARS-CoV-2 MS2 Positive; SARS-CoV-2 N Gene Negative; SARS-CoV-2 S Gene Negative; SARS-CoV-2 orf1ab Negative
--- NOTE | 2020-05-10 15:38 | PDOC.HOSPP ---
- Subjective Encounter Date: 05/10/20 Encounter Time: 12:00 Subjective: The patient underwent EP study but not successful since unable to access right subclavian vein. Patient went for dialysis catheter placement on left side this am He reports feeling very nauseous, and wants to dry heave. He is requesting phenergan, however interaction with amiodarone and last QT 479 - Objective Vital Signs & Weight: Vital Signs (12 hours) Temp 05/10/20 04:00 98.7 F Weight Weight 272 lb 11.389 oz Most Recent Monitor Data Heart Rate from ECG 70 NIBP 143/61 NIBP BP-Mean 88 Respiration from ECG 18 SpO2 93 I&O: 05/09/20 05/10/20 05/11/20 06:59 06:59 06:59 Intake Total 1033.2 1000 Output Total 550 200 Balance 483.2 800 Result Diagrams: 05/09/20 03:25 05/10/20 12:14 Additional Labs: Accuchecks 05/09/20 05/09/20 16:52 12:55 POC Glucose 121 H 113 H Hospitalist ROS - Review of Systems Constitutional: denies: fever, chills - Medication Medications: Active Medications Generic Name Dose Route Start Last Admin Trade Name Freq PRN Reason Stop Dose Admin Acetaminophen 650 mg 05/07/20 13:21 05/07/20 20:52 Tylenol PO 650 mg HSPRN PRN Administration Pain Allopurinol 100 mg 05/08/20 09:00 05/10/20 09:00 Zyloprim PO Not Given QAM RAYNA Amiodarone HCl 200 mg 05/08/20 21:00 05/10/20 09:00 Cordarone PO Not Given TID RAYNA Aspirin 81 mg 05/08/20 09:00 05/10/20 09:00 Aspirin Chewable PO Not Given DAILY RAYNA Atorvastatin Calcium 80 mg 05/07/20 21:00 05/09/20 19:46 Lipitor PO 80 mg HS RAYNA Administration Heparin Sodium (Porcine) 5,000 units 05/08/20 21:00 05/10/20 09:00 Heparin SC Not Given TID RAYNA Ceftriaxone Sodium 1 gm/ 100 mls @ 0 mls/hr 05/07/20 14:00 05/10/20 13:30 Sodium Chloride IVPB 100 mls 1400 RAYNA Administration Insulin Human Isoph/Insulin Regular 30 units 05/07/20 16:30 05/10/20 07:30 Humulin 70/30 SC Not Given BID-AC [facility] Promethazine HCl 12.5 mg 05/10/20 12:06 05/10/20 12:27 Phenergan IM/IV 12.5 mg Q6H PRN Administration Nausea/Vomiting Ranolazine 500 mg 05/07/20 21:00 05/10/20 09:00 Ranexa PO Not Given BID RAYNA Tizanidine HCl 4 mg 05/07/20 12:25 05/07/20 20:52 Zanaflex PO 4 mg DAILYPRN PRN Administration Muscle Spasm Zolpidem Tartrate 5 mg 05/08/20 19:07 05/09/20 21:28 Ambien PO 5 mg HSPRN PRN Administration Insomnia - Exam General Appearance: NAD, awake alert Eye: PERRL, anicteric sclera ENT: normocephalic atraumatic, no oropharyngeal lesions Neck: no JVD Heart: RRR, no murmur, no gallops, no rubs Respiratory: CTAB, no wheezes, no rales, no ronchi Gastrointestinal: soft, non-tender, non-distended, normal bowel sounds, no hepatomegaly Extremities: no cyanosis, no clubbing, no edema Skin: normal turgor, no lesions, no rashes Neurological: cranial nerve grossly intact, normal sensation to touch, no focal deficits, no new deficit Hosp A/P - Plan Cardiac cath: occluded RCA, occluded SVG to RCA, occluded proximal LAD, separate ostium, patent FRANCOIS to LAD, fills RCA from LAD collaterals. Patent SVG to diagonal. Patent Left circumflex, separate ostium. LEVEF 45%. Inferior akinesis. This is 74 year old male who presented with chest pain, was found to be in v- tach, admitted on amiodarone drip #Symptomatic Vtach #Chest tightness -off amiodarone drip. Cardiac cath showed occluded RCA, SVG to RCA, proximal LAD. No lesions amenable to intervention - On oral amiodarone 200 mg tid. EP study showed Vtach easily inducible, however unable to place ICD - continue to monitor Nausea - add zofran prn - phenergan 12.5 mg q hours prn if QT not prolonged #UTI - UA showed turbid urine, urine culture normal, however sent after antibiotics - continue ceftriaxone for total 7 days ESRD - continue dialysis as scheduled Type II Diabetes - controlled - hemoglobin A1C 6.1 -continue home NPH Anemia - Hb 12, stable
[2020-05-10] MEDS: ceFAZolin 1 GM/D5W 1 GM in Premix Bag 1 BAG IVPB SCH ×2 (15:53→23:50)
--- NOTE | 2020-05-10 17:24 | PDOC.CPN ---
- Objective Allergies/Adverse Reactions: Allergies Allergy/AdvReac Type Severity Reaction Status Date / Time No Known Allergies Allergy Verified 03/22/20 08:58 Visit Medications: Current Medications Acetaminophen (Tylenol) 650 mg PO HSPRN PRN PRN Reason: Pain Last Admin: 05/07/20 20:52 Dose: 650 mg Acetaminophen/Codeine Phosphate (Tylenol #3) 1 tab PO Q4H PRN PRN Reason: Mild Pain (1-3) Acetaminophen/Codeine Phosphate (Tylenol #3) 2 tab PO Q4H PRN PRN Reason: Moderate Pain (4-6) Albuterol/Ipratropium (Duoneb) 3 ml NEB [id number] PRN PRN Reason: SOB &/or Wheezing Allopurinol (Zyloprim) 100 mg PO QAM [facility] Last Admin: 05/10/20 09:00 Dose: Not Given Amiodarone HCl (Cordarone) 200 mg PO TID [facility] Last Admin: 05/10/20 15:52 Dose: Not Given Aspirin (Aspirin Chewable) 81 mg PO DAILY [facility] Last Admin: 05/10/20 09:00 Dose: Not Given Atorvastatin Calcium (Lipitor) 80 mg PO HS [facility] Last Admin: 05/09/20 19:46 Dose: 80 mg Cephalexin (Keflex) 500 mg PO BID [facility] Dextrose/Water (Dextrose 50%) 25 gm SLOW IVP PRN PRN PRN Reason: Hypoglycemia Diphenhydramine HCl (Benadryl) 50 mg PO DAILYPRN PRN PRN Reason: Allergies Glucagon (Glucagon) 1 mg IM PRN PRN PRN Reason: Hypoglycemia Heparin Sodium (Porcine) (Heparin) 5,000 units SC TID [facility] Last Admin: 05/10/20 15:52 Dose: Not Given Dextrose/Water (D5w) 1,000 mls @ 0 mls/hr IV .Q0M PRN PRN Reason: Hypoglycemia Ceftriaxone Sodium 1 gm/ (Sodium Chloride) 100 mls @ 0 mls/hr IVPB 1400 [facility] Last Admin: 05/10/20 13:30 Dose: 100 mls Cefazolin Sodium/Dextrose 2 gm (/ Device) 50 mls @ 100 mls/hr IVPB ONCALL-OR RAYNA Cefazolin Sodium/Dextrose 1 gm (/ Device) 50 mls @ 100 mls/hr IVPB 0000,1600 [facility] Stop: 05/11/20 00:29 Last Admin: 05/10/20 15:53 Dose: Not Given Insulin Human Isoph/Insulin Regular (Humulin 70/30) 30 units SC BID-AC [facility] Last Admin: 05/10/20 07:30 Dose: Not Given Insulin Human Lispro (Humalog) 0 units SC .MILD SLIDING SCALE PRN PRN Reason: Mild Correctional Scale Nitroglycerin (Nitrostat) 0.4 mg SL Q5MIN PRN PRN Reason: Chest Pain Ondansetron HCl (Zofran) 4 mg IVP Q6H PRN PRN Reason: Nausea/Vomiting Promethazine HCl (Phenergan) 12.5 mg IM/IV Q6H PRN PRN Reason: Nausea/Vomiting Last Admin: 05/10/20 12:27 Dose: 12.5 mg Ranolazine (Ranexa) 500 mg PO BID [facility] Last Admin: 05/10/20 09:00 Dose: Not Given Sodium Chloride (Flush - Normal Saline) 10 ml IVF PRN PRN PRN Reason: Saline Flush Tizanidine HCl (Zanaflex) 4 mg PO DAILYPRN PRN PRN Reason: Muscle Spasm Last Admin: 05/07/20 20:52 Dose: 4 mg Zolpidem Tartrate (Ambien) 5 mg PO HSPRN PRN PRN Reason: Insomnia Last Admin: 05/09/20 21:28 Dose: 5 mg Vital Signs & Weight: Vital Signs Pulse Ox 05/10/20 11:30 98 Weight 272 lb 11.389 oz - Labs Result Diagrams: 05/09/20 03:25 05/10/20 12:14 Troponin/CKMB CK-MB (CK-2) 1.4 ng/mL (0-6.6) 05/09/20 03:25 Troponin I 0.087 ng/mL (< 0.028) H 05/09/20 03:25 - Assessment/Plan Assessment/Plan: 1. Inducible VT 2. CAD. 3. Inferior scar 4. ESRD on HD 5. Ischemic CM EF at 45% 6. Obesity PLAN: - AICD attempted to be placed on right side but vein was not adequate. Plan is to set up with a lifevest, continue amiodarone load. Once fistula matured take out left sided tunneled catheter and set up for left sided AICD placement. - Continue amiodarone load.
[2020-05-10] MEDS: Atorvastatin Calcium 40 MG TAB PO SCH (21:05)
[2020-05-10] MEDS: Zolpidem Tartrate 5 MG TAB PO PRN (21:09)
[2020-05-11] MEDS ORDERED: Promethazine HCl 12.5 MG in Sodium Chloride 0.9% 50 ML IVPB PRN (00:35)
[2020-05-11 04:19] LABS: Hemoglobin 11.2 g/dL (14.0-18.0); Mean Corpuscular Hemoglobin 29.2 pg (27.0-31.0); Mean Corpuscular Volume 91.5 fL (78.0-98.0); Mean Platelet Volume 9.1 fL (7.4-10.4); Platelet Count 173 thou/uL (130-400); RBC Distribution Width 15.8 % (11.5-14.5); Red Blood Cell (RBC) Count 3.82 mill/uL (4.70-6.10)
[2020-05-11 04:43] LABS: Anion Gap 16 mmol/L (10-20); BUN (Urea Nitrogen) 34 mg/dL (8.4-25.7); Calc. Creatinine Clearance 25 mL/min (70-130); Calcium 8.6 mg/dL (7.8-10.44); Carbon Dioxide 22 mmol/L (23-31); Chloride 97 mmol/L (98-107); Estimated GFR-MDRD 12; Glucose 98 mg/dL (83-110); Potassium 4.1 mmol/L (3.5-5.1); Sodium 131 mmol/L (136-145)
[2020-05-11] MEDS ORDERED: ceFAZolin 1 GM/D5W 1 GM in Premix Bag 1 BAG IVPB SCH (08:00)
[2020-05-11] MEDS: HumuLIN 70/30 (300 UNITS/3 ML VIAL) SC SCH ×2 (08:35→17:40)
[2020-05-11] MEDS: Cephalexin 250 MG CAP PO SCH ×2 (08:36→21:55)
[2020-05-11] MEDS: Heparin 5,000 UNITS/ML VIAL SC SCH ×3 (08:36→21:55)
[2020-05-11] MEDS: Allopurinol 100 MG TAB PO SCH (08:36)
[2020-05-11] MEDS: Aspirin Chewable 81 MG TAB PO SCH (08:37)
[2020-05-11] MEDS: Amiodarone 200 MG TAB PO SCH ×3 (08:37→21:55)
[2020-05-11] MEDS ORDERED: Carvedilol 3.125 MG TAB PO SCH (09:00)
[2020-05-11] MEDS ORDERED: Albuterol Sulfate HFA (OR ONLY) INH PRN (11:21)
[2020-05-11] MEDS ORDERED: Mometasone 200 MCG/Formoterol 5 MCG 120 PUFF INHALER INH SCH (11:45)
[2020-05-11] MEDS ORDERED: Albuterol 200 PUFF (6.7GM INHALER) INH PRN (11:45)
--- NOTE | 2020-05-11 12:00 | PRG ---
DATE OF SERVICE: 05/11/2020 OBJECTIVE: VITAL SIGNS: Temperature 98, pulse 81, respirations rate 18, saturations are 92% on room air, blood pressure . GENERAL: He is doing well. Less short of breath. CHEST: No wheezing. No crackles. CARDIAC: Normal S1 . ASSESSMENT AND PLAN: Chronic renal failure, cardiac arrhythmias, status post automatic implantable cardioverter-defibrillator. Continue PT, supportive care. We will follow. Job ID: [id number]
[2020-05-11] MEDS: cefTRIAXone\\ROCEPHIN 1 GM in Sodium Chloride 0.9% 100 ML IVPB SCH (15:12)
--- NOTE | 2020-05-11 17:08 | PDOC.HOSPP ---
- Subjective Encounter Date: 05/11/20 Encounter Time: 08:00 Subjective: The patient appears to be much better today. He states his nausea has resolved and phenergan helped him sleep He denies palpitations. The patient states he is anxious to get out of bed and ambulate - Objective Vital Signs & Weight: Vital Signs (12 hours) Temp Pulse Resp BP BP Pulse Ox 05/11/20 15:35 98.8 F 69 18 122/55 L 94 L 05/11/20 11:56 98.4 F 79 20 126/59 L 94 L 05/11/20 08:03 98.7 F 81 18 140/62 92 L Weight Weight 272 lb 11.389 oz Most Recent Monitor Data Heart Rate from ECG 76 NIBP 137/66 NIBP BP-Mean 89 Respiration from ECG 15 SpO2 89 I&O: 05/10/20 05/11/20 05/12/20 06:59 06:59 06:59 Intake Total 1000 521 Output Total 200 450 Balance 800 71 Result Diagrams: 05/11/20 04:08 05/11/20 04:08 Additional Labs: Accuchecks 05/11/20 05/11/20 05/10/20 11:14 06:03 18:51 POC Glucose 133 H 112 H 94 05/10/20 05/10/20 05/09/20 11:50 05:43 21:50 POC Glucose 89 84 120 H 05/08/20 05/08/20 05/08/20 20:41 17:25 15:22 POC Glucose 151 H 100 103 Hospitalist ROS - Review of Systems Constitutional: denies: fever, chills - Medication Medications: Active Medications Generic Name Dose Route Start Last Admin Trade Name Freq PRN Reason Stop Dose Admin Acetaminophen 650 mg 05/07/20 13:21 05/07/20 20:52 Tylenol PO 650 mg HSPRN PRN Administration Pain Allopurinol 100 mg 05/08/20 09:00 05/11/20 08:36 Zyloprim PO 100 mg QAM RAYNA Administration Amiodarone HCl 200 mg 05/08/20 21:00 05/11/20 15:12 Cordarone PO 200 mg TID RAYNA Administration Aspirin 81 mg 05/08/20 09:00 05/11/20 08:37 Aspirin Chewable PO 81 mg DAILY RAYNA Administration Atorvastatin Calcium 80 mg 05/07/20 21:00 05/10/20 21:05 Lipitor PO 80 mg HS RAYNA Administration Cephalexin 500 mg 05/11/20 09:00 05/11/20 08:36 Keflex PO 500 mg BID RAYNA Administration Heparin Sodium (Porcine) 5,000 units 05/08/20 21:00 05/11/20 15:12 Heparin SC 5,000 units TID RAYNA Administration Ceftriaxone Sodium 1 gm/ 100 mls @ 0 mls/hr 05/07/20 14:00 05/11/20 15:12 Sodium Chloride IVPB 100 mls 1400 RAYNA Administration Promethazine HCl 12.5 mg/ 50.5 mls @ 202 mls/hr 05/11/20 00:35 05/11/20 00:52 Sodium Chloride IVPB 50.5 mls Q6H PRN Administration Nausea Insulin Human Isoph/Insulin Regular 30 units 05/07/20 16:30 05/11/20 08:35 Humulin 70/30 SC 30 unit BID-AC RAYNA Administration Promethazine HCl 12.5 mg 05/10/20 12:06 05/10/20 12:27 Phenergan IM/IV 12.5 mg Q6H PRN Administration Nausea/Vomiting Ranolazine 500 mg 05/07/20 21:00 05/11/20 08:37 Ranexa PO 500 mg BID RAYNA Administration Sodium Chloride 10 ml 05/10/20 12:30 05/10/20 21:07 Flush - Normal Saline IVF 10 ml PRN PRN Administration Saline Flush Tizanidine HCl 4 mg 05/07/20 12:25 05/07/20 20:52 Zanaflex PO 4 mg DAILYPRN PRN Administration Muscle Spasm Zolpidem Tartrate 5 mg 05/08/20 19:07 05/10/20 21:09 Ambien PO 5 mg HSPRN PRN Administration Insomnia - Exam General Appearance: NAD, awake alert Eye: PERRL, anicteric sclera ENT: normocephalic atraumatic, no oropharyngeal lesions Neck: no JVD Heart: RRR, no murmur, no gallops, no rubs Respiratory: CTAB, no wheezes, no rales, no ronchi, no tachypnea Gastrointestinal: soft, non-tender, non-distended, normal bowel sounds Extremities: no cyanosis, no clubbing, no edema Skin: normal turgor, no lesions, no rashes Neurological: cranial nerve grossly intact, normal sensation to touch, no focal deficits, no new deficit Hosp A/P - Plan Cardiac cath: occluded RCA, occluded SVG to RCA, occluded proximal LAD, separate ostium, patent FRANCOIS to LAD, fills RCA from LAD collaterals. Patent SVG to diagonal. Patent Left circumflex, separate ostium. LEVEF 45%. Inferior akinesis. This is 74 year old male who presented with chest pain, was found to be in v- tach, admitted on amiodarone drip #Symptomatic Vtach #Chest tightness -off amiodarone drip. Cardiac cath showed occluded RCA, SVG to RCA, proximal LAD. No lesions amenable to intervention - On oral amiodarone 200 mg tid. EP study showed Vtach easily inducible, however unable to place ICD - continue to monitor with amiodarone loading Nausea- resolved #UTI - UA showed turbid urine, urine culture normal, however sent after antibiotics - continue ceftriaxone for three more days ESRD - continue dialysis as scheduled Type II Diabetes - controlled - hemoglobin A1C 6.1 -continue home NPH Anemia - Hb 12, stable
[2020-05-11] MEDS: Carvedilol 3.125 MG TAB PO SCH (17:40)
--- NOTE | 2020-05-11 18:28 | PDOC.EP ---
- Subjective Date: 05/11/20 Time: 08:00 Interval History: Follow up for VT. Patient feels well voicing no cardiac concerns or complaints. Sore in both shoulders today after extensive procedure time yesterday. - Review of Systems Respiratory: denies: cough, dry, hemoptysis, pleuritic pain, shortness of breath , SOB with excertion, sputum, wheezing, other Cardiology: denies: chest pain, edema, heart racing, light headedness, paroxysmal noc. dyspnea, orthopnea, palpitations, passing out, pleuritic pain, pressure, swelling, other Gastrointestinal: denies: abdominal pain, constipation, diarrhea, hematochezia, melena, nausea, vomitting, other Musculoskeletal: denies: unstable gait, falls, neck pain, shoulder pain, arm pain, hand pain, leg pain, foot pain, other - Objective Allergies/Adverse Reactions: Allergies Allergy/AdvReac Type Severity Reaction Status Date / Time No Known Allergies Allergy Verified 03/22/20 08:58 Current Medications Acetaminophen (Tylenol) 650 mg PO HSPRN PRN PRN Reason: Pain Last Admin: 05/07/20 20:52 Dose: 650 mg Acetaminophen/Codeine Phosphate (Tylenol #3) 1 tab PO Q4H PRN PRN Reason: Mild Pain (1-3) Acetaminophen/Codeine Phosphate (Tylenol #3) 2 tab PO Q4H PRN PRN Reason: Moderate Pain (4-6) Albuterol Sulfate (Proventil Hfa) 2 puff INH Q6H PRN PRN Reason: Wheezing Albuterol/Ipratropium (Duoneb) 3 ml NEB [id number] PRN PRN Reason: SOB &/or Wheezing Allopurinol (Zyloprim) 100 mg PO QAM [facility] Last Admin: 05/11/20 08:36 Dose: 100 mg Amiodarone HCl (Cordarone) 200 mg PO TID [facility] Last Admin: 05/11/20 15:12 Dose: 200 mg Aspirin (Aspirin Chewable) 81 mg PO DAILY [facility] Last Admin: 05/11/20 08:37 Dose: 81 mg Atorvastatin Calcium (Lipitor) 80 mg PO HS [facility] Last Admin: 05/10/20 21:05 Dose: 80 mg Carvedilol (Coreg) 3.125 mg PO BID-[facility] Last Admin: 05/11/20 17:40 Dose: 3.125 mg Cephalexin (Keflex) 500 mg PO BID [facility] Last Admin: 05/11/20 08:36 Dose: 500 mg Dextrose/Water (Dextrose 50%) 25 gm SLOW IVP PRN PRN PRN Reason: Hypoglycemia Diphenhydramine HCl (Benadryl) 50 mg PO DAILYPRN PRN PRN Reason: Allergies Glucagon (Glucagon) 1 mg IM PRN PRN PRN Reason: Hypoglycemia Heparin Sodium (Porcine) (Heparin) 5,000 units SC TID [facility] Last Admin: 05/11/20 15:12 Dose: 5,000 units Dextrose/Water (D5w) 1,000 mls @ 0 mls/hr IV .Q0M PRN PRN Reason: Hypoglycemia Ceftriaxone Sodium 1 gm/ (Sodium Chloride) 100 mls @ 0 mls/hr IVPB 1400 [facility] Last Admin: 05/11/20 15:12 Dose: 100 mls Promethazine HCl 12.5 mg/ (Sodium Chloride) 50.5 mls @ 202 mls/hr IVPB Q6H PRN PRN Reason: Nausea Last Admin: 05/11/20 00:52 Dose: 50.5 mls Insulin Human Isoph/Insulin Regular (Humulin 70/30) 30 units SC BID-AC [facility] Last Admin: 05/11/20 17:40 Dose: 30 unit Insulin Human Lispro (Humalog) 0 units SC .MILD SLIDING SCALE PRN PRN Reason: Mild Correctional Scale Mometasone Furoate/Formoterol Fumar (Dulera 200 Mcg/5 Mcg Inhaler) 1 puff INH BID-RT [facility] Nitroglycerin (Nitrostat) 0.4 mg SL Q5MIN PRN PRN Reason: Chest Pain Ondansetron HCl (Zofran) 4 mg IVP Q6H PRN PRN Reason: Nausea/Vomiting Promethazine HCl (Phenergan) 12.5 mg IM/IV Q6H PRN PRN Reason: Nausea/Vomiting Last Admin: 05/10/20 12:27 Dose: 12.5 mg Ranolazine (Ranexa) 500 mg PO BID [facility] Last Admin: 05/11/20 08:37 Dose: 500 mg Sodium Chloride (Flush - Normal Saline) 10 ml IVF PRN PRN PRN Reason: Saline Flush Last Admin: 05/10/20 21:07 Dose: 10 ml Tizanidine HCl (Zanaflex) 4 mg PO DAILYPRN PRN PRN Reason: Muscle Spasm Last Admin: 05/07/20 20:52 Dose: 4 mg Zolpidem Tartrate (Ambien) 5 mg PO HSPRN PRN PRN Reason: Insomnia Last Admin: 05/10/20 21:09 Dose: 5 mg Vital Signs & Weight: Vital Signs Temp Pulse Resp BP BP Pulse Ox 05/11/20 15:35 98.8 F 69 18 122/55 L 94 L 05/11/20 11:56 98.4 F 79 20 126/59 L 94 L 05/11/20 08:03 98.7 F 81 18 140/62 92 L Weight 272 lb 11.389 oz I/O: I/O 05/10/20 05/11/20 05/12/20 06:59 06:59 06:59 Intake Total 1000 521 720 Output Total 200 450 Balance 800 71 720 - Physical Exam General: alert & oriented x3, appears well, no apparent distress, speech clear, affect appropriate HEENT: mucus membranes moist, normocephaly Neck: supple neck, midline trachea, no JVD/HJR, no masses, no bruit, no lymphadenopathy, no thromegaly Cardiology: regular rate and rhythm, no murmur, regular rate, regular rhythm, PMI nondisplaced Lungs: clear to auscultation, normal breath sounds, normal exam, no wheeze, rales, rhonchi, no wheezes, no rales, no rhonchi Neurology: cranial nerve 2-12 intact, grossly intact, motor function intact, sensory function intact, negative rhomberg, coordination normal, no lateralizing findings Abdomen: unremarkable, active bowel sounds, soft, non-tender, no masses, no pulsations/bruits, no hepatosplenomegaly, HJR negative Skin: swelling, other (right chest wall incision healing nicely. NO signs of infection.). negative: bruising, drainage, erosion, hematoma - Labs Result Diagrams: 05/11/20 04:08 05/11/20 04:08 - EKG Interpretation EKG Method: Telemetry EKG shows: Sinus rhythm - Assessment/Plan Assessment/Plan: 1. sustained ventricular tachycardia - primary VT event has no reversible causes have been identified 2. CAD - prior 3 vessel bypass. RCA and graft to RCA confirmed 100% occlusion by left heart catheterization 05/08/2020 3. obesity 4. end-stage renal disease 5. history of mildly reduced LVEF, 45% from outpatient echocardiogram in the past - LVEF unchanged according to left heart catheterization report -NYHA functional class 3 symptoms Left heart catheterization did not reveal any new occlusive coronary artery disease. Easily inducible for ventricular tachycardia during the electrophysiology study. ICD implant was attempted however I was unable to access the right subclavian vein so no ICD could be placed. Ordered Lifevest evaluation today, although I suspect his habitus may not accomodate this option. Plan to insert left sided ICD after AV fistula matures, otherwise would consider subcutaneous ICD placement. Continue oral amiodarone loading as ordered.
[2020-05-11] MEDS: Mometasone 200 MCG/Formoterol 5 MCG 120 PUFF INHALER INH SCH (18:47)
[2020-05-11] MEDS: Atorvastatin Calcium 40 MG TAB PO SCH (21:55)
[2020-05-11] MEDS: Zolpidem Tartrate 5 MG TAB PO PRN (21:56)
[2020-05-12 04:41] LABS: Hemoglobin 11.5 g/dL (14.0-18.0); Mean Corpuscular HGB CONC 31.2 g/dL (32.0-36.0); Mean Corpuscular Hemoglobin 28.6 pg (27.0-31.0); Mean Corpuscular Volume 91.9 fL (78.0-98.0); Mean Platelet Volume 9.4 fL (7.4-10.4); Platelet Count 172 thou/uL (130-400); RBC Distribution Width 15.8 % (11.5-14.5); Red Blood Cell (RBC) Count 4.01 mill/uL (4.70-6.10); White Blood Cell (WBC) Count 8.3 thou/uL (4.8-10.8)
[2020-05-12 05:01] LABS: Anion Gap 16 mmol/L (10-20); BUN (Urea Nitrogen) 48 mg/dL (8.4-25.7); Calc. Creatinine Clearance 20 mL/min (70-130); Calcium 8.7 mg/dL (7.8-10.44); Carbon Dioxide 23 mmol/L (23-31); Chloride 93 mmol/L (98-107); Estimated GFR-MDRD 9; Potassium 3.9 mmol/L (3.5-5.1); Sodium 128 mmol/L (136-145)
[2020-05-12 05:03] LABS: Glucose 48 mg/dL (83-110)
--- NOTE | 2020-05-12 05:07 | OP ---
DATE OF PROCEDURE: 05/10/2020 PROCEDURE PERFORMED: Attempted ICD implantation. REASON FOR PROCEDURE: Mr. Saldana is a 74-year-old man with prior history of coronary artery disease with bypass surgery, presenting with ventricular tachycardia, requiring amiodarone for suppression. He underwent an EP study demonstrating borderline sinus and AV cat function and easily inducible ventricular tachycardia, atrial tachycardia was also seen.EP study documented inducible ventricular tachycardia. A decision was made to proceed with a dual-chamber ICD implant. Mr. Saldana has end-stage renal disease and left upper arm fistula, therefore trying to avoid the left side, we plan to access the right subclavian vein. A venogram was performed both with the EP catheter and IV dye demonstrating patency. Ultrasound was also used for IV access. The vein was a small vein with overlying arterial structure and due to obesity, ultrasound visualization of the venous structures were limited. Attempt was made to visualize better with EP catheter placed in the right subclavian vein and the right axillary vein, but despite that no proper access was obtained. After multiple attempts, over 2 hours to attempt access, no venous access was obtained. Decision was made to close up the left subclavian wound and consider alternative options like LifeVest versus subcutaneous ICD at a later time. Monitor for bradyarrhythmias. CONCLUSION: Unsuccessful attempt to place dual-chamber ICD. Hence, difficult subclavian venous access. PLAN: LifeVest possibly or left sided transvenous or subcutaneous ICD after AV fistula matures. Job ID: [id number] [id number]
[2020-05-12] MEDS: Mometasone 200 MCG/Formoterol 5 MCG 120 PUFF INHALER INH SCH ×2 (07:19→19:23)
[2020-05-12] MEDS ORDERED: HumuLIN 70/30 (300 UNITS/3 ML VIAL) SC SCH ×2 (08:11→08:30)
[2020-05-12] MEDS ORDERED: Activase 2 MG VIAL CATH SCH (09:30)
[2020-05-12] MEDS: HumuLIN 70/30 (300 UNITS/3 ML VIAL) SC SCH ×2 (10:18→16:53)
--- NOTE | 2020-05-12 10:23 | PRG ---
DATE OF SERVICE: 05/12/2020 This morning, he is being dialyzed. He said he is having difficulty breathing, but denies any chest pain. I am going to put him on a schedule twice a day neb treatment to help his breathing. Otherwise, disposition as per the primary care physician. He probably has sleep apnea, but declined to have an outpatient sleep study done. Job ID: [id number]
--- NOTE | 2020-05-12 10:53 | PDOC.HOSPP ---
- Subjective Encounter Date: 05/12/20 Encounter Time: 08:30 Subjective: Mr. Saldana states that he is doing better today than he was yesterday. Last night his blood sugar dropped to 48 and he began to feel sweaty, but after drinking apple juice he felt fine. His humulin 70/30 was lowered from 30 units bid to 26 units bid to correct for the hypoglycemia. He urinated on his own this morning and stated that it appeared clear. As he was walking back to the bed he began to feel lightheaded, but as soon as he sat down on the bed the feeling went away. He received dialysis this morning. His incisions from surgery on 05/10 are less sore than yesterday, the one on the left shoulder hurts more than the right. He denies any nausea or palpitations. He denies any lightheadedness at this time as well. - Objective Vital Signs & Weight: Vital Signs (12 hours) Temp Pulse Resp BP Pulse Ox 05/12/20 07:54 97.5 F L 70 20 145/63 H 100 05/12/20 07:19 71 16 05/12/20 03:06 98.1 F 76 16 157/69 H 95 Weight Weight 277 lb 12.8 oz Most Recent Monitor Data Heart Rate from ECG 76 NIBP 137/66 NIBP BP-Mean 89 Respiration from ECG 15 SpO2 89 I&O: 05/11/20 05/12/20 05/13/20 06:59 06:59 06:59 Intake Total 521 960 Output Total 450 225 Balance 71 735 Result Diagrams: 05/12/20 04:05 05/12/20 04:05 Additional Labs: Accuchecks 05/12/20 05/12/20 05/11/20 10:35 05:20 22:39 POC Glucose 105 184 H 100 05/11/20 05/11/20 05/11/20 21:55 20:32 17:10 POC Glucose 45 L* 101 120 H 05/11/20 05/10/20 05/10/20 11:14 18:51 11:50 POC Glucose 133 H 94 89 05/10/20 05/09/20 05/08/20 05:43 21:50 20:41 POC Glucose 84 120 H 151 H 05/08/20 05/08/20 17:25 15:22 POC Glucose 100 103 Hospitalist ROS - Review of Systems Constitutional: reports: sweats (he had sweats yesterday when he was hypoglycemic (blood sugar = 48)). denies: fever, chills, weakness, malaise Respiratory: denies: cough, dry, shortness of breath, hemoptysis, SOB with excertion, pleuritic pain, sputum, wheezing, other Cardiovascular: denies: chest pain, palpitations, orthopnea, paroxysmal noc. dyspnea, edema, light headedness Gastrointestinal: denies: nausea, vomiting, abdominal pain, diarrhea Genitourinary: denies: dysuria, frequency, incontinence, hematuria, retention Musculoskeletal: reports: shoulder pain (from his surgeries on 05/10) Neurological: denies: weakness, numbness, incoordination, change in speech, confusion, seizures - Medication Medications: Active Medications Generic Name Dose Route Start Last Admin Trade Name Freq PRN Reason Stop Dose Admin Acetaminophen 650 mg 05/07/20 13:21 05/07/20 20:52 Tylenol PO 650 mg HSPRN PRN Administration Pain Allopurinol 100 mg 05/08/20 09:00 05/11/20 08:36 Zyloprim PO 100 mg QAM RAYNA Administration Amiodarone HCl 200 mg 05/08/20 21:00 05/11/20 21:55 Cordarone PO 200 mg TID RAYNA Administration Aspirin 81 mg 05/08/20 09:00 05/11/20 08:37 Aspirin Chewable PO 81 mg DAILY RAYNA Administration Atorvastatin Calcium 80 mg 05/07/20 21:00 05/11/20 21:55 Lipitor PO 80 mg HS RAYNA Administration Carvedilol 3.125 mg 05/11/20 17:00 05/11/20 17:40 Coreg PO 3.125 mg BID-WM RAYNA Administration Cephalexin 500 mg 05/11/20 09:00 05/11/20 21:55 Keflex PO 500 mg BID RAYNA Administration Dextrose/Water 25 gm 05/07/20 12:26 05/12/20 05:09 Dextrose 50% SLOW IVP 25 gm PRN PRN Administration Hypoglycemia Heparin Sodium (Porcine) 5,000 units 05/08/20 21:00 05/11/20 21:55 Heparin SC 5,000 units TID RAYNA Administration Promethazine HCl 12.5 mg/ 50.5 mls @ 202 mls/hr 05/11/20 00:35 05/11/20 00:52 Sodium Chloride IVPB 50.5 mls Q6H PRN Administration Nausea Mometasone Furoate/Formoterol Fumar 1 puff 05/11/20 18:30 05/12/20 07:19 Dulera 200 Mcg/5 Mcg Inhaler INH 1 puff BID-RT RAYNA Administration Promethazine HCl 12.5 mg 05/10/20 12:06 05/10/20 12:27 Phenergan IM/IV 12.5 mg Q6H PRN Administration Nausea/Vomiting Ranolazine 500 mg 05/07/20 21:00 05/11/20 21:55 Ranexa PO 500 mg BID RAYNA Administration Sodium Chloride 10 ml 05/10/20 12:30 05/11/20 21:58 Flush - Normal Saline IVF 10 ml PRN PRN Administration Saline Flush Tizanidine HCl 4 mg 05/07/20 12:25 05/07/20 20:52 Zanaflex PO 4 mg DAILYPRN PRN Administration Muscle Spasm Zolpidem Tartrate 5 mg 05/08/20 19:07 05/11/20 21:56 Ambien PO 5 mg HSPRN PRN Administration Insomnia - Exam General Appearance: NAD, awake alert Eye: PERRL, anicteric sclera ENT: normocephalic atraumatic, no oropharyngeal lesions, moist mucosa Neck: no JVD Heart: RRR, no murmur, no gallops, no rubs, normal peripheral pulses Respiratory: CTAB, no wheezes, no rales, no ronchi, no tachypnea Gastrointestinal: soft, non-tender, non-distended, normal bowel sounds Extremities: no cyanosis, no clubbing, no edema Skin: normal turgor, no lesions, no rashes Neurological: cranial nerve grossly intact, normal sensation to touch, no weakness, no focal deficits, no new deficit Psychiatric: normal affect, normal behavior, A&O x 3 Hosp A/P - Plan Cardiac cath: occluded RCA, occluded SVG to RCA, occluded proximal LAD, separate ostium, patent FRANCOIS to LAD, fills RCA from LAD collaterals. Patent SVG to diagonal. Patent Left circumflex, separate ostium. LEVEF 45%. Inferior akinesis. This is 74 year old male who presented with chest pain, was found to be in v- tach, admitted on amiodarone drip #Symptomatic Vtach #Chest tightness -off amiodarone drip. Cardiac cath showed occluded RCA, SVG to RCA, proximal LAD. No lesions amenable to intervention - On oral amiodarone 200 mg tid. EP study showed Vtach easily inducible, however unable to place ICD - plan to do ICD when AV fistula matures per Dr. Gregorio Hypoglycemia - blood sugar in the 40's yesterday and this morning - decrease lantus to 26 units SC BID #UTI - UA showed turbid urine, urine culture normal, however sent after antibiotics -was started on ceftriaxone, received for five days. Switch to cephalexin for two more days ESRD - continue dialysis as scheduled - continue to monitor electrolytes Type II Diabetes - controlled - hemoglobin A1C 6.1 - Humulin lowered from 30 units bid to 26 units bid to control hypoglycemia - continue NPH at home Anemia - Hb 12, stable Dispo: likely d/c tomorrow if not hypoglycemia
[2020-05-12] MEDS ORDERED: Heparin 10,000 UNITS/ 10 ML VIAL ONE (11:28)
--- NOTE | 2020-05-12 11:59 | PDOC.CPN ---
- Subjective Date: 05/12/20 Time: 11:56 Interval history: He is doing well. He has not had any more VT or VF and has tolerated amiodarone well. - Review of Systems General: denies: fever/chills, weight/appetite/sleep changes, night sweats, fatigue Respiratory: denies: cough, congestion, shortness of breath, exercise intolerance Cardiovascular: denies: chest pain, palpitation, edema, paroxysmal nocturnal dyspnea, orthopnea Gastrointestinal: denies: nausea, vomiting, diarrhea, constipation, abd pain, GI bleeding Musculoskeletal: denies: pain, tenderness, stiffness, swelling, arthritis/ arthralgias Neurological: denies: numbness, syncope, seizure, weakness - Objective Allergies/Adverse Reactions: Allergies Allergy/AdvReac Type Severity Reaction Status Date / Time No Known Allergies Allergy Verified 03/22/20 08:58 Visit Medications: Current Medications Acetaminophen (Tylenol) 650 mg PO HSPRN PRN PRN Reason: Pain Last Admin: 05/07/20 20:52 Dose: 650 mg Acetaminophen/Codeine Phosphate (Tylenol #3) 1 tab PO Q4H PRN PRN Reason: Mild Pain (1-3) Acetaminophen/Codeine Phosphate (Tylenol #3) 2 tab PO Q4H PRN PRN Reason: Moderate Pain (4-6) Albuterol Sulfate (Proventil Hfa) 2 puff INH Q6H PRN PRN Reason: Wheezing Albuterol/Ipratropium (Duoneb) 3 ml NEB Q6H PRN PRN Reason: SOB &/or Wheezing Albuterol/Ipratropium (Duoneb) 3 ml NEB BID-RT [facility] Allopurinol (Zyloprim) 100 mg PO QAM [facility] Last Admin: 05/11/20 08:36 Dose: 100 mg Alteplase, Recombinant (Cathflo) 2 mg CATH ASDIR [facility] Stop: 05/12/20 21:00 Amiodarone HCl (Cordarone) 200 mg PO TID [facility] Last Admin: 05/11/20 21:55 Dose: 200 mg Aspirin (Aspirin Chewable) 81 mg PO DAILY [facility] Last Admin: 05/11/20 08:37 Dose: 81 mg Atorvastatin Calcium (Lipitor) 80 mg PO HS [facility] Last Admin: 05/11/20 21:55 Dose: 80 mg Carvedilol (Coreg) 3.125 mg PO BID-[facility] Last Admin: 05/11/20 17:40 Dose: 3.125 mg Cephalexin (Keflex) 500 mg PO BID [facility] Last Admin: 05/11/20 21:55 Dose: 500 mg Dextrose/Water (Dextrose 50%) 25 gm SLOW IVP PRN PRN PRN Reason: Hypoglycemia Last Admin: 05/12/20 05:09 Dose: 25 gm Diphenhydramine HCl (Benadryl) 50 mg PO DAILYPRN PRN PRN Reason: Allergies Glucagon (Glucagon) 1 mg IM PRN PRN PRN Reason: Hypoglycemia Heparin Sodium (Porcine) (Heparin) 5,000 units SC TID [facility] Last Admin: 05/11/20 21:55 Dose: 5,000 units Dextrose/Water (D5w) 1,000 mls @ 0 mls/hr IV .Q0M PRN PRN Reason: Hypoglycemia Promethazine HCl 12.5 mg/ (Sodium Chloride) 50.5 mls @ 202 mls/hr IVPB Q6H PRN PRN Reason: Nausea Last Admin: 05/11/20 00:52 Dose: 50.5 mls Insulin Human Isoph/Insulin Regular (Humulin 70/30) 26 units SC BID-[facility] Insulin Human Lispro (Humalog) 0 units SC .MILD SLIDING SCALE PRN PRN Reason: Mild Correctional Scale Mometasone Furoate/Formoterol Fumar (Dulera 200 Mcg/5 Mcg Inhaler) 1 puff INH BID-RT [facility] Last Admin: 05/12/20 07:19 Dose: 1 puff Nitroglycerin (Nitrostat) 0.4 mg SL Q5MIN PRN PRN Reason: Chest Pain Ondansetron HCl (Zofran) 4 mg IVP Q6H PRN PRN Reason: Nausea/Vomiting Promethazine HCl (Phenergan) 12.5 mg IM/IV Q6H PRN PRN Reason: Nausea/Vomiting Last Admin: 05/10/20 12:27 Dose: 12.5 mg Ranolazine (Ranexa) 500 mg PO BID [facility] Last Admin: 05/11/20 21:55 Dose: 500 mg Sodium Chloride (Flush - Normal Saline) 10 ml IVF PRN PRN PRN Reason: Saline Flush Last Admin: 05/11/20 21:58 Dose: 10 ml Tizanidine HCl (Zanaflex) 4 mg PO DAILYPRN PRN PRN Reason: Muscle Spasm Last Admin: 05/07/20 20:52 Dose: 4 mg Zolpidem Tartrate (Ambien) 5 mg PO HSPRN PRN PRN Reason: Insomnia Last Admin: 05/11/20 21:56 Dose: 5 mg Vital Signs & Weight: Vital Signs Temp Pulse Resp BP Pulse Ox 05/12/20 07:54 97.5 F L 70 20 145/63 H 100 05/12/20 07:19 71 16 05/12/20 03:06 98.1 F 76 16 157/69 H 95 Weight 277 lb 12.8 oz - Physical Exam General: alert & oriented x3 HEENT: mucus membranes moist Neck: supple neck Cardiac: regular rate and rhythm Lungs: normal breath sounds Neuro: grossly intact Abdomen: active bowel sounds Extremities: no edema Skin: clear Musculoskeletal: no pain - Labs Result Diagrams: 05/12/20 04:05 05/12/20 04:05 Troponin/CKMB CK-MB (CK-2) 1.4 ng/mL (0-6.6) 05/09/20 03:25 Troponin I 0.087 ng/mL (< 0.028) H 05/09/20 03:25 - Telemetry Sinus rhythms and dysrhythmias: sinus rhythm - Assessment/Plan Assessment/Plan: 1. Inducible VT 2. CAD. 3. Inferior scar 4. ESRD on HD 5. Ischemic CM EF at 45% 6. Obesity PLAN: - AICD attempted to be placed on right side but vein was not adequate. - He is tolerating amiodarone load well and had not had any VT since amio was started. His VT was slow and minimally symptomatic. - Disposition per EP.
[2020-05-12] MEDS: Amiodarone 200 MG TAB PO SCH ×3 (13:17→21:14)
[2020-05-12] MEDS: Heparin 5,000 UNITS/ML VIAL SC SCH ×3 (13:18→21:15)
[2020-05-12] MEDS: Cephalexin 250 MG CAP PO SCH ×2 (15:04→21:14)
[2020-05-12] MEDS: Carvedilol 3.125 MG TAB PO SCH ×2 (15:04→16:50)
[2020-05-12] MEDS: Allopurinol 100 MG TAB PO SCH (15:04)
[2020-05-12] MEDS: Aspirin Chewable 81 MG TAB PO SCH (15:04)
--- NOTE | 2020-05-12 15:10 | PDOC.EP ---
- Subjective Date: 05/12/20 Time: 12:00 Interval History: No new symptoms. receiving HD. - Review of Systems Constitutional: denies: chills, fever, malaise, sweats, weakness, other Respiratory: denies: cough, dry, hemoptysis, pleuritic pain, shortness of breath , SOB with excertion, sputum, wheezing, other Cardiology: denies: chest pain, edema, heart racing, light headedness, paroxysmal noc. dyspnea, orthopnea, palpitations, passing out, pleuritic pain, pressure, swelling, other Musculoskeletal: denies: unstable gait, falls, neck pain, shoulder pain, arm pain, hand pain, leg pain, foot pain, other - Objective Allergies/Adverse Reactions: Allergies Allergy/AdvReac Type Severity Reaction Status Date / Time No Known Allergies Allergy Verified 03/22/20 08:58 Current Medications Acetaminophen (Tylenol) 650 mg PO HSPRN PRN PRN Reason: Pain Last Admin: 05/07/20 20:52 Dose: 650 mg Acetaminophen/Codeine Phosphate (Tylenol #3) 1 tab PO Q4H PRN PRN Reason: Mild Pain (1-3) Acetaminophen/Codeine Phosphate (Tylenol #3) 2 tab PO Q4H PRN PRN Reason: Moderate Pain (4-6) Albuterol Sulfate (Proventil Hfa) 2 puff INH Q6H PRN PRN Reason: Wheezing Albuterol/Ipratropium (Duoneb) 3 ml NEB Q6H PRN PRN Reason: SOB &/or Wheezing Albuterol/Ipratropium (Duoneb) 3 ml NEB BID-RT [facility] Allopurinol (Zyloprim) 100 mg PO QAM [facility] Last Admin: 05/11/20 08:36 Dose: 100 mg Alteplase, Recombinant (Cathflo) 2 mg CATH ASDIR [facility] Stop: 05/12/20 21:00 Amiodarone HCl (Cordarone) 200 mg PO TID [facility] Last Admin: 05/12/20 13:17 Dose: Not Given Aspirin (Aspirin Chewable) 81 mg PO DAILY [facility] Last Admin: 05/11/20 08:37 Dose: 81 mg Atorvastatin Calcium (Lipitor) 80 mg PO HS [facility] Last Admin: 05/11/20 21:55 Dose: 80 mg Carvedilol (Coreg) 3.125 mg PO BID-[facility] Last Admin: 05/11/20 17:40 Dose: 3.125 mg Cephalexin (Keflex) 500 mg PO BID [facility] Last Admin: 05/11/20 21:55 Dose: 500 mg Dextrose/Water (Dextrose 50%) 25 gm SLOW IVP PRN PRN PRN Reason: Hypoglycemia Last Admin: 05/12/20 05:09 Dose: 25 gm Diphenhydramine HCl (Benadryl) 50 mg PO DAILYPRN PRN PRN Reason: Allergies Glucagon (Glucagon) 1 mg IM PRN PRN PRN Reason: Hypoglycemia Heparin Sodium (Porcine) (Heparin) 5,000 units SC TID [facility] Last Admin: 05/12/20 13:18 Dose: Not Given Dextrose/Water (D5w) 1,000 mls @ 0 mls/hr IV .Q0M PRN PRN Reason: Hypoglycemia Promethazine HCl 12.5 mg/ (Sodium Chloride) 50.5 mls @ 202 mls/hr IVPB Q6H PRN PRN Reason: Nausea Last Admin: 05/11/20 00:52 Dose: 50.5 mls Insulin Human Isoph/Insulin Regular (Humulin 70/30) 26 units SC BID-[facility] Insulin Human Lispro (Humalog) 0 units SC .MILD SLIDING SCALE PRN PRN Reason: Mild Correctional Scale Mometasone Furoate/Formoterol Fumar (Dulera 200 Mcg/5 Mcg Inhaler) 1 puff INH BID-RT [facility] Last Admin: 05/12/20 07:19 Dose: 1 puff Nitroglycerin (Nitrostat) 0.4 mg SL Q5MIN PRN PRN Reason: Chest Pain Ondansetron HCl (Zofran) 4 mg IVP Q6H PRN PRN Reason: Nausea/Vomiting Promethazine HCl (Phenergan) 12.5 mg IM/IV Q6H PRN PRN Reason: Nausea/Vomiting Last Admin: 05/10/20 12:27 Dose: 12.5 mg Ranolazine (Ranexa) 500 mg PO BID [facility] Last Admin: 05/11/20 21:55 Dose: 500 mg Sodium Chloride (Flush - Normal Saline) 10 ml IVF PRN PRN PRN Reason: Saline Flush Last Admin: 05/11/20 21:58 Dose: 10 ml Tizanidine HCl (Zanaflex) 4 mg PO DAILYPRN PRN PRN Reason: Muscle Spasm Last Admin: 05/07/20 20:52 Dose: 4 mg Zolpidem Tartrate (Ambien) 5 mg PO HSPRN PRN PRN Reason: Insomnia Last Admin: 05/11/20 21:56 Dose: 5 mg Vital Signs & Weight: Vital Signs Temp Pulse Resp BP Pulse Ox 05/12/20 07:54 97.5 F L 70 20 145/63 H 100 05/12/20 07:19 71 16 Weight 277 lb 12.8 oz I/O: I/O 05/11/20 05/12/20 05/13/20 06:59 06:59 06:59 Intake Total 521 960 Output Total 450 225 Balance 71 735 - Physical Exam General: alert & oriented x3, appears well Neck: no JVD/HJR Cardiology: regular rate and rhythm, no murmur Lungs: clear to auscultation Neurology: grossly intact Abdomen: unremarkable Extremities: warm Skin: device site stable w/o swelling (Attempted Right SC incision) Musculoskeletal: no pain - Labs Result Diagrams: 05/12/20 04:05 05/12/20 04:05 - EKG Interpretation EKG Method: Telemetry EKG shows: Sinus rhythm - Assessment/Plan Assessment/Plan: 1. sustained ventricular tachycardia - primary VT event has no reversible causes have been identified. - Inducible for ventricular tachycardia during the electrophysiology study. - On Amiodarone loading. 2. CAD - prior 3 vessel bypass. No revascularisation planned. RCA and graft to RCA with 100% occlusion by left heart catheterization 05/08/2020 3. obesity 4. end-stage renal disease 5. history of mildly reduced LVEF, 45% from outpatient echocardiogram in the past - LVEF unchanged according to left heart catheterization report -NYHA functional class 3 symptoms Inducible for ventricular tachycardia during the electrophysiology study. ICD implant was attempted however I was unable to access the right subclavian vein so no ICD could be placed. Ordered Lifevest evaluation, although I suspect his habitus may not accomodate this option. Plan to insert left sided ICD after AV fistula matures, otherwise would consider subcutaneous ICD placement as outpt. Could go home with continued oral amiodarone loading as ordered. Discussed with dr Pineda/Colin. Also discussed with Dr Palafox, distant relative, who is an EP in [place]. Outpt monitor is advised.
--- NOTE | 2020-05-12 18:21 | PRG ---
DATE OF SERVICE: 05/12/2020 Mr. Saldana today initially had trouble dialyzing. stated his catheter would not work. It worked well for just after placement 2 days ago. The patient was given Cathflo and dialysis re-attempted and it worked well. Chest x-ray called for impending. Life Vest fitting is pending. The patient has a left IJ cuffed tunneled dialysis catheter and left arm fistula. We are trying to avoid left subclavian vein access to preserve fistula function, but Dr. Gregorio was unable to cannulate the right subclavian vein. At this point, if the Life Vest cannot be fitted, then next week I can work with Dr. Gregorio's sales service assistant (Dr. Gregorio will be out of town) and we can establish defibrillator placement Friday when his associate is in the town. At this point, I will see him as needed this and check on him Friday. Job ID: [id number]
--- NOTE | 2020-05-12 18:31 | RAD ---
PORTABLE CHEST: 05/12/20 HISTORY: Catheter dysfunction. COMPARISON: 05/10/20 exam. Heart size is enlarged. There are postop sternotomy change. Atherosclerotic changes are seen in the a edll. Left sided Hemosplit catheter appears unchanged in position or appearance as compared to the pr ior exam. No focal infiltrative process. IMPRESSION: Stable exam. POS: FE
[2020-05-12] MEDS: Atorvastatin Calcium 40 MG TAB PO SCH (21:14)
[2020-05-12] MEDS: Zolpidem Tartrate 5 MG TAB PO PRN (21:14)
[2020-05-13] MEDS: Acetaminophen 325 MG TAB PO PRN (03:49)
[2020-05-13 05:31] LABS: Hemoglobin 11.2 g/dL (14.0-18.0); Mean Corpuscular HGB CONC 32.1 g/dL (32.0-36.0); Mean Corpuscular Hemoglobin 29.7 pg (27.0-31.0); Mean Corpuscular Volume 92.4 fL (78.0-98.0); Mean Platelet Volume 9.2 fL (7.4-10.4); Platelet Count 192 thou/uL (130-400); RBC Distribution Width 15.7 % (11.5-14.5); Red Blood Cell (RBC) Count 3.79 mill/uL (4.70-6.10)
[2020-05-13 06:03] LABS: Anion Gap 17 mmol/L (10-20); BUN (Urea Nitrogen) 37 mg/dL (8.4-25.7); Calc. Creatinine Clearance 23 mL/min (70-130); Calcium 8.5 mg/dL (7.8-10.44); Carbon Dioxide 23 mmol/L (23-31); Chloride 97 mmol/L (98-107); Estimated GFR-MDRD 12; Glucose 119 mg/dL (83-110); Potassium 4.2 mmol/L (3.5-5.1); Sodium 133 mmol/L (136-145)
[2020-05-13] MEDS: Mometasone 200 MCG/Formoterol 5 MCG 120 PUFF INHALER INH SCH (07:45)
[2020-05-13] MEDS: HumuLIN 70/30 (300 UNITS/3 ML VIAL) SC SCH (08:05)
[2020-05-13] MEDS: Heparin 5,000 UNITS/ML VIAL SC SCH ×2 (08:06→14:00)
[2020-05-13] MEDS: Carvedilol 3.125 MG TAB PO SCH (08:06)
[2020-05-13] MEDS: Aspirin Chewable 81 MG TAB PO SCH (08:06)
[2020-05-13] MEDS: Amiodarone 200 MG TAB PO SCH ×2 (08:06→14:00)
[2020-05-13] MEDS: Allopurinol 100 MG TAB PO SCH (08:06)
[2020-05-13] MEDS: Cephalexin 250 MG CAP PO SCH (08:06)
--- NOTE | 2020-05-13 09:52 | PDOC.CPN ---
- Subjective Date: 05/13/20 Time: 09:45 Interval history: Mr. Saldana is awake, watching TV. Feels well, would like to go home. Only complaint is that the LifeVest is irritating the incision to his right subclavian area, nurse covered this and it feels better. He is ambulating in room, denies any dizziness/lightheadedness. No chest pain or tightness, denies SOB. Telemetry reviewed, no overnight events. - Review of Systems General: denies: fever/chills, weight/appetite/sleep changes, night sweats, fatigue Respiratory: denies: cough, congestion, shortness of breath, exercise intolerance Cardiovascular: denies: chest pain, palpitation, edema, paroxysmal nocturnal dyspnea, orthopnea Gastrointestinal: denies: nausea, vomiting, diarrhea, constipation, abd pain, GI bleeding - Objective Allergies/Adverse Reactions: Allergies Allergy/AdvReac Type Severity Reaction Status Date / Time No Known Allergies Allergy Verified 03/22/20 08:58 Visit Medications: Current Medications Acetaminophen (Tylenol) 650 mg PO HSPRN PRN PRN Reason: Pain Last Admin: 05/13/20 03:49 Dose: 650 mg Acetaminophen/Codeine Phosphate (Tylenol #3) 1 tab PO Q4H PRN PRN Reason: Mild Pain (1-3) Acetaminophen/Codeine Phosphate (Tylenol #3) 2 tab PO Q4H PRN PRN Reason: Moderate Pain (4-6) Albuterol Sulfate (Proventil Hfa) 2 puff INH Q6H PRN PRN Reason: Wheezing Albuterol/Ipratropium (Duoneb) 3 ml NEB Q6H PRN PRN Reason: SOB &/or Wheezing Albuterol/Ipratropium (Duoneb) 3 ml NEB BID-RT [facility] Last Admin: 05/13/20 07:35 Dose: 3 ml Allopurinol (Zyloprim) 100 mg PO QAM [facility] Last Admin: 05/13/20 08:06 Dose: 100 mg Amiodarone HCl (Cordarone) 200 mg PO TID [facility] Last Admin: 05/13/20 08:06 Dose: 200 mg Aspirin (Aspirin Chewable) 81 mg PO DAILY [facility] Last Admin: 05/13/20 08:06 Dose: 81 mg Atorvastatin Calcium (Lipitor) 80 mg PO HS [facility] Last Admin: 05/12/20 21:14 Dose: 80 mg Carvedilol (Coreg) 3.125 mg PO BID-[facility] Last Admin: 05/13/20 08:06 Dose: 3.125 mg Cephalexin (Keflex) 500 mg PO BID [facility] Last Admin: 05/13/20 08:06 Dose: 500 mg Dextrose/Water (Dextrose 50%) 25 gm SLOW IVP PRN PRN PRN Reason: Hypoglycemia Last Admin: 05/12/20 05:09 Dose: 25 gm Diphenhydramine HCl (Benadryl) 50 mg PO DAILYPRN PRN PRN Reason: Allergies Glucagon (Glucagon) 1 mg IM PRN PRN PRN Reason: Hypoglycemia Heparin Sodium (Porcine) (Heparin) 5,000 units SC TID [facility] Last Admin: 05/13/20 08:06 Dose: 5,000 units Dextrose/Water (D5w) 1,000 mls @ 0 mls/hr IV .Q0M PRN PRN Reason: Hypoglycemia Promethazine HCl 12.5 mg/ (Sodium Chloride) 50.5 mls @ 202 mls/hr IVPB Q6H PRN PRN Reason: Nausea Last Admin: 05/11/20 00:52 Dose: 50.5 mls Insulin Human Isoph/Insulin Regular (Humulin 70/30) 26 units SC BID-[facility] Last Admin: 05/13/20 08:05 Dose: 26 unit Insulin Human Lispro (Humalog) 0 units SC .MILD SLIDING SCALE PRN PRN Reason: Mild Correctional Scale Mometasone Furoate/Formoterol Fumar (Dulera 200 Mcg/5 Mcg Inhaler) 1 puff INH BID-RT [facility] Last Admin: 05/13/20 07:45 Dose: 1 puff Nitroglycerin (Nitrostat) 0.4 mg SL Q5MIN PRN PRN Reason: Chest Pain Ondansetron HCl (Zofran) 4 mg IVP Q6H PRN PRN Reason: Nausea/Vomiting Promethazine HCl (Phenergan) 12.5 mg IM/IV Q6H PRN PRN Reason: Nausea/Vomiting Last Admin: 05/10/20 12:27 Dose: 12.5 mg Ranolazine (Ranexa) 500 mg PO BID [facility] Last Admin: 05/13/20 08:06 Dose: 500 mg Sodium Chloride (Flush - Normal Saline) 10 ml IVF PRN PRN PRN Reason: Saline Flush Last Admin: 05/13/20 08:06 Dose: 10 ml Tizanidine HCl (Zanaflex) 4 mg PO DAILYPRN PRN PRN Reason: Muscle Spasm Last Admin: 05/07/20 20:52 Dose: 4 mg Zolpidem Tartrate (Ambien) 5 mg PO HSPRN PRN PRN Reason: Insomnia Last Admin: 05/12/20 21:14 Dose: 5 mg Vital Signs & Weight: Vital Signs Temp Pulse Resp BP Pulse Ox 05/13/20 08:13 93 L 05/13/20 07:47 98.3 F 89 18 126/66 93 L 05/13/20 07:35 87 15 05/13/20 03:53 98.5 F 87 16 132/63 95 Weight 266 lb 15.677 oz - Quality Measures CV meds: Beta Nathalia: Yes, RISHI/ARB: No, Statin: Yes, ASA: Yes, Plavix/Effient/ Brilinta: No, Anticoagulant: No - Physical Exam General: alert & oriented x3, appears well, no apparent distress HEENT: mucus membranes moist Neck: supple neck, no JVD/HJR Cardiac: regular rate and rhythm, no murmur, S1/S2 Lungs: clear to auscultation, normal breath sounds, no wheeze, rales, rhonchi Neuro: grossly intact Abdomen: active bowel sounds, soft, non-tender Extremities: no cyanosis, no clubbing, no edema - Labs Result Diagrams: 05/13/20 04:39 05/13/20 04:39 Troponin/CKMB CK-MB (CK-2) 1.4 ng/mL (0-6.6) 05/09/20 03:25 Troponin I 0.087 ng/mL (< 0.028) H 05/09/20 03:25 - Telemetry Sinus rhythms and dysrhythmias: sinus rhythm - Assessment/Plan Assessment/Plan: Assessment/Plan: 1. Inducible VT 2. CAD 3. Inferior scar 4. ESRD on HD 5. Ischemic CM EF at 45% 6. Obesity PLAN: - AICD attempted to be placed on right side but vein was not adequate. - He is tolerating amiodarone load well and had not had any VT since amio was started. His VT was slow and minimally symptomatic - Fitted for Lifevest, okay to discharge home with close outpatient f/u with EP , continue current amiodarone dose. Follow-up with Dr. Pineda in 2 weeks. POC reviewed with Dr. Vences and he agrees with treatment.
[2020-05-13 14:09] VITALS: TEMP 98.2
[2020-05-13 14:16] VITALS: BP 138/71
--- NOTE | 2020-05-13 20:31 | DIS ---
DATE OF ADMISSION: 05/07/2020 DATE OF DISCHARGE: 05/13/2020 DISCHARGE DIAGNOSES: 1. Ventricular tachycardia, symptomatic. 2. Chest tightness. 3. Hypoglycemia. 4. Urinary tract infection. 5. Status post placement of left internal jugular cuffed tunneled hemodialysis catheter. CONSULTATIONS: 1. Dr. Angel Luis Pineda with Cardiology. 2. Dr. Partha Shaw with General Surgery. 3. Dr. Wil Gregorio with Electrophysiology. BRIEF HISTORY OF PRESENT ILLNESS: This is a 74-year-old male with a past medical history of ischemic cardiomyopathy, who presented to the emergency room with chest tightness that occurred after he got up to use the restroom. Its severity was 7 /10. His chest pain was relieved with nitro. He also reported mild hypoglycemia. He reported difficulties in registering his blood pressure and his heart rate in his arms. Therefore, he called 911. When he arrived to the emergency room, he was noted to have ventricular tachycardia on his initial EKG. He was given amiodarone and converted to sinus rhythm. The patient was admitted for further workup. HOSPITAL COURSE: 1. Symptomatic ventricular tachycardia: The patient was initially started on amiodarone drip and admitted to the CCU. Cardiology was consulted and started on a heparin drip. The patient underwent a cardiac cath on May 07, which showed an EF of 45% with inferior akinesis. He had occluded CABG vessels, but nothing amenable to intervention. The patient underwent an EP study on 05/10 and they found inducible VT. A dual-chamber ICD was attempted to be placed, however, they were unable to access his veins. He was started on amiodarone 200 mg three times daily for a week and then will be tapered to two times daily for a week, then daily for a week. Eventually, he will need a subcutaneous ICD placement on the left side once his AV fistula matures. He will follow up with Dr. Pineda in 1 to 2 weeks. His Coreg was reduced to 3.125 mg twice daily. He will take Keflex for 5 more days to prevent ICD infection. 2. ESRD: The patient originally had a right IJ tunneled dialysis catheter. This was removed in an attempt to place a dual-chamber ICD. He had a left internal jugular tunneled hemodialysis catheter placed on 05/10. 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 3. Hypoglycemia: The patient was noted to have a blood sugar of 48 on 05/12. His NPH was reduced from 30 units twice daily to 26 units twice daily. His blood sugars remained stable thereafter from 80 to 119 at time of discsharge. 4. UTI: The patient reported burning pain with urination on admission. His UA showed turbid urine with 500 leukocyte esterase. His urine culture, however, grew yeast, which possibly could have been secondary to culture being obtained after administration of antibiotics. He was given ceftriaxone with improvement. He will be discharged with Keflex for concomitant treatment of ICD infection prevention prophylaxis. DISCHARGE PHYSICAL EXAMINATION: VITAL SIGNS: Temperature 98.2, heart rate 86, respiratory rate 20, O2 saturation 96% on room air, and blood pressure 154/69. GENERAL: The patient is obese. He is alert, awake, and oriented x3. CVS: Regular rate and rhythm with no murmurs, rubs, or gallops. LUNGS: Clear to auscultation bilaterally. ABDOMEN: Positive bowel sounds, soft, nontender, nondistended. EXTREMITIES: No significant edema. PERTINENT LABORATORY DATA: CBC on 05/13: White count 7.0, hemoglobin 11.2, hematocrit 35.0, platelet count 192. BMP on 05/13: Sodium 133, chloride 97, BUN 37, creatinine 4.82. Rest of BMP unremarkable. Hemoglobin A1c on 05/09: 6.1. LFTs on 05/07: AST 15, ALT 10, alkaline phosphatase 98. Troponin-I: 0.114, 0.150. UA on 05/07: Extra turbid urine, 30 protein, 1+ blood, 500 leukocyte esterase, 11 to 20 rbc's, greater than 50 white blood cells. COVID PCR on 05/09: Negative. IMAGING: Chest x-ray on 05/07: Stable cardiomegaly. Chest x-ray on 05/12: Stable exam. Echo on 05/09: EF 45%, grade 2 to 3 diastolic dysfunction. Moderately dilated left atrium. Calcified mitral valve leaflets. Mitral annular calcification. Mild MR. Mild TR. Mild IA. Calcified aortic valve. DISCHARGE MEDICATIONS: Medication changes: 1. Coreg was reduced to 3.125 mg p.o. b.i.d. 2. Humulin 70/30 was reduced to 26 units subcu b.i.d. New prescriptions: 1. Amiodarone 200 mg p.o. t.i.d. x7 days, then b.i.d. x7 days, then daily x7 days. 2. Keflex 500 mg p.o. b.i.d. for 20 capsules. All other home medications were resumed. Please refer his discharge work sheet. DISCHARGE INSTRUCTIONS: The patient should follow up with his PCP in a week. Follow up with Dr. Pineda in 1 to 2 weeks. Consider placement of subcutaneous ICD once the AV fistula matures. DISCHARGE CONDITION: Stable. ACTIVITY: As tolerated. DIET: Heart healthy diet. Job ID: [id number] [facility]
== END 2020-05-13 14:35 | disposition home or self-care (01) | DRG 273 ==
LOC: ERS 07:59 → CCU 11:53 → 2NO 05-10 20:04
PROVIDERS: ADMIT Internal Medicine; ATTEND Internal Medicine
PROC: 4A023N7 Measurement of Cardiac Sampling and Pressure, Left Heart, Percutaneous Approach (ICD-10-PCS; 2020-05-08)
PROC: B2111ZZ Fluoroscopy of Multiple Coronary Arteries using Low Osmolar Contrast (ICD-10-PCS; 2020-05-08)
PROC: B2151ZZ Fluoroscopy of Left Heart using Low Osmolar Contrast (ICD-10-PCS; 2020-05-08)
PROC: 0JPT3XZ Removal of Tunneled Vascular Access Device from Trunk Subcutaneous Tissue and Fascia, Percutaneous Approach (ICD-10-PCS; 2020-05-08)
PROC: 5A1D70Z Performance of Urinary Filtration, Intermittent, Less than 6 Hours Per Day (ICD-10-PCS; 2020-05-08)
PROC: 4A023FZ Measurement of Cardiac Rhythm, Percutaneous Approach (ICD-10-PCS; principal; 2020-05-10)
PROC: 4A0234Z Measurement of Cardiac Electrical Activity, Percutaneous Approach (ICD-10-PCS; 2020-05-10)
PROC: 0JH60XZ Insertion of Tunneled Vascular Access Device into Chest Subcutaneous Tissue and Fascia, Open Approach (ICD-10-PCS; 2020-05-10)
PROC: 05HN33Z Insertion of Infusion Device into Left Internal Jugular Vein, Percutaneous Approach (ICD-10-PCS; 2020-05-10)
PROC: B5141ZA Fluoroscopy of Left Jugular Veins using Low Osmolar Contrast, Guidance (ICD-10-PCS; 2020-05-10)
PROC: B544ZZA Ultrasonography of Left Jugular Veins, Guidance (ICD-10-PCS; 2020-05-10)
PROC: 5A1D70Z Performance of Urinary Filtration, Intermittent, Less than 6 Hours Per Day (ICD-10-PCS; 2020-05-12)
DX: I47.1 Supraventricular tachycardia (principal); N18.6 End stage renal disease; N39.0 Urinary tract infection, site not specified; I12.0 Hypertensive chronic kidney disease with stage 5 chronic kidney disease or end stage renal disease; I25.810 Atherosclerosis of coronary artery bypass graft(s) without angina pectoris; I25.5 Ischemic cardiomyopathy; I08.1 Rheumatic disorders of both mitral and tricuspid valves; E78.5 Hyperlipidemia, unspecified; Z20.828 Contact with and (suspected) exposure to other viral communicable diseases; D63.1 Anemia in chronic kidney disease; E66.01 Morbid (severe) obesity due to excess calories; E11.649 Type 2 diabetes mellitus with hypoglycemia without coma; J44.9 Chronic obstructive pulmonary disease, unspecified; E11.22 Type 2 diabetes mellitus with diabetic chronic kidney disease; Z79.4 Long term (current) use of insulin; Z99.2 Dependence on renal dialysis; Z95.1 Presence of aortocoronary bypass graft; Z95.5 Presence of coronary angioplasty implant and graft; Z90.49 Acquired absence of other specified parts of digestive tract; Z87.891 Personal history of nicotine dependence; Z68.38 Body mass index [BMI] 38.0-38.9, adult
CPT/HCPCS: 36005; 36415; 36416; 36600; 71045; 75820; 76942; 80048; 80053; 81003; 81015; 82553; 83036; 83690; 83735; 84484; 85025; 85027; 85347; 85730; 87086; 87635; 90935; 92960; 93005; 93010; 93306; 93459; 93620; 94640; 94760; 96365; 96366; 96375; 96376; 99152; C1730; C1752; G0257; J0282; J0690; J0696; J1580; J1642; J1644; J1815; J2001; J2250; J2550; J2704; J3010; J3490; J7070; J7620; Q9967; S0020; U0003

== ENCOUNTER 2020-05-22 07:06 | Day surgery (SDC) | payer MEDICARE, BC ==
[2020-05-19 15:23] VITALS: BMI 38.5
[2020-05-22 08:30] LABS: Anion Gap 17 mmol/L (10-20); BUN (Urea Nitrogen) 94 mg/dL (8.4-25.7); Calc. Creatinine Clearance 24 mL/min (70-130); Calcium 8.8 mg/dL (7.8-10.44); Carbon Dioxide 23 mmol/L (23-31); Chloride 103 mmol/L (98-107); Estimated GFR-MDRD 12; Glucose 121 mg/dL (83-110); Potassium 4.2 mmol/L (3.5-5.1); Sodium 139 mmol/L (136-145)
[2020-05-22] MEDS ORDERED: Lidocaine 1% w/Epinephrine 1:100K 20 ML VIAL ONE (11:31)
[2020-05-22] MEDS ORDERED: Heparin 10,000 UNITS/1 ML VIAL ONE (11:31)
[2020-05-22] MEDS ORDERED: Bupivacaine 0.25% HCL 30 ML VIAL ONE (11:31)
[2020-05-22] MEDS ORDERED: Midazolam HCl 2 mg/2 ml Vial ONE (11:41)
[2020-05-22] MEDS ORDERED: Fentanyl 100 MCG/2 ML VIAL ONE (11:41)
[2020-05-22] MEDS ORDERED: Ketamine 50 MG/ML (10ML VIAL) ONE (11:42)
[2020-05-22] MEDS ORDERED: Propofol 500 MG/50 ML VIAL ONE (11:42)
--- NOTE | 2020-05-22 12:59 | RAD ---
Chest one view HISTORY: Catheter placement. COMPARISON: 05/12/2020. FINDINGS: Cardiac silhouette is magnified and upper limits of normal in size. Pulmonary vasculature i s now more engorged with widespread reticulonodular interstitial prominence. Bilateral perihilar and mild bibasilar infiltrates. Mediastinum is midline with postoperative changes. Large caliber left internal jugular dialysis type catheter is in place with tips overlying the cavoatrial junction. No evidence of pneumothorax. IMPRESSION : Left internal jugular dialysis catheter in good radiographic position. Pulmonary vascular congestion/mild edema.
--- NOTE | 2020-05-22 19:04 | OP ---
DATE OF PROCEDURE: 05/22/2020 PREOPERATIVE DIAGNOSES: 1. Dysfunctional hemodialysis catheter in left Bob fistula, maturing. 2. Need of a defibrillator. 3. Unable to place the right subclavian vein in last attempt. ANESTHESIA: Intravenous sedation and local with 0.5% Marcaine 30 mL, mixed with 1% Xylocaine with epinephrine 20 mL. DESCRIPTION OF PROCEDURE: The patient was taken to the operating room where under intravenous sedation, neck and chest were clipped of hair, prepared with ChloraPrep, and draped in routine fashion. Local anesthetic was infiltrated in the skin and subcutaneous tissue about the operative site. Incision was made in the old neck incision on the left side and hemodialysis catheter identified, grasped dissected free, clamped, transected, and then a new stab incision was made over the left chest more medial, hopefully to allow room for a pacemaker defibrillator in the future and a hemodialysis catheter tunneled between 2 incisions, placed the fabric cuff beneath the skin exit site, secured with 2 interrupted sutures of 3-0 nylon. A J-wire placed through the old catheter left in the IJ, that was removed, and then the dilator and Peel-Away sheath under fluoroscopic visualization placed over the J-wire into the superior vena cava, and J-wire and dilator removed. Catheter placed with Peel-Away sheath. Peel-Away sheath removed. Fluoroscopically, catheter was noted to be in good position. Platysma was approximated with 4-0 Monocryl, skin with subdermal 4-0 Monocryl, and Nibbe glue applied. The patient tolerated the procedure well. Each port aspirated blood, flushed with heparinized saline solution with 1000 units of heparin per mL, indicating volume of the port. Job ID: [id number]
== END 2020-05-22 13:30 | disposition home or self-care (01) ==
LOC: SDC 07:06
PROVIDERS: ATTEND Specialist
PROC: 0JPT3XZ Removal of Tunneled Vascular Access Device from Trunk Subcutaneous Tissue and Fascia, Percutaneous Approach (ICD-10-PCS; principal; 2020-05-22)
PROC: 0JH63XZ Insertion of Tunneled Vascular Access Device into Chest Subcutaneous Tissue and Fascia, Percutaneous Approach (ICD-10-PCS; 2020-05-22)
PROC: 02PY03Z Removal of Infusion Device from Great Vessel, Open Approach (ICD-10-PCS; 2020-05-22)
PROC: 05HN33Z Insertion of Infusion Device into Left Internal Jugular Vein, Percutaneous Approach (ICD-10-PCS; 2020-05-22)
PROC: B514ZZA Fluoroscopy of Left Jugular Veins, Guidance (ICD-10-PCS; 2020-05-22)
DX: N18.6 End stage renal disease (principal); T82.41XA Breakdown (mechanical) of vascular dialysis catheter, initial encounter; Z79.02 Long term (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 of antithrombotics/antiplatelets; Z79.4 Long term (current) use of insulin; Z79.899 Other long term (current) drug therapy; Z86.73 Personal history of transient ischemic attack (TIA), and cerebral infarction without residual deficits; Z95.1 Presence of aortocoronary bypass graft; Z95.5 Presence of coronary angioplasty implant and graft; Z99.2 Dependence on renal dialysis
CPT/HCPCS: 71045; 80048; C1752; J0690; J1644; J2250; J2704; J3010; S0020

== ENCOUNTER 2020-07-09 17:40 | Inpatient (IN) | payer MEDICARE, BC, OTHER ==
[~2020-07-09 17:40] MED LIST changes: +Amiodarone 150 MG/3 ML VIAL ONE; -Rocuronium Bromide 10 MG/ML (10ML VIAL) ONE
[2020-07-09 18:17] LABS: #Eosinphils 1.1 thou/uL (0.0-0.7); #Lymphocytes 0.9 thou/uL (1.20-3.40); #Monocytes 0.8 thou/uL (0.11-0.59); #Neutrophils 5.6 thou/uL (1.40-6.50); %Basophils 0.5 % (0.0-1.0); %Eosinophils 12.6 % (0.0-10.0); %Lymphocytes 10.4 % (21.0-51.0); %Neutrophils 67.6 % (42.0-75.0); Hemoglobin 10.9 g/dL (14.0-18.0); Mean Corpuscular HGB CONC 31.9 g/dL (32.0-36.0); Mean Corpuscular Hemoglobin 31.6 pg (27.0-31.0); Mean Corpuscular Volume 99.3 fL (78.0-98.0); Mean Platelet Volume 8.8 fL (7.4-10.4); Platelet Count 255 thou/uL (130-400); Red Blood Cell (RBC) Count 3.43 mill/uL (4.70-6.10); White Blood Cell (WBC) Count 8.3 thou/uL (4.8-10.8)
--- NOTE | 2020-07-09 18:33 | RAD ---
XR Chest 1 View Portable History: Vomiting Comparison: Radiograph May 26, 2020 Findings: Dialysis catheter tip cavoatrial junction. Heart size is enlarged. Multiple left-sided rib fractures with mild displacement and small volume left sided extrapleural hematoma. No new acute displaced rib fracture. Multiple midline sternotomy wires. Impression: Mild worsening displacement of the left-sided rib fractures with small left extrapleural hematoma.
[2020-07-09 18:38] LABS: ALT (SGPT) 11 U/L (8-55); AST (SGOT) 17 U/L (5-34); Albumin 3.5 g/dL (3.4-4.8); Alkaline Phosphatase 115 U/L (40-110); Anion Gap 18 mmol/L (10-20); BUN (Urea Nitrogen) 53 mg/dL (8.4-25.7); Bilirubin, Total 0.3 mg/dL (0.2-1.2); CK (CPK) 46 U/L (30-200); Calc. Creatinine Clearance 0 mL/min (70-130); Calcium 8.7 mg/dL (7.8-10.44); Carbon Dioxide 26 mmol/L (23-31); Chloride 99 mmol/L (98-107); Estimated GFR-MDRD 13; Glucose 158 mg/dL (83-110); Potassium 4.4 mmol/L (3.5-5.1); Protein, Total 6.5 g/dL (5.8-8.1); Sodium 139 mmol/L (136-145)
[2020-07-09] MEDS ORDERED: Amiodarone 150 MG, Admixture Fee 1 EACH in Dextrose 5% in Water 100 ML IVPB SCH (18:45)
[2020-07-09 19:06] LABS: CKMB 1.6 ng/mL (0-6.6)
[2020-07-09] MEDS ORDERED: HumaLOG 300 UNITS/3 ML VIAL SC PRN (21:19)
[2020-07-09] MEDS ORDERED: Dextrose 50% Abboject 50 ML SYRINGE SLOW IVP PRN (21:19)
[2020-07-09] MEDS ORDERED: Dextrose 5% in Water 1,000 ML IV PRN (21:19)
--- NOTE | 2020-07-09 21:47 | HP ---
REASON FOR ADMISSION: Loss of consciousness and shock by his LifeVest. HISTORY OF PRESENT ILLNESS: This is a 74-year-old male patient who has history of nonsustained ventricular tachycardia and does have a LifeVest scheduled to undergo a placement of an AICD, but delayed because of his episodes of fall and fractures. Today, he was watching TV and his LifeVest started beeping. He was able to override alarm multiple times, then at some point, he lost consciousness. His LifeVest did beat and shock him. He then regained consciousness. He was brought to the ER, started on amiodarone drip. He denies any shortness of breath. Denies any chest pain. I did review his records and the patient was recently admitted to our hospital approximately a month ago after a fall with that resulted in a comminuted humeral fracture managed conservatively without surgical intervention. PAST MEDICAL HISTORY: 1. Ischemic cardiomyopathy. 2. Ventricular tachycardia. 3. UTI. 4. End-stage renal disease, on hemodialysis. 5. Status post CABG. 6. Diabetes. 7. High cholesterol. SOCIAL HISTORY: He does not smoke. Does not drink alcohol. ALLERGIES: NO NOTE OF ANY DRUG ALLERGY. REVIEW OF SYSTEMS: All systems reviewed except the above mentioned, found to be negative. PHYSICAL EXAMINATION: GENERAL: Awake, alert, oriented, does not appear in distress. VITAL SIGNS: His blood pressure is 166/42, heart rate 77, temperature is 97.9, saturating 92% on room air. HEENT: Head is nontraumatic, normocephalic. Pupils equal, reactive. Extraocular movements are intact. Nonicteric sclerae. Well injected conjunctivae. Oral mucosa normal. Mucosa normal. NECK: Supple. No adenopathy. No murmur. Thyroid is not palpable. Trachea is midline. No selective adenopathy. HEART: S1 and S2. Regular. No murmur. No gallops. No friction rubs. No displacement of PMI. LUNGS: Clear to auscultation bilaterally. No wheezes, rhonchi, or crackles. ABDOMEN: Bowel sounds are positive. Nontender abdomen. No history of hepatosplenomegaly. EXTREMITIES: He does have 2+ pitting edema in bilateral lower extremities, more on the right than the left. His right lower extremity appears to be red. It is warm to touch, but the patient says that this is chronic and nothing new to him, but usually it improves with hemodialysis, although this weekend, it did not and it got worse. NEUROLOGIC: Cranial nerves 2 through 12 within normal limits. Normal motor function. Normal sensory function. LABORATORY DATA: Blood work shows WBC of 8.3, hemoglobin of 10.9, platelets of 255. Sodium of 139, potassium of 4.4, bicarb of 26, creatinine 4.45, BUN 53. Troponin I is 0.052, previous troponin is 0.087. I did review his LifeVest, EKG tracing, and showed a sustained ventricular tachycardia and after shock returned to normal sinus rhythm. ASSESSMENT AND PLAN: 1. Cardiac: The patient had episodes of sustained ventricular tachycardia. He is post shock. He will undergo an automatic implantable cardioverter-defibrillator placement tomorrow. We will keep him n.p.o. after midnight. We will continue his current home medication including Coreg, Lasix, and Ranexa. 2. Endocrinology: He is diabetic. We will have him on insulin sliding scale. 3. For his end-stage renal disease, we will resume hemodialysis. We will consult Nephrology for that. 4. For deep venous thrombosis prophylaxis, given heparin subcutaneously. 5. The patient will be a full code and resuscitation. 6. wont start ATB for lower extremity redness since patient claims that it he has chronic edema and redness. Job ID: [id number] [facility]
[2020-07-09] MEDS: Amiodarone 450 MG, Admixture Fee 1 EACH in Dextrose 5% in Water 250 ML IVPB SCH (22:27)
[2020-07-09] MEDS ORDERED: Melatonin 3 MG TAB PO PRN (22:48)
[2020-07-09] MEDS ORDERED: Fioricet 325/50/40 mg Tablet PO SCH (23:00)
[2020-07-09] MEDS: Senokot 8.6 MG TAB PO PRN (23:31)
[2020-07-09 23:36] LABS: Troponin I 0.043 ng/mL (< 0.028)
[2020-07-10] MEDS ORDERED: Nitroglycerin 4.9 GM Bottle SL PRN (02:57)
[2020-07-10 04:06] VITALS: BMI 38.5
[2020-07-10 04:29] LABS: #Lymphocytes 1.2 thou/uL (1.20-3.40); #Monocytes 0.8 thou/uL (0.11-0.59); #Neutrophils 5.7 thou/uL (1.40-6.50); %Basophils 0.2 % (0.0-1.0); %Eosinophils 11.2 % (0.0-10.0); %Lymphocytes 13.4 % (21.0-51.0); %Monocytes 8.9 % (0.0-10.0); %Neutrophils 66.3 % (42.0-75.0); Hemoglobin 10.5 g/dL (14.0-18.0); Mean Corpuscular HGB CONC 33.1 g/dL (32.0-36.0); Mean Corpuscular Hemoglobin 32.5 pg (27.0-31.0); Mean Corpuscular Volume 98.3 fL (78.0-98.0); Mean Platelet Volume 9.6 fL (7.4-10.4); Platelet Count 241 thou/uL (130-400); Red Blood Cell (RBC) Count 3.21 mill/uL (4.70-6.10); White Blood Cell (WBC) Count 8.6 thou/uL (4.8-10.8)
[2020-07-10 04:42] LABS: Anion Gap 16 mmol/L (10-20); BUN (Urea Nitrogen) 55 mg/dL (8.4-25.7); Calc. Creatinine Clearance 28 mL/min (70-130); Calcium 8.5 mg/dL (7.8-10.44); Carbon Dioxide 25 mmol/L (23-31); Chloride 100 mmol/L (98-107); Estimated GFR-MDRD 14; Glucose 123 mg/dL (83-110); Magnesium 1.8 mg/dL (1.6-2.6); Potassium 4.3 mmol/L (3.5-5.1); Sodium 137 mmol/L (136-145)
[2020-07-10] MEDS: Amiodarone 450 MG, Admixture Fee 1 EACH in Dextrose 5% in Water 250 ML IVPB SCH (05:42)
[2020-07-10] MEDS: Carvedilol 3.125 MG TAB PO SCH ×2 (09:06→16:26)
[2020-07-10] MEDS: Furosemide 40 MG TAB PO SCH ×2 (09:06→20:46)
[2020-07-10] MEDS: Aspirin Chewable 81 MG TAB PO SCH (09:06)
[2020-07-10] MEDS: Gabapentin 100 MG CAP PO SCH (09:06)
[2020-07-10] MEDS ORDERED: Heparin 10,000 UNITS/ 10 ML VIAL ONE (10:06)
[2020-07-10 11:28] LABS: HBSAB Concentration Less than 8.00 mIU/mL; HBSAg Index 0.13 S/CO (0-0.99); Hep B Surf AB Non-Reactive (NonReactive); Hep B Surf Ag Non-Reactive S/CO (NonReactive)
[2020-07-10] MEDS: Heparin 5,000 UNITS/ML VIAL SC SCH ×3 (12:02→22:37)
--- NOTE | 2020-07-10 12:58 | CON ---
DATE OF CONSULTATION: 07/10/2020 REASON FOR CONSULTATION: Syncope and VT. HISTORY OF PRESENT ILLNESS: Mr. Saldana is a very pleasant 74-year-old white gentleman, who comes to the hospital for a syncopal spell. He was in the hospital back in May for an episode of VT. He was loaded on amiodarone and attempted to have an AICD placed. However, his vein on the left side was too small and had a tunneled catheter on the right side for hemodialysis, so decision was made to wait until fistula matured, so we can take out the tunneled catheter and eventually place an AICD on the right side. He went home with a LifeVest. He states he was at home and the device started to be beeped and he would turn it off, beeped again, turn it off about 3 times and then he just remembers waking up on the floor with all this blue gel around him. His son told him that he had passed out, called 911. EMS was arriving when he was waking up and they brought him in for evaluation. He had tracings from his LifeVest that showed monomorphic VT that was there for almost 50 seconds before he received the shock, more than likely because he was turning the device off, resetting it every time. He is doing well. He denies any chest pain, tightness, pressure. No shortness of breath. PAST MEDICAL HISTORY: 1. Coronary artery disease status post CABG x3 in 1996. 2. More recently he underwent heart catheterization that showed no history of heart catheterization on May 07 that showed an occluded RCA with an occluded vein graft to the RCA. Proximally these are occluded, and the FRANCOIS to the LAD is patent and fills the RCA from LAD collaterals. There is a patent vein graft to the diagonal. Circumflex is patent with a separate ostium in the LAD. There was inferior akinesis and an EF of about 45%. 3. Ischemic cardiomyopathy, last EF at 45%. 4. History of VT on admission recently. 5. End-stage renal disease, on hemodialysis. 6. Type 2 diabetes. 7. Hyperlipidemia. SURGICAL HISTORY: 1. CABG x3. 2. More recent heart catheterization. 3. Tunneled catheter on the right. 4. Fistula placement more recently. 5. Multiple stents placed in the past. SOCIAL HISTORY: Quit smoking after his CABG in the s. No alcohol or drugs. FAMILY HISTORY: Both parents with heart disease. OUTPATIENT MEDICATIONS: 1. Tizanidine. 2. Ranexa 500 mg b.i.d. 3. Nitroglycerin spray sublingual. 4. Humulin 70/30. 5. Gabapentin. 6. Furosemide b.i.d. 7. Carvedilol 3.125 b.i.d. 8. Atorvastatin 80 mg a day. 9. Aspirin 81 a day. 10. Tylenol with Codeine. 11. Amiodarone 200 mg a day. ALLERGIES: NO KNOWN DRUG ALLERGIES. REVIEW OF SYSTEMS: A 12-point review of systems was done and was found to be negative other than stated in the history of present illness. PHYSICAL EXAMINATION: VITAL SIGNS: Temperature 97.9, pulse 66, respiratory rate 17, saturation 94% on room air, blood pressure 116/54. GENERAL: Awake, alert, oriented x3. No distress. HEENT: Normocephalic, atraumatic. NECK: Supple. LUNGS: Clear. CARDIOVASCULAR: S1 and S2. No S3 or S4. No murmurs. No rubs. ABDOMEN: Soft. Positive bowel sounds. EXTREMITIES: No edema. SKIN: Warm and dry. LABORATORY DATA: Laboratory work was reviewed. White count of 8, hemoglobin of 10, hematocrit 34, platelet count 255. Chemistries are unremarkable with normal sodium and potassium, BUN of 55, creatinine 4.21, GFR was 14. Troponin is indeterminate range at 0.05, 0.03, 0.04. ASSESSMENT: 1. Monomorphic VT. 2. Syncope secondary to VT. 3. Ischemic cardiomyopathy with inferior scar. 4. Last EF at 45%. 5. End-stage renal disease. PLAN: 1. We will consult Electrophysiology to have an AICD placed. This will be a challenge if he is still using a tunneled catheter on the right side for dialysis if the fistula is not healed. We may have to do a joint procedure with surgery so they can do a cutdown of the vein. We will defer to Electrophysiology to see how we can proceed. 2. Continue amiodarone drip. 3. Hemodialysis per Nephrology. Thank you for letting us participate in the care of your patient. We will follow. Job ID: [id number]
[2020-07-10 13:27] LABS: SARS-CoV-2 MS2 Positive; SARS-CoV-2 N Gene Negative; SARS-CoV-2 S Gene Negative; SARS-CoV-2 by NAA Not Detected (NotDetected); SARS-CoV-2 orf1ab Negative
[2020-07-10 15:55] LABS: #Eosinphils 0.9 thou/uL (0.0-0.7); #Lymphocytes 1.3 thou/uL (1.20-3.40); #Monocytes 0.8 thou/uL (0.11-0.59); #Neutrophils 5.5 thou/uL (1.40-6.50); %Basophils 0.2 % (0.0-1.0); %Eosinophils 10.6 % (0.0-10.0); %Lymphocytes 15.1 % (21.0-51.0); %Monocytes 8.9 % (0.0-10.0); %Neutrophils 65.2 % (42.0-75.0); Hemoglobin 11.6 g/dL (14.0-18.0); Mean Corpuscular HGB CONC 31.8 g/dL (32.0-36.0); Mean Corpuscular Hemoglobin 31.6 pg (27.0-31.0); Mean Corpuscular Volume 99.4 fL (78.0-98.0); Mean Platelet Volume 8.5 fL (7.4-10.4); Platelet Count 268 thou/uL (130-400); RBC Distribution Width 18.3 % (11.5-14.5); Red Blood Cell (RBC) Count 3.68 mill/uL (4.70-6.10); White Blood Cell (WBC) Count 8.4 thou/uL (4.8-10.8)
--- NOTE | 2020-07-10 15:55 | PDOC.HOSPP ---
- Subjective Encounter Date: 07/10/20 Subjective: Patient was seen this afternoon. He was in sustained ventricular tachycardia. Risa madan was called. His blood pressure dropped to 88 systolic and the patient started experiencing chest pain. He was given amiodarone bolus without success. Subsequently, a synchronized cardioversion was performed with return to sinus rhythm and moravian of adequate blood pressures. - Objective Vital Signs & Weight: Vital Signs (12 hours) Temp Pulse Resp BP Pulse Ox 07/10/20 14:30 97.8 F 75 15 162/72 H 98 07/10/20 11:18 97.9 F 66 17 116/54 L 94 L 07/10/20 07:45 98.3 F 70 16 146/88 H 95 07/10/20 04:01 97.8 F 67 18 112/52 L 94 L Weight Weight 276 lb 6 oz I&O: 07/09/20 07/10/20 07/11/20 06:59 06:59 06:59 Intake Total 150 Output Total 400 Balance -250 Result Diagrams: 07/10/20 03:43 07/10/20 03:43 Additional Labs: Accuchecks 07/10/20 07/10/20 07/09/20 11:11 05:42 22:45 POC Glucose 115 H 137 H 150 H Hospitalist ROS - Medication Medications: Active Medications Generic Name Dose Route Start Last Admin Trade Name Freq PRN Reason Stop Dose Admin Aspirin 81 mg 07/10/20 09:00 07/10/20 09:06 Aspirin Chewable 81 Mg Tab PO 81 mg DAILY RAYNA Administration Carvedilol 3.125 mg 07/10/20 08:00 07/10/20 09:06 Carvedilol 3.125 Mg Tab PO 3.125 mg BID-WM RAYNA Administration Furosemide 40 mg 07/10/20 09:00 07/10/20 09:06 Furosemide 40 Mg Tab PO 40 mg BID RAYNA Administration Gabapentin 100 mg 07/10/20 09:00 07/10/20 09:06 Gabapentin 100 Mg Cap PO 100 mg DAILY RAYNA Administration Heparin Sodium (Porcine) 5,000 units 07/10/20 09:00 07/10/20 14:11 Heparin 5,000 Units/Ml Vial SC Not Given TID RAYNA Melatonin 3 mg 07/09/20 22:48 07/09/20 23:32 Melatonin 3 Mg Tab PO 3 mg HS PRN Administration Insomnia Ranolazine 500 mg 07/10/20 09:00 07/10/20 09:06 Ranolazine 500 Mg Tab PO 500 mg BID RAYNA Administration Senna 2 tab 07/09/20 22:48 07/09/20 23:31 Senokot 8.6 Mg Tab PO 2 tab HSPRN PRN Administration Constipation - Exam General Appearance: awake alert ENT: normocephalic atraumatic Neck: supple, no JVD Heart: RRR Respiratory: normal chest expansion, no tachypnea Neurological: cranial nerve grossly intact, no new deficit Hosp A/P (1) Sustained ventricular tachycardia Code(s): I47.2 - VENTRICULAR TACHYCARDIA Status: Acute (2) Chronic combined systolic and diastolic heart failure Code(s): I50.42 - CHRONIC COMBINED SYSTOLIC AND DIASTOLIC HRT FAIL Status: Acute (3) Diabetes mellitus Code(s): E11.9 - TYPE 2 DIABETES MELLITUS WITHOUT COMPLICATIONS Status: Acute (4) Chronic anemia Code(s): D64.9 - ANEMIA, UNSPECIFIED Status: Chronic (5) ESRD (end stage renal disease) on dialysis Code(s): N18.6 - END STAGE RENAL DISEASE; Z99.2 - DEPENDENCE ON RENAL DIALYSIS Status: Chronic - Plan Sustained ventricular tachycardia status post synchronized cardioversion with moravian of sinus rhythm. The patient is on amiodarone drip. Plan for AICD placement today.
[2020-07-10] MEDS ORDERED: Morphine 2 MG/ML VIAL SLOW IVP SCH (16:15)
[2020-07-10 16:19] LABS: Troponin I 0.036 ng/mL (< 0.028)
[2020-07-10 16:30] LABS: AST (SGOT) 22 U/L (5-34); Albumin 3.8 g/dL (3.4-4.8); Alkaline Phosphatase 124 U/L (40-110); Anion Gap 18 mmol/L (10-20); BUN (Urea Nitrogen) 19 mg/dL (8.4-25.7); Bilirubin, Total 0.6 mg/dL (0.2-1.2); Calc. Creatinine Clearance 51 mL/min (70-130); Calcium 8.7 mg/dL (7.8-10.44); Carbon Dioxide 25 mmol/L (23-31); Chloride 100 mmol/L (98-107); Estimated GFR-MDRD 28; Globulin 2.8 g/dL (2.4-3.5); Glucose 124 mg/dL (83-110); Potassium 4.9 mmol/L (3.5-5.1); Protein, Total 6.6 g/dL (5.8-8.1); Sodium 138 mmol/L (136-145)
[2020-07-10 16:31] LABS: ALT (SGPT) 11 U/L (8-55); Magnesium 1.9 mg/dL (1.6-2.6)
--- NOTE | 2020-07-10 18:38 | CON ---
DATE OF CONSULTATION: 07/10/2020 REASON FOR CONSULTATION: LifeVest discharge, sustained ventricular tachycardia. CONSULTING PHYSICIAN: Wil Gregorio MD HISTORY OF PRESENT ILLNESS: Mr. Saldana is a 74-year-old man with a history of extensive coronary artery disease with prior bypass and also more recently seen to have sustained ventricular tachycardia, reproducible by EP study. He had an attempted placement of a right subclavian ICD, but unfortunately, there were venous access difficulties and was not possible that day in time. There was some coordination with Surgery regarding a maturing left upper extremity AV fistula. His temporary dialysis access was recently moved back to the right subclavian. Approximately one month ago, he had also fallen and fractured his left arm, which was casted, but did not require surgical repair. He has been cleared by Dr. Brooks for ICD implant. Mr. Saldana has been wearing a LifeVest at home since his attempted ICD implant, but had a syncopal episode. He had noticed his LifeVest beeping him and he was able to press the button to defer a shock, but eventually passed out, which was witnessed by his son. He remembers waking up on the floor and EMS arriving. His LifeVest had fired. EGMs reviewed, showing monomorphic VT. He is currently on dialysis. EP consultation has been requested, given a sustained ventricular tachycardia and for coordination of ICD implant. He also has a history of bradycardia and is planned to receive a dual-chamber ICD. REVIEW OF SYSTEMS: Currently, Mr. Saldana is feeling well. He denies any ongoing symptoms or complaints. A 12-point review of systems was negative except that listed above in HPI. PAST MEDICAL HISTORY: 1. Coronary artery disease, status post 3-vessel bypass in 1996 with multiple stents since that time. 2. Type 2 diabetes. 3. End-stage renal disease, on dialysis. a. Left upper extremity fistula maturing. b. Tunneled right chest dialysis catheter access. 4. Hyperlipidemia. 5. Hypertension. 6. Anemia. 7. Sustained ventricular tachycardia, reproducible on EP study, now with recent LifeVest discharge. SOCIAL HISTORY: Remote history of smoking. Denies alcohol or illicit drug use. FAMILY HISTORY: Positive for CAD with mother and father of early-onset, but negative for sudden cardiac . ALLERGIES: NO KNOWN DRUG ALLERGIES. HOME MEDICATIONS: 1. Tizanidine one tablet at bedtime. 2. Ranexa 500 mg p.o. b.i.d. 3. Nitro sublingual spray as needed. 4. Humulin 70/30, 26 units subcu b.i.d. 5. Neurontin 100 mg p.o. daily. 6. Furosemide 40 mg b.i.d. 7. Coreg 3.125 mg p.o. b.i.d. 8. Atorvastatin 80 mg p.o. q.p.m. 9. Aspirin 81 mg daily. 10. Tylenol No. 3 one to two tablets q.4 hours p.r.n. pain. OBJECTIVE: VITAL SIGNS: Height 5 feet and 11 inches, weight 276 pounds, BMI is 38.5. Temperature 97.9, pulse 66, blood pressure 116/54, respirations 17, oxygen 94% on room air. GENERAL: The patient is alert and oriented. Speech is clear. Affect is appropriate. He is in no apparent distress. Resting comfortably at the time of exam. HEENT: Normocephalic and atraumatic. Sclerae are anicteric. EOMs are intact. Oral mucosa is moist and pink with adequate dentition. NECK: Supple without jugular venous distention. There is no lymphadenopathy. HEART: Rate is regularly regular with crisp S1 and S2. PMI is nondisplaced. LUNGS: Clear to auscultation bilaterally, but diminished at the bases. ABDOMEN: Obese, soft, and nontender without palpable masses. There is a right chest wall dialysis access line. Bruit and thrill are noted to the left wrist. EXTREMITIES: Warm and dry to touch. Well perfused without clubbing, cyanosis, or edema. LABORATORY DATA: Hematology; WBC 8.6, hemoglobin 10.5, platelet count 241. Chemistry; potassium 4.3, creatinine 4.2, on dialysis. Magnesium 1.8. AST 17, ALT 11, alkaline phosphatase 115. Troponin peaked at 0.052. Echocardiogram on 05/09/2020, LVEF 45%. IMPRESSION: 1. Sustained ventricular tachycardia. 2. Amiodarone therapy. 3. Ischemic cardiomyopathy. 4. End-stage renal disease. 5. Bradycardia. PLAN AND RECOMMENDATIONS: Mr. Saldana is a 74-year-old gentleman, whom we see, has sustained ventricular tachycardia, reproducible on EP study and now recurrent despite ongoing therapy with amiodarone. Amiodarone is not listed on his home medication, but he reports taking this at home at 200 mg daily. He experienced a LifeVest discharge at home, which I have reviewed EGMs and suggest monomorphic ventricular tachycardia. He is currently on amiodarone drip. Given his history of sustained ventricular tachycardia, now recent sustained ventricular tachycardia events, my recommendation continues to be for dual-chamber ICD implant. We discussed the potential difficulties with his access with his current dialysis line in his left chest wall and his maturing fistula in the left arm. We will keep him n.p.o. today and plan for potential ICD implant later this afternoon if surgery schedule is permitting. Dr. Brooks has given clearance from his recent left arm fracture, saying the fracture should be healed well enough to proceed with implant at this time. We will continue him on amiodarone and reload him in this hospital stay. Given his tendency for bradycardia, we are planning for a dual-chamber system. Mr. Saldana is well aware of the potential benefit for defibrillator and is in full agreement with this plan. A shared clinical decision-making tool has been used with him in the past. He is NYHA functional status 3. Thank you for allowing me to participate in the care of this patient. Job ID: [id number]
[2020-07-10] MEDS ORDERED: Amiodarone 450 MG, Admixture Fee 1 EACH in Dextrose 5% in Water 250 ML IVPB SCH (19:30)
[2020-07-10] MEDS: Atorvastatin Calcium 40 MG TAB PO SCH (20:45)
[2020-07-10] MEDS: tiZANidine HCl 4 MG TAB PO SCH (20:45)
[2020-07-11] MEDS: Carvedilol 3.125 MG TAB PO SCH ×2 (07:51→17:11)
[2020-07-11] MEDS: Heparin 5,000 UNITS/ML VIAL SC SCH ×3 (07:51→19:40)
[2020-07-11] MEDS: Furosemide 40 MG TAB PO SCH ×2 (07:51→19:41)
[2020-07-11] MEDS: Aspirin Chewable 81 MG TAB PO SCH (07:51)
[2020-07-11] MEDS: Gabapentin 100 MG CAP PO SCH (07:51)
--- NOTE | 2020-07-11 13:40 | PDOC.HOSPP ---
- Subjective Encounter Date: 07/11/20 Subjective: No new events overnight. - Objective Vital Signs & Weight: Vital Signs (12 hours) Temp Pulse Resp BP BP Pulse Ox 07/11/20 11:00 97.9 F 65 18 138/60 97 07/11/20 07:15 97.8 F 64 18 128/60 98 07/11/20 03:35 98.2 F 69 18 130/62 99 Weight Weight 266 lb 1.6 oz I&O: 07/10/20 07/11/20 07/12/20 06:59 06:59 06:59 Intake Total 150 682.4 Output Total 400 650 Balance -250 32.4 Result Diagrams: 07/10/20 15:47 07/10/20 15:47 Additional Labs: Accuchecks 07/11/20 07/11/20 07/11/20 11:23 06:36 03:01 POC Glucose 112 H 109 H 125 H 07/10/20 07/10/20 07/10/20 20:34 17:14 15:24 POC Glucose 93 118 H 97 Hospitalist ROS - Medication Medications: Active Medications Generic Name Dose Route Start Last Admin Trade Name Freq PRN Reason Stop Dose Admin Aspirin 81 mg 07/10/20 09:00 07/11/20 07:51 Aspirin Chewable 81 Mg Tab PO 81 mg DAILY RAYNA Administration Atorvastatin Calcium 80 mg 07/10/20 21:00 07/10/20 20:45 Atorvastatin Calcium 40 Mg Tab PO 80 mg QPM RAYNA Administration Carvedilol 3.125 mg 07/10/20 08:00 07/11/20 07:51 Carvedilol 3.125 Mg Tab PO 3.125 mg BID-WM RAYNA Administration Furosemide 40 mg 07/10/20 09:00 07/11/20 07:51 Furosemide 40 Mg Tab PO Not Given BID RAYNA Gabapentin 100 mg 07/10/20 09:00 07/11/20 07:51 Gabapentin 100 Mg Cap PO 100 mg DAILY RAYNA Administration Heparin Sodium (Porcine) 5,000 units 07/10/20 09:00 07/11/20 07:51 Heparin 5,000 Units/Ml Vial SC 5,000 units TID RAYNA Administration Amiodarone HCl 450 mg/ 259 mls @ 0 mls/hr 07/10/20 19:30 07/10/20 20:46 Miscellaneous Medication 1 IVPB 259 mls each/ Dextrose/Water INF RAYNA Administration Protocol As Directed Melatonin 3 mg 07/09/20 22:48 07/09/20 23:32 Melatonin 3 Mg Tab PO 3 mg HS PRN Administration Insomnia Ranolazine 500 mg 07/10/20 09:00 07/11/20 07:51 Ranolazine 500 Mg Tab PO 500 mg BID RAYNA Administration Senna 2 tab 07/09/20 22:48 07/09/20 23:31 Senokot 8.6 Mg Tab PO 2 tab HSPRN PRN Administration Constipation Tizanidine HCl 4 mg 07/10/20 21:00 07/10/20 20:45 Tizanidine Hcl 4 Mg Tab PO 4 mg HS RAYNA Administration - Exam General Appearance: awake alert ENT: normocephalic atraumatic Neck: supple Heart: RRR Respiratory: normal chest expansion, no tachypnea Neurological: cranial nerve grossly intact, no weakness Hosp A/P (1) Sustained ventricular tachycardia Code(s): I47.2 - VENTRICULAR TACHYCARDIA Status: Acute (2) Chronic combined systolic and diastolic heart failure Code(s): I50.42 - CHRONIC COMBINED SYSTOLIC AND DIASTOLIC HRT FAIL Status: Acute (3) Diabetes mellitus Code(s): E11.9 - TYPE 2 DIABETES MELLITUS WITHOUT COMPLICATIONS Status: Acute (4) Chronic anemia Code(s): D64.9 - ANEMIA, UNSPECIFIED Status: Chronic (5) ESRD (end stage renal disease) on dialysis Code(s): N18.6 - END STAGE RENAL DISEASE; Z99.2 - DEPENDENCE ON RENAL DIALYSIS Status: Chronic - Plan Sustained ventricular tachycardia status post synchronized cardioversion with baptism of sinus rhythm. Continue amiodarone drip. Continue aspirin, carvedilol, and Ranexa. Pending transfer for MMVT ablation and will ICD implant.
[2020-07-11] MEDS: Senokot 8.6 MG TAB PO PRN (14:59)
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
[2020-07-11] MEDS: tiZANidine HCl 4 MG TAB PO SCH (19:40)
[2020-07-11] MEDS: Atorvastatin Calcium 40 MG TAB PO SCH (19:40)
[2020-07-11 20:08] VITALS: BP 144/62; TEMP 97.8
[2020-07-11] MEDS ORDERED: Amiodarone 200 MG TAB PO SCH (21:00)
== END 2020-07-11 22:20 | disposition short-term general hospital (02) | DRG 308 ==
LOC: ERS 17:40 → 2NO 20:04
PROVIDERS: ADMIT Internal Medicine; ATTEND Internal Medicine
PROC: 5A2204Z Restoration of Cardiac Rhythm, Single (ICD-10-PCS; principal; 2020-07-10)
PROC: 5A1D70Z Performance of Urinary Filtration, Intermittent, Less than 6 Hours Per Day (ICD-10-PCS; 2020-07-10)
DX: I47.2 Ventricular tachycardia (principal); N18.6 End stage renal disease; I50.42 Chronic combined systolic (congestive) and diastolic (congestive) heart failure; Z20.828 Contact with and (suspected) exposure to other viral communicable diseases; I13.2 Hypertensive heart and chronic kidney disease with heart failure and with stage 5 chronic kidney disease, or end stage renal disease; J45.909 Unspecified asthma, uncomplicated; E11.22 Type 2 diabetes mellitus with diabetic chronic kidney disease; I25.5 Ischemic cardiomyopathy; E78.00 Pure hypercholesterolemia, unspecified; D63.1 Anemia in chronic kidney disease; R00.1 Bradycardia, unspecified; I25.10 Atherosclerotic heart disease of native coronary artery without angina pectoris; Z95.1 Presence of aortocoronary bypass graft; Z95.5 Presence of coronary angioplasty implant and graft; Z99.2 Dependence on renal dialysis; Z87.891 Personal history of nicotine dependence; Z79.899 Other long term (current) drug therapy; Z79.4 Long term (current) use of insulin; Z79.82 Long term (current) use of aspirin; Z79.1 Long term (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 of non-steroidal anti-inflammatories (NSAID); I25.2 Old myocardial infarction
CPT/HCPCS: 36415; 36416; 71045; 80048; 80053; 82550; 82553; 83735; 83880; 84484; 85025; 86706; 87340; 87635; 90935; 93005; 93010; 96365; 96366; G0257; J0282; J1644; J2270; J7070; U0003

== ENCOUNTER 2020-08-10 17:58 | Inpatient (IN) | payer MEDICARE, BC, OTHER ==
[~2020-08-10 17:58] MED LIST changes: -Amiodarone 150 MG/3 ML VIAL ONE; +Iopamidol-370 76% 500 ML 1 ML ONE
[2020-08-10 18:39] LABS: #Basophils 0.1 thou/uL (0.0-0.2); #Eosinphils 0.4 thou/uL (0.0-0.7); #Lymphocytes 0.8 thou/uL (1.20-3.40); #Monocytes 0.9 thou/uL (0.11-0.59); #Neutrophils 6.8 thou/uL (1.40-6.50); %Basophils 0.6 % (0.0-1.0); %Eosinophils 4.8 % (0.0-10.0); %Lymphocytes 8.9 % (21.0-51.0); %Monocytes 9.8 % (0.0-10.0); Hemoglobin 11.7 g/dL (14.0-18.0); Mean Corpuscular HGB CONC 31.3 g/dL (32.0-36.0); Mean Corpuscular Hemoglobin 30.8 pg (27.0-31.0); Mean Corpuscular Volume 98.2 fL (78.0-98.0); Mean Platelet Volume 8.3 fL (7.4-10.4); Platelet Count 363 thou/uL (130-400); RBC Distribution Width 16.1 % (11.5-14.5); Red Blood Cell (RBC) Count 3.79 mill/uL (4.70-6.10); White Blood Cell (WBC) Count 8.9 thou/uL (4.8-10.8)
--- NOTE | 2020-08-10 18:57 | RAD ---
Chest AP view INDICATION: Difficulty ambulating; just reaches from cardiac rehabilitation with history of ventricul ar tachycardia COMPARISON: Prior exam dated July 09, 2020 FINDINGS: Lungs: There is bilateral interstitial edema Cardiac silhouette: There is moderate cardiomegaly Pulmonary vasculature: There is pulmonary vascular congestion Pleural spaces: There are [id number] bilateral pleural effusions Upper abdomen: No abnormality seen. Osseous structures: No acute osseous abnormality. Additional findings: There is a new dual lead AICD overlying left chest wall. Post-CABG changes stab le. Right IJ dialysis catheter is unchanged. IMPRESSION: Worsening cardiomegaly, pulmonary vascular congestion, bilateral pulmonary edema and bilateral pleura l effusions suggest worsening CHF. New dual lead AICD overlying left chest wall.
[2020-08-10 19:08] LABS: ALT (SGPT) 12 U/L (8-55); AST (SGOT) 37 U/L (5-34); Albumin 3.7 g/dL (3.4-4.8); Alkaline Phosphatase 218 U/L (40-110); Anion Gap 19 mmol/L (10-20); BUN (Urea Nitrogen) 32 mg/dL (8.4-25.7); Bilirubin, Total 0.5 mg/dL (0.2-1.2); CK (CPK) 68 U/L (30-200); Calc. Creatinine Clearance 0 mL/min (70-130); Calcium 8.2 mg/dL (7.8-10.44); Carbon Dioxide 27 mmol/L (23-31); Chloride 90 mmol/L (98-107); Estimated GFR-MDRD 12; Globulin 3.2 g/dL (2.4-3.5); Glucose 121 mg/dL (83-110); Potassium 4.8 mmol/L (3.5-5.1); Protein, Total 6.9 g/dL (5.8-8.1); Sodium 131 mmol/L (136-145)
[2020-08-10 19:22] LABS: CKMB 3.3 ng/mL (0-6.6)
--- NOTE | 2020-08-10 19:28 | RAD ---
FOUR VIEWS RIGHT KNEE: 08/10/20 COMPARISON: None. HISTORY: Fall with knee pain. FINDINGS: Four views of the right knee shows no evidence of acute fracture or dislocation. No knee effusion is seen. No significant degenerative changes are seen. The vascular calcifications are present. IMPRESSION: No evidence of acute osseous abnormality. POS: EAA
--- NOTE | 2020-08-10 19:29 | RAD ---
FOUR VIEWS OF THE LEFT KNEE: 08/10/20 HISTORY: Fall with knee pain. FINDINGS: Four views of the left knee shows no evidence of acute fracture or dislocation. No knee effusion is s een. No significant degenerative changes are seen. No significant degenerative changes are seen. Vasc ular calcifications are present. IMPRESSION: No evidence of acute osseous abnormality. POS: EAA
--- NOTE | 2020-08-10 19:33 | RAD ---
SINGLE VIEW OF THE PELVIS: 08/10/20 COMPARISON: None. HISTORY: Fall with pelvic pain. FINDINGS: Single view of the pelvis is limited secondary to rotation. No obvious fracture or dislocation are se en. Degenerative changes are seen in the lumbar spine. No significant degenerative changes are seen i n either hip. Vascular calcifications are seen. IMPRESSION: No evidence of acute osseous abnormality. POS: EAA
--- NOTE | 2020-08-10 20:39 | CT ---
CTA Angio Chest W WO Con 08/10/2020 8:10 PM Indication: 74-year-old male with fall and weakness Technique: Multiple CTA images were obtained of the thorax with IV contrast. 3-D rendering: MIP jitendra nstructed images were created and reviewed. Comparison: Prior CT of the chest dated May 12, 2018 Findings: Pulmonary arteries: No central or segmental pulmonary embolus is evident. Heart and Aorta: There is cardiomegaly with pulmonary vascular congestion. There are prominent vascu lar calcifications involving the coronary arteries and thoracic aorta. There is a 2-lead AICD overlying the left chest wall. Mediastinum:There is stable mildly prominent mediastinal and hilar lymph nodes. Lungs:There is bibasilar atelectasis. There areas of subsegmental atelectasis involving the upper lob es and right middle lobe Pleural space: There are small bilateral pleural effusions Upper Abdomen: There is moderate amount retained stool within colon. Osseous Structures: There are multiple healing bilateral rib fractures. There are mildly displaced a nterolateral right second through seventh rib fractures. There are anterior left second through fifth rib fracture. There is segmental fractures involving the left seventh, eighth and ninth ribs. T here is a lateral fracture involving the left sixth rib. There is a posterior fracture involving the left 10th rib. Soft tissues:No abnormality. Other findings:None. Impression: 1. No central or segmental pulmonary embolus. 2. Findings suspicious for CHF. 3. Multiple healing bilateral rib fractures as above
[2020-08-10] MEDS ORDERED: Aspirin Chewable 81 MG TAB ONE (21:00)
[2020-08-10 21:46] LABS: Troponin I 0.042 ng/mL (< 0.028)
--- NOTE | 2020-08-10 21:55 | PDOC.EVN ---
Event Note - Event Note Event Note: [id number] dictated
--- NOTE | 2020-08-11 00:44 | HP ---
CHIEF COMPLAINT: Generalized weakness and shortness of breath. HISTORY OF PRESENT ILLNESS: Mr. Saldana is a 74-year-old male with past medical history of end-stage renal disease, on hemodialysis Friday, Friday, and Friday; congestive heart failure; ventricular tachycardia/cardiac arrhythmia; hypertension; asthma; anemia; type 2 diabetes; coronary artery disease, coronary artery bypass graft surgery; among others, was brought to the emergency room with generalized weakness. The patient is coming from home, released from [facility] this afternoon. The patient was in cardiac rehab, unable to ambulate since being home, legs feel like jello. Denies chest pain or shortness of breath. He has been having back pain since he had a fall a few weeks ago. Workup in the emergency room, the patient was found to be edematous, elevated BNP around 800, CTA of the chest was done, which was negative for central or segmental pulmonary embolus, finding suspicious of congestive heart failure, multiple healing bilateral rib fractures. Imaging studies of the knee, no acute findings, troponin is indeterminate 0.04, BUN is 32, creatinine 4.6, sodium 131, glucose 121. BNP is elevated at 847. The patient is being admitted to hospital for further management. PAST MEDICAL HISTORY: As mentioned above in history of present illness. PAST SURGICAL HISTORY: 1. Coronary artery bypass graft surgery. 2. Tonsillectomy. 3. Fistula of left arm. 4. Dialysis catheter to the right subclavian. 5. AICD. SOCIAL HISTORY: Denies alcohol use. Denies drug use. No smoking history. FAMILY HISTORY: Reviewed and noncontributory. HOME MEDICATIONS: Please see home medication reconciliation form for updated medications. ALLERGIES: NO KNOWN ALLERGIES. REVIEW OF SYSTEMS: Review of 14 systems negative except what is mentioned in history of present illness. PHYSICAL EXAMINATION: GENERAL: The patient is awake, alert, in mild distress. VITAL SIGNS: Blood pressure 139/63, pulse is 62, respiratory rate is 18, temperature 98.3, oxygen saturation 98%. HEAD AND NECK: Normocephalic, atraumatic. NECK: Supple. CHEST: A few bibasilar crackles. HEART: Irregularly irregular. ABDOMEN: Obese, soft. Bowel sounds present. NEUROLOGIC: Awake, alert, moving extremities. PSYCH: Unable to assess. EXTREMITIES: No clubbing. No cyanosis. There is arterial insufficiency in bilateral lower extremities. Warm and perfused. SKIN: Sacral decubitus, grade 2. No erythema. LABORATORY DATA: As mentioned above in history of present illness. ASSESSMENT AND PLAN: 1. Generalized weakness. 2. Fluid overload/congestive heart failure exacerbation. 3. Sacral decubitus ulcer, stage II. 4. End-stage renal disease, needing hemodialysis. 5. Diabetes mellitus, type 2. 6. Peripheral vascular disease. 7. Coronary artery disease with history of coronary artery bypass graft surgery. 8. History of cardiac arrhythmias/ventricular tachycardia. 9. Anemia. PLAN: 1. Admit. 2. Telemetry monitoring. 3. Consult the patient's breakfast bar attendant in a.m. to arrange for hemodialysis. 4. May need PT/OT eval. 5. Reconcile home medications. 6. DVT prophylaxis as appropriate. 7. Monitor hemoglobin and hematocrit. 8. Reconcile home medications. 9. DVT prophylaxis as appropriate. 10. Expected length of stay, at least one midnight if patient is stable and further workup negative. Job ID: [id number]
[2020-08-11 01:16] LABS: Troponin I 0.045 ng/mL (< 0.028)
[2020-08-11] MEDS: Furosemide 40 MG/4 ML VIAL SLOW IVP SCH ×2 (05:35→17:13)
[2020-08-11 08:36] LABS: #Basophils 0.1 thou/uL (0.0-0.2); #Eosinphils 0.4 thou/uL (0.0-0.7); #Lymphocytes 0.7 thou/uL (1.20-3.40); #Monocytes 0.9 thou/uL (0.11-0.59); #Neutrophils 5.7 thou/uL (1.40-6.50); %Basophils 1.1 % (0.0-1.0); %Eosinophils 5.5 % (0.0-10.0); %Lymphocytes 9.4 % (21.0-51.0); %Monocytes 11.1 % (0.0-10.0); %Neutrophils 73.1 % (42.0-75.0); Mean Corpuscular HGB CONC 31.5 g/dL (32.0-36.0); Mean Corpuscular Hemoglobin 31.6 pg (27.0-31.0); Mean Platelet Volume 7.6 fL (7.4-10.4); Platelet Count 326 thou/uL (130-400); RBC Distribution Width 15.9 % (11.5-14.5); White Blood Cell (WBC) Count 7.8 thou/uL (4.8-10.8)
[2020-08-11 08:49] LABS: ALT (SGPT) Less than 7 U/L (8-55); AST (SGOT) 22 U/L (5-34); Albumin 3.3 g/dL (3.4-4.8); Alkaline Phosphatase 185 U/L (40-110); Anion Gap 14 mmol/L (10-20); BUN (Urea Nitrogen) 34 mg/dL (8.4-25.7); Bilirubin, Total 0.4 mg/dL (0.2-1.2); Calc. Creatinine Clearance 22 mL/min (70-130); Calcium 8.1 mg/dL (7.8-10.44); Carbon Dioxide 25 mmol/L (23-31); Chloride 92 mmol/L (98-107); Estimated GFR-MDRD 12; Globulin 2.8 g/dL (2.4-3.5); Glucose 104 mg/dL (83-110); Potassium 4.2 mmol/L (3.5-5.1); Protein, Total 6.1 g/dL (5.8-8.1); Sodium 127 mmol/L (136-145)
[2020-08-11] MEDS ORDERED: FLU VACC QS2020-21(65YR UP)/PF 240 MCG/0.7 ML SYRINGE IM ONE (09:00)
[2020-08-11] MEDS: Sevelamer Carbonate 800 MG TAB PO SCH ×3 (10:01→17:07)
[2020-08-11 11:02] LABS: SARS-CoV-2 MS2 Positive; SARS-CoV-2 N Gene Negative; SARS-CoV-2 S Gene Negative; SARS-CoV-2 by NAA Not Detected (NotDetected); SARS-CoV-2 orf1ab Negative
--- NOTE | 2020-08-11 12:33 | PDOC.HOSPP ---
- Subjective Encounter Date: 08/11/20 Encounter Time: 10:30 Subjective: no c/o chest pain or palp sob is better is having trouble to even mobilize on bed due to deconditioning, but says [facility] - Objective Vital Signs & Weight: Vital Signs (12 hours) Temp Pulse Pulse Resp BP BP BP 08/11/20 09:07 61 125/55 L 154/57 H 08/11/20 07:46 97.7 F 60 16 133/54 L 08/11/20 03:26 97.3 F L 60 15 129/50 L Pulse Ox Pulse Ox Pulse Ox 08/11/20 09:07 98 98 08/11/20 07:46 99 08/11/20 03:26 96 Weight Weight 259 lb 14.4 oz Result Diagrams: 08/11/20 08:12 08/11/20 08:12 Hospitalist ROS - Medication Medications: Active Medications Generic Name Dose Route Start Last Admin Trade Name Freq PRN Reason Stop Dose Admin Furosemide 80 mg 08/11/20 06:00 08/11/20 05:35 Furosemide 40 Mg/4 Ml Vial SLOW IVP 80 mg 0600,1400 RAYNA Administration Sevelamer Carbonate 2,400 mg 08/11/20 08:00 08/11/20 10:01 Sevelamer Carbonate 800 Mg Tab PO Not Given TID-WM RAYNA - Exam General Appearance: awake alert, ill appearing Eye: PERRL, anicteric sclera ENT: no oropharyngeal lesions, moist mucosa Neck: supple, no JVD Heart: RRR, no murmur Respiratory: no wheezes, no ronchi, rales Gastrointestinal: soft, non-tender, non-distended, normal bowel sounds Extremities: no cyanosis, 1+ LE edema Neurological: cranial nerve grossly intact, no focal deficits Psychiatric: A&O x 3 Hosp A/P (1) Acute exacerbation of CHF (congestive heart failure) Code(s): I50.9 - HEART FAILURE, UNSPECIFIED Status: Acute Qualifiers: Heart failure type: combined systolic and diastolic Qualified Code(s): I50 .43 - Acute on chronic combined systolic (congestive) and diastolic (congestive) heart failure (2) DM type 2 (diabetes mellitus, type 2) Status: Chronic Qualifiers: Diabetes mellitus assistant film editor insulin use: with assistant film editor use Diabetes mellitus complication status: with kidney complications Diabetes mellitus complication detail: with chronic kidney disease Chronic kidney disease stage: on chronic dialysis Qualified Code(s): E11.22 - Type 2 diabetes mellitus with diabetic chronic kidney disease; N18.6 - End stage renal disease; Z79.4 - senior microsoft consultant (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 of insulin; Z99.2 - Dependence on renal dialysis (3) Obesity (BMI 30-39.9) Code(s): E66.9 - OBESITY, UNSPECIFIED Status: Chronic (4) H/O sustained ventricular tachycardia Code(s): Z86.79 - PERSONAL HISTORY OF OTHER DISEASES OF THE CIRCULATORY SYSTEM Status: Chronic (5) H/O cardiac arrest Code(s): Z86.74 - PERSONAL HISTORY OF SUDDEN CARDIAC ARREST Status: Acute (6) Multiple fractures of ribs of both sides Code(s): S22.43XA - MULTIPLE FRACTURES OF RIBS, BILATERAL, INIT FOR CLOS FX Status: Acute Qualifiers: Encounter type: sequela Fracture type: closed Qualified Code(s): S22.43XS - Multiple fractures of ribs, bilateral, sequela (7) Anemia in CKD (chronic kidney disease) Code(s): N18.9 - CHRONIC KIDNEY DISEASE, UNSPECIFIED; D63.1 - ANEMIA IN CHRONIC KIDNEY DISEASE Status: Chronic (8) Physical deconditioning Code(s): R53.81 - OTHER MALAISE Status: Acute (9) Volume overload Code(s): E87.70 - FLUID OVERLOAD, UNSPECIFIED Status: Acute (10) ESRD (end stage renal disease) on dialysis Code(s): N18.6 - END STAGE RENAL DISEASE; Z99.2 - DEPENDENCE ON RENAL DIALYSIS Status: Chronic - Plan volume removal with HD today, is being consulted d/w , will see him change status to inpatient recent h/o cardiac arrest, succesfull cpr and aicd placement at [facility] [place] was dc'd from [facility] rehab yesterday to home he does not want residential for dc plan, prefers to go to rehab case mgmt consultation for placemnt amiodarone dose need to be confirmed by staff continue other home meds as above PT/OT roldan
[2020-08-11 12:54] LABS: HBSAg Index 0.14 S/CO (0-0.99); Hep B Surf Ag Non-Reactive S/CO (NonReactive)
[2020-08-11] MEDS ORDERED: Heparin 10,000 UNITS/ 10 ML VIAL ONE (14:35)
[2020-08-11] MEDS: Senokot S 8.6-50 MG TAB PO SCH ×2 (17:07→20:42)
[2020-08-11] MEDS: Carvedilol 3.125 MG TAB PO SCH ×2 (17:07→17:14)
[2020-08-11] MEDS: Aspirin Chewable 81 MG TAB PO SCH (17:13)
[2020-08-11] MEDS: Gabapentin 100 MG CAP PO SCH (17:13)
[2020-08-11] MEDS: Polyethylene Glycol 3350 17 GM Packet PO SCH (17:13)
--- NOTE | 2020-08-11 20:14 | CON ---
DATE OF CONSULTATION: 08/11/2020 REASON FOR CONSULTATION: Elevated BNP. HISTORY OF PRESENT ILLNESS: Mr. Saldana is a pleasant 74-year-old white gentleman, who comes to the hospital for generalized weakness and shortness of breath. He is on hemodialysis Friday, Friday, Friday and was recently admitted for ventricular arrhythmias and had had received shocks from his LifeVest. He had to be transferred over to [place] for higher level of care. Over there he actually had an episode of cardiopulmonary arrest from VT. They had to come in and do chest compressions on him. This was before his AICD was placed. Eventually, he received an AICD and went to rehab. He was discharged home yesterday, became more hypoxic as he would not wear his oxygen as well as getting more short of breath and feeling generalized weakness, so 911 was called. EMS arrived and brought him in for further evaluation. Currently, Mr. Saldana denies any chest pain, tightness, pressure. No therapies delivered from his AICD, which is a Medtronic. PAST MEDICAL HISTORY: 1. Coronary artery disease status post CABG x3 in 1996. 2. Most recent heart catheterization on May 07 shows an occluded RCA with an occluded vein graft to the right. All proximal wiyot coronaries are occluded. FRANCOIS to the LAD is patent and fills the RCA from LAD collaterals and vein graft to a diagonal. He has patent circumflex, has a separate ostium than the LAD and is patent. Most recent EF was about 45%. 3. Ischemic cardiomyopathy with last EF at 45%. 4. History of VT. 5. End-stage renal disease, on hemodialysis. 6. Type 2 diabetes. 7. Hyperlipidemia. SURGICAL HISTORY: 1. CABG x3. 2. Heart catheterization. 3. Tunneled catheter on the right. 4. Fistula placement. 5. AICD placement more recently, Medtronic brand. 6. Multiple stents in the past. SOCIAL HISTORY: Quit smoking after CABG. No alcohol or drugs. FAMILY HISTORY: Both parents with heart disease. OUTPATIENT MEDICATIONS: 1. Senokot. 2. Renvela. 3. Tizanidine. 4. MiraLAX. 5. Melatonin. 6. Amiodarone 200 mg daily. 7. Atorvastatin 80 mg q.p.m. 8. Aspirin 81 a day. 9. Furosemide. 10. Carvedilol 3.125 b.i.d. 11. Ranolazine 500 mg b.i.d. 12. Gabapentin 100 mg a day. ALLERGIES: NO KNOWN DRUG ALLERGIES. REVIEW OF SYSTEMS: A 12-point review of systems was done and was found to be negative other than stated in the history of present illness. PHYSICAL EXAMINATION: VITAL SIGNS: Temperature 97.8, pulse 72, respiratory rate 16. Saturating when I walked in, he was at 82% on room air. I placed him back on oxygen and nasal cannula at 4 L. He was back up to 96%. Blood pressure 118/46. GENERAL: Awake, alert, oriented x3 in no distress. HEENT: Normocephalic and atraumatic. NECK: Supple. LUNGS: Clear. CARDIOVASCULAR: S1, S2. No S3 or S4. There is a grade 2/6 systolic murmur at the right upper sternal border. ABDOMEN: Soft with positive bowel sounds. EXTREMITIES: Trace edema. SKIN: Warm and dry. LABORATORY DATA: Laboratory work was reviewed. CBC, chemistries, and COVID serologies were reviewed. ASSESSMENT/PLAN: 1. [id number] systolic heart failure. 2. Coronary artery disease, stable. No acute coronary syndrome. 3. Generalized weakness. 4. History of ventricular tachycardia, status post automatic implantable cardioverter defibrillator .. PLAN: 1. We will interrogate AICD. 2. Hemodialysis for fluid management. 3. Continue cardiac regimen. 4. Amiodarone will increase to 200 mg twice a day for now. Thank you for letting us participate in the care of your patient. Job ID: [id number]
[2020-08-11] MEDS: Atorvastatin Calcium 40 MG TAB PO SCH (20:41)
[2020-08-11] MEDS: Melatonin 3 MG TAB PO SCH (20:42)
[2020-08-11] MEDS: Amiodarone 200 MG TAB PO SCH (20:42)
[2020-08-12 04:37] LABS: Anion Gap 17 mmol/L (10-20); BUN (Urea Nitrogen) 21 mg/dL (8.4-25.7); Calc. Creatinine Clearance 28 mL/min (70-130); Carbon Dioxide 20 mmol/L (23-31); Chloride 99 mmol/L (98-107); Estimated GFR-MDRD 15; Potassium 4.6 mmol/L (3.5-5.1); Sodium 131 mmol/L (136-145)
[2020-08-12 04:38] LABS: Calcium 8.4 mg/dL (7.8-10.44); Glucose 116 mg/dL (83-110)
[2020-08-12] MEDS: Furosemide 40 MG/4 ML VIAL SLOW IVP SCH (05:29)
[2020-08-12] MEDS: Sevelamer Carbonate 800 MG TAB PO SCH ×3 (08:32→16:40)
[2020-08-12] MEDS: Carvedilol 3.125 MG TAB PO SCH ×2 (08:34→16:40)
[2020-08-12] MEDS: Polyethylene Glycol 3350 17 GM Packet PO SCH (08:34)
[2020-08-12] MEDS: Aspirin Chewable 81 MG TAB PO SCH (08:34)
[2020-08-12] MEDS: Gabapentin 100 MG CAP PO SCH (08:34)
[2020-08-12] MEDS: Senokot S 8.6-50 MG TAB PO SCH ×2 (08:34→21:53)
[2020-08-12] MEDS: Amiodarone 200 MG TAB PO SCH ×2 (08:34→21:53)
[2020-08-12] MEDS ORDERED: Amiodarone 200 MG TAB PO SCH (09:00)
--- NOTE | 2020-08-12 12:30 | PDOC.HOSPP ---
- Subjective Encounter Date: 08/12/20 Encounter Time: 10:45 Subjective: is getting HD no sob or chest pain now is watching tv - Objective Vital Signs & Weight: Vital Signs (12 hours) Temp Pulse Resp BP Pulse Ox 08/12/20 08:40 100 08/12/20 08:00 97.4 F L 69 16 150/92 H 100 08/12/20 05:47 97.5 F L 99 18 120/64 100 08/12/20 05:21 97.6 F 64 20 124/49 L 95 Weight Weight 253 lb 8.505 oz I&O: 08/11/20 08/12/20 08/13/20 06:59 06:59 06:59 Intake Total 740 Output Total 200 Balance 540 Result Diagrams: 08/11/20 08:12 08/12/20 03:58 Additional Labs: Accuchecks 08/11/20 20:58 POC Glucose 130 H Hospitalist ROS - Medication Medications: Active Medications Generic Name Dose Route Start Last Admin Trade Name Freq PRN Reason Stop Dose Admin Amiodarone HCl 200 mg 08/11/20 21:00 08/12/20 08:34 Amiodarone 200 Mg Tab PO 200 mg BID RAYNA Administration Aspirin 81 mg 08/11/20 09:00 08/12/20 08:34 Aspirin Chewable 81 Mg Tab PO 81 mg DAILY RAYNA Administration Atorvastatin Calcium 80 mg 08/11/20 21:00 08/11/20 20:41 Atorvastatin Calcium 40 Mg Tab PO 80 mg HS RAYNA Administration Carvedilol 3.125 mg 08/11/20 08:00 08/12/20 08:34 Carvedilol 3.125 Mg Tab PO 3.125 mg BID-WM RAYNA Administration Gabapentin 100 mg 08/11/20 09:00 08/12/20 08:34 Gabapentin 100 Mg Cap PO 100 mg DAILY RAYNA Administration Melatonin 3 mg 08/11/20 21:00 08/11/20 20:42 Melatonin 3 Mg Tab PO 3 mg HS RAYNA Administration Polyethylene Glycol 17 gm 08/11/20 09:00 08/12/20 08:34 Polyethylene Glycol 3350 17 Gm Packet PO 17 gm DAILY RAYNA Administration Ranolazine 500 mg 08/11/20 09:00 08/12/20 08:34 Ranolazine 500 Mg Tab PO 500 mg BID RAYNA Administration Senna/Docusate Sodium 2 tab 08/11/20 09:00 08/12/20 08:34 Senokot S 8.6-50 Mg Tab PO 2 tab BID RAYNA Administration Sevelamer Carbonate 2,400 mg 08/11/20 08:00 08/12/20 08:32 Sevelamer Carbonate 800 Mg Tab PO Not Given TID-WM RAYNA - Exam General Appearance: awake alert, ill appearing Eye: anicteric sclera ENT: normocephalic atraumatic, moist mucosa Neck: supple, no JVD Heart: RRR, no murmur Respiratory: no wheezes, rales, rhonchi Gastrointestinal: soft, non-tender, non-distended, normal bowel sounds Extremities: no cyanosis, 1+ LE edema Neurological: cranial nerve grossly intact, no focal deficits Hosp A/P (1) Acute exacerbation of CHF (congestive heart failure) Code(s): I50.9 - HEART FAILURE, UNSPECIFIED Status: Acute Qualifiers: Heart failure type: combined systolic and diastolic Qualified Code(s): I5 0.43 - Acute on chronic combined systolic (congestive) and diastolic (congestive) heart failure (2) DM type 2 (diabetes mellitus, type 2) Status: Chronic Qualifiers: Diabetes mellitus long term care administrator insulin use: with long term care administrator use Diabetes mellitus complication status: with kidney complications Diabetes mellitus complication detail: with chronic kidney disease Chronic kidney disease stage: on chronic dialysis Qualified Code(s): E11.22 - Type 2 diabetes mellitus with diabetic chronic kidney disease; N18.6 - End stage renal disease; 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 of 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; Z99.2 - Dependence on renal dialysis (3) Obesity (BMI 30-39.9) Code(s): E66.9 - OBESITY, UNSPECIFIED Status: Chronic (4) H/O sustained ventricular tachycardia Code(s): Z86.79 - PERSONAL HISTORY OF OTHER DISEASES OF THE CIRCULATORY SYSTEM Status: Chronic (5) H/O cardiac arrest Code(s): Z86.74 - PERSONAL HISTORY OF SUDDEN CARDIAC ARREST Status: Acute (6) Multiple fractures of ribs of both sides Code(s): S22.43XA - MULTIPLE FRACTURES OF RIBS, BILATERAL, INIT FOR CLOS FX Status: Acute Qualifiers: Encounter type: sequela Fracture type: closed Qualified Code(s): S22.43XS - Multiple fractures of ribs, bilateral, sequela (7) Anemia in CKD (chronic kidney disease) Code(s): N18.9 - CHRONIC KIDNEY DISEASE, UNSPECIFIED; D63.1 - ANEMIA IN CHRONIC KIDNEY DISEASE Status: Chronic (8) Physical deconditioning Code(s): R53.81 - OTHER MALAISE Status: Acute (9) Volume overload Code(s): E87.70 - FLUID OVERLOAD, UNSPECIFIED Status: Acute (10) ESRD (end stage renal disease) on dialysis Code(s): N18.6 - END STAGE RENAL DISEASE; Z99.2 - DEPENDENCE ON RENAL DIALYSIS Status: Chronic - Plan volume removal as tolerated with HD, has had back to back HD recent h/o cardiac arrest, succesfull cpr and aicd placement at [facility] in [place] was dc'd from [facility] rehab the day he got admitted here he does not want detention for dc plan, prefers to go to rehab case mgmt consultation for placement continue amiodarone bid continue other home meds as above PT/OT roldan has multiple rib fractures including, right 2 to 7 ribs, left 2 to 10 except 6th. I.spirometry. nebs prn. poor prognosis, is very decondiitoned (unable to even turn on bed), recent hospitalization plus rehab, cardiac arrest, multiple rib fractures, chf, esrd, decubitus, palliative care consultation. Patient revealed on 08/11 that he stopped staff from giving a sixth shock during cpr at [facility] (not sure if he was awake??), he now wants to be full code including cpr
[2020-08-12] MEDS ORDERED: Heparin 10,000 UNITS/ 10 ML VIAL ONE (14:30)
--- NOTE | 2020-08-12 17:04 | PDOC.CPN ---
- Subjective Date: 08/12/20 Time: 17:02 Interval history: No new issues. Tolerating HD well. No angina. - Review of Systems General: reports: fatigue. denies: fever/chills, weight/appetite/sleep changes, night sweats Respiratory: denies: cough, congestion, shortness of breath, exercise intolerance Cardiovascular: denies: chest pain, palpitation, edema, paroxysmal nocturnal dyspnea, orthopnea Gastrointestinal: denies: nausea, vomiting, diarrhea, constipation, abd pain, GI bleeding Musculoskeletal: denies: pain, tenderness, stiffness, swelling, arthri tis/arthralgias Neurological: denies: numbness, syncope, seizure, weakness - Objective Allergies/Adverse Reactions: Allergies Allergy/AdvReac Type Severity Reaction Status Date / Time No Known Allergies Allergy Verified 07/09/20 22:17 Visit Medications: Current Medications Amiodarone HCl (Amiodarone 200 Mg Tab) 200 mg PO BID [facility] Last Admin: 08/12/20 08:34 Dose: 200 mg Documented by: Aspirin (Aspirin Chewable 81 Mg Tab) 81 mg PO DAILY [facility] Last Admin: 08/12/20 08:34 Dose: 81 mg Documented by: Atorvastatin Calcium (Atorvastatin Calcium 40 Mg Tab) 80 mg PO [facility] Last Admin: 08/11/20 20:41 Dose: 80 mg Documented by: Carvedilol (Carvedilol 3.125 Mg Tab) 3.125 mg PO BID[facility] Last Admin: 08/12/20 16:40 Dose: Not Given Documented by: Gabapentin (Gabapentin 100 Mg Cap) 100 mg PO DAILY [facility] Last Admin: 08/12/20 08:34 Dose: 100 mg Documented by: Melatonin (Melatonin 3 Mg Tab) 3 mg PO [facility] Last Admin: 08/11/20 20:42 Dose: 3 mg Documented by: Polyethylene Glycol (Polyethylene Glycol 3350 17 Gm Packet) 17 gm PO DAILY [facility] Last Admin: 08/12/20 08:34 Dose: 17 gm Documented by: Ranolazine (Ranolazine 500 Mg Tab) 500 mg PO BID [facility] Last Admin: 08/12/20 08:34 Dose: 500 mg Documented by: Senna/Docusate Sodium (Senokot S 8.6-50 Mg Tab) 2 tab PO BID [facility] Last Admin: 08/12/20 08:34 Dose: 2 tab Documented by: Sevelamer Carbonate (Sevelamer Carbonate 800 Mg Tab) 2,400 mg PO TID-WM RAYNA Last Admin: 08/12/20 16:40 Dose: Not Given Documented by: Vital Signs & Weight: Vital Signs Temp Pulse Pulse Resp BP BP Pulse Ox 08/12/20 14:52 66 117/67 08/12/20 12:15 98.4 F 66 16 135/61 100 08/12/20 08:40 100 08/12/20 08:00 97.4 F L 69 16 150/92 H 100 08/12/20 05:47 97.5 F L 99 18 120/64 100 08/12/20 05:21 97.6 F 64 20 124/49 L 95 Weight 253 lb 8.505 oz - Physical Exam General: alert & oriented x3 HEENT: mucus membranes moist Neck: supple neck Cardiac: regular rate and rhythm Lungs: normal breath sounds Neuro: no lateralizing findings Abdomen: active bowel sounds Extremities: 1+ LE edema Skin: clear Musculoskeletal: no pain - Labs Result Diagrams: 08/11/20 08:12 08/12/20 03:58 Troponin/CKMB CK-MB (CK-2) 3.3 ng/mL (0-6.6) 08/10/20 18:27 Troponin I 0.045 ng/mL (< 0.028) H 08/11/20 00:33 - Telemetry Sinus rhythms and dysrhythmias: sinus rhythm - Assessment/Plan Assessment/Plan: 1. Weakness. 2. CAD, no ACS. 3. VT s/p AICD placement in [facility] 4. ESRD 5. Deconditioning PLAN: - CV stable. - PT/OT for placement.
[2020-08-12] MEDS ORDERED: Fleet Enema 133 ML BOT PR PRN (18:48)
[2020-08-12] MEDS ORDERED: Bisacodyl 10 MG SUPP PR PRN (18:48)
[2020-08-12] MEDS: Atorvastatin Calcium 40 MG TAB PO SCH (21:53)
[2020-08-12] MEDS: Melatonin 3 MG TAB PO SCH (21:53)
[2020-08-13 04:38] LABS: Anion Gap 14 mmol/L (10-20); BUN (Urea Nitrogen) 16 mg/dL (8.4-25.7); Calc. Creatinine Clearance 29 mL/min (70-130); Calcium 8.1 mg/dL (7.8-10.44); Carbon Dioxide 27 mmol/L (23-31); Chloride 101 mmol/L (98-107); Estimated GFR-MDRD 16; Glucose 107 mg/dL (83-110); Potassium 3.9 mmol/L (3.5-5.1); Sodium 138 mmol/L (136-145)
[2020-08-13] MEDS: Polyethylene Glycol 3350 17 GM Packet PO SCH (08:17)
[2020-08-13] MEDS: Senokot S 8.6-50 MG TAB PO SCH ×2 (08:18→20:50)
[2020-08-13] MEDS: Amiodarone 200 MG TAB PO SCH ×2 (08:19→20:51)
[2020-08-13] MEDS: Carvedilol 3.125 MG TAB PO SCH ×2 (08:19→18:21)
[2020-08-13] MEDS: Sevelamer Carbonate 800 MG TAB PO SCH ×3 (08:19→18:21)
--- NOTE | 2020-08-13 11:27 | PDOC.HOSPP ---
- Subjective Encounter Date: 08/13/20 Encounter Time: 09:00 Subjective: feels better, no sob or palp is watching tv - Objective Vital Signs & Weight: Vital Signs (12 hours) Temp Pulse Resp BP Pulse Ox 08/13/20 08:19 95 08/13/20 08:15 97.8 F 67 16 104/38 L 95 08/13/20 03:12 98.2 F 68 14 117/46 L 92 L 08/13/20 00:00 96 Weight Weight 249 lb 1.957 oz I&O: 08/12/20 08/13/20 08/14/20 06:59 06:59 06:59 Intake Total 740 1260 Output Total 200 Balance 540 1260 Result Diagrams: 08/11/20 08:12 08/13/20 03:49 Additional Labs: Accuchecks 08/13/20 08/12/20 08/12/20 05:34 22:07 06:08 POC Glucose 106 H 109 H 133 H Hospitalist ROS - Medication Medications: Active Medications Generic Name Dose Route Start Last Admin Trade Name Freq PRN Reason Stop Dose Admin Amiodarone HCl 200 mg 08/11/20 21:00 08/13/20 08:19 Amiodarone 200 Mg Tab PO 200 mg BID RAYNA Administration Aspirin 81 mg 08/11/20 09:00 08/12/20 08:34 Aspirin Chewable 81 Mg Tab PO 81 mg DAILY RAYNA Administration Atorvastatin Calcium 80 mg 08/11/20 21:00 08/12/20 21:53 Atorvastatin Calcium 40 Mg Tab PO 80 mg HS RAYNA Administration Carvedilol 3.125 mg 08/11/20 08:00 08/13/20 08:19 Carvedilol 3.125 Mg Tab PO 3.125 mg BID-WM RAYNA Administration Gabapentin 100 mg 08/11/20 09:00 08/12/20 08:34 Gabapentin 100 Mg Cap PO 100 mg DAILY RAYNA Administration Melatonin 3 mg 08/11/20 21:00 08/12/20 21:53 Melatonin 3 Mg Tab PO 3 mg HS RAYNA Administration Polyethylene Glycol 17 gm 08/11/20 09:00 08/13/20 08:17 Polyethylene Glycol 3350 17 Gm Packet PO 17 gm DAILY RAYNA Administration Ranolazine 500 mg 08/11/20 09:00 08/13/20 08:18 Ranolazine 500 Mg Tab PO 500 mg BID RAYNA Administration Senna/Docusate Sodium 2 tab 08/11/20 09:00 08/13/20 08:18 Senokot S 8.6-50 Mg Tab PO 2 tab BID RAYNA Administration Sevelamer Carbonate 2,400 mg 08/11/20 08:00 08/13/20 08:19 Sevelamer Carbonate 800 Mg Tab PO Not Given TID-WM RAYNA - Exam General Appearance: awake alert, ill appearing Eye: anicteric sclera ENT: no oropharyngeal lesions, dry oral mucosa Neck: supple, no JVD Heart: RRR, no murmur Respiratory: no wheezes, no rales, rhonchi Gastrointestinal: soft, non-tender, non-distended, normal bowel sounds Extremities: no cyanosis, no edema Neurological: cranial nerve grossly intact, no focal deficits Hosp A/P (1) Acute exacerbation of CHF (congestive heart failure) Code(s): I50.9 - HEART FAILURE, UNSPECIFIED Status: Acute Qualifiers: Heart failure type: combined systolic and diastolic Qualified Code(s): I50.43 - Acute on chronic combined systolic (congestive) and diastolic (congestive) heart failure (2) DM type 2 (diabetes mellitus, type 2) Status: Chronic Qualifiers: Diabetes mellitus long-term insulin use: with long-term use Diabetes mellitus complication status: with kidney complications Diabetes mellitus complication detail: with chronic kidney disease Chronic kidney disease stage: on chronic dialysis Qualified Code(s): E11.22 - Type 2 diabetes mellitus with diabetic chronic kidney disease; N18.6 - End stage renal disease; 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 of 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; Z99.2 - Dependence on renal dialysis (3) Obesity (BMI 30-39.9) Code(s): E66.9 - OBESITY, UNSPECIFIED Status: Chronic (4) H/O sustained ventricular tachycardia Code(s): Z86.79 - PERSONAL HISTORY OF OTHER DISEASES OF THE CIRCULATORY SYSTEM Status: Chronic (5) H/O cardiac arrest Code(s): Z86.74 - PERSONAL HISTORY OF SUDDEN CARDIAC ARREST Status: Acute (6) Multiple fractures of ribs of both sides Code(s): S22.43XA - MULTIPLE FRACTURES OF RIBS, BILATERAL, INIT FOR CLOS FX Status: Acute Qualifiers: Encounter type: sequela Fracture type: closed Qualified Code(s): S22.43XS - Multiple fractures of ribs, bilateral, sequela (7) Anemia in CKD (chronic kidney disease) Code(s): N18.9 - CHRONIC KIDNEY DISEASE, UNSPECIFIED; D63.1 - ANEMIA IN CHRONIC KIDNEY DISEASE Status: Chronic (8) Physical deconditioning Code(s): R53.81 - OTHER MALAISE Status: Acute (9) Volume overload Code(s): E87.70 - FLUID OVERLOAD, UNSPECIFIED Status: Acute (10) ESRD (end stage renal disease) on dialysis Code(s): N18.6 - END STAGE RENAL DISEASE; Z99.2 - DEPENDENCE ON RENAL DIALYSIS Status: Chronic - Plan volume removal as tolerated with HD, has had back to back HD, appears to be euvolemic this morning. recent h/o cardiac arrest, succesfull cpr and aicd placement at [facility] in [place] was dc'd from [facility] rehab the day he got admitted here he does not want care home for dc plan, prefers to go to rehab, await PT eval to see if he can ambulate well. was walking 300ft with rw at rehab prior to getting dc'd?, is deconditioned now continue amiodarone bid continue other home meds as above PT/OT eval has multiple rib fractures including, right 2 to 7 ribs, left 2 to 10 except 6th. I.spirometry. nebs prn. poor prognosis, is very decondiitoned (unable to even turn on bed), recent hospitalization plus rehab, cardiac arrest, multiple rib fractures, chf, esrd, decubitus, palliative care consultation. Patient revealed on 08/11 that he stopped staff from giving a sixth shock during cpr at [facility] (not sure if he was awake??), he now wants to be full code including cpr dc planning, is medically stable for dc
[2020-08-13] MEDS ORDERED: Heparin 10,000 UNITS/ 10 ML VIAL ONE (14:28)
[2020-08-13] MEDS: Gabapentin 100 MG CAP PO SCH (18:06)
[2020-08-13] MEDS: Aspirin Chewable 81 MG TAB PO SCH (18:06)
[2020-08-13] MEDS: Atorvastatin Calcium 40 MG TAB PO SCH (20:50)
[2020-08-13] MEDS: Melatonin 3 MG TAB PO SCH (20:51)
[2020-08-13] MEDS: Acetaminophen 325 MG TAB PO PRN (20:51)
--- NOTE | 2020-08-13 21:09 | RAD ---
PORTABLE CHEST: Comparison: 08-10-2020 History: Rib pain, worse with inspiration. FINDINGS: Heart size is enlarged. Post op sternotomy changes are seen. Right sided Hemosplit catheter is presen t. Pulmonary vessels are engorged. Pleural changes are similar to the previous exam. Perihilar lung m arkings may be slightly more prominent. IMPRESSION: Cardiomegaly with suggestion of some slight increase to the pulmonary vascular engorgement. Otherwise relatively stable exam. POS: OFF
[2020-08-13] MEDS ORDERED: Ondansetron PF 4 MG/2 ML Vial IVP SCH (23:59)
[2020-08-14 04:45] LABS: Anion Gap 15 mmol/L (10-20); BUN (Urea Nitrogen) 14 mg/dL (8.4-25.7); Calc. Creatinine Clearance 31 mL/min (70-130); Calcium 8.3 mg/dL (7.8-10.44); Carbon Dioxide 26 mmol/L (23-31); Chloride 100 mmol/L (98-107); Estimated GFR-MDRD 18; Glucose 102 mg/dL (83-110); Potassium 4.2 mmol/L (3.5-5.1); Sodium 137 mmol/L (136-145)
[2020-08-14] MEDS: Carvedilol 3.125 MG TAB PO SCH ×2 (08:23→17:53)
[2020-08-14] MEDS: Senokot S 8.6-50 MG TAB PO SCH ×2 (08:23→21:37)
[2020-08-14] MEDS: Polyethylene Glycol 3350 17 GM Packet PO SCH (08:23)
[2020-08-14] MEDS: Sevelamer Carbonate 800 MG TAB PO SCH ×3 (08:24→17:42)
[2020-08-14] MEDS: Amiodarone 200 MG TAB PO SCH ×2 (08:24→21:38)
[2020-08-14] MEDS ORDERED: Heparin 10,000 UNITS/ 10 ML VIAL ONE (10:03)
[2020-08-14] MEDS: Acetaminophen 325 MG TAB PO PRN (13:00)
[2020-08-14] MEDS: Gabapentin 100 MG CAP PO SCH (13:00)
[2020-08-14] MEDS: Aspirin Chewable 81 MG TAB PO SCH (13:00)
--- NOTE | 2020-08-14 14:31 | PDOC.CPN ---
- Subjective Date: 08/14/20 Time: 14:30 Interval history: No chest pain, no SOB. Worn out after HD. - Review of Systems General: reports: fatigue. denies: fever/chills, weight/appetite/sleep changes, night sweats Respiratory: reports: exercise intolerance. denies: cough, congestion, shortness of breath Cardiovascular: denies: chest pain, palpitation, edema, paroxysmal nocturnal dyspnea, orthopnea Gastrointestinal: denies: nausea, vomiting, diarrhea, constipation, abd pain, GI bleeding Musculoskeletal: denies: pain, tenderness, stiffness, swelling, arthritis/arthralgias Neurological: denies: numbness, syncope, seizure, weakness - Objective Allergies/Adverse Reactions: Allergies Allergy/AdvReac Type Severity Reaction Status Date / Time No Known Allergies Allergy Verified 07/09/20 22:17 Visit Medications: Current Medications Acetaminophen (Acetaminophen 325 Mg Tab) 650 mg PO Q4H PRN PRN Reason: Headache/Fever or Pain Last Admin: 08/14/20 13:00 Dose: 650 mg Documented by: Amiodarone HCl (Amiodarone 200 Mg Tab) 200 mg PO BID [facility] Last Admin: 08/14/20 08:24 Dose: 200 mg Documented by: Aspirin (Aspirin Chewable 81 Mg Tab) 81 mg PO DAILY [facility] Last Admin: 08/14/20 13:00 Dose: 81 mg Documented by: Atorvastatin Calcium (Atorvastatin Calcium 40 Mg Tab) 80 mg PO [facility] Last Admin: 08/13/20 20:50 Dose: 80 mg Documented by: Bisacodyl (Bisacodyl 10 Mg Supp) 10 mg [place] Q6H PRN PRN Reason: Constipation Carvedilol (Carvedilol 3.125 Mg Tab) 3.125 mg PO BID[facility] Last Admin: 08/14/20 08:23 Dose: 3.125 mg Documented by: Gabapentin (Gabapentin 100 Mg Cap) 100 mg PO DAILY [facility] Last Admin: 08/14/20 13:00 Dose: 100 mg Documented by: Melatonin (Melatonin 3 Mg Tab) 3 mg PO [facility] Last Admin: 08/13/20 20:51 Dose: 3 mg Documented by: Polyethylene Glycol (Polyethylene Glycol 3350 17 Gm Packet) 17 gm PO DAILY [facility] Last Admin: 08/14/20 08:23 Dose: 17 gm Documented by: Ranolazine (Ranolazine 500 Mg Tab) 500 mg PO BID [facility] Last Admin: 08/14/20 08:23 Dose: 500 mg Documented by: Senna/Docusate Sodium (Senokot S 8.6-50 Mg Tab) 2 tab PO BID [facility] Last Admin: 08/14/20 08:23 Dose: 2 tab Documented by: Sevelamer Carbonate (Sevelamer Carbonate 800 Mg Tab) 2,400 mg PO TID-WM [facility] Last Admin: 08/14/20 11:10 Dose: Not Given Documented by: Sodium Biphosphate/Sodium Phosphate (Fleet Enema 133 Ml Bot) 133 ml [place] DAILYPRN PRN PRN Reason: Constipation Last Admin: 08/14/20 12:59 Dose: 133 ml Documented by: Vital Signs & Weight: Vital Signs Temp Pulse Resp BP Pulse Ox 08/14/20 11:46 98.2 F 71 18 113/53 L 93 L 08/14/20 07:15 97.9 F 67 16 118/56 L 100 08/14/20 04:00 98.5 F 72 15 110/56 L 93 L Weight 248 lb 14.43 oz - Physical Exam General: alert & oriented x3 HEENT: mucus membranes moist Neck: supple neck Cardiac: regular rate and rhythm Lungs: clear to auscultation Neuro: grossly intact Abdomen: active bowel sounds Extremities: no edema Skin: clear Musculoskeletal: no pain - Labs Result Diagrams: 08/11/20 08:12 08/14/20 03:59 Troponin/CKMB CK-MB (CK-2) 3.3 ng/mL (0-6.6) 08/10/20 18:27 Troponin I 0.045 ng/mL (< 0.028) H 08/11/20 00:33 - Telemetry Sinus rhythms and dysrhythmias: sinus rhythm - Assessment/Plan Assessment/Plan: 1. Weakness. 2. CAD, no ACS. 3. VT s/p AICD placement in [facility] 4. ESRD 5. Deconditioning PLAN: - CV stable. - PT/OT - Will sign off. Please call with any question.
[2020-08-14] MEDS: GoLYTELY 4,000 ml Bottle PO SCH ×4 (17:53→23:47)
--- NOTE | 2020-08-14 18:20 | PDOC.HOSPP ---
- Subjective Encounter Date: 08/14/20 Subjective: Patient only reports one concern today. He believes he is still very co nstipated. He has tried several medications including an enema today. He did get some results with the enema but says that just "got him started". He would like to try something additional. - Objective Vital Signs & Weight: Vital Signs (12 hours) Temp Pulse Resp BP Pulse Ox 08/14/20 16:20 97.5 F L 71 18 120/53 L 100 08/14/20 11:46 98.2 F 71 18 113/53 L 93 L 08/14/20 07:15 97.9 F 67 16 118/56 L 100 Weight Weight 248 lb 14.43 oz I&O: 08/13/20 08/14/20 08/15/20 06:59 06:59 06:59 Intake Total 1260 780 Balance 1260 780 Result Diagrams: 08/11/20 08:12 08/14/20 03:59 Additional Labs: Accuchecks 08/14/20 08/13/20 06:01 20:23 POC Glucose 108 H 143 H Hospitalist ROS - Medication Medications: Active Medications Generic Name Dose Route Start Last Admin Trade Name Freq PRN Reason Stop Dose Admin Acetaminophen 650 mg 08/13/20 20:21 08/14/20 13:00 Acetaminophen 325 Mg Tab PO 650 mg Q4H PRN Administration Headache/Fever or Pain Amiodarone HCl 200 mg 08/11/20 21:00 08/14/20 08:24 Amiodarone 200 Mg Tab PO 200 mg BID RAYNA Administration Aspirin 81 mg 08/11/20 09:00 08/14/20 13:00 Aspirin Chewable 81 Mg Tab PO 81 mg DAILY RAYNA Administration Atorvastatin Calcium 80 mg 08/11/20 21:00 08/13/20 20:50 Atorvastatin Calcium 40 Mg Tab PO 80 mg HS RAYNA Administration Carvedilol 3.125 mg 08/11/20 08:00 08/14/20 17:53 Carvedilol 3.125 Mg Tab PO 3.125 mg BID-WM RAYNA Administration Gabapentin 100 mg 08/11/20 09:00 08/14/20 13:00 Gabapentin 100 Mg Cap PO 100 mg DAILY RAYNA Administration Melatonin 3 mg 08/11/20 21:00 08/13/20 20:51 Melatonin 3 Mg Tab PO 3 mg HS RAYNA Administration Polyethylene Glycol 17 gm 08/11/20 09:00 08/14/20 08:23 Polyethylene Glycol 3350 17 Gm Packet PO 17 gm DAILY RAYNA Administration Polyethylene Glycol/Electrolytes 400 ml 08/14/20 18:00 08/14/20 17:53 Golytely 4,000 Ml Bottle PO 400 ml Q2HR RAYNA Administration Ranolazine 500 mg 08/11/20 09:00 08/14/20 08:23 Ranolazine 500 Mg Tab PO 500 mg BID RAYNA Administration Senna/Docusate Sodium 2 tab 08/11/20 09:00 08/14/20 08:23 Senokot S 8.6-50 Mg Tab PO 2 tab BID RAYNA Administration Sevelamer Carbonate 2,400 mg 08/11/20 08:00 08/14/20 17:42 Sevelamer Carbonate 800 Mg Tab PO Not Given TID-WM RAYNA Sodium Biphosphate/Sodium Phosphate 133 ml 08/12/20 18:48 08/14/20 12:59 Fleet Enema 133 Ml Bot [place] 133 ml DAILYPRN PRN Administration Constipation - Exam General Appearance: NAD, awake alert General - other findings: Obese Heart: RRR, no murmur, no gallops, no rubs, normal peripheral pulses Respiratory: CTAB, no wheezes, no rales, no ronchi, normal chest expansion, no tachypnea, normal percussion Gastrointestinal: soft, non-tender, non-distended, normal bowel sounds, no palpable masses, no hepatomegaly, no splenomegaly, no bruit Extremities: no cyanosis, no clubbing, no edema Skin: normal turgor Musculoskeletal: generalized weakness Psychiatric: flat affect, lethargic (Mildly) Hosp A/P (1) Hyponatremia Code(s): E87.1 - HYPO-OSMOLALITY AND HYPONATREMIA Status: Acute (2) Ischemic cardiomyopathy Code(s): I25.5 - ISCHEMIC CARDIOMYOPATHY Status: Chronic (3) Physical deconditioning Code(s): R53.81 - OTHER MALAISE Status: Acute (4) H/O cardiac arrest Code(s): Z86.74 - PERSONAL HISTORY OF SUDDEN CARDIAC ARREST Status: Acute (5) Multiple fractures of ribs of both sides Code(s): S22.43XA - MULTIPLE FRACTURES OF RIBS, BILATERAL, INIT FOR CLOS FX Status: Acute Qualifiers: Encounter type: sequela Fracture type: closed Qualified Code(s): S22.43XS - Multiple fractures of ribs, bilateral, sequela (6) DM type 2 (diabetes mellitus, type 2) Status: Chronic Qualifiers: Diabetes mellitus senior living insulin use: with 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 Diabetes mellitus complication status: with kidney complications Diabetes mellitus complication detail: with chronic kidney disease Chronic kidney disease stage: on chronic dialysis Qualified Code(s): E11.22 - Type 2 diabetes mellitus with diabetic chronic kidney disease; N18.6 - End stage renal disease; Z79.4 - superintendent container terminal (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 of insulin; Z99.2 - Dependence on renal dialysis (7) H/O sustained ventricular tachycardia Code(s): Z86.79 - PERSONAL HISTORY OF OTHER DISEASES OF THE CIRCULATORY SYSTEM Status: Chronic (8) Obesity (BMI 30-39.9) Code(s): E66.9 - OBESITY, UNSPECIFIED Status: Chronic (9) Diabetes mellitus Code(s): E11.9 - TYPE 2 DIABETES MELLITUS WITHOUT COMPLICATIONS Status: Acute (10) Anemia in CKD (chronic kidney disease) Code(s): N18.9 - CHRONIC KIDNEY DISEASE, UNSPECIFIED; D63.1 - ANEMIA IN CHRONIC KIDNEY DISEASE Status: Chronic (11) ESRD (end stage renal disease) on dialysis Code(s): N18.6 - END STAGE RENAL DISEASE; Z99.2 - DEPENDENCE ON RENAL DIALYSIS Status: Chronic (12) Chronic combined systolic and diastolic CHF (congestive heart failure) Code(s): I50.42 - CHRONIC COMBINED SYSTOLIC AND DIASTOLIC HRT FAIL Status: Acute (13) Constipation Code(s): K59.00 - CONSTIPATION, UNSPECIFIED Status: Acute - Plan Hyponatremia: Secondary to chronic CHF. Appears to be resolved. Severe deconditioning: Patient recently had an episode of cardiac arrest requiring fairly prolonged ACLS protocol. Patient experienced numerous rib fractures. Upon being discharged from the facility in [place] the patient only made it at home for about 1 day and was readmitted here. He has generalized weakness. Discussed with case management. Unclear that he has any remaining rehab days but will pursue that. Constipation: The patient's main concern today. He did actually have a bowel movement today with a enema. He still feels constipated. Will give him some GoLYTELY and small doses until he has a substantial bowel movement. He appears to largely have otherwise failed oral medications. Says his rectum feels very inflamed and therefore we will avoid additional enemas or suppositories. End-stage renal disease: Patient is receiving dialysis by Dr. García. Helping control volume and avoiding additional heart failure. 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 Primarily managed with volume control from dialysis. No evidence of decompensation. Multiple healing rib fractures: Secondary to CPR. Appears to be healing appropriately. Stage II decubitus present on admission: Buttock area. Continue wound care nursing.
[2020-08-14] MEDS: Atorvastatin Calcium 40 MG TAB PO SCH (21:37)
[2020-08-14] MEDS: Melatonin 3 MG TAB PO SCH (21:38)
[2020-08-15 01:28] LABS: Anion Gap 17 mmol/L (10-20); Carbon Dioxide 24 mmol/L (23-31); Chloride 101 mmol/L (98-107); Magnesium 1.9 mg/dL (1.6-2.6); Potassium 4.2 mmol/L (3.5-5.1); Sodium 138 mmol/L (136-145)
[2020-08-15] MEDS: GoLYTELY 4,000 ml Bottle PO SCH ×6 (01:43→15:07)
[2020-08-15 08:12] LABS: Anion Gap 18 mmol/L (10-20); BUN (Urea Nitrogen) 16 mg/dL (8.4-25.7); Calc. Creatinine Clearance 27 mL/min (70-130); Calcium 8.7 mg/dL (7.8-10.44); Carbon Dioxide 26 mmol/L (23-31); Chloride 100 mmol/L (98-107); Estimated GFR-MDRD 17; Glucose 129 mg/dL (83-110); Potassium 4.7 mmol/L (3.5-5.1); Sodium 139 mmol/L (136-145)
[2020-08-15] MEDS: Carvedilol 3.125 MG TAB PO SCH (08:13)
[2020-08-15] MEDS: Senokot S 8.6-50 MG TAB PO SCH (08:14)
[2020-08-15] MEDS: Aspirin Chewable 81 MG TAB PO SCH (08:14)
[2020-08-15] MEDS: Amiodarone 200 MG TAB PO SCH (08:14)
[2020-08-15] MEDS: Gabapentin 100 MG CAP PO SCH (08:14)
[2020-08-15] MEDS: Sevelamer Carbonate 800 MG TAB PO SCH ×2 (08:16→11:49)
[2020-08-15] MEDS: Polyethylene Glycol 3350 17 GM Packet PO SCH (08:18)
[2020-08-15] MEDS ORDERED: Heparin 10,000 UNITS/ 10 ML VIAL ONE (09:33)
[2020-08-15 12:40] VITALS: BMI 33.0
[2020-08-15 13:25] VITALS: BP 117/49; TEMP 97.9
--- NOTE | 2020-08-17 05:33 | PQF ---
Dear : Mahesh Gallagher Date 08/17/20 Please exercise your independent, professional judgment in responding to the clarification form. Clinical indicators are provided on the bottom of this form for your review Can you please further clarify the conflicting diagnosis of the patient? Please check appropriate box(es): Conflicting documentation was noted in the Medical Record; please clarify if patient is being treated/monitored for: [ x ] Acute on chronic Combined Systolic and diastolic CHF [ ] Chronic Combined Systolic and diastolic CHF [ ] Other diagnosis please specify [ ] Unable to determine Physician Signature: Date/Time: For continuity of documentation, please document condition throughout progress notes and discharge summary. Thank You. To be completed by CDI/Coding staff for physician review: Present Clinical Indicators - Signs / Symptoms / Labs Results and Location in Medical Record [ x ] Fluid overload/ congestive heart failure exacerbation H and P pg..2 [ x ] Chronic combined systolic and diastolic CHF. No Evidence of decompensation Hospitalist PN pg.5 [ x ] Worsening cardiomegaly, pulmonary vascular congestion, bilateral pulmonary edema Chest X ray 08/10 [ x ] Acute on chronic systolic CHF Consult pg.2 [ x ] BNP 847.3H Laboratory Present Risk Factors Results and Location in Medical Record [ x ] ESRD H and P pg..2 [ x ] DM H and P pg..2 [ x ] HTN H and P pg..2 [ x ] CAD H and P pg..2 [ x ] Ischemic cardiomyopathy Consult pg.1 Present Treatments Results and Location in Medical Record [ x ] Chest X ray 08/10 Chest X ray 08/10 [ x ] Chest/Thorax CTA 08/10 Chest/Thorax CTA 08/10 [ x ] Cardiology Consult Dr. Pineda [ x ] Furosemide 40 mg PO MAR [ x ] Furosemide 80mg IV MAR CDS/Solutions Consultant Signature: Brandan Reyes Phone #: [phone] Date 08/17/20 This is a permanent part of the Medical Record [facility]
== END 2020-08-15 15:38 | DRG 291 ==
LOC: ERS 17:58 → 2NO 20:48 → OBSVTOIN 08-11 12:05
PROVIDERS: ADMIT Internal Medicine; ATTEND Internal Medicine
PROC: 5A1D70Z Performance of Urinary Filtration, Intermittent, Less than 6 Hours Per Day (ICD-10-PCS; principal; 2020-08-11)
DX: I13.2 Hypertensive heart and chronic kidney disease with heart failure and with stage 5 chronic kidney disease, or end stage renal disease (principal); N18.6 End stage renal disease; I50.43 Acute on chronic combined systolic (congestive) and diastolic (congestive) heart failure; N17.9 Acute kidney failure, unspecified; E87.1 Hypo-osmolality and hyponatremia; Z20.828 Contact with and (suspected) exposure to other viral communicable diseases; D50.9 Iron deficiency anemia, unspecified; L89.152 Pressure ulcer of sacral region, stage 2; E11.22 Type 2 diabetes mellitus with diabetic chronic kidney disease; I25.10 Atherosclerotic heart disease of native coronary artery without angina pectoris; E11.51 Type 2 diabetes mellitus with diabetic peripheral angiopathy without gangrene; I49.9 Cardiac arrhythmia, unspecified; D63.1 Anemia in chronic kidney disease; E66.9 Obesity, unspecified; I25.5 Ischemic cardiomyopathy; K59.00 Constipation, unspecified; Z95.1 Presence of aortocoronary bypass graft; Z99.2 Dependence on renal dialysis; Z79.82 Long term (current) use of aspirin; Z79.899 Other long term (current) drug therapy; Z95.810 Presence of automatic (implantable) cardiac defibrillator; Z79.4 Long term (current) use of insulin; Z86.74 Personal history of sudden cardiac arrest; Z86.79 Personal history of other diseases of the circulatory system; S22.43XS Multiple fractures of ribs, bilateral, sequela; Z68.33 Body mass index [BMI] 33.0-33.9, adult
CPT/HCPCS: 36415; 36416; 71045; 71275; 72170; 80048; 80053; 82550; 82553; 83605; 83735; 83880; 84484; 85025; 87040; 87340; 87635; 90935; 93005; 93798; 94760; 96374; G0257; G0378; J1644; J1940; J2405; Q9967; U0003